=== PATIENT | female | born 1955 | race Caucasian/White ===

== ENCOUNTER → 2017-09-06 | Outpatient (CLI) | payer BC ==
--- NOTE | 2017-09-11 13:32 | MM ---
Reason for exam: screening (asymptomatic). History: Patient is postmenopausal and is nulliparous. Physical Findings: A clinical breast exam by your physician is recommended on an annual basis and results should be correlated with mammographic findings. MG Screening Mammo w CAD Bilateral CC and MLO view(s) were taken. No prior studies available for comparison. There are scattered fibroglandular densities. Finding: There are typically benign coarse heterogeneous, grouped/clustered calcifications in the upper outer quadrant, middle position of the right breast 7cm from the nipple adjacent to vascular structure likely vascular calcifications. ASSESSMENT: Incomplete: need additional imaging evaluation, BI-RAD 0 RECOMMENDATION: Special view mammogram of the right breast. [facility] will attempt to contact patient to return for supplemental views.
== END | disposition home or self-care (01) ==
LOC: RADMAMWWP 13:58
PROVIDERS: ATTEND Family Medicine
DX: Z12.31 Encounter for screening mammogram for malignant neoplasm of breast (principal)
CPT/HCPCS: 77067

== ENCOUNTER → 2017-09-20 | Outpatient (CLI) | payer BC ==
--- NOTE | 2017-09-20 11:45 | MM ---
Reason for exam: additional evaluation requested from abnormal screening. Last mammogram was performed less than 1 month ago. History: Patient is postmenopausal and is nulliparous. Physical Findings: Nurse did not find any significant physical abnormalities on exam. MG Work Up Mamm w CAD RT CC and MLO view(s) were taken of the right breast. Prior study comparison: September 06, 2017, bilateral MG screening mammo w CAD. There are scattered fibroglandular densities. Finding: There are coarse heterogeneous, grouped/clustered calcifications in the 10 o'clock middle position of the right breast 8cm from the nipple associated with soft tissue. These results were verbally communicated with the patient and result sheet given to the patient on 09/20/17. ASSESSMENT: Suspicious, BI-RAD 4 RECOMMENDATION: Surgical consultation and stereotactic core biopsy of the right breast. Called Dr. Pedroza with mammographic findings and has scheduled an appointment for the patient for 09/27/17 at 10:00 with [facility]) PRELIMINARY REPORT CALLED AND FAXED TO DR. PEDROZA ON 09/20/17.
== END | disposition home or self-care (01) ==
LOC: RADMAMWWP 08:50
PROVIDERS: ATTEND Family Medicine
DX: R92.8 Other abnormal and inconclusive findings on diagnostic imaging of breast (principal)
CPT/HCPCS: 77065

== ENCOUNTER 2017-12-06 13:16 | Inpatient (IN) | payer BC ==
[2017-12-06] MEDS ORDERED: ONDANSETRON 4 MG/2 ML VIAL IVP STA (13:29)
[2017-12-06] MEDS ORDERED: SODIUM CHLORIDE 0.9% 2,000 ML IV ONE (13:30)
--- NOTE | 2017-12-06 13:37 | ED ---
General Adult HPI - General Chief complaint: Nausea/Vomiting/Diarrhea Stated complaint: vomiting,low blood pressure Time Seen by Provider: 12/06/17 13:20 Source: patient, RN notes reviewed Mode of arrival: ambulatory Limitations: no limitations - History of Present Illness Initial comments: This is a 62-year-old female presents emergency Department complaining of nausea vomiting diarrhea over the last 3 days. Patient states she's in no pain. Patient denies any abdominal pain. Patient denies any chest pain difficulty breathing shortest breath per patient denies any recent antibiotic use. Patient states she took some Imodium yesterday her last bout of diarrhea was yesterday afternoon. Patient denies any fever chills. Patient denies any lightheadedness or dizziness patient states she is just overall extremely weak. Patient states she still nauseated this time. Patient denies any headache patient with any numbness weakness. - Related Data Home Medications Medication Instructions Recorded Confirmed Aspirin [Children's Aspirin] 81 mg PO DAILY 11/28/17 12/06/17 Gabapentin [Neurontin] 100 mg PO TID 11/28/17 12/06/17 Ibuprofen 200 mg PO TID 11/28/17 12/06/17 Loratadine 10 mg PO DAILY 11/28/17 12/06/17 Losartan [Cozaar] 50 mg PO DAILY 11/28/17 12/06/17 Multivit with Calcium,Iron,Min 1 tab PO DAILY 11/28/17 12/06/17 [Women's Multivitamin] Naproxen 500 mg PO BID 11/28/17 12/06/17 Omeprazole [PriLOSEC] 20 mg PO DAILY 11/28/17 12/06/17 metFORMIN HCL [Glucophage] 500 mg PO AC-SUPPER 11/28/17 12/06/17 Calcium Carbonate/Vitamin D3 1 tab PO DAILY 12/06/17 12/06/17 [Calcium 600-Vit D3 400 Caplet] Hydrochlorothiazide 12.5 mg PO DAILY 12/06/17 12/06/17 Allergies Allergy/AdvReac Type Severity Reaction Status Date / Time No Known Allergies Allergy Verified 12/06/17 13:56 Review of Systems ROS Statement: Those systems with pertinent positive or pertinent negative responses have been documented in the HPI. ROS Other: All systems not noted in ROS Statement are negative. Past Medical History Past Medical History: Diabetes Mellitus, GERD/Reflux, Hypertension History of Any Multi-Drug Resistant Organisms: None Reported Additional Past Surgical History / Comment(s): kidney surgery 30 yrs ago Past Anesthesia/Blood Transfusion Reactions: No Reported Reaction Past Psychological History: No Psychological Hx Reported Smoking Status: Never smoker Past Alcohol Use History: None Reported Past Drug Use History: None Reported - Past Family History Mother Family Medical History: Myocardial Infarction ([place]) Father Family Medical History: COPD General Exam - General Exam Comments Initial Comments: GENERAL: Patient is well-developed and well-nourished. Patient is nontoxic and well- hydrated and is in mild distress. ENT: Neck is soft and supple. No significant lymphadenopathy is noted. Oropharynx is clear. Moist mucous membranes. Neck has full range of motion without eliciting any pain. EYES: The sclera were anicteric and conjunctiva were pink and moist. Extraocular movements were intact and pupils were equal round and reactive to light. Eyelids were unremarkable. PULMONARY: Unlabored respirations. Good breath sounds bilaterally. No audible rales rhonchi or wheezing was noted. CARDIOVASCULAR: Patient is tachycardic at 105 bpm ABDOMEN: Soft and nontender with normal bowel sounds. No palpable organomegaly was noted. There is no palpable pulsatile mass. SKIN: Skin is clear with no lesions or rashes and otherwise unremarkable. NEUROLOGIC: Patient is alert and oriented x3. Cranial nerves II through XII are grossly intact. Motor and sensory are also intact. Normal speech, volume and content. Symmetrical smile. MUSCULOSKELETAL: Normal extremities with adequate strength and full range of motion. No lower extremity swelling or edema. No calf tenderness. LYMPHATICS: No significant lymphadenopathy is noted PSYCHIATRIC: Normal psychiatric evaluation. Limitations: no limitations Course Vital Signs 12/06/17 12/06/17 12/06/17 13:17 13:35 13:48 Temperature 97.8 F Pulse Rate 106 H 103 H 103 H Respiratory 20 22 22 Rate Blood Pressure 61/37 77/45 66/41 O2 Sat by Pulse 92 L 97 95 Oximetry 12/06/17 12/06/17 12/06/17 13:58 14:02 14:15 Temperature Pulse Rate 101 H 103 H 102 H Respiratory 20 20 20 Rate Blood Pressure 67/42 74/42 67/45 O2 Sat by Pulse 95 96 96 Oximetry 12/06/17 12/06/17 12/06/17 14:32 15:02 15:13 Temperature Pulse Rate 101 H 104 H 102 H Respiratory 22 20 Rate Blood Pressure 68/63 65/33 O2 Sat by Pulse 97 97 Oximetry 12/06/17 12/06/17 12/06/17 15:21 15:38 16:18 Temperature Pulse Rate 107 H 102 H 104 H Respiratory 20 24 Rate Blood Pressure 75/44 66/49 O2 Sat by Pulse 97 96 Oximetry 12/06/17 12/06/17 12/06/17 17:12 17:19 17:29 Temperature Pulse Rate 105 H 105 H 104 H Respiratory 24 24 23 Rate Blood Pressure 70/52 77/49 83/53 O2 Sat by Pulse 97 96 97 Oximetry 12/06/17 18:05 Temperature Pulse Rate 104 H Respiratory 22 Rate Blood Pressure 85/51 O2 Sat by Pulse 98 Oximetry Procedures - Sepsis Sepsis Focused Exam #1 Time Sepsis Criteria Met: 13:45 Sepsis Focused Exam Date: 12/06/17 Sepsis Focused Exam Time: 16:55 Sepsis Focused Exam Complete: Yes Vital Signs & RN Notes Reviewed: Yes Capillary Refill: > 2 Seconds: Fingers Peripheral Pulses: Weak: Radial (R), Radial (L) Skin Color: Normal for Patient Respiratory Exam: normal lung sounds Cardiovascular Exam: tachycardia (At 105 bpm) Medical Decision Making - Medical Decision Making EKG shows sinus tachycardia at 102 bpm OH interval 172 QRS is 86 QT interval 334 QTC is 435. Patient's EKG shows no ST segment elevation or depression. Patient's urine came back at 345 and appeared to be infected I started patient on antibiotics at this time and I diagnosed patient with sepsis at this time. I started the patient on Levophed because her pressure would not come up after I gave the patient for a half liters of fluid. I spoke with Dr. Holcomb and Dr. Subramanian before the patient was admitted I wrote admitting orders and placed the patient the patient in the ICU. - Lab Data Result diagrams: 12/08/17 04:30 12/08/17 12:32 Lab Results 12/06/17 12/06/17 12/06/17 Range/Units 13:30 13:30 13:30 WBC 20.5 H (3.8-10.6) k/uL RBC 4.24 (3.80-5.40) m/uL Hgb 11.7 (11.4-16.0) gm/dL Hct 35.8 (34.0-46.0) % MCV 84.5 (80.0-100.0) fL MCH 27.7 (25.0-35.0) pg MCHC 32.7 (31.0-37.0) g/dL RDW 13.2 (11.5-15.5) % Plt Count 69 L (150-450) k/uL Neutrophils % (Manual) 67 % Band Neutrophils % 23 % Lymphocytes % (Manual) 4 % Monocytes % (Manual) 3 % Metamyelocytes % 4 % Neutrophils # (Manual) 18.40 H (1.3-7.7) k/uL Lymphocytes # (Manual) 0.82 L (1.0-4.8) k/uL Monocytes # (Manual) 0.62 (0-1.0) k/uL Metamyelocytes # (Man) 0.82 H (0) k/uL Nucleated RBCs 0 (0-0) /100 WBC Manual Slide Review Performed Toxic Granulation Present Toxic Vacuolation Present Large Platelets Present RBC Morphology Normal Sodium 139 (137-145) mmol/L Potassium 3.7 (3.5-5.1) mmol/L Chloride 103 (98-107) mmol/L Carbon Dioxide 22 (22-30) mmol/L Anion Gap 14 mmol/L BUN 48 H (7-17) mg/dL Creatinine 4.10 H (0.52-1.04) mg/dL Est GFR (CKD-EPI)AfAm 13 (>60 ml/min/1.73 sqM) Est GFR (CKD-EPI)NonAf 11 (>60 ml/min/1.73 sqM) Glucose 127 H (74-99) mg/dL Estimated Ave Glu mg/dL Hemoglobin A1c (4.0-6.0) % Lactic Ac Sepsis Rflx Plasma Lactic Acid Joe (0.7-2.0) mmol/L Calcium 7.7 L (8.4-10.2) mg/dL Total Bilirubin 2.0 H (0.2-1.3) mg/dL AST 262 H (14-36) U/L ALT 182 H (9-52) U/L Alkaline Phosphatase 67 (38-126) U/L Troponin I 0.970 H* (0.000-0.034) ng/mL Total Protein 5.2 L (6.3-8.2) g/dL Albumin 2.8 L (3.5-5.0) g/dL Amylase 546 H* (30-110) U/L Lipase 23 (23-300) U/L Urine Color Urine Appearance (Clear) Urine pH (5.0-8.0) Ur Specific [place] (1.001-1.035) Urine Protein (Negative) Urine Glucose (UA) (Negative) Urine Ketones (Negative) Urine Blood (Negative) Urine Nitrite (Negative) Urine Bilirubin (Negative) Urine Urobilinogen (<2.0) mg/dL Ur Leukocyte Esterase (Negative) Urine RBC (0-5) /hpf Urine WBC (0-5) /hpf Urine WBC Clumps (None) /hpf Urine Bacteria (None) /hpf Urine Mucus (None) /hpf 12/06/17 12/06/17 12/06/17 Range/Units 13:30 13:30 14:14 WBC (3.8-10.6) k/uL RBC (3.80-5.40) m/uL Hgb (11.4-16.0) gm/dL Hct (34.0-46.0) % MCV (80.0-100.0) fL MCH (25.0-35.0) pg MCHC (31.0-37.0) g/dL RDW (11.5-15.5) % Plt Count (150-450) k/uL Neutrophils % (Manual) % Band Neutrophils % % Lymphocytes % (Manual) % Monocytes % (Manual) % Metamyelocytes % % Neutrophils # (Manual) (1.3-7.7) k/uL Lymphocytes # (Manual) (1.0-4.8) k/uL Monocytes # (Manual) (0-1.0) k/uL Metamyelocytes # (Man) (0) k/uL Nucleated RBCs (0-0) /100 WBC Manual Slide Review Toxic Granulation Toxic Vacuolation Large Platelets RBC Morphology Sodium (137-145) mmol/L Potassium (3.5-5.1) mmol/L Chloride (98-107) mmol/L Carbon Dioxide (22-30) mmol/L Anion Gap mmol/L BUN (7-17) mg/dL Creatinine (0.52-1.04) mg/dL Est GFR (CKD-EPI)AfAm (>60 ml/min/1.73 sqM) Est GFR (CKD-EPI)NonAf (>60 ml/min/1.73 sqM) Glucose (74-99) mg/dL Estimated Ave Glu mg/dL 151 Hemoglobin A1c 6.9 H (4.0-6.0) % Lactic Ac Sepsis Rflx Y Plasma Lactic Acid Joe 4.9 H* (0.7-2.0) mmol/L Calcium (8.4-10.2) mg/dL Total Bilirubin (0.2-1.3) mg/dL AST (14-36) U/L ALT (9-52) U/L Alkaline Phosphatase (38-126) U/L Troponin I (0.000-0.034) ng/mL Total Protein (6.3-8.2) g/dL Albumin (3.5-5.0) g/dL Amylase (30-110) U/L Lipase (23-300) U/L Urine Color Urine Appearance (Clear) Urine pH (5.0-8.0) Ur Specific [place] (1.001-1.035) Urine Protein (Negative) Urine Glucose (UA) (Negative) Urine Ketones (Negative) Urine Blood (Negative) Urine Nitrite (Negative) Urine Bilirubin (Negative) Urine Urobilinogen (<2.0) mg/dL Ur Leukocyte Esterase (Negative) Urine RBC (0-5) /hpf Urine WBC (0-5) /hpf Urine WBC Clumps (None) /hpf Urine Bacteria (None) /hpf Urine Mucus (None) /hpf 12/06/17 Range/Units 14:55 WBC (3.8-10.6) k/uL RBC (3.80-5.40) m/uL Hgb (11.4-16.0) gm/dL Hct (34.0-46.0) % MCV (80.0-100.0) fL MCH (25.0-35.0) pg MCHC (31.0-37.0) g/dL RDW (11.5-15.5) % Plt Count (150-450) k/uL Neutrophils % (Manual) % Band Neutrophils % % Lymphocytes % (Manual) % Monocytes % (Manual) % Metamyelocytes % % Neutrophils # (Manual) (1.3-7.7) k/uL Lymphocytes # (Manual) (1.0-4.8) k/uL Monocytes # (Manual) (0-1.0) k/uL Metamyelocytes # (Man) (0) k/uL Nucleated RBCs (0-0) /100 WBC Manual Slide Review Toxic Granulation Toxic Vacuolation Large Platelets RBC Morphology Sodium (137-145) mmol/L Potassium (3.5-5.1) mmol/L Chloride (98-107) mmol/L Carbon Dioxide (22-30) mmol/L Anion Gap mmol/L BUN (7-17) mg/dL Creatinine (0.52-1.04) mg/dL Est GFR (CKD-EPI)AfAm (>60 ml/min/1.73 sqM) Est GFR (CKD-EPI)NonAf (>60 ml/min/1.73 sqM) Glucose (74-99) mg/dL Estimated Ave Glu mg/dL Hemoglobin A1c (4.0-6.0) % Lactic Ac Sepsis Rflx Plasma Lactic Acid Joe (0.7-2.0) mmol/L Calcium (8.4-10.2) mg/dL Total Bilirubin (0.2-1.3) mg/dL AST (14-36) U/L ALT (9-52) U/L Alkaline Phosphatase (38-126) U/L Troponin I (0.000-0.034) ng/mL Total Protein (6.3-8.2) g/dL Albumin (3.5-5.0) g/dL Amylase (30-110) U/L Lipase (23-300) U/L Urine Color Red Urine Appearance Turbid H (Clear) Urine pH 6.5 (5.0-8.0) Ur Specific [place] 1.011 (1.001-1.035) Urine Protein 2+ H (Negative) Urine Glucose (UA) Negative (Negative) Urine Ketones Negative (Negative) Urine Blood Large H (Negative) Urine Nitrite Negative (Negative) Urine Bilirubin Negative (Negative) Urine Urobilinogen <2.0 (<2.0) mg/dL Ur Leukocyte Esterase Large H (Negative) Urine RBC >182 H (0-5) /hpf Urine WBC >182 H (0-5) /hpf Urine WBC Clumps Many H (None) /hpf Urine Bacteria Moderate H (None) /hpf Urine Mucus Many H (None) /hpf Critical Care Time Critical Care Time: Yes Total Critical Care Time: 50 Disposition Clinical Impression: Dehydration, Acute renal failure, Elevated troponin, Gastroenteritis, Sepsis, Calculus, kidney, Urinary tract infection Disposition: ADMITTED IP TO THIS HOSP Time of Disposition: 15:48
[2017-12-06 13:58] LABS: Albumin 2.8 g/dL (3.5-5.0); Calcium 7.7 mg/dL (8.4-10.2); Potassium 3.7 mmol/L (3.5-5.1); Total Protein 5.2 g/dL (6.3-8.2)
[2017-12-06] MEDS ORDERED: SODIUM CHLORIDE 0.9% 1,000 ML IV ONE ×4 (13:58→22:01)
[2017-12-06 13:59] LABS: HCT 35.8 % (34.0-46.0); HGB 11.7 gm/dL (11.4-16.0); MCH 27.7 pg (25.0-35.0); MCHC 32.7 g/dL (31.0-37.0); MCV 84.5 fL (80.0-100.0); Mean Platelet Volume 11.1; RBC 4.24 m/uL (3.80-5.40); RDW 13.2 % (11.5-15.5); WBC 20.5 k/uL (3.8-10.6)
[2017-12-06 14:19] LABS: Band Neutrophils % 23 %; Large Platelets Present; Lymphocytes # (M) 0.82 k/uL (1.0-4.8); Metamyelocytes # (M) 0.82 k/uL (0); Metamyelocytes % 4 %; Monocytes # (M) 0.62 k/uL (0-1.0); Neutrophils % (M) 67 %; Nucleated Red Blood Cells 0 /100 WBC (0-0); Total Cells Counted 200; Toxic Vacuolation Present
[2017-12-06 14:20] LABS: Platelet Count 69 k/uL (150-450); Toxic Granulation Present
[2017-12-06] MEDS ORDERED: IPRATROPIUM-ALBUTEROL 3 ML NEB INHALATION STA (15:00)
[2017-12-06] MEDS ORDERED: NOREPINEPHRINE 4 MG in SODIUM CHLORIDE 0.9% 250 ML IV ONE (15:10)
[2017-12-06 15:19] LABS: Appearance,Urine Turbid (Clear); Bacteria,Urine Moderate /hpf; Bilirubin,Urine Negative (Negative); Blood,Urine Large (Negative); Color,Urine Red; Glucose,Urine (UA) Negative (Negative); Ketones,Urine Negative (Negative); Leukocyte Esterase,Urine Large (Negative); Mucus,Urine Many /hpf; Nitrite,Urine Negative (Negative); PH, Urine 6.5 (5.0-8.0); Protein,Urine 2+ (Negative); RBC,Urine >182 /hpf (0-5); Specific Gravity,Urine 1.011 (1.001-1.035); Urobilinogen,Urine <2.0 mg/dL (<2.0); WBC,Urine >182 /hpf (0-5)
[2017-12-06] MEDS ORDERED: cefTRIAXone 2,000 MG in SODIUM CHLORIDE 0.9% 100 ML IVPB STA (15:45)
[2017-12-06] MEDS ORDERED: cefTRIAXone IN SWFI 2,000 MG/20 ML SYRINGE IVP STA (15:47)
[2017-12-06] MEDS ORDERED: NITROGLYCERIN SL TABS 0.4 MG TAB SUBLINGUAL PRN (16:07)
--- NOTE | 2017-12-06 16:22 | CT ---
EXAMINATION TYPE: CT abdomen pelvis wo con DATE OF EXAM: 12/06/2017 COMPARISON: None HISTORY: Nausea and vomiting x [address] DLP: 1172 mGycm Automated exposure control for dose reduction was used. TECHNIQUE: Helical acquisition of images from the lung bases through the pelvis. FINDINGS: Lack of contrast could compromise sensitivity. LUNG BASES: Basilar dependent atelectatic changes are present. AORTA: No significant abnormality is appreciated. LIVER/GB: The liver shows low attenuation compatible with hepatic steatosis and liver is enlarged. Th ere are gallstones present near the neck without wall thickening. PANCREAS: No significant abnormality is seen. SPLEEN: No significant abnormality is seen. ADRENALS: No significant abnormality is seen. KIDNEYS: Nonobstructive right renal calculus is present at a posterior calyx of the mid pole measurin g 19 x 8 x 21 mm. Proximal left ureteral calculus is present measuring approximately 3 to 4 mm in siz e, some periureteral inflammatory changes present, there may be some mild hydronephrosis. REPRODUCTIVE ORGANS: No significant abnormality is seen. URINARY BLADDER: No significant abnormality is seen. BOWEL: No significant abnormality is seen. FREE AIR: No Free Air is visible. ASCITES: None visible. PELVIC ADENOPATHY: None visualized. RETROPERITONEAL ADENOPATHY: No Retroperitoneal Adenopathy visible. OSSEOUS STRUCTURES: Degenerative disc changes are noted in the visualized spine. There is a spinal c urvature. IMPRESSION: PROXIMAL LEFT URETERAL CALCULUS. RIGHT-SIDED NEPHROLITHIASIS. CHOLELITHIASIS WITHOUT EVIDENT CHOLECYS TITIS. HEPATIC STEATOSIS. NONCONTRAST EXAM.
[2017-12-06] MEDS ORDERED: NALOXONE 0.4 MG/ML 1 ML VIAL IV PRN (16:48)
[2017-12-06] MEDS ORDERED: SODIUM CHLORIDE 0.9% 500 ML IV ONE (17:07)
[2017-12-06 17:09] LABS: ABG Base Excess -7.6 mmol/L; ABG HCO3 20 mmol/L (21-25); ABG Oxygen Saturation 94.2 % (94-97); ABG PCO2 47 mmHg (35-45); ABG PH 7.24 (7.35-7.45); ABG PO2 80 mmHg (83-108); ABG TCO2 21 mmol/L (19-24)
[2017-12-06] MEDS ORDERED: HYDROCORTISONE SUCCINATE 100 MG/2 ML VIAL IV STA (17:11)
--- NOTE | 2017-12-06 17:40 | P.HPIM ---
History of Present Illness H&P Date: 12/06/17 Keli Urban is a 62-year-old female who presented to [facility] emergency room with multiple complaints including nausea, vomiting, diarrhea, and bilateral flank and back pain, she was evaluated in the emergency room by Dr. Kaur and was found to have sepsis with severe hypotension and evidence of severe dehydration, patient had evidence of urinary tract infection , and evidence of left sided kidney stone with hydronephrosis, she was started on IV fluid, IV pressors, and IV antibiotics, she will be admitted to intensive care unit consultation for pulmonary critical care Dr. Subramanian was initiated in the emergency room. Also consultation for infectious disease and urology was initiated. Patient states that she had history of kidney stones she had right sided lithotripsy 35 years ago. Patient was seen and examined in emergency room on 12/06/2017 at 5:30 PM she is alert responsive and able to finish phrases due to shortness of breath she denies any chest pain, no nausea or vomiting at this time, she has pain in the bilateral flank area, otherwise she denies any complaints, she states that she started feeling sick about 3 days ago she was having vomiting and diarrhea she took pills to stop diarrhea at home, she denies knowing that she had a urinary tract infection, she denies taking any antibiotic recently. Past Medical History Past Medical History: Diabetes Mellitus, GERD/Reflux, Hypertension History of Any Multi-Drug Resistant Organisms: None Reported Additional Past Surgical History / Comment(s): kidney surgery 30 yrs ago Past Anesthesia/Blood Transfusion Reactions: No Reported Reaction Past Psychological History: No Psychological Hx Reported Smoking Status: Never smoker Past Alcohol Use History: None Reported Past Drug Use History: None Reported - Past Family History Mother Family Medical History: Myocardial Infarction ([place]) Medications and Allergies Home Medications Medication Instructions Recorded Confirmed Type Aspirin [Children's Aspirin] 81 mg PO DAILY 11/28/17 12/06/17 History Gabapentin [Neurontin] 100 mg PO TID 11/28/17 12/06/17 History Ibuprofen 200 mg PO TID 11/28/17 12/06/17 History Loratadine 10 mg PO DAILY 11/28/17 12/06/17 History Losartan [Cozaar] 50 mg PO DAILY 11/28/17 12/06/17 History Multivit with Calcium,Iron,Min 1 tab PO DAILY 11/28/17 12/06/17 History [Women's Multivitamin] Naproxen 500 mg PO BID 11/28/17 12/06/17 History Omeprazole [PriLOSEC] 20 mg PO DAILY 11/28/17 12/06/17 History metFORMIN HCL [Glucophage] 500 mg PO AC-SUPPER 11/28/17 12/06/17 History Calcium Carbonate/Vitamin D3 1 tab PO DAILY 12/06/17 12/06/17 History [Calcium 600-Vit D3 400 Caplet] Hydrochlorothiazide 12.5 mg PO DAILY 12/06/17 12/06/17 History Allergies Allergy/AdvReac Type Severity Reaction Status Date / Time No Known Allergies Allergy Verified 12/06/17 13:56 Physical Exam Vitals: Vital Signs Temp Pulse Resp BP Pulse Ox 12/06/17 17:19 105 H 24 77/49 96 12/06/17 17:12 105 H 24 70/52 97 12/06/17 16:18 104 H 24 66/49 96 12/06/17 15:38 102 H 20 75/44 97 12/06/17 15:21 107 H 12/06/17 15:13 102 H 12/06/17 15:02 104 H 20 65/33 97 12/06/17 14:32 101 H 22 68/63 97 12/06/17 14:15 102 H 20 67/45 96 12/06/17 14:02 103 H 20 74/42 96 12/06/17 13:58 101 H 20 67/42 95 12/06/17 13:48 103 H 22 66/41 95 12/06/17 13:35 103 H 22 77/45 97 12/06/17 13:17 97.8 F 106 H 20 61/37 92 L Intake and Output 12/06/17 12/06/17 12/06/17 06:59 14:59 22:59 Intake Total 49.062 Output Total 30 Balance 19.062 Intake: Intake, IV Titration 49.062 Amount Norepinephrine 4 mg In 49.062 Sodium Chloride 0.9% 250 ml @ Titrate IV .Q0M ONE Rx#:[id number] Output: Urine 30 Straight 30 Other: Weight 111.584 kg In general patient is alert responsive in mild respiratory distress HEENT head normocephalic and atraumatic Neck is supple no JVD no goiter no lymphadenopathy no carotid bruit Chest exam reveals a few scattered rhonchi bilaterally no wheezing Cardiac exam reveals regular heart sounds S1 and S2 no gallops no murmurs Abdomen is soft nontender no organomegaly with normal bowel sounds Extremity exam reveals no edema no cyanosis or clubbing Results CBC & Chem 7: 12/06/17 13:30 12/06/17 13:30 Labs: Abnormal Lab Results - Last 24 Hours (Table) 12/06/17 12/06/17 12/06/17 Range/Units 13:30 13:30 13:30 WBC 20.5 H (3.8-10.6) k/uL Plt Count 69 L (150-450) k/uL Neutrophils # (Manual) 18.40 H (1.3-7.7) k/uL Lymphocytes # (Manual) 0.82 L (1.0-4.8) k/uL Metamyelocytes # (Man) 0.82 H (0) k/uL ABG pH (7.35-7.45) ABG pCO2 (35-45) mmHg ABG pO2 (83-108) mmHg ABG HCO3 (21-25) mmol/L BUN 48 H (7-17) mg/dL Creatinine 4.10 H (0.52-1.04) mg/dL Glucose 127 H (74-99) mg/dL Plasma Lactic Acid Joe (0.7-2.0) mmol/L Calcium 7.7 L (8.4-10.2) mg/dL Total Bilirubin 2.0 H (0.2-1.3) mg/dL AST 262 H (14-36) U/L ALT 182 H (9-52) U/L Troponin I 0.970 H* (0.000-0.034) ng/mL Total Protein 5.2 L (6.3-8.2) g/dL Albumin 2.8 L (3.5-5.0) g/dL Amylase 546 H* (30-110) U/L Urine Appearance (Clear) Urine Protein (Negative) Urine Blood (Negative) Ur Leukocyte Esterase (Negative) Urine RBC (0-5) /hpf Urine WBC (0-5) /hpf Urine WBC Clumps (None) /hpf Urine Bacteria (None) /hpf Urine Mucus (None) /hpf 12/06/17 12/06/1712/06/18 Range/Units 13:30 14:55 17:05 WBC (3.8-10.6) k/uL Plt Count (150-450) k/uL Neutrophils # (Manual) (1.3-7.7) k/uL Lymphocytes # (Manual) (1.0-4.8) k/uL Metamyelocytes # (Man) (0) k/uL ABG pH 7.24 L (7.35-7.45) ABG pCO2 47 H (35-45) mmHg ABG pO2 80 L (83-108) mmHg ABG HCO3 20 L (21-25) mmol/L BUN (7-17) mg/dL Creatinine (0.52-1.04) mg/dL Glucose (74-99) mg/dL Plasma Lactic Acid Joe 4.9 H* (0.7-2.0) mmol/L Calcium (8.4-10.2) mg/dL Total Bilirubin (0.2-1.3) mg/dL AST (14-36) U/L ALT (9-52) U/L Troponin I (0.000-0.034) ng/mL Total Protein (6.3-8.2) g/dL Albumin (3.5-5.0) g/dL Amylase (30-110) U/L Urine Appearance Turbid H (Clear) Urine Protein 2+ H (Negative) Urine Blood Large H (Negative) Ur Leukocyte Esterase Large H (Negative) Urine RBC >182 H (0-5) /hpf Urine WBC >182 H (0-5) /hpf Urine WBC Clumps Many H (None) /hpf Urine Bacteria Moderate H (None) /hpf Urine Mucus Many H (None) /hpf Assessment and Plan Plan: #1 sepsis with septic shock #2 urinary tract infection #3 elevated liver enzymes likely related to shock liver due to hypotension #4 slight elevation in troponin Will consult cardiology, patient denies any chest pain #5 slight elevation in amylase, again likely due to hypotension doubt acute pancreatitis #6 left urethral calculus with left sided hydronephrosis, urology consultation requested #7 severe dehydration #8 acute renal failure, likely related to severe dehydration, possible obstructive uropathy component #9 lactic acidosis, lactic acid on presentation 4.9 At this time plan is to continue with IV fluid resuscitation continue with IV antibiotic patient was started on Rocephin IV emergency room Continue was sleeve affect for pressure support Patient will be admitted to intensive care unit Consultation for pulmonary critical care, infectious disease, cardiology, and urology were initiated CODE STATUS is full code per patient and request
[2017-12-06] MEDS ORDERED: NITROGLYCERIN OINT 1 INCH/GM PACKET TOPICAL SCH (18:00)
--- NOTE | 2017-12-06 18:07 | P.GSCN ---
History of Present Illness Consult date: 12/06/17 Reason for Consult: Left Ureteral Calculus, Sepsis Requesting physician: Juliet Holcomb History of present illness: The patient is a 62-year-old woman who underwent surgical removal of right sided kidney stones approximately 35 years ago. She now presents with a four- day history of left flank pain, associated with nausea, vomiting, and weakness. A computed tomography scan shows a 3-4 mm left proximal ureteral calculus with left perinephric stranding and possible left hydronephrosis. Review of Systems - Constitutional Reports weakness - Gastrointestinal Reports nausea, Reports vomiting - Genitourinary Genitourinary: Reports flank pain, Reports kidney stones Past Medical History Past Medical History: Diabetes Mellitus, GERD/Reflux, Hypertension History of Any Multi-Drug Resistant Organisms: None Reported Additional Past Surgical History / Comment(s): kidney surgery 30 yrs ago Past Anesthesia/Blood Transfusion Reactions: No Reported Reaction Past Psychological History: No Psychological Hx Reported Smoking Status: Never smoker Past Alcohol Use History: None Reported Past Drug Use History: None Reported - Past Family History Mother Family Medical History: Myocardial Infarction ([place]) Medications and Allergies Home Medications Medication Instructions Recorded Confirmed Type Aspirin [Children's Aspirin] 81 mg PO DAILY 11/28/17 12/06/17 History Gabapentin [Neurontin] 100 mg PO TID 11/28/17 12/06/17 History Ibuprofen 200 mg PO TID 11/28/17 12/06/17 History Loratadine 10 mg PO DAILY 11/28/17 12/06/17 History Losartan [Cozaar] 50 mg PO DAILY 11/28/17 12/06/17 History Multivit with Calcium,Iron,Min 1 tab PO DAILY 11/28/17 12/06/17 History [Women's Multivitamin] Naproxen 500 mg PO BID 11/28/17 12/06/17 History Omeprazole [PriLOSEC] 20 mg PO DAILY 11/28/17 12/06/17 History metFORMIN HCL [Glucophage] 500 mg PO AC-SUPPER 11/28/17 12/06/17 History Calcium Carbonate/Vitamin D3 1 tab PO DAILY 12/06/17 12/06/17 History [Calcium 600-Vit D3 400 Caplet] Hydrochlorothiazide 12.5 mg PO DAILY 12/06/17 12/06/17 History Allergies Allergy/AdvReac Type Severity Reaction Status Date / Time No Known Allergies Allergy Verified 12/06/17 13:56 Surgical - Exam Vital Signs Temp Pulse Resp BP Pulse Ox 97.8 F 106 H 20 61/37 92 L 12/06/17 13:17 12/06/17 13:17 12/06/17 13:17 12/06/17 13:17 12/06/17 13:17 - General well developed, well nourished, moderate distress - Neck no masses, trachea midline - Respiratory other (The patient is tachypneic.) - Abdomen Abdomen: soft, tender - Psychiatric oriented to time, oriented to person, oriented to place, speech is normal, memory intact Results - Labs 12/06/17 13:30 12/06/17 13:30 Abnormal Lab Results - Last 24 Hours (Table) 12/06/17 12/06/17 12/06/17 Range/Units 13:30 13:30 13:30 WBC 20.5 H (3.8-10.6) k/uL Plt Count 69 L (150-450) k/uL Neutrophils # (Manual) 18.40 H (1.3-7.7) k/uL Lymphocytes # (Manual) 0.82 L (1.0-4.8) k/uL Metamyelocytes # (Man) 0.82 H (0) k/uL ABG pH (7.35-7.45) ABG pCO2 (35-45) mmHg ABG pO2 (83-108) mmHg ABG HCO3 (21-25) mmol/L BUN 48 H (7-17) mg/dL Creatinine 4.10 H (0.52-1.04) mg/dL Glucose 127 H (74-99) mg/dL Plasma Lactic Acid Joe (0.7-2.0) mmol/L Calcium 7.7 L (8.4-10.2) mg/dL Total Bilirubin 2.0 H (0.2-1.3) mg/dL AST 262 H (14-36) U/L ALT 182 H (9-52) U/L Troponin I 0.970 H* (0.000-0.034) ng/mL Total Protein 5.2 L (6.3-8.2) g/dL Albumin 2.8 L (3.5-5.0) g/dL Amylase 546 H* (30-110) U/L Urine Appearance (Clear) Urine Protein (Negative) Urine Blood (Negative) Ur Leukocyte Esterase (Negative) Urine RBC (0-5) /hpf Urine WBC (0-5) /hpf Urine WBC Clumps (None) /hpf Urine Bacteria (None) /hpf Urine Mucus (None) /hpf 12/06/17 12/06/17 12/06/17 Range/Units 13:30 14:55 17:05 WBC (3.8-10.6) k/uL Plt Count (150-450) k/uL Neutrophils # (Manual) (1.3-7.7) k/uL Lymphocytes # (Manual) (1.0-4.8) k/uL Metamyelocytes # (Man) (0) k/uL ABG pH 7.24 L (7.35-7.45) ABG pCO2 47 H (35-45) mmHg ABG pO2 80 L (83-108) mmHg ABG HCO3 20 L (21-25) mmol/L BUN (7-17) mg/dL Creatinine (0.52-1.04) mg/dL Glucose (74-99) mg/dL Plasma Lactic Acid Joe 4.9 H* (0.7-2.0) mmol/L Calcium (8.4-10.2) mg/dL Total Bilirubin (0.2-1.3) mg/dL AST (14-36) U/L ALT (9-52) U/L Troponin I (0.000-0.034) ng/mL Total Protein (6.3-8.2) g/dL Albumin (3.5-5.0) g/dL Amylase (30-110) U/L Urine Appearance Turbid H (Clear) Urine Protein 2+ H (Negative) Urine Blood Large H (Negative) Ur Leukocyte Esterase Large H (Negative) Urine RBC >182 H (0-5) /hpf Urine WBC >182 H (0-5) /hpf Urine WBC Clumps Many H (None) /hpf Urine Bacteria Moderate H (None) /hpf Urine Mucus Many H (None) /hpf 12/06/17 Range/Units 17:30 WBC (3.8-10.6) k/uL Plt Count (150-450) k/uL Neutrophils # (Manual) (1.3-7.7) k/uL Lymphocytes # (Manual) (1.0-4.8) k/uL Metamyelocytes # (Man) (0) k/uL ABG pH (7.35-7.45) ABG pCO2 (35-45) mmHg ABG pO2 (83-108) mmHg ABG HCO3 (21-25) mmol/L BUN (7-17) mg/dL Creatinine (0.52-1.04) mg/dL Glucose (74-99) mg/dL Plasma Lactic Acid Joe 3.3 H* (0.7-2.0) mmol/L Calcium (8.4-10.2) mg/dL Total Bilirubin (0.2-1.3) mg/dL AST (14-36) U/L ALT (9-52) U/L Troponin I (0.000-0.034) ng/mL Total Protein (6.3-8.2) g/dL Albumin (3.5-5.0) g/dL Amylase (30-110) U/L Urine Appearance (Clear) Urine Protein (Negative) Urine Blood (Negative) Ur Leukocyte Esterase (Negative) Urine RBC (0-5) /hpf Urine WBC (0-5) /hpf Urine WBC Clumps (None) /hpf Urine Bacteria (None) /hpf Urine Mucus (None) /hpf Diabetes panel 12/06/17 Range/Units 13:30 Sodium 139 (137-145) mmol/L Potassium 3.7 (3.5-5.1) mmol/L Chloride 103 (98-107) mmol/L Carbon Dioxide 22 (22-30) mmol/L BUN 48 H (7-17) mg/dL Creatinine 4.10 H (0.52-1.04) mg/dL Glucose 127 H (74-99) mg/dL Calcium 7.7 L (8.4-10.2) mg/dL AST 262 H (14-36) U/L ALT 182 H (9-52) U/L Alkaline Phosphatase 67 (38-126) U/L Total Protein 5.2 L (6.3-8.2) g/dL Albumin 2.8 L (3.5-5.0) g/dL Calcium panel 12/06/17 Range/Units 13:30 Calcium 7.7 L (8.4-10.2) mg/dL Albumin 2.8 L (3.5-5.0) g/dL Pituitary panel 12/06/17 Range/Units 13:30 Sodium 139 (137-145) mmol/L Potassium 3.7 (3.5-5.1) mmol/L Chloride 103 (98-107) mmol/L Carbon Dioxide 22 (22-30) mmol/L BUN 48 H (7-17) mg/dL Creatinine 4.10 H (0.52-1.04) mg/dL Glucose 127 H (74-99) mg/dL Calcium 7.7 L (8.4-10.2) mg/dL Adrenal panel 12/06/17 Range/Units 13:30 Sodium 139 (137-145) mmol/L Potassium 3.7 (3.5-5.1) mmol/L Chloride 103 (98-107) mmol/L Carbon Dioxide 22 (22-30) mmol/L BUN 48 H (7-17) mg/dL Creatinine 4.10 H (0.52-1.04) mg/dL Glucose 127 H (74-99) mg/dL Calcium 7.7 L (8.4-10.2) mg/dL Total Bilirubin 2.0 H (0.2-1.3) mg/dL AST 262 H (14-36) U/L ALT 182 H (9-52) U/L Alkaline Phosphatase 67 (38-126) U/L Total Protein 5.2 L (6.3-8.2) g/dL Albumin 2.8 L (3.5-5.0) g/dL - Imaging CT scan - abdomen: report reviewed, image reviewed Assessment and Plan (1) Calculus of ureter Current Visit: Yes Status: Acute Code(s): N20.1 - CALCULUS OF URETER SNOMED Code(s): 41318710 (2) Acute pyelonephritis Current Visit: Yes Status: Acute Code(s): N10 - ACUTE PYELONEPHRITIS SNOMED Code(s): 50201926 Plan: Urinalysis is suggestive of infection, and she appears to have sepsis of urinary origin. She is oliguric, and laboratory studies show renal failure likely due to ATN. Although the computed tomography scan shows only minimal left hydronephrosis, there is evidence of perinephric stranding and I believe she would benefit from placement of a left ureteral stent. I discussed this with the patient, including the rationale and potential risks which include anesthesia and ureteral injury. This was also discussed with Dr. Subramanian. I intend to perform this procedure later this evening. Time with Patient: Greater than 30
--- NOTE | 2017-12-06 18:08 | P.CNPUL ---
History of Present Illness Consult date: 12/06/17 Chief complaint: Dehydration, nausea and vomiting and UTI and sepsis History of present illness: T2-year-[age] morbidly obese female patient presented to the emergency department because of nausea vomiting diarrhea and left flank pain. The patient was extremely dehydrated. She was hypotensive with initial systolic blood pressure in the 60s. Her blood work was completely abnormal with an acute kidney injury in the creatinine of 4.1 and the patient had a anion gap metabolic acidosis with a bicarb of 22 and anion gap of 14 and Actiq acid was at 4.9. The patient' s white cell count was at 20.5. After receiving 4 L of IV fluids the patient remained hypotensive. The patient started on pressors initially at 5 mics and currently she is up to 30 mics of norepinephrine infusion at sonic through a peripheral line. A triple lumen catheter was inserted immediately. A blood gases obtained that showed a pH of 7.24 with a pCO2 of 47 and pO2 of 80. The patient is still awake and alert. She is a bit uncomfortable. Unable to lay down flat. Chest x-ray post-line insertion shows adequate expansion of both lungs and there is no evidence of any pneumonia. The triple-lumen catheter is in good location. The patient was given a dose of Rocephin 2 g IV in the emergency department. Stewart catheter was inserted. Not a whole lot of urine output is being produced this point in time. CAT scan of the abdomen was done and the patient has a proximal left ureteral calculus. There is also a right- sided nephrolithiasis. There is cholelithiasis without evidence of cholecystitis. Patient has a 19 x 8 x 21 mm stone in the right renal pelvis which is nonobstructive. Another 3-4 mm stone in the proximal left ureter. Discussed the case with Dr. Emil Green from urology and the patient be taken to the operating room for an immediate double-J stent insertion in the left. Review of Systems Constitutional: Reports fatigue, Reports lethargy, Reports poor appetite, Reports weakness, Reports weight gain Eyes: denies blurred vision, denies bulging eye, denies decreased vision Ears: deny: decreased hearing, ear discharge, earache, tinnitus Cardiovascular: Reports decreased exercise tolerance, Reports dyspnea on exertion, Reports shortness of breath Respiratory: Reports dyspnea Gastrointestinal: Reports diarrhea, Reports loss of appetite, Reports nausea, Reports vomiting Genitourinary: Reports kidney stones Menstruation: Reports as per HPI Musculoskeletal: Reports as per HPI Musculoskeletal: absent: ankle pain, ankle stiffness, ankle swelling Integumentary: Denies pruritus, Denies rash Neurological: Reports as per HPI Psychiatric: Denies anxiety, Denies depression Endocrine: Denies fatigue, Denies weight change Hematologic/Lymphatic: Reports as per HPI Allergic/Immunologic: Reports as per HPI Past Medical History Past Medical History: Diabetes Mellitus, GERD/Reflux, Hypertension Additional Past Medical History / Comment(s): Obesity History of Any Multi-Drug Resistant Organisms: None Reported Additional Past Surgical History / Comment(s): kidney surgery 30 yrs ago Past Anesthesia/Blood Transfusion Reactions: No Reported Reaction Past Psychological History: No Psychological Hx Reported Smoking Status: Never smoker Past Alcohol Use History: None Reported Past Drug Use History: None Reported - Past Family History Mother Family Medical History: Myocardial Infarction ([place]) Medications and Allergies Home Medications Medication Instructions Recorded Confirmed Type Aspirin [Children's Aspirin] 81 mg PO DAILY 11/28/17 12/06/17 History Gabapentin [Neurontin] 100 mg PO TID 11/28/17 12/06/17 History Ibuprofen 200 mg PO TID 11/28/17 12/06/17 History Loratadine 10 mg PO DAILY 11/28/17 12/06/17 History Losartan [Cozaar] 50 mg PO DAILY 11/28/17 12/06/17 History Multivit with Calcium,Iron,Min 1 tab PO DAILY 11/28/17 12/06/17 History [Women's Multivitamin] Naproxen 500 mg PO BID 11/28/17 12/06/17 History Omeprazole [PriLOSEC] 20 mg PO DAILY 11/28/17 12/06/17 History metFORMIN HCL [Glucophage] 500 mg PO AC-SUPPER 11/28/17 12/06/17 History Calcium Carbonate/Vitamin D3 1 tab PO DAILY 12/06/17 12/06/17 History [Calcium 600-Vit D3 400 Caplet] Hydrochlorothiazide 12.5 mg PO DAILY 12/06/17 12/06/17 History Allergies Allergy/AdvReac Type Severity Reaction Status Date / Time No Known Allergies Allergy Verified 12/06/17 13:56 Physical Exam Vitals: Vital Signs Temp Pulse Resp BP Pulse Ox 12/06/17 17:29 104 H 23 83/53 97 12/06/17 17:19 105 H 24 77/49 96 12/06/17 17:12 105 H 24 70/52 97 12/06/17 16:18 104 H 24 66/49 96 12/06/17 15:38 102 H 20 75/44 97 12/06/17 15:21 107 H 12/06/17 15:13 102 H 12/06/17 15:02 104 H 20 65/33 97 12/06/17 14:32 101 H 22 68/63 97 12/06/17 14:15 102 H 20 67/45 96 12/06/17 14:02 103 H 20 74/42 96 12/06/17 13:58 101 H 20 67/42 95 12/06/17 13:48 103 H 22 66/41 95 12/06/17 13:35 103 H 22 77/45 97 12/06/17 13:17 97.8 F 106 H 20 61/37 92 L Intake and Output 12/06/17 12/06/17 12/06/17 06:59 14:59 22:59 Intake Total 49.062 Output Total 30 Balance 19.062 Intake: Intake, IV Titration 49.062 Amount Norepinephrine 4 mg In 49.062 Sodium Chloride 0.9% 250 ml @ Titrate IV .Q0M ONE Rx#:[id number] Output: Urine 30 Straight 30 Other: Weight 111.584 kg Morbidly obese, calm comfortable not in acute distress, a bit apprehensive and anxious Head exam was generally normal. There was no scleral icterus or corneal arcus. Mucous membranes were moist. Neck was supple and without jugular venous distension, thyromegaly, or carotid bruits. Carotids were easily palpable bilaterally. There was no adenopathy. The patient has a left IJ triple-lumen catheter in place. The patient has significant crowding of the posterior oropharynx with a Mallampati class IV Lungs sounds are diminished in lung bases bilaterally otherwise clear and breath sounds equal and symmetrical Cardiac exam revealed the PMI to be normally situated and sized. The rhythm was regular and no extrasystoles were noted during several minutes of auscultation. The first and second heart sounds were normal and physiologic splitting of the second heart sound was noted. There were no murmurs, rubs, clicks, or gallops. Abdominal exam revealed normal bowel sounds. The abdomen was soft, non-tender, and without masses, organomegaly, or appreciable enlargement of the abdominal aorta. The patient has some minor tenderness along the left CVA angle. Examination of the extremities revealed easily palpable radial, femoral and pedal pulses. There was no cyanosis, clubbing or edema. Examination of the skin revealed no evidence of significant rashes, suspicious appearing nevi or other concerning lesions. Neurologically the patient is awake and alert and there is no focal neurological deficit this point. Results - Laboratory Findings CBC and BMP: 12/06/17 13:30 12/06/17 13:30 ABG ABG pH 7.24 (7.35-7.45) L 12/06/17 17:05 ABG pCO2 47 mmHg (35-45) H 12/06/17 17:05 ABG pO2 80 mmHg (83-108) L 12/06/17 17:05 ABG O2 Saturation 94.2 % (94-97) 12/06/17 17:05 Abnormal lab findings: Abnormal Labs 12/06/17 12/06/17 12/06/17 13:30 13:30 13:30 WBC 20.5 H Plt Count 69 L Neutrophils # (Manual) 18.40 H Lymphocytes # (Manual) 0.82 L Metamyelocytes # (Man) 0.82 H ABG pH ABG pCO2 ABG pO2 ABG HCO3 BUN 48 H Creatinine 4.10 H Glucose 127 H Plasma Lactic Acid Joe Calcium 7.7 L Total Bilirubin 2.0 H AST 262 H ALT 182 H Troponin I 0.970 H* Total Protein 5.2 L Albumin 2.8 L Amylase 546 H* Urine Appearance Urine Protein Urine Blood Ur Leukocyte Esterase Urine RBC Urine WBC Urine WBC Clumps Urine Bacteria Urine Mucus 12/06/17 12/06/17 12/06/17 13:30 14:55 17:05 WBC Plt Count Neutrophils # (Manual) Lymphocytes # (Manual) Metamyelocytes # (Man) ABG pH 7.24 L ABG pCO2 47 H ABG pO2 80 L ABG HCO3 20 L BUN Creatinine Glucose Plasma Lactic Acid Joe 4.9 H* Calcium Total Bilirubin AST ALT Troponin I Total Protein Albumin Amylase Urine Appearance Turbid H Urine Protein 2+ H Urine Blood Large H Ur Leukocyte Esterase Large H Urine RBC >182 H Urine WBC >182 H Urine WBC Clumps Many H Urine Bacteria Moderate H Urine Mucus Many H 12/06/17 17:30 WBC Plt Count Neutrophils # (Manual) Lymphocytes # (Manual) Metamyelocytes # (Man) ABG pH ABG pCO2 ABG pO2 ABG HCO3 BUN Creatinine Glucose Plasma Lactic Acid Joe 3.3 H* Calcium Total Bilirubin AST ALT Troponin I Total Protein Albumin Amylase Urine Appearance Urine Protein Urine Blood Ur Leukocyte Esterase Urine RBC Urine WBC Urine WBC Clumps Urine Bacteria Urine Mucus - Diagnostic Findings Chest x-ray: image reviewed Assessment and Plan Plan: Assessment 1 shock predominantly of a septic in nature related to a complicated UTI with nephrolithiasis and possible left ureteral obstruction. Underlying hypovolemia is also contributing to this patient shock. This is probably a combination predominantly being septic. The patient was given 4 L of IV fluids and the patient has not responded and currently she is on high-dose pressors. 2 Acute urinary tract infection, complicated, associated with septic shock 3 nephrolithiasis with a proximal left ureteral stone causing ureteral obstruction in addition to nonobstructive calculus on the right kidney pelvis. 4 lactic acidosis 5 non-anion gap metabolic acidosis secondary to above 6 Leukocytosis secondary to above 7 acute kidney injury and the patient is completely not producing much of urine output at this point and I think she has suffered an ATN secondary to hypovolemia and sepsis. Obstruction/obstructive uropathy causing an aureus felt to be less likely knowing that the patient has a nonobstructive calculus on the right. Nephrology has been consulted 8 obesity 9 diabetes mellitus 10 history of hypertension Plan Put the patient on normal seen at the rate of 150 mL an hour. A triple lumen catheter was inserted and monitor CVP and obtain a SpO2 level. Cover this patient IV cefepime 1 g every 8 hours. Obtain urine cultures. Obtain blood cultures. Echocardiogram in a.m. Discussed the case with urology. The patient will be taken to the operating room for a double-J stent insertion on the left to relieve the obstruction caused by the ureteral stone. The patient will be moved to the intensive care unit. She will need aggressive fluid resuscitation and she will need pressors in the pressors currently running at 30 mics. We'll use vasopressin physiologic dose if needed. Check a baseline serum cortisol level. We'll monitor the acidosis and the blood electrolytes. May consider the addition of bicarbonate the patient developed severe acidosis. Consult nephrology. Consult urology. And subcu for DVT prophylaxis. IV Protonix. Put the rest of her outpatient medications to hold. We'll put the patient on insulin sliding scale coverage. Condition is critical. We'll continue to follow make further recommendations based on her progress. Time with Patient: Greater than 30
[2017-12-06] MEDS ORDERED: CEFEPIME 2 GM in SODIUM CHLORIDE 0.9% 50 ML IVPB SCH (18:15)
[2017-12-06] MEDS ORDERED: CEFEPIME 1 GM in SODIUM CHLORIDE 0.9% 50 ML IVPB SCH (18:15)
[2017-12-06] MEDS: NOREPINEPHRIN 16 MG-0.9%NS PMX 16 MG/250 ML ML IV SCH (18:34)
[2017-12-06] MEDS: PANTOPRAZOLE 40 MG/10 ML VIAL IVP SCH (18:35)
--- NOTE | 2017-12-06 18:40 | XR ---
EXAMINATION: XR chest 1V confirm line plcok DATE AND TIME: 12/06/2017 6:02 PM CLINICAL INDICATION: central line placement confirmation TECHNIQUE: AP upright portable COMPARISON: None. FINDINGS: Left IJ central line tip superimposed over the mid SVC at the level of the azygos arch. EKG leads noted. There is no pneumothorax or pleural effusion. The lungs are clear. The cardiac silhouette appears mildly enlarged. The right hilum is prominent, and this can be further characterized with follow-up radiographs. Remai nder of the mediastinal silhouette is unremarkable. The skeletal structures and soft tissues are negative for acute findings. IMPRESSION: Central line placement.
[2017-12-06] MEDS: SODIUM CHLORIDE 0.9% 1,000 ML IV SCH (18:42)
[2017-12-06] MEDS: SODIUM CHLORIDE 0.9% 99 ML with VASOPRESSIN 20 UNIT IV SCH ×2 (18:44)
[2017-12-06] MEDS ORDERED: ROCURONIUM BROMIDE 10 MG/ML 10 ML VIAL IV ONE (19:10)
[2017-12-06] MEDS ORDERED: LIDOCAINE 1% INJ 10MG/ML (20 ML MDV) ONE (19:10)
[2017-12-06] MEDS ORDERED: fentaNYL (PF) 50 MCG/ML 2 ML AMP ONE (19:10)
[2017-12-06] MEDS ORDERED: SUCCINYLCHOLINE CHLORIDE 100 MG/5 ML SYR IV ONE (19:10)
[2017-12-06] MEDS ORDERED: MIDAZOLAM 2 MG/2 ML VIAL ONE (19:10)
[2017-12-06] MEDS ORDERED: ETOMIDATE 2 MG/ML 10 ML VIAL ONE (19:10)
[2017-12-06] MEDS ORDERED: LACTATED RINGERS 1,000 ML IV ONE (19:42)
--- NOTE | 2017-12-06 19:49 | P.OP ---
Date of Procedure: 12/06/17 Preoperative Diagnosis: Left ureteral calculus, acute left pyelonephritis Postoperative Diagnosis: Same Procedure(s) Performed: Cystoscopy, left ureteral stent insertion Anesthesia: HELENAA Surgeon: Emil Green Estimated Blood Loss (ml): 0 IV fluids (ml): 1,000 Pathology: none sent Condition: stable Disposition: PACU Indications for Procedure: The patient is a 62-year-old white female admitted with sepsis, believed to be of urinary origin. The computed tomography scan shows a 3-4 mm left proximal ureteral calculus, with left perinephric stranding. She now comes for stent placement. Operative Findings: Purulent urine drained from left renal pelvis. Description of Procedure: The patient was taken to the operating room and placed in the dorsolithotomy position, with legs supported in Sharath stirrups. The external genitalia was prepped and draped sterilely. The 30 lens was used to introduce the 19-Tajik Stortz cystoscopic sheath through the urethra and into the bladder under direct vision. The bladder was examined in its entirety. Both ureteral orifices were of normal anatomic location and configuration. No tumors or foreign bodies were seen. A 0.035 inch Glidewire was passed through the cystoscope. The left ureteral orifice was cannulated, and the Glidewire was slowly advanced up to the renal pelvis. There appeared to be some resistance to the passage of the Glidewire beyond the proximal ureteral calculus. A 26 cm, 6-Tajik double-J ureteral stent was placed over the wire. Proper stent positioning was verified fluoroscopically and endoscopically. Purulent urine drained from the stent. The beak of the cystoscope was advanced immediately adjacent to the stent, and the urine drained was sent for culture and sensitivity. The cystoscope was then removed, and a Stewart catheter was placed. The patient is to be transferred to the ICU.
[2017-12-06 20:22] LABS: Glucose,Whole Blood 125 mg/dL (75-99)
[2017-12-06 20:42] LABS: ABG Base Excess -10.3 mmol/L; ABG HCO3 18 mmol/L (21-25); ABG Oxygen Saturation 99.5 % (94-97); ABG PCO2 49 mmHg (35-45); ABG PO2 209 mmHg (83-108); ABG TCO2 20 mmol/L (19-24)
[2017-12-06 20:44] LABS: ABG PH 7.17 (7.35-7.45)
[2017-12-06 20:49] LABS: HCT 37.2 % (34.0-46.0); HGB 12.3 gm/dL (11.4-16.0); MCH 28.5 pg (25.0-35.0); MCV 86.3 fL (80.0-100.0); Mean Platelet Volume 11.1; Platelet Count 70 k/uL (150-450); RDW 13.5 % (11.5-15.5)
[2017-12-06 20:52] LABS: WBC 32.1 k/uL (3.8-10.6)
[2017-12-06 21:00] LABS: INR 1.6 (<1.2); Partial Thromboplastin Time 34.1 sec (22.0-30.0); Prothrombin Time 14.5 sec (9.0-12.0)
[2017-12-06] MEDS: PROPOFOL 1,000 MG in EMPTY BAG 1 BAG IV SCH (21:00)
[2017-12-06 21:08] LABS: Albumin 2.7 g/dL (3.5-5.0); Calcium 7.1 mg/dL (8.4-10.2); Magnesium 1.2 mg/dL (1.6-2.3); Phosphorus 3.8 mg/dL (2.5-4.5); Potassium 4.1 mmol/L (3.5-5.1); Total Bilirubin 2.4 mg/dL (0.2-1.3); Total Protein 5.1 g/dL (6.3-8.2); Uric Acid 6.6 mg/dL (3.7-7.4)
--- NOTE | 2017-12-06 21:37 | XR ---
EXAMINATION: XR chest 1V portable DATE AND TIME: 12/06/2017 8:49 PM CLINICAL INDICATION: tube placement TECHNIQUE: AP portable supine COMPARISON: AP portable upright at 12/06/2017 6:00 PM FINDINGS: Since prior study the patient has been intubated, with ET tube tip superimposed over the trachea at t he level of the lower margin of the clavicular heads. Since the prior study and NG tube is in place with courses over the expected course of the thoracic e sophagus and the stomach. Left IJ catheter tip superimposed over the mid SVC, as previously seen. EKG leads. There are no abnormal gas collections demonstrated, but supine radiography cannot exclude pneumothora x. The perihilar regions are full, and suggestion of air bronchograms are seen on the left in the retroc ardiac position. The hemidiaphragms are elevated bilaterally, not allowing visualization of the lower lobes. The upper and mid lungs are clear and well expanded with exception of a band of added opacity on the right jus t above the hemidiaphragm, consistent with segmental atelectasis. Cardiac silhouette is mildly enlarged, unchanged. Bones and soft tissues unremarkable. IMPRESSION: POSTINTUBATION CHEST RADIOGRAPH.
[2017-12-06 21:49] LABS: ABG HCO3 17 mmol/L (21-25); ABG Oxygen Saturation 95.7 % (94-97); ABG PCO2 37 mmHg (35-45); ABG PH 7.27 (7.35-7.45); ABG PO2 83 mmHg (83-108); ABG TCO2 18 mmol/L (19-24)
[2017-12-06 21:51] LABS: Band Neutrophils % 22 %; Lymphocytes # (M) 0.64 k/uL (1.0-4.8); Metamyelocytes # (M) 0.32 k/uL (0); Metamyelocytes % 1 %; Monocytes # (M) 0.96 k/uL (0-1.0); Myelocytes # (M) 0.32 k/uL (0); Myelocytes % 1 %; Neutrophils % (M) 73 %; Nucleated Red Blood Cells 0 /100 WBC (0-0); Total Cells Counted 200; Toxic Granulation Present; Toxic Vacuolation Present
--- NOTE | 2017-12-06 22:49 | P.CONS ---
History of Present Illness - Reason for Consult Consult date: 12/06/17 - Chief Complaint nausea and emesis - History of Present Illness 62-year-old female who is currently postoperative, underwent cystoscopy and left ureteral catheter placement for the obstruction caused by the stone and hydronephrosis and pyelonephritis. She is now postoperative she is intubated sedated and mechanically ventilated requiring vasopressor therapy for her septic shock. She received several liters of fluid, but remains hypotensive on vasopressor therapy. It is related that before she came to Hospital she been ill for several days with nausea emesis abdominal pain and flank pain was also occurring. She become quite dehydrated and admission she had fever and hypotension. Because of her pain evaluations are performed and the obstruction was seen in the left ureter. As noted she's been evaluated by urology and is ready had surgical intervention to relieve the obstruction. Review of Systems ROS unobtainable: due to endotracheal tube Past Medical History Past Medical History: Diabetes Mellitus, GERD/Reflux, Hypertension Additional Past Medical History / Comment(s): hx of bells palsy lt side of face. seasonal allergies, past kidney stone rt side/uti History of Any Multi-Drug Resistant Organisms: None Reported Additional Past Surgical History / Comment(s): kidney surgery 30 yrs ago Past Anesthesia/Blood Transfusion Reactions: No Reported Reaction Smoking Status: Never smoker - Past Family History Mother Family Medical History: Myocardial Infarction ([place]) Additional Family Medical History / Comment(s): lupus Father Family Medical History: COPD Medications and Allergies Home Medications and Allergies Comment(s): Current Medications Chlorhexidine Gluconate (Peridex) 15 ml MUCOUS MEM BID [facility] Heparin Sodium (Porcine) (Heparin) 5,000 unit SQ Q8HR [facility] Sodium Chloride (Saline 0.9%) 1,000 mls @ 150 mls/hr IV .Q6H40M [facility] Last Admin: 12/06/17 18:42 Dose: 150 mls/hr Norepinephrine Bitartrate (Levophed-0.9% Nacl 16 Mg/250ml Pmx) 16 mg in 250 mls @ 0 mls/hr IV .Q0M [facility]; Protocol Last Admin: 12/06/17 18:34 Dose: 30 mcg/min, 28.125 mls/hr Vasopressin 20 unit/ Sodium (Chloride) 100 mls @ 9 mls/hr IV .Q11H7M [facility] Last Admin: 12/06/17 18:44 Dose: 9 mls/hr Cefepime HCl 1 gm/ Sodium (Chloride) 50 mls @ 100 mls/hr IVPB Q24HR [facility] Propofol 1,000 mg/ IV Solution 100 mls @ 0 mls/hr IV .Q0M [facility]; Protocol Sodium Chloride (Saline 0.9%) 1,000 mls @ 999 mls/hr IV .Q1H1M [facility] Stop: 12/06/17 23:01 Last Admin: 12/06/17 22:13 Dose: 999 mls/hr Fentanyl Citrate 2,500 mcg/ (Sodium Chloride) 250 mls @ 5 mls/hr IV .Q24H [facility]; Protocol Insulin Aspart (Novolog) 0 unit SQ Q4H [facility]; Protocol Naloxone HCl (Narcan) 0.2 mg IV Q2M PRN PRN Reason: Opioid Reversal Pantoprazole Sodium (Protonix) 40 mg IVP DAILY [facility] Last Admin: 12/06/17 18:35 Dose: 40 mg Home Medications Medication Instructions Recorded Confirmed Type Aspirin [Children's Aspirin] 81 mg PO DAILY 11/28/17 12/06/17 History Gabapentin [Neurontin] 100 mg PO TID 11/28/17 12/06/17 History Ibuprofen 200 mg PO TID 11/28/17 12/06/17 History Loratadine 10 mg PO DAILY 11/28/17 12/06/17 History Losartan [Cozaar] 50 mg PO DAILY 11/28/17 12/06/17 History Multivit with Calcium,Iron,Min 1 tab PO DAILY 11/28/17 12/06/17 History [Women's Multivitamin] Naproxen 500 mg PO BID 11/28/17 12/06/17 History Omeprazole [PriLOSEC] 20 mg PO DAILY 11/28/17 12/06/17 History metFORMIN HCL [Glucophage] 500 mg PO AC-SUPPER 11/28/17 12/06/17 History Calcium Carbonate/Vitamin D3 1 tab PO DAILY 12/06/17 12/06/17 History [Calcium 600-Vit D3 400 Caplet] Hydrochlorothiazide 12.5 mg PO DAILY 12/06/17 12/06/17 History Allergies Allergy/AdvReac Type Severity Reaction Status Date / Time No Known Allergies Allergy Verified 12/06/17 13:56 Physical Exam Vitals: Vital Signs Temp Pulse Resp BP Pulse Ox 08/23/18 19:19 108 H 24 88/51 97 12/06/17 18:05 104 H 22 85/51 98 12/06/17 17:29 104 H 23 83/53 97 12/06/17 17:19 105 H 24 77/49 96 12/06/17 17:12 105 H 24 70/52 97 12/06/17 16:18 104 H 24 66/49 96 12/06/17 15:38 102 H 20 75/44 97 12/06/17 15:21 107 H 12/06/17 15:13 102 H 12/06/17 15:02 104 H 20 65/33 97 12/06/17 14:32 101 H 22 68/63 97 12/06/17 14:15 102 H 20 67/45 96 12/06/17 14:02 103 H 20 74/42 96 12/06/17 13:58 101 H 20 67/42 95 12/06/17 13:48 103 H 22 66/41 95 12/06/17 13:35 103 H 22 77/45 97 12/06/17 13:17 97.8 F 106 H 20 61/37 92 L Intake and Output 12/06/17 12/06/17 12/06/17 06:59 14:59 22:59 Intake Total 249.062 Output Total 40 Balance 209.062 Intake: IV 200 Intake, IV Titration 49.062 Amount Norepinephrine 4 mg In 49.062 Sodium Chloride 0.9% 250 ml @ Titrate IV .Q0M [facility] Rx#:[id number] Output: Urine 40 Straight 30 Uretheral (Stewart) 10 Other: Weight 111.584 kg 62-year-old woman who looks older than her stated age, she does have significant obesity. She is intubated sedated and mechanically ventilated. HEENT: Anicteric conjunctiva are pink and moist nasal mucosa grossly intact without significant lesions, there is no thrushnoted around the endotracheal tube Neck: The neck is supple without significant lymphadenopathy or thyromegaly. Lungs: there is symmetrical air entry bilaterally. There are only a few scattered crackles no sandeep bronchial sounds no significant wheezing Heart: Regular rate and rhythm with an audible S1-S2, no S3 soft S4. There is no significant murmur click or rub, PMI was nondisplaced. Abdomen: obese,Positive bowel sounds soft , without palpable masses or organomegaly. the abdomen is nonrigid, seems to have some tenderness in the left lower quadrant. Extremities: The upper extremities have excellent pulses they are symmetric, no significant petechiae or telangiectasia. No splinter hemorrhages were noted. lower extremities have some trace edema but no open ulcerations are seen Neuro: she is intubated and sedated but she is arousable and follows simple commands Results CBC & Chem 7: 12/06/17 20:45 12/06/17 20:45 Labs: Abnormal Lab Results - Last 24 Hours (Table) 12/06/17 12/06/17 12/06/17 Range/Units 13:30 13:30 13:30 WBC 20.5 H (3.8-10.6) k/uL Plt Count 69 L (150-450) k/uL Neutrophils # (Manual) 18.40 H (1.3-7.7) k/uL Lymphocytes # (Manual) 0.82 L (1.0-4.8) k/uL Metamyelocytes # (Man) 0.82 H (0) k/uL Myelocytes # (Manual) (0) k/uL PT (9.0-12.0) sec INR (<1.2) APTT (22.0-30.0) sec ABG pH (7.35-7.45) ABG pCO2 (35-45) mmHg ABG pO2 (83-108) mmHg ABG HCO3 (21-25) mmol/L ABG Total CO2 (19-24) mmol/L ABG O2 Saturation (94-97) % Chloride (98-107) mmol/L Carbon Dioxide (22-30) mmol/L BUN 48 H (7-17) mg/dL Creatinine 4.10 H (0.52-1.04) mg/dL Glucose 127 H (74-99) mg/dL POC Glucose (mg/dL) (75-99) mg/dL Plasma Lactic Acid Joe (0.7-2.0) mmol/L Calcium 7.7 L (8.4-10.2) mg/dL Magnesium (1.6-2.3) mg/dL Total Bilirubin 2.0 H (0.2-1.3) mg/dL AST 262 H (14-36) U/L ALT 182 H (9-52) U/L Troponin I 0.970 H* (0.000-0.034) ng/mL Total Protein 5.2 L (6.3-8.2) g/dL Albumin 2.8 L (3.5-5.0) g/dL Amylase 546 H* (30-110) U/L Lipase (23-300) U/L Urine Appearance (Clear) Urine Protein (Negative) Urine Blood (Negative) Ur Leukocyte Esterase (Negative) Urine RBC (0-5) /hpf Urine WBC (0-5) /hpf Urine WBC Clumps (None) /hpf Urine Bacteria (None) /hpf Urine Mucus (None) /hpf 12/06/17 12/06/17 12/06/17 Range/Units 13:30 14:55 17:05 WBC (3.8-10.6) k/uL Plt Count (150-450) k/uL Neutrophils # (Manual) (1.3-7.7) k/uL Lymphocytes # (Manual) (1.0-4.8) k/uL Metamyelocytes # (Man) (0) k/uL Myelocytes # (Manual) (0) k/uL PT (9.0-12.0) sec INR (<1.2) APTT (22.0-30.0) sec ABG pH 7.24 L (7.35-7.45) ABG pCO2 47 H (35-45) mmHg ABG pO2 80 L (83-108) mmHg ABG HCO3 20 L (21-25) mmol/L ABG Total CO2 (19-24) mmol/L ABG O2 Saturation (94-97) % Chloride (98-107) mmol/L Carbon Dioxide (22-30) mmol/L BUN (7-17) mg/dL Creatinine (0.52-1.04) mg/dL Glucose (74-99) mg/dL POC Glucose (mg/dL) (75-99) mg/dL Plasma Lactic Acid Joe 4.9 H* (0.7-2.0) mmol/L Calcium (8.4-10.2) mg/dL Magnesium (1.6-2.3) mg/dL Total Bilirubin (0.2-1.3) mg/dL AST (14-36) U/L ALT (9-52) U/L Troponin I (0.000-0.034) ng/mL Total Protein (6.3-8.2) g/dL Albumin (3.5-5.0) g/dL Amylase (30-110) U/L Lipase (23-300) U/L Urine Appearance Turbid H (Clear) Urine Protein 2+ H (Negative) Urine Blood Large H (Negative) Ur Leukocyte Esterase Large H (Negative) Urine RBC >182 H (0-5) /hpf Urine WBC >182 H (0-5) /hpf Urine WBC Clumps Many H (None) /hpf Urine Bacteria Moderate H (None) /hpf Urine Mucus Many H (None) /hpf 12/06/17 12/06/17 12/06/17 Range/Units 17:30 20:20 20:39 WBC (3.8-10.6) k/uL Plt Count (150-450) k/uL Neutrophils # (Manual) (1.3-7.7) k/uL Lymphocytes # (Manual) (1.0-4.8) k/uL Metamyelocytes # (Man) (0) k/uL Myelocytes # (Manual) (0) k/uL PT (9.0-12.0) sec INR (<1.2) APTT (22.0-30.0) sec ABG pH 7.17 L* (7.35-7.45) ABG pCO2 49 H (35-45) mmHg ABG pO2 209 H (83-108) mmHg ABG HCO3 18 L (21-25) mmol/L ABG Total CO2 (19-24) mmol/L ABG O2 Saturation 99.5 H (94-97) % Chloride (98-107) mmol/L Carbon Dioxide (22-30) mmol/L BUN (7-17) mg/dL Creatinine (0.52-1.04) mg/dL Glucose (74-99) mg/dL POC Glucose (mg/dL) 125 H (75-99) mg/dL Plasma Lactic Acid Joe 3.3 H* (0.7-2.0) mmol/L Calcium (8.4-10.2) mg/dL Magnesium (1.6-2.3) mg/dL Total Bilirubin (0.2-1.3) mg/dL AST (14-36) U/L ALT (9-52) U/L Troponin I (0.000-0.034) ng/mL Total Protein (6.3-8.2) g/dL Albumin (3.5-5.0) g/dL Amylase (30-110) U/L Lipase (23-300) U/L Urine Appearance (Clear) Urine Protein (Negative) Urine Blood (Negative) Ur Leukocyte Esterase (Negative) Urine RBC (0-5) /hpf Urine WBC (0-5) /hpf Urine WBC Clumps (None) /hpf Urine Bacteria (None) /hpf Urine Mucus (None) /hpf 12/06/17 12/06/17 12/06/17 Range/Units 20:45 20:45 20:45 WBC 32.1 H* (3.8-10.6) k/uL Plt Count 70 L (150-450) k/uL Neutrophils # (Manual) 30.40 H (1.3-7.7) k/uL Lymphocytes # (Manual) 0.64 L (1.0-4.8) k/uL Metamyelocytes # (Man) 0.32 H (0) k/uL Myelocytes # (Manual) 0.32 H (0) k/uL PT 14.5 H (9.0-12.0) sec INR 1.6 H (<1.2) APTT 34.1 H (22.0-30.0) sec ABG pH (7.35-7.45) ABG pCO2 (35-45) mmHg ABG pO2 (83-108) mmHg ABG HCO3 (21-25) mmol/L ABG Total CO2 (19-24) mmol/L ABG O2 Saturation (94-97) % Chloride 109 H (98-107) mmol/L Carbon Dioxide 19 L (22-30) mmol/L BUN 44 H (7-17) mg/dL Creatinine 3.73 H (0.52-1.04) mg/dL Glucose 136 H (74-99) mg/dL POC Glucose (mg/dL) (75-99) mg/dL Plasma Lactic Acid Joe (0.7-2.0) mmol/L Calcium 7.1 L (8.4-10.2) mg/dL Magnesium 1.2 L (1.6-2.3) mg/dL Total Bilirubin 2.4 H (0.2-1.3) mg/dL AST 229 H (14-36) U/L ALT 181 H (9-52) U/L Troponin I (0.000-0.034) ng/mL Total Protein 5.1 L (6.3-8.2) g/dL Albumin 2.7 L (3.5-5.0) g/dL Amylase 380 H* (30-110) U/L Lipase 16 L (23-300) U/L Urine Appearance (Clear) Urine Protein (Negative) Urine Blood (Negative) Ur Leukocyte Esterase (Negative) Urine RBC (0-5) /hpf Urine WBC (0-5) /hpf Urine WBC Clumps (None) /hpf Urine Bacteria (None) /hpf Urine Mucus (None) /hpf 12/06/17 12/06/17 Range/Units 21:02 21:45 WBC (3.8-10.6) k/uL Plt Count (150-450) k/uL Neutrophils # (Manual) (1.3-7.7) k/uL Lymphocytes # (Manual) (1.0-4.8) k/uL Metamyelocytes # (Man) (0) k/uL Myelocytes # (Manual) (0) k/uL PT (9.0-12.0) sec INR (<1.2) APTT (22.0-30.0) sec ABG pH 7.27 L (7.35-7.45) ABG pCO2 (35-45) mmHg ABG pO2 (83-108) mmHg ABG HCO3 17 L (21-25) mmol/L ABG Total CO2 18 L (19-24) mmol/L ABG O2 Saturation (94-97) % Chloride (98-107) mmol/L Carbon Dioxide (22-30) mmol/L BUN (7-17) mg/dL Creatinine (0.52-1.04) mg/dL Glucose (74-99) mg/dL POC Glucose (mg/dL) (75-99) mg/dL Plasma Lactic Acid Joe 2.6 H* (0.7-2.0) mmol/L Calcium (8.4-10.2) mg/dL Magnesium (1.6-2.3) mg/dL Total Bilirubin (0.2-1.3) mg/dL AST (14-36) U/L ALT (9-52) U/L Troponin I (0.000-0.034) ng/mL Total Protein (6.3-8.2) g/dL Albumin (3.5-5.0) g/dL Amylase (30-110) U/L Lipase (23-300) U/L Urine Appearance (Clear) Urine Protein (Negative) Urine Blood (Negative) Ur Leukocyte Esterase (Negative) Urine RBC (0-5) /hpf Urine WBC (0-5) /hpf Urine WBC Clumps (None) /hpf Urine Bacteria (None) /hpf Urine Mucus (None) /hpf Laboratory Results WBC 32.1 k/uL (3.8-10.6) H* 12/06/17 20:45 RBC 4.30 m/uL (3.80-5.40) 12/06/17 20:45 Hgb 12.3 gm/dL (11.4-16.0) 12/06/17 20:45 Hct 37.2 % (34.0-46.0) 12/06/17 20:45 MCV 86.3 fL (80.0-100.0) 12/06/17 20:45 MCH 28.5 pg (25.0-35.0) 12/06/17 20:45 MCHC 33.0 g/dL (31.0-37.0) 12/06/17 20:45 RDW 13.5 % (11.5-15.5) 12/06/17 20:45 Plt Count 70 k/uL (150-450) L 12/06/17 20:45 Neutrophils % (Manual) 73 % 12/06/17 20:45 Band Neutrophils % 22 % 12/06/17 20:45 Lymphocytes % (Manual) 2 % 12/06/17 20:45 Monocytes % (Manual) 3 % 12/06/17 20:45 Metamyelocytes % 1 % 12/06/17 20:45 Myelocytes % 1 % 12/06/17 20:45 Neutrophils # (Manual) 30.40 k/uL (1.3-7.7) H 12/06/17 20:45 Lymphocytes # (Manual) 0.64 k/uL (1.0-4.8) L 12/06/17 20:45 Monocytes # (Manual) 0.96 k/uL (0-1.0) 12/06/17 20:45 Metamyelocytes # (Man) 0.32 k/uL (0) H 12/06/17 20:45 Myelocytes # (Manual) 0.32 k/uL (0) H 12/06/17 20:45 Nucleated RBCs 0 /100 WBC (0-0) 12/06/17 20:45 Manual Slide Review Performed 12/06/17 20:45 Toxic Granulation Present 12/06/17 20:45 Toxic Vacuolation Present 12/06/17 20:45 Large Platelets Present 12/06/17 13:30 RBC Morphology Normal 12/06/17 13:30 PT 14.5 sec (9.0-12.0) H 12/06/17 20:45 INR 1.6 (<1.2) H 12/06/17 20:45 APTT 34.1 sec (22.0-30.0) H 12/06/17 20:45 Sample Site denison 12/06/17 21:45 ABG pH 7.27 (7.35-7.45) L 12/06/17 21:45 ABG pCO2 37 mmHg (35-45) 12/06/17 21:45 ABG pO2 83 mmHg (83-108) 12/06/17 21:45 ABG HCO3 17 mmol/L (21-25) L 12/06/17 21:45 ABG Total CO2 18 mmol/L (19-24) L 12/06/17 21:45 ABG O2 Saturation 95.7 % (94-97) 12/06/17 21:45 ABG Base Excess -10.0 mmol/L 12/06/17 21:45 Sharath Test Yes 12/06/17 21:45 FiO2 60 % 12/06/17 21:45 Sodium 138 mmol/L (137-145) 12/06/17 20:45 Potassium 4.1 mmol/L (3.5-5.1) 12/06/17 20:45 Chloride 109 mmol/L (98-107) H 12/06/17 20:45 Carbon Dioxide 19 mmol/L (22-30) L 12/06/17 20:45 Anion Gap 10 mmol/L 12/06/17 20:45 BUN 44 mg/dL (7-17) H 12/06/17 20:45 Creatinine 3.73 mg/dL (0.52-1.04) H 12/06/17 20:45 Est GFR (CKD-EPI)AfAm 14 (>60 ml/min/1.73 sqM) 12/06/17 20:45 Est GFR (CKD-EPI)NonAf 12 (>60 ml/min/1.73 sqM) 12/06/17 20:45 Glucose 136 mg/dL (74-99) H 12/06/17 20:45 POC Glucose (mg/dL) 125 mg/dL (75-99) H 12/06/17 20:20 POC Glu Masticator ID Marv Calles 12/06/17 20:20 Lactic Ac Sepsis Rflx Y 12/06/17 14:14 Plasma Lactic Acid Joe 2.6 mmol/L (0.7-2.0) H* 12/06/17 21:02 Uric Acid 6.6 mg/dL (3.7-7.4) 12/06/17 20:45 Calcium 7.1 mg/dL (8.4-10.2) L 12/06/17 20:45 Phosphorus 3.8 mg/dL (2.5-4.5) 12/06/17 20:45 Magnesium 1.2 mg/dL (1.6-2.3) L 12/06/17 20:45 Total Bilirubin 2.4 mg/dL (0.2-1.3) H 12/06/17 20:45 AST 229 U/L (14-36) H 12/06/17 20:45 ALT 181 U/L (9-52) H 12/06/17 20:45 Alkaline Phosphatase 102 U/L (38-126) 12/06/17 20:45 Troponin I 0.970 ng/mL (0.000-0.034) H* 12/06/17 13:30 Total Protein 5.1 g/dL (6.3-8.2) L 12/06/17 20:45 Albumin 2.7 g/dL (3.5-5.0) L 12/06/17 20:45 Amylase 380 U/L (30-110) H* 12/06/17 20:45 Lipase 16 U/L (23-300) L 12/06/17 20:45 Urine Color Red 12/06/17 14:55 Urine Appearance Turbid (Clear) H 12/06/17 14:55 Urine pH 6.5 (5.0-8.0) 12/06/17 14:55 Ur Specific [place] 1.011 (1.001-1.035) 12/06/17 14:55 Urine Protein 2+ (Negative) H 12/06/17 14:55 Urine Glucose (UA) Negative (Negative) 12/06/17 14:55 Urine Ketones Negative (Negative) 12/06/17 14:55 Urine Blood Large (Negative) H 12/06/17 14:55 Urine Nitrite Negative (Negative) 12/06/17 14:55 Urine Bilirubin Negative (Negative) 12/06/17 14:55 Urine Urobilinogen <2.0 mg/dL (<2.0) 12/06/17 14:55 Ur Leukocyte Esterase Large (Negative) H 12/06/17 14:55 Urine RBC >182 /hpf (0-5) H 12/06/17 14:55 Urine WBC >182 /hpf (0-5) H 12/06/17 14:55 Urine WBC Clumps Many /hpf (None) H 12/06/17 14:55 Urine Bacteria Moderate /hpf (None) H 12/06/17 14:55 Urine Mucus Many /hpf (None) H 12/06/17 14:55 Assessment and Plan (1) Septic shock Narrative/Plan: female presents to Hospital feeling poorly several days this done evidence of fever and hypotension leukocytosis and lactic acidosis. She was on evidence of septic shock requiring fluid resuscitation and vasopressor therapy. She had evidence of obstruction of the left ureter has been taking the operating room for stent placement. He is now postoperative. Her leukocytosis has worsened to 32.1 and she remains hypotensive requiring further fluid resuscitation and vasopressor therapy. Urine output is adequate. The patient did have significant acidosis that certainly improving. Does still have lactic acidosis and further fluid is requested. Antimicrobial therapy has been initiated with cefepime. Since give us coverage for pseudomonas as well as most other gram-negative organisms in his abdomen for now. He review is done and she has no history of resistant pathogens .Cultures will further help direct her course of antibiotic therapy as she improves. Respiratory failure appears to be postoperative in all we will rapidly resolve as her sepsis improves. Profound leukocytosis during her related to her sepsis, as well as the thrombocytopenia likely invasive gram-negative sepsis. Cultures are pending. Current Visit: Yes Status: Acute Code(s): A41.9 - SEPSIS, UNSPECIFIED ORGANISM; R65.21 - SEVERE SEPSIS WITH SEPTIC SHOCK SNOMED Code(s): 85588143 (2) Acute pyelonephritis Current Visit: Yes Status: Acute Code(s): N10 - ACUTE PYELONEPHRITIS SNOMED Code(s): 11757977 (3) Acute renal failure Current Visit: Yes Status: Acute Code(s): N17.9 - ACUTE KIDNEY FAILURE, UNSPECIFIED SNOMED Code(s): 80463432 (4) Calculus of ureter Current Visit: Yes Status: Acute Code(s): N20.1 - CALCULUS OF URETER SNOMED Code(s): 12298146
[2017-12-06] MEDS: fentaNYL (PF) 2,500 MCG in SODIUM CHLORIDE 0.9% 200 ML IV SCH (22:54)
[2017-12-06] MEDS: INSULIN ASPART 100 UNIT/ML 1 ML 10 ML VIAL SQ SCH (23:17)
--- NOTE | 2017-12-06 23:22 | OP ---
OPERATIVE REPORT Insertion of triple-lumen catheter. PREOPERATIVE DIAGNOSIS: Septic shock. POSTOPERATIVE DIAGNOSIS: Septic shock. SITE OF INSERTION: Left IJ. No bedside complication or bleeding. Chest x-rays to follow. This is a triple-lumen catheter inserted in the left IJ. MMODL / IJN: [id number] /
[2017-12-07] MEDS: CHLORHEXIDINE GLUCONATE 15 ML CUP MUCOUS MEM SCH ×3 (00:29→21:12)
[2017-12-07] MEDS: NOREPINEPHRIN 16 MG-0.9%NS PMX 16 MG/250 ML ML IV SCH ×2 (00:35→04:51)
[2017-12-07] MEDS: HEPARIN SODIUM,PORCINE 5,000 UNIT/ML 1 ML VIAL SQ SCH ×3 (00:40→15:49)
[2017-12-07] MEDS: SODIUM CHLORIDE 0.9% 1,000 ML IV SCH ×3 (00:44→19:57)
[2017-12-07 00:45] LABS: Glucose,Whole Blood 112 mg/dL (75-99)
[2017-12-07] MEDS: INSULIN ASPART 100 UNIT/ML 1 ML 10 ML VIAL SQ SCH ×4 (00:45→17:57)
[2017-12-07] MEDS: SODIUM CHLORIDE 0.9% 99 ML with VASOPRESSIN 20 UNIT IV SCH ×6 (01:12→17:57)
[2017-12-07] MEDS ORDERED: SODIUM CHLORIDE 0.9% 1,000 ML IV ONE ×3 (02:00→04:00)
[2017-12-07 02:20] LABS: Hemoglobin A1C 6.9 % (4.0-6.0)
[2017-12-07 03:25] LABS: ABG Base Excess -12.8 mmol/L; ABG HCO3 14 mmol/L (21-25); ABG Oxygen Saturation 97.9 % (94-97); ABG PCO2 30 mmHg (35-45); ABG PH 7.28 (7.35-7.45); ABG PO2 103 mmHg (83-108); ABG TCO2 15 mmol/L (19-24)
[2017-12-07 03:34] LABS: Magnesium 1.1 mg/dL (1.6-2.3); Phosphorus 3.4 mg/dL (2.5-4.5)
[2017-12-07 03:38] LABS: Glucose,Whole Blood 100 mg/dL (75-99)
[2017-12-07 03:41] LABS: Calcium 6.5 mg/dL (8.4-10.2)
[2017-12-07] MEDS ORDERED: Magnesium Replacement Protocol 1 EACH MISC MISCELLANE PRN (03:49)
[2017-12-07] MEDS ORDERED: ALBUMIN HUMAN 5% IVPB STA (03:50)
[2017-12-07] MEDS ORDERED: ACETAMINOPHEN IV (For NPO) 1,000 MG in EMPTY BAG 1 BAG IVPB PRN (03:51)
[2017-12-07 03:59] LABS: Basophils # (A) 0.1 k/uL (0-0.2); Basophils % (A) 1 %; Eosinophils # (A) 0.1 k/uL (0-0.7); Eosinophils % (A) 0 %; HCT 37.8 % (34.0-46.0); HGB 11.8 gm/dL (11.4-16.0); Lymphocytes % (A) 4 %; MCH 27.3 pg (25.0-35.0); MCHC 31.1 g/dL (31.0-37.0); MCV 87.7 fL (80.0-100.0); Mean Platelet Volume 11.1; Monocytes # (A) 0.8 k/uL (0-1.0); Monocytes % (A) 3 %; Neutrophils # (A) 24.8 k/uL (1.3-7.7); Neutrophils % (A) 92 %; RBC 4.32 m/uL (3.80-5.40); RDW 13.7 % (11.5-15.5)
[2017-12-07] MEDS: MAGNESIUM SULFATE-D5W PMX 1 GM in DEXTROSE/WATER 1 100ML.BAG IVPB SCH ×3 (04:11→06:24)
[2017-12-07 04:17] LABS: Platelet Count 68 k/uL (150-450)
[2017-12-07] MEDS: EPINEPHrine 2 MG in DEXTROSE 5% IN WATER 250 ML IV SCH ×4 (04:31→21:15)
[2017-12-07] MEDS ORDERED: CALCIUM GLUCONATE 2,000 MG in SODIUM CHLORIDE 0.9% 100 ML IVPB ONE (04:59)
[2017-12-07] MEDS: PROPOFOL 1,000 MG in EMPTY BAG 1 BAG IV SCH (05:36)
[2017-12-07 06:25] LABS: Glucose,Whole Blood 122 mg/dL (75-99)
[2017-12-07 06:35] LABS: Albumin 2.4 g/dL (3.5-5.0); Total Bilirubin 2.2 mg/dL (0.2-1.3); Total Protein 4.7 g/dL (6.3-8.2)
--- NOTE | 2017-12-07 07:09 | P.NPCON ---
History of Present Illness - Reason for Consult Consult date: 12/07/17 acute renal failure - Chief Complaint Acute kidney injury, septic shock - History of Present Illness 62-year-old female is seen in consultation because of an elevated creatinine, acute kidney injury with possibility of chronic kidney disease. Her admission creatinine was 4.1, no previous creatinines are available. She is currently intubated, post op cystoscopy and left stent placement for left hydronephrosis from a kidney stone. She has a nonobstructing right kidney stone as well Postop she seems to have deteriorated was brought to the ICU intubated on on levo fed. She has been given about 11 L of fluid. 70% FiO2 currently. She is on multiple inotropes including levo fed epinephrine and vasopressin. She is arousable and follows commands. Her blood pressure is in the 100 with the A- line. She is warm to touch. Her urine output is 450 mL for the last 4 hours She is known with diabetes. This is a 62-year-old female presents emergency Department complaining of nausea vomiting diarrhea over the last 3 days. Patient states she's in no pain. Patient denies any abdominal pain. Patient denies any chest pain difficulty breathing shortest breath per patient denies any recent antibiotic use. Patient states she took some Imodium yesterday her last bout of diarrhea was yesterday afternoon. Patient denies any fever chills. Patient denies any lightheadedness or dizziness patient states she is just overall extremely weak. Patient states she still nauseated this time. Patient denies any headache patient with any numbness weakness. Past Medical History Past Medical History: Diabetes Mellitus, GERD/Reflux, Hypertension Additional Past Medical History / Comment(s): hx of bells palsy lt side of face. seasonal allergies, past kidney stone rt side/uti History of Any Multi-Drug Resistant Organisms: None Reported Additional Past Surgical History / Comment(s): kidney surgery 30 yrs ago Past Anesthesia/Blood Transfusion Reactions: No Reported Reaction Smoking Status: Never smoker - Past Family History Mother Family Medical History: Myocardial Infarction (NH) Additional Family Medical History / Comment(s): lupus Father Family Medical History: COPD Medications and Allergies Home Medications Medication Instructions Recorded Confirmed Type Aspirin [Children's Aspirin] 81 mg PO DAILY 11/28/17 12/06/17 History Gabapentin [Neurontin] 100 mg PO TID 11/28/17 12/06/17 History Ibuprofen 200 mg PO TID 11/28/17 12/06/17 History Loratadine 10 mg PO DAILY 11/28/17 12/06/17 History Losartan [Cozaar] 50 mg PO DAILY 11/28/17 12/06/17 History Multivit with Calcium,Iron,Min 1 tab PO DAILY 11/28/17 12/06/17 History [Women's Multivitamin] Naproxen 500 mg PO BID 11/28/17 12/06/17 History Omeprazole [PriLOSEC] 20 mg PO DAILY 11/28/17 12/06/17 History metFORMIN HCL [Glucophage] 500 mg PO AC-SUPPER 11/28/17 12/06/17 History Calcium Carbonate/Vitamin D3 1 tab PO DAILY 12/06/17 12/06/17 History [Calcium 600-Vit D3 400 Caplet] Hydrochlorothiazide 12.5 mg PO DAILY 12/06/17 12/06/17 History Allergies Allergy/AdvReac Type Severity Reaction Status Date / Time No Known Allergies Allergy Verified 12/06/17 13:56 Physical Exam Vitals: Vital Signs Temp Pulse Resp BP Pulse Ox 12/07/17 06:00 99 29 H 97 12/07/17 05:45 96 28 H 97 12/07/17 05:30 101 H 28 H 97 12/07/17 05:15 101 H 29 H 97 12/07/17 05:00 99 28 H 97 12/07/17 04:45 97 28 H 98 12/07/17 04:30 95 28 H 98 12/07/17 04:15 101 H 28 H 97 12/07/17 04:00 100 F H 105 H 28 H 98 12/07/17 03:45 106 H 28 H 92 L 12/07/17 03:30 106 H 28 H 93 L 12/07/17 03:15 106 H 28 H 93 L 12/07/17 03:00 105 H 28 H 92 L 12/07/17 02:45 105 H 28 H 91 L 12/07/17 02:30 106 H 28 H 91 L 12/07/17 02:15 107 H 28 H 91 L 12/07/17 02:00 111 H 28 H 93 L 12/07/17 01:45 108 H 28 H 92 L 12/07/17 01:30 100.9 F H 109 H 29 H 92 L 12/07/17 01:15 110 H 28 H 92 L 12/07/17 01:00 112 H 29 H 92 L 12/07/17 00:45 111 H 28 H 92 L 12/07/17 00:30 109 H 28 H 92 L 12/07/17 00:15 107 H 28 H 93 L 12/07/17 00:00 100 F H 112 H 29 H 92 L 12/06/17 23:48 110 H 28 H 91 L 12/06/17 23:45 108 H 27 H 87/58 92 L 12/06/17 23:30 108 H 28 H 87/58 89 L 12/06/17 23:15 104 H 28 H 87/58 89 L 12/06/17 23:00 113 H 28 H 90 L 12/06/17 22:45 106 H 28 H 94 L 12/06/17 22:30 115 H 30 H 96 12/06/17 22:15 106 H 31 H 96 12/06/17 22:00 110 H 34 H 94 L 12/06/17 21:45 109 H 29 H 96 12/06/17 21:30 106 H 33 H 96 12/06/17 21:15 109 H 28 H 97 12/06/17 21:00 111 H 28 H 97 12/06/17 20:45 132 H 28 H 98 12/06/17 20:30 117 H 18 95 12/06/17 20:15 127 H 23 117/71 96 12/06/17 20:11 98.5 F 121 H 18 102/58 88 L 12/06/17 19:19 108 H 24 88/51 97 12/06/17 18:05 104 H 22 85/51 98 12/06/17 17:29 104 H 23 83/53 97 12/06/17 17:19 105 H 24 77/49 96 12/06/17 17:12 105 H 24 70/52 97 12/06/17 16:18 104 H 24 66/49 96 12/06/17 15:38 102 H 20 75/44 97 12/06/17 15:21 107 H 12/06/17 15:13 102 H 12/06/17 15:02 104 H 20 65/33 97 12/06/17 14:32 101 H 22 68/63 97 12/06/17 14:15 102 H 20 67/45 96 12/06/17 14:02 103 H 20 74/42 96 12/06/17 13:58 101 H 20 67/42 95 12/06/17 13:48 103 H 22 66/41 95 12/06/17 13:35 103 H 22 77/45 97 12/06/17 13:17 97.8 F 106 H 20 61/37 92 L Intake and Output 12/06/17 12/06/17 12/07/17 14:59 22:59 06:59 Intake Total 2554.082 3255.866 Output Total 240 720 Balance 2314.082 2535.866 Intake: IV 2500 2700 ACETAMINOPHEN IV (For NPO 100 ) 1,000 mg In Empty Bag 1 bag @ 400 mls/hr IVPB Q6HR PRN Rx#:[id number] Magnesium Sulfate-D5w Pmx 400 1 gm In Dextrose/Water 1 100ml.bag @ 100 mls/hr IVPB Q1H [facility] Rx#: [id number] Sodium Chloride 0.9% 1, 300 1200 000 ml @ 150 mls/hr IV . Q6H40M [facility] Rx#:[id number] Sodium Chloride 0.9% 1, 2000 1000 000 ml @ 999 mls/hr IV . Q1H1M ONE Rx#:[id number] Intake, IV Titration 54.082 555.866 Amount Norepinephrin 16 mg-0.9% 419.219 Ns Pmx 16 mg In 250 ml @ Titrate IV .Q0M [facility] Rx#: [id number] Norepinephrine 4 mg In 49.062 Sodium Chloride 0.9% 250 ml @ Titrate IV .Q0M ONE Rx#:[id number] Propofol 1,000 mg In 5.02 94.98 Empty Bag 1 bag @ Titrate IV .Q0M [facility] Rx#: [id number] fentaNYL (PF) 2,500 mcg 41.667 In Sodium Chloride 0.9% 200 ml @ 50 MCG/HR 5 mls/ hr IV .Q24H [facility]ON Rx#: [id number] Output: Urine 240 720 Straight 30 Uretheral (Stewart) 10 Other: Voiding Method Indwelling Catheter Indwelling Catheter Weight 111.584 kg 125 kg ABP, PAP, CO, CI - Last 8 Hours Arterial Blood Pressure 105/54 Arterial Blood Pressure 100/52 Arterial Blood Pressure 102/54 Arterial Blood Pressure 103/54 Arterial Blood Pressure 106/55 Arterial Blood Pressure 121/60 Arterial Blood Pressure 110/59 Arterial Blood Pressure 102/57 Arterial Blood Pressure 95/55 Arterial Blood Pressure 82/48 Arterial Blood Pressure 88/51 Arterial Blood Pressure 90/51 Arterial Blood Pressure 93/53 Arterial Blood Pressure 96/55 Arterial Blood Pressure 98/56 Arterial Blood Pressure 94/54 Arterial Blood Pressure 93/54 Arterial Blood Pressure 91/53 Arterial Blood Pressure 93/53 Arterial Blood Pressure 91/53 Arterial Blood Pressure 93/54 Arterial Blood Pressure 94/53 Arterial Blood Pressure 92/53 Arterial Blood Pressure 86/49 Arterial Blood Pressure 88/50 Arterial Blood Pressure 90/50 Arterial Blood Pressure 89/52 Arterial Blood Pressure 98/56 Arterial Blood Pressure 76/45 Arterial Blood Pressure 94/52 On examination she is on the vent on 70% FiO2 arousable. She is on multiple drips including levo fed epinephrine and vasopressin. HEENT exam difficult but no JVD seen neck is supple no facial asymmetry pupils are equal. Lungs are clear to auscultation fair air entry bilaterally Heart sounds are unremarkable no murmur rub gallop she is in normal sinus rhythm Abdomen is somewhat protuberant but nontender no masses felt. Extremity exam was trace edema warm to touch. The left dorsalis is bounding and well felt the right one was not felt. Neurologically she is moving all her limbs she is arousable and follows commands. Results - Lab Results Most recent lab results ABG pH 7.28 (7.35-7.45) L 12/07/17 03:20 ABG pCO2 30 mmHg (35-45) L 12/07/17 03:20 ABG pO2 103 mmHg (83-108) 12/07/17 03:20 ABG HCO3 14 mmol/L (21-25) L 12/07/17 03:20 ABG O2 Saturation 97.9 % (94-97) H 12/07/17 03:20 Calcium 6.5 mg/dL (8.4-10.2) L* 12/07/17 03:10 Phosphorus 3.4 mg/dL (2.5-4.5) 12/07/17 03:10 Magnesium 1.1 mg/dL (1.6-2.3) L 12/07/17 03:10 12/07/17 03:10 12/07/17 03:10 Assessment and Plan Assessment: Impression 1. Acute kidney injury, admitting creatinine is 4.1 previous creatinines not available. Etiology is likely combination off hypotension with blood pressure 61 on admission, possible urosepsis, nonsteroidals and the left hydronephrosis from left nephrolithiasis. 2. Likely diabetic nephropathy as her urinalysis shows 2+ protein, no previous creatinines available therefore no baseline known. 3. Admitted with nausea vomiting hypotension volume depletion and possible sepsis. 4. Left hydronephrosis status post cystoscopy and double J stent placement in the left side yesterday 12/06/2017. 5. She was on metformin possibility of lactic acidosis from metformin as considered but her lactic acid level was 2.8. 6. Hypomagnesemia from GI losses. 7. Severe non-gap acidosis from diarrhea and acute kidney injury. 8. Elevated liver function tests secondary to hypotension and sepsis 9. Hypocalcemia secondary to low albumin. 10. Possible aspiration pneumonia versus congestive heart failure. Chest x- ray showing deterioration since admission. 11. Cholelithiasis Recommendation. 1. Change IV fluids to D5W with 3 A of bicarb at 75 an hour, to improve her acidosis 2. If her ventilatory status worsens use Lasix 80 mg 1 dose and see how she responds. 3. Monitor lactic acid, liver function tests. 4. Antibiotic coverage for possible urinary tract infection.
[2017-12-07] MEDS ORDERED: DEXTROSE 5% IN WATER 1,000 ML with SODIUM BICARB (1 MEQ/ML) 150 ML IV ONE (07:10)
--- NOTE | 2017-12-07 08:13 | XR ---
EXAMINATION TYPE: XR chest 1V portable DATE OF EXAM: 12/07/2017 COMPARISON: December 06, 2017 HISTORY: SOB, Follow Up FINDINGS: Indwelling tubes and catheters are unchanged. No change in bibasilar opacities. Stable appearance of the cardio-mediastinal structures at this time. IMPRESSION: 1. Stable portable chest. Clinical correlation and follow up until resolution is recommended.
--- NOTE | 2017-12-07 08:21 | FL ---
Fluoroscopy History: LEFT URETERAL STENT PLACEMENT LEFT URETERAL STENT PLACEMENT, 30 SEC FLUORO, 1 IMAGE SCANNED INTO PACS
[2017-12-07] MEDS ORDERED: CEFEPIME 2 GM in SODIUM CHLORIDE 0.9% 50 ML IVPB SCH (09:00)
[2017-12-07] MEDS ORDERED: ASPIRIN 325 MG TAB PO SCH (09:00)
[2017-12-07] MEDS: CEFEPIME 1 GM in SODIUM CHLORIDE 0.9% 50 ML IVPB SCH (09:09)
[2017-12-07] MEDS: PANTOPRAZOLE 40 MG/10 ML VIAL IVP SCH (09:09)
--- NOTE | 2017-12-07 10:52 | P.CRDCN ---
History of Present Illness Consult date: 12/07/17 Chief complaint: Nausea and vomiting History of present illness: This is a pleasant 62-year-old female patient with a past medical history significant for diabetes as well as hypertension who was admitted to the hospital with urosepsis. The patient presented to the emergency room complaining of few days of not feeling well with symptoms of nausea and vomiting as well as diarrhea. Beside that she was experiencing bilateral flank and back pain. In the emergency room the patient was found to be septic and she was hypotensive. She was also severely dehydrated. She was diagnosed with urinary tract infection. She underwent a computed tomography scan of the abdomen and pelvis and that revealed left ureteral calculus. Urology was consulted and the patient underwent yesterday stent placement of the left ureteral. Currently the patient is intubated but she is awake. She is severe lesion hypotensive and she is on multiple vasopressors. We get involved in her care because the troponin was checked when she presented and that came in to be slightly elevated but please note that the creatinine was also severe lead elevated and the patient was in acute possibly on chronic renal failure secondary to severe hypotension as well as urosepsis. Before the patient presented to the hospital she did not have any symptoms of chest pain or chest discomfort, shortness of breath, dizziness or lightheadedness or syncope. No history of coronary artery disease or congestive heart failure or cardiac arrhythmia and the patient never seen a beverage manager in the past. The EKG showed sinus rhythm with nonspecific changes only. At this point, I would recommend conservative medical approach. I will follow- up on the echocardiogram which was performed earlier today. I would hold on any aspirin at this point in view of the hematuria. Hold on metoprolol or any beta sandra in view of the hypotension requiring vasopressors. Once the patient hemodynamically stable we will start her back on metoprolol as well as aspirin. Severe underlying coronary artery disease to be ruled out probably as an outpatient. Past Medical History Past Medical History: Diabetes Mellitus, GERD/Reflux, Hypertension Additional Past Medical History / Comment(s): hx of bells palsy lt side of face. seasonal allergies, past kidney stone rt side/uti History of Any Multi-Drug Resistant Organisms: None Reported Additional Past Surgical History / Comment(s): kidney surgery 30 yrs ago Past Anesthesia/Blood Transfusion Reactions: No Reported Reaction Smoking Status: Never smoker - Past Family History Mother Family Medical History: Myocardial Infarction ([place]) Additional Family Medical History / Comment(s): lupus Father Family Medical History: COPD Medications and Allergies Home Medications Medication Instructions Recorded Confirmed Type Aspirin [Children's Aspirin] 81 mg PO DAILY 11/28/17 12/06/17 History Gabapentin [Neurontin] 100 mg PO TID 11/28/17 12/06/17 History Ibuprofen 200 mg PO TID 11/28/17 12/06/17 History Loratadine 10 mg PO DAILY 11/28/17 12/06/17 History Losartan [Cozaar] 50 mg PO DAILY 11/28/17 12/06/17 History Multivit with Calcium,Iron,Min 1 tab PO DAILY 11/28/17 12/06/17 History [Women's Multivitamin] Naproxen 500 mg PO BID 11/28/17 12/06/17 History Omeprazole [PriLOSEC] 20 mg PO DAILY 11/28/17 12/06/17 History metFORMIN HCL [Glucophage] 500 mg PO AC-SUPPER 11/28/17 12/06/17 History Calcium Carbonate/Vitamin D3 1 tab PO DAILY 12/06/17 12/06/17 History [Calcium 600-Vit D3 400 Caplet] Hydrochlorothiazide 12.5 mg PO DAILY 12/06/17 12/06/17 History Allergies Allergy/AdvReac Type Severity Reaction Status Date / Time No Known Allergies Allergy Verified 12/06/17 13:56 Physical Exam Vitals: Vital Signs Temp Pulse Resp BP Pulse Ox 12/07/17 10:00 94 27 H 96 12/07/17 09:45 89 27 H 97 12/07/17 09:30 86 28 H 97 12/07/17 09:15 86 27 H 96 12/07/17 09:00 88 27 H 97 12/07/17 08:45 85 28 H 98 12/07/17 08:30 88 28 H 98 12/07/17 08:15 85 27 H 98 12/07/17 08:00 98.1 F 86 27 H 98 12/07/17 07:45 89 27 H 96 12/07/17 07:30 93 28 H 95 12/07/17 07:15 95 27 H 95 12/07/17 07:00 95 29 H 96 12/07/17 06:45 97 28 H 97 12/07/17 06:30 94 28 H 97 08/24/18 06:15 94 28 H 97 12/07/17 06:00 99 29 H 97 12/07/17 05:45 96 28 H 97 12/07/17 05:30 101 H 28 H 97 12/07/17 05:15 101 H 29 H 97 12/07/17 05:00 99 28 H 97 12/07/17 04:45 97 28 H 98 12/07/17 04:30 95 28 H 98 12/07/17 04:15 101 H 28 H 97 12/07/17 04:00 100 F H 105 H 28 H 98 12/07/17 03:45 106 H 28 H 92 L 12/07/17 03:30 106 H 28 H 93 L 12/07/17 03:15 106 H 28 H 93 L 12/07/17 03:00 105 H 28 H 92 L 12/07/17 02:45 105 H 28 H 91 L 12/07/17 02:30 106 H 28 H 91 L 12/07/17 02:15 107 H 28 H 91 L 12/07/17 02:00 111 H 28 H 93 L 12/07/17 01:45 108 H 28 H 92 L 12/07/17 01:30 100.9 F H 109 H 29 H 92 L 12/07/17 01:15 110 H 28 H 92 L 12/07/17 01:00 112 H 29 H 92 L 12/07/17 00:45 111 H 28 H 92 L 12/07/17 00:30 109 H 28 H 92 L 12/07/17 00:15 107 H 28 H 93 L 12/07/17 00:00 100 F H 112 H 29 H 92 L 12/06/17 23:48 110 H 28 H 91 L 12/06/17 23:45 108 H 27 H 87/58 92 L 12/06/17 23:30 108 H 28 H 87/58 89 L 12/06/17 23:15 104 H 28 H 87/58 89 L 12/06/17 23:00 113 H 28 H 90 L 12/06/17 22:45 106 H 28 H 94 L 12/06/17 22:30 115 H 30 H 96 12/06/17 22:15 106 H 31 H 96 12/06/17 22:00 110 H 34 H 94 L 12/06/17 21:45 109 H 29 H 96 12/06/17 21:30 106 H 33 H 96 12/06/17 21:15 109 H 28 H 97 12/06/17 21:00 111 H 28 H 97 12/06/17 20:45 132 H 28 H 98 12/06/17 20:30 117 H 18 95 12/06/17 20:15 127 H 23 117/71 96 12/06/17 20:11 98.5 F 121 H 18 102/58 88 L 12/06/17 19:19 108 H 24 88/51 97 12/06/17 18:05 104 H 22 85/51 98 12/06/17 17:29 104 H 23 83/53 97 12/06/17 17:19 105 H 24 77/49 96 12/06/17 17:12 105 H 24 70/52 97 12/06/17 16:18 104 H 24 66/49 96 12/06/17 15:38 102 H 20 75/44 97 12/06/17 15:21 107 H 12/06/17 15:13 102 H 12/06/17 15:02 104 H 20 65/33 97 12/06/17 14:32 101 H 22 68/63 97 12/06/17 14:15 102 H 20 67/45 96 12/06/17 14:02 103 H 20 74/42 96 12/06/17 13:58 101 H 20 67/42 95 12/06/17 13:48 103 H 22 66/41 95 12/06/17 13:35 103 H 22 77/45 97 12/06/17 13:17 97.8 F 106 H 20 61/37 92 L Intake and Output 12/06/17 12/07/17 12/07/17 22:59 06:59 14:59 Intake Total 2554.082 3255.866 650 Output Total 240 720 525 Balance 2314.082 2535.866 125 Intake: IV 2500 2700 400 ACETAMINOPHEN IV (For NPO 100 ) 1,000 mg In Empty Bag 1 bag @ 400 mls/hr IVPB Q6HR PRN Rx#:[id number] Calcium Gluconate 2,000 100 mg In Sodium Chloride 0.9 % 100 ml @ 100 mls/hr IVPB ONCE ONE Rx#: [id number] Magnesium Sulfate-D5w Pmx 400 1 gm In Dextrose/Water 1 100ml.bag @ 100 mls/hr IVPB Q1H [facility]#: [id number] Sodium Chloride 0.9% 1, 300 1200 300 000 ml @ 150 mls/hr IV . Q6H40M [facility] Rx#:[id number] Sodium Chloride 0.9% 1, 2000 1000 000 ml @ 999 mls/hr IV . Q1H1M ONE Rx#:[id number] Intake, IV Titration 54.082 555.866 250 Amount Dextrose 5% in Water 1, 250 000 ml @ 100 mls/hr IV . [id number] ONE with Sodium Bicarb (1 Meq/ml) 150 ml Rx#:[id number] Norepinephrin 16 mg-0.9% 419.219 Ns Pmx 16 mg In 250 ml @ Titrate IV .Q0M [facility] Rx#: [id number] Norepinephrine 4 mg In 49.062 Sodium Chloride 0.9% 250 ml @ Titrate IV .Q0M ONE Rx#:[id number] Propofol 1,000 mg In 5.02 94.98 Empty Bag 1 bag @ Titrate IV .Q0M [facility] Rx#: [id number] fentaNYL (PF) 2,500 mcg 41.667 In Sodium Chloride 0.9% 200 ml @ 50 MCG/HR 5 mls/ hr IV .Q24H [facility] Rx#: [id number] Output: Urine 240 720 525 Straight 30 Uretheral (Stewart) 10 Other: Voiding Method Indwelling Catheter Indwelling Catheter Indwelling Catheter Weight 125 kg ABP, PAP, CO, CI - Last 8 Hours Arterial Blood Pressure 93/51 Arterial Blood Pressure 96/51 Arterial Blood Pressure 116/58 Arterial Blood Pressure 58/36 Arterial Blood Pressure 104/53 Arterial Blood Pressure 105/54 Arterial Blood Pressure 108/55 Arterial Blood Pressure 112/55 Arterial Blood Pressure 113/56 Arterial Blood Pressure 110/56 Arterial Blood Pressure 106/54 Arterial Blood Pressure 99/52 Arterial Blood Pressure 111/55 Arterial Blood Pressure 114/54 Arterial Blood Pressure 102/51 Arterial Blood Pressure 107/55 Arterial Blood Pressure 105/54 Arterial Blood Pressure 100/52 Arterial Blood Pressure 102/54 Arterial Blood Pressure 103/54 Arterial Blood Pressure 106/55 Arterial Blood Pressure 121/60 Arterial Blood Pressure 110/59 Arterial Blood Pressure 102/57 Arterial Blood Pressure 95/55 Arterial Blood Pressure 82/48 Arterial Blood Pressure 88/51 Arterial Blood Pressure 90/51 Arterial Blood Pressure 93/53 - Constitutional General appearance: no acute distress - Respiratory Respiratory: bilateral: rales - Cardiovascular Rhythm: regular Heart sounds: normal: S1, S2 Results 12/07/17 03:10 12/07/17 03:10 Cardiac Enzymes 12/06/17 12/06/17 12/06/17 Range/Units 13:30 13:30 20:45 AST 262 H 229 H (14-36) U/L Troponin I 0.970 H* (0.000-0.034) ng/mL 12/07/17 12/07/17 Range/Units 03:10 06:12 AST 184 H (14-36) U/L Troponin I 0.916 H* (0.000-0.034) ng/mL Coagulation 12/06/17 Range/Units 20:45 PT 14.5 H (9.0-12.0) sec APTT 34.1 H (22.0-30.0) sec CBC 12/06/17 12/06/17 12/07/17 Range/Units 13:30 20:45 03:10 WBC 20.5 H 32.1 H* 27.0 H* (3.8-10.6) k/uL RBC 4.24 4.30 4.32 (3.80-5.40) m/uL Hgb 11.7 12.3 11.8 (11.4-16.0) gm/dL Hct 35.8 37.2 37.8 (34.0-46.0) % Plt Count 69 L 70 L 68 L (150-450) k/uL Comprehensive Metabolic Panel 12/06/17 12/06/17 12/07/17 Range/Units 13:30 20:45 03:10 Sodium 139 138 139 (137-145) mmol/L Potassium 3.7 4.1 4.0 (3.5-5.1) mmol/L Chloride 103 109 H 113 H (98-107) mmol/L Carbon Dioxide 22 19 L 13 L (22-30) mmol/L BUN 48 H 44 H 43 H (7-17) mg/dL Creatinine 4.10 H 3.73 H 3.60 H (0.52-1.04) mg/dL Glucose 127 H 136 H 106 H (74-99) mg/dL Calcium 7.7 L 7.1 L 6.5 L* (8.4-10.2) mg/dL AST 262 H 229 H 184 H (14-36) U/L ALT 182 H 181 H 166 H (9-52) U/L Alkaline Phosphatase 67 102 119 (38-126) U/L Total Protein 5.2 L 5.1 L 4.7 L (6.3-8.2) g/dL Albumin 2.8 L 2.7 L 2.4 L (3.5-5.0) g/dL Current Medications Generic Name Dose Route Start Last Admin Trade Name Freq PRN Reason Stop Dose Admin Chlorhexidine Gluconate 15 ml 12/06/17 21:00 12/07/17 09:09 Peridex MUCOUS MEM 15 ml BID DAMON Administration Heparin Sodium (Porcine) 5,000 unit 12/07/17 00:00 12/07/17 09:09 Heparin SQ 5,000 unit Q8HR DAMON Administration Vasopressin 20 unit/ Sodium 100 mls @ 9 mls/hr 12/06/17 18:15 12/07/17 01:12 Chloride IV 9 mls/hr .Q11H7M DAMON Administration 0.03 UNITS/MIN Cefepime HCl 1 gm/ Sodium 50 mls @ 100 mls/hr 12/06/17 18:49 12/07/17 09:09 Chloride IVPB 100 mls/hr Q24HR DAMON Administration Propofol 1,000 mg/ IV Solution 100 mls @ 0 mls/hr 12/06/17 20:45 12/07/17 05: 36 IV 20 mcg/kg/min .Q0M DAMON 13.39 mls/hr Administration Protocol Titrate Fentanyl Citrate 2,500 mcg/ 250 mls @ 5 mls/hr 12/06/17 22:15 12/07/17 04:37 Sodium Chloride IV 55 mcg/hr .Q24H DAMON 5.5 mls/hr Titration Protocol 50 MCG/HR Acetaminophen 1,000 mg/ IV 100 mls @ 400 mls/hr 12/07/17 03:51 12/07/17 04:31 Solution IVPB 12/08/17 00:14 400 mls/hr Q6HR PRN Administration Fever Epinephrine HCl 2 mg/ Dextrose 252 mls @ 15.12 mls/hr 12/07/17 04:00 04:31 /Water IV 2 mcg/min .[id number] DAMON 15.12 mls/hr Administration Protocol 2 MCG/MIN Norepinephrine Bitartrate 16 250 mls @ 0 mls/hr 12/07/17 04:42 mg/ Dextrose/Water IV .Q0M [facility] Protocol Titrate Sodium Bicarbonate 150 ml/ 1,150 mls @ 100 mls/hr 12/07/17 07:10 12/07/17 09: 10 Dextrose/Water IV 12/07/17 18:39 100 mls/hr .[id number] ONE Administration Insulin Aspart 0 unit 12/07/17 00:30 12/07/17 06:26 Novolog SQ Not Given Q6H [facility] Protocol Miscellaneous Information 1 each 12/07/17 03:49 Magnesium Per Protocol MISCELLANE DAILY PRN Per Protocol Protocol Naloxone HCl 0.2 mg 12/06/17 16:48 Narcan IV Q2M PRN Opioid Reversal Pantoprazole Sodium 40 mg 12/06/17 18:15 12/07/17 09:09 Protonix IVP 40 mg DAILY [facility] Administration Intake and Output 12/06/17 12/07/17 12/07/17 22:59 06:59 14:59 Intake Total 2554.082 3255.866 650 Output Total 240 720 525 Balance 2314.082 2535.866 125 Intake: IV 2500 2700 400 ACETAMINOPHEN IV (For NPO 100 ) 1,000 mg In Empty Bag 1 bag @ 400 mls/hr IVPB Q6HR PRN Rx#:[id number] Calcium Gluconate 2,000 100 mg In Sodium Chloride 0.9 % 100 ml @ 100 mls/hr IVPB ONCE ONE Rx#: [id number] Magnesium Sulfate-D5w Pmx 400 1 gm In Dextrose/Water 1 100ml.bag @ 100 mls/hr IVPB Q1H [facility] Rx#: [id number] Sodium Chloride 0.9% 1, 300 1200 300 000 ml @ 150 mls/hr IV . Q6H40M [facility] Rx#:[id number] Sodium Chloride 0.9% 1, 2000 1000 000 ml @ 999 mls/hr IV . Q1H1M ONE Rx#:[id number] Intake, IV Titration 54.082 555.866 250 Amount Dextrose 5% in Water 1, 250 000 ml @ 100 mls/hr IV . [id number] ONE with Sodium Bicarb (1 Meq/ml) 150 ml Rx#:[id number] Norepinephrin 16 mg-0.9% 419.219 Ns Pmx 16 mg In 250 ml @ Titrate IV .Q0M [facility] Rx#: [id number] Norepinephrine 4 mg In 49.062 Sodium Chloride 0.9% 250 ml @ Titrate IV .Q0M ONE Rx#:[id number] Propofol 1,000 mg In 5.02 94.98 Empty Bag 1 bag @ Titrate IV .Q0M [facility] Rx#: [id number] fentaNYL (PF) 2,500 mcg 41.667 In Sodium Chloride 0.9% 200 ml @ 50 MCG/HR 5 mls/ hr IV .Q24H [facility] Rx#: [id number] Output: Urine 240 720 525 Straight 30 Uretheral (Stewart) 10 Other: Voiding Method Indwelling Catheter Indwelling Catheter Indwelling Catheter Weight 125 kg 12/07/17 03:10 12/07/17 03:10 Assessment and Plan Assessment: Assessment #1 urosepsis #2 hypotension secondary to sepsis #3 acute on chronic renal failure #4 mildly deviated cardiac enzymes #5 acute respiratory failure Plan #1 I would recommend conservative medical approach. #2 add aspirin and metoprolol once the hematuria resolved and once the patient' s hemodynamic is stable # follow up on the echocardiogram which was performed earlier #4 follow-up with the patient. Thank you for allowing us participate in her care
[2017-12-07 11:44] LABS: Glucose,Whole Blood 119 mg/dL (75-99)
[2017-12-07] MEDS: NOREPINEPHRINE 16 MG in DEXTROSE 5% IN WATER 250 ML IV SCH ×4 (11:49→19:42)
--- NOTE | 2017-12-07 12:12 | ECHOF ---
Referral Reason:Elevated troponin, sepsis MEASUREMENTS -------- HEIGHT: 170.2 cm WEIGHT: 124.7 kg BP: 105/54 RVIDd: 2.4 cm (< 3.3) IVSd: 1.6 cm (0.6 - 1.1) LVIDd: 3.7 cm (3.9 - 5.3) LVPWd: 1.6 cm (0.6 - 1.1) IVSs: 2.0 cm LVIDs: 3.0 cm LVPWs: 1.8 cm Ao Diam: 3.2 cm (2.0 - 3.7) AV Cusp: 1.9 cm (1.5 - 2.6) LA Diam: 3.7 cm (2.7 - 3.8) MV EXCURSION: 19.783 mm (> 18.000) MV EF SLOPE: 156 mm/s (70 - 150) EPSS: 0.3 cm MV E Narendra: 0.83 m/s MV DecT: 159 ms MV A Narendra: 0.51 m/s MV E/A Ratio: 1.64 RAP: 5.00 mmHg RVSP: 40.69 mmHg FINDINGS -------- Sinus rhythm. This was a technically difficult study with suboptimal apical views. The left ventricular size is normal. There is moderate concentric left ventricular hypertrophy. O verall left ventricular systolic function is normal with, an EF between 55 - 60 %. The right ventricle is normal in size. The left atrium is normal in size. The right atrium is normal in size. The aortic valve is trileaflet, and appears structurally normal. No aortic stenosis or regurgitation. The mitral valve leaflets are mildly thickened. Mild mitral regurgitation is present. Mild tricuspid regurgitation present. There is mild pulmonary hypertension. The right ventricular systolic pressure, as measured by Doppler, is 40.69mmHg. There is no pulmonic regurgitation present. The aortic root size is normal. The pericardium is normal. CONCLUSIONS -------- 1. Sinus rhythm. 2. This was a technically difficult study with suboptimal apical views. 3. The left ventricular size is normal. 4. There is moderate concentric left ventricular hypertrophy. 5. Overall left ventricular systolic function is normal with, an EF between 55 - 60 %. 6. The left atrium is normal in size. 7. The aortic valve is trileaflet, and appears structurally normal. No aortic stenosis or regurgitati on. 8. The mitral valve leaflets are mildly thickened. 9. Mild mitral regurgitation is present. 10. Mild tricuspid regurgitation present. 11. There is mild pulmonary hypertension. 12. There is no pulmonic regurgitation present. 13. The aortic root size is normal. 14. The pericardium is normal. WIREWORKER SUPERVISOR: Modesta Beyer RDCS
[2017-12-07 12:28] LABS: Glucose,Whole Blood 109 mg/dL (75-99)
--- NOTE | 2017-12-07 13:40 | P.PN ---
Subjective Progress Note Date: 12/07/17 62-year-old morbidly obese female patient presented to the emergency department because of nausea vomiting diarrhea and left flank pain. The patient was extremely dehydrated. She was hypotensive with initial systolic blood pressure in the 60s. Her blood work was completely abnormal with an acute kidney injury in the creatinine of 4.1 and the patient had a anion gap metabolic acidosis with a bicarb of 22 and anion gap of 14 and Actiq acid was at 4.9. The patient' s white cell count was at 20.5. After receiving 4 L of IV fluids the patient remained hypotensive. The patient started on pressors initially at 5 mics and currently she is up to 30 mics of norepinephrine infusion at sonic through a peripheral line. A triple lumen catheter was inserted immediately. A blood gases obtained that showed a pH of 7.24 with a pCO2 of 47 and pO2 of 80. The patient is still awake and alert. She is a bit uncomfortable. Unable to lay down flat. Chest x-ray post-line insertion shows adequate expansion of both lungs and there is no evidence of any pneumonia. The triple-lumen catheter is in good location. The patient was given a dose of Rocephin 2 g IV in the emergency department. Stewart catheter was inserted. Not a whole lot of urine output is being produced this point in time. CAT scan of the abdomen was done and the patient has a proximal left ureteral calculus. There is also a right- sided nephrolithiasis. There is cholelithiasis without evidence of cholecystitis. Patient has a 19 x 8 x 21 mm stone in the right renal pelvis which is nonobstructive. Another 3-4 mm stone in the proximal left ureter. Discussed the case with Dr. Emil Green from urology and the patient be taken to the operating room for an immediate double-J stent insertion in the left. On and I'm seeing this patient for a follow-up. As mentioned earlier the patient came in today burst department with severe dehydration, sepsis, complicated UTI, left-sided pyelonephritis, septic shock, metabolic acidosis, lactic acidosis and acute kidney injury. The patient was taken to the operating room yesterday and a double-J stent was inserted on the left. Postop , the patient was kept intubated on a mechanical ventilator. She became quite hypotensive and upon arrival to the ICU the patient was already hypotensive and pressor dependent. Throughout the night the patient received fluids aggressively in order of 6 L of IV fluids. She also received albumin. The patient continued to be profoundly hypotensive. I added vasopressin physiologic dose and she was brought up to a 60 g of norepinephrine infusion per minutes. Also epinephrine was started to maintain a mean arterial pressure above 60. She continued to have episodes of fever treated with IV Tylenol. Aspirin antibiotic coverage, the patient was kept on IV cefepime. The primary blood cultures showing gram-negative bacillus and final cultures of been identified yet. This morning, the patient is sedated Diprivan and she is calm and comfortable and currently she is on 35 g of Diprivan infusion with adequate sedation. She is an assist-control mode of ventilation at the rate of 28 with a tidal volume of 500 and FiO2 of 70% with a PEEP of 5. Morning blood gases showed a pH of 7.28 with a pCO2 of 30 and pO2 of 103 and this was done and FiO2 of 70% and based on that the FiO2 was dropped down to 60%. Chest x- ray showed adequate positioning of the ET tube and the patient has a left IJ triple lumen catheter in place. The chest x-ray also showed stable cardiopulmonary and mediastinal structures. Echocardiogram was done and showed a preserved LV function with an ejection fraction of 55-60% without any significant valvular abnormalities. The patient is not fluid balance is +5 L over the past 24 hours. She did start making some urine at this point in time and she is producing approximately 10-15 mL an hour. Her white cell count peaked at 32 and currently is down to 27. Her lactic acid levels are improving and is down to 2.6. The patient's creatinine is down to 3.6. Her bicarb level is down to 13 and the patient was switched a bicarb drip infusion. Is a troponin leak there is also abnormal LFTs all probably later to severe septic shock. Objective - Vital Signs Vital signs: Vital Signs Temp 98.3 F 12/07/17 12:00 Pulse 81 12/07/17 13:00 Resp 27 H 12/07/17 13:00 BP 87/58 12/06/17 23:45 Pulse Ox 96 12/07/17 13:00 Intake & Output 12/06/17 12/07/17 12/07/17 18:59 06:59 18:59 Intake Total 49.062 5760.886 1394.719 Output Total 30 930 875 Balance 19.062 4830.886 519.719 Weight 111.584 kg 125 kg Intake: IV 5200 418 ACETAMINOPHEN IV (For NPO 100 ) 1,000 mg In Empty Bag 1 bag @ 400 mls/hr IVPB Q6HR PRN Rx#:[id number] Calcium Gluconate 2,000 100 mg In Sodium Chloride 0.9 % 100 ml @ 100 mls/hr IVPB ONCE ONE Rx#: [id number] Magnesium Sulfate-D5w Pmx 400 1 gm In Dextrose/Water 1 100ml.bag @ 100 mls/hr IVPB Q1H [facility] Rx#: [id number] Pressure bag 18 Sodium Chloride 0.9% 1, 1500 300 000 ml @ 150 mls/hr IV . Q6H40M [facility] Rx#:[id number] Sodium Chloride 0.9% 1, 3000 000 ml @ 999 mls/hr IV . Q1H1M ONE Rx#:[id number] Intake, IV Titration 49.062 560.886 976.719 Amount Dextrose 5% in Water 1, 550 000 ml @ 100 mls/hr IV . [id number] ONE with Sodium Bicarb (1 Meq/ml) 150 ml Rx#:[id number] EPINEPHrine 2 mg In 62.748 Dextrose 5% in Water 250 ml @ 2 MCG/MIN 15.12 mls/ hr IV .[id number] [facility] Rx#: [id number] Norepinephrin 16 mg-0.9% 419.219 250 Ns Pmx 16 mg In 250 ml @ Titrate IV .Q0M [facility] Rx#: [id number] Norepinephrine 4 mg In 49.062 Sodium Chloride 0.9% 250 ml @ Titrate IV .Q0M ONE Rx#:[id number] Propofol 1,000 mg In 100.00 75.654 Empty Bag 1 bag @ Titrate IV .Q0M [facility] Rx#: [id number] fentaNYL (PF) 2,500 mcg 41.667 38.317 In Sodium Chloride 0.9% 200 ml @ 50 MCG/HR 5 mls/ hr IV .Q24H [facility] Rx#: [id number] Output: Urine 30 930 875 Straight 30 Uretheral (Stewart) 10 Other: Voiding Method Indwelling Catheter Indwelling Catheter ABP, PAP, CO, CI - Last Documented Arterial Blood Pressure 100/51 - Exam Gen. appearance, comfortable likely distress sedated on a mechanical ventilator. Head exam was generally normal. There was no scleral icterus or corneal arcus. Mucous membranes were moist. The patient has an orogastric and orotracheal tube are both of them are in place. Neck was supple and without jugular venous distension, thyromegaly, or carotid bruits. Carotids were easily palpable bilaterally. There was no adenopathy. The patient has a left IJ triple-lumen catheter in place. Lungs were clear to auscultation and percussion, and with normal diaphragmatic excursion. No wheezes or rales were noted. Breath sounds are diminished in lung bases bilaterally Cardiac exam revealed the PMI to be normally situated and sized. The rhythm was regular and no extrasystoles were noted during several minutes of auscultation. The first and second heart sounds were normal and physiologic splitting of the second heart sound was noted. There were no murmurs, rubs, clicks, or gallops. Abdominal exam revealed normal bowel sounds. The abdomen was soft, non-tender, and without masses, organomegaly, or appreciable enlargement of the abdominal aorta. The patient is obese and the organs cannot be accurately palpated this point in time Examination of the extremities revealed easily palpable radial, femoral and pedal pulses. There was no cyanosis, clubbing there is trace edema in the lower extremities bilaterally and the patient has diminished pulses in all 4 extremities related to her underlying septic shock Neurologically patient is sedated, comfortable she withdraws to deep painful stim ablation. Examination of the skin revealed no evidence of significant rashes, suspicious appearing nevi or other concerning lesions. - Labs CBC & Chem 7: 12/07/17 03:10 12/07/17 03:10 Labs: Abnormal Lab Results - Last 24 Hours (Table) 12/06/17 12/06/17 12/06/17 Range/Units 13:30 13:30 13:30 WBC 20.5 H (3.8-10.6) k/uL Plt Count 69 L (150-450) k/uL Neutrophils # (1.3-7.7) k/uL Neutrophils # (Manual) 18.40 H (1.3-7.7) k/uL Lymphocytes # (Manual) 0.82 L (1.0-4.8) k/uL Metamyelocytes # (Man) 0.82 H (0) k/uL Myelocytes # (Manual) (0) k/uL PT (9.0-12.0) sec INR (<1.2) APTT (22.0-30.0) sec ABG pH (7.35-7.45) ABG pCO2 (35-45) mmHg ABG pO2 (83-108) mmHg ABG HCO3 (21-25) mmol/L ABG Total CO2 (19-24) mmol/L ABG O2 Saturation (94-97) % Chloride (98-107) mmol/L Carbon Dioxide (22-30) mmol/L BUN 48 H (7-17) mg/dL Creatinine 4.10 H (0.52-1.04) mg/dL Glucose 127 H (74-99) mg/dL POC Glucose (mg/dL) (75-99) mg/dL Hemoglobin A1c (4.0-6.0) % Plasma Lactic Acid Joe (0.7-2.0) mmol/L Calcium 7.7 L (8.4-10.2) mg/dL Magnesium (1.6-2.3) mg/dL Total Bilirubin 2.0 H (0.2-1.3) mg/dL AST 262 H (14-36) U/L ALT 182 H (9-52) U/L Troponin I 0.970 H* (0.000-0.034) ng/mL Total Protein 5.2 L (6.3-8.2) g/dL Albumin 2.8 L (3.5-5.0) g/dL Amylase 546 H* (30-110) U/L Lipase (23-300) U/L Urine Appearance (Clear) Urine Protein (Negative) Urine Blood (Negative) Ur Leukocyte Esterase (Negative) Urine RBC (0-5) /hpf Urine WBC (0-5) /hpf Urine WBC Clumps (None) /hpf Urine Bacteria (None) /hpf Urine Mucus (None) /hpf 12/06/17 12/06/17 12/06/17 Range/Units 13:30 13:30 14:55 WBC (3.8-10.6) k/uL Plt Count (150-450) k/uL Neutrophils # (1.3-7.7) k/uL Neutrophils # (Manual) (1.3-7.7) k/uL Lymphocytes # (Manual) (1.0-4.8) k/uL Metamyelocytes # (Man) (0) k/uL Myelocytes # (Manual) (0) k/uL PT (9.0-12.0) sec INR (<1.2) APTT (22.0-30.0) sec ABG pH (7.35-7.45) ABG pCO2 (35-45) mmHg ABG pO2 (83-108) mmHg ABG HCO3 (21-25) mmol/L ABG Total CO2 (19-24) mmol/L ABG O2 Saturation (94-97) % Chloride (98-107) mmol/L Carbon Dioxide (22-30) mmol/L BUN (7-17) mg/dL Creatinine (0.52-1.04) mg/dL Glucose (74-99) mg/dL POC Glucose (mg/dL) (75-99) mg/dL Hemoglobin A1c 6.9 H (4.0-6.0) % Plasma Lactic Acid Joe 4.9 H* (0.7-2.0) mmol/L Calcium (8.4-10.2) mg/dL Magnesium (1.6-2.3) mg/dL Total Bilirubin (0.2-1.3) mg/dL AST (14-36) U/L ALT (9-52) U/L Troponin I (0.000-0.034) ng/mL Total Protein (6.3-8.2) g/dL Albumin (3.5-5.0) g/dL Amylase (30-110) U/L Lipase (23-300) U/L Urine Appearance Turbid H (Clear) Urine Protein 2+ H (Negative) Urine Blood Large H (Negative) Ur Leukocyte Esterase Large H (Negative) Urine RBC >182 H (0-5) /hpf Urine WBC >182 H (0-5) /hpf Urine WBC Clumps Many H (None) /hpf Urine Bacteria Moderate H (None) /hpf Urine Mucus Many H (None) /hpf 12/06/17 12/06/17 12/06/17 Range/Units 17:05 17:30 20:20 WBC (3.8-10.6) k/uL Plt Count (150-450) k/uL Neutrophils # (1.3-7.7) k/uL Neutrophils # (Manual) (1.3-7.7) k/uL Lymphocytes # (Manual) (1.0-4.8) k/uL Metamyelocytes # (Man) (0) k/uL Myelocytes # (Manual) (0) k/uL PT (9.0-12.0) sec INR (<1.2) APTT (22.0-30.0) sec ABG pH 7.24 L (7.35-7.45) ABG pCO2 47 H (35-45) mmHg ABG pO2 80 L (83-108) mmHg ABG HCO3 20 L (21-25) mmol/L ABG Total CO2 (19-24) mmol/L ABG O2 Saturation (94-97) % Chloride (98-107) mmol/L Carbon Dioxide (22-30) mmol/L BUN (7-17) mg/dL Creatinine (0.52-1.04) mg/dL Glucose (74-99) mg/dL POC Glucose (mg/dL) 125 H (75-99) mg/dL Hemoglobin A1c (4.0-6.0) % Plasma Lactic Acid Joe 3.3 H* (0.7-2.0) mmol/L Calcium (8.4-10.2) mg/dL Magnesium (1.6-2.3) mg/dL Total Bilirubin (0.2-1.3) mg/dL AST (14-36) U/L ALT (9-52) U/L Troponin I (0.000-0.034) ng/mL Total Protein (6.3-8.2) g/dL Albumin (3.5-5.0) g/dL Amylase (30-110) U/L Lipase (23-300) U/L Urine Appearance (Clear) Urine Protein (Negative) Urine Blood (Negative) Ur Leukocyte Esterase (Negative) Urine RBC (0-5) /hpf Urine WBC (0-5) /hpf Urine WBC Clumps (None) /hpf Urine Bacteria (None) /hpf Urine Mucus (None) /hpf 12/06/17 12/06/17 12/06/17 Range/Units 20:39 20:45 20:45 WBC 32.1 H* (3.8-10.6) k/uL Plt Count 70 L (150-450) k/uL Neutrophils # (1.3-7.7) k/uL Neutrophils # (Manual) 30.40 H (1.3-7.7) k/uL Lymphocytes # (Manual) 0.64 L (1.0-4.8) k/uL Metamyelocytes # (Man) 0.32 H (0) k/uL Myelocytes # (Manual) 0.32 H (0) k/uL PT (9.0-12.0) sec INR (<1.2) APTT (22.0-30.0) sec ABG pH 7.17 L* (7.35-7.45) ABG pCO2 49 H (35-45) mmHg ABG pO2 209 H (83-108) mmHg ABG HCO3 18 L (21-25) mmol/L ABG Total CO2 (19-24) mmol/L ABG O2 Saturation 99.5 H (94-97) % Chloride 109 H (98-107) mmol/L Carbon Dioxide 19 L (22-30) mmol/L BUN 44 H (7-17) mg/dL Creatinine 3.73 H (0.52-1.04) mg/dL Glucose 136 H (74-99) mg/dL POC Glucose (mg/dL) (75-99) mg/dL Hemoglobin A1c (4.0-6.0) % Plasma Lactic Acid Joe (0.7-2.0) mmol/L Calcium 7.1 L (8.4-10.2) mg/dL Magnesium 1.2 L (1.6-2.3) mg/dL Total Bilirubin 2.4 H (0.2-1.3) mg/dL AST 229 H (14-36) U/L ALT 181 H (9-52) U/L Troponin I (0.000-0.034) ng/mL Total Protein 5.1 L (6.3-8.2) g/dL Albumin 2.7 L (3.5-5.0) g/dL Amylase 380 H* (30-110) U/L Lipase 16 L (23-300) U/L Urine Appearance (Clear) Urine Protein (Negative) Urine Blood (Negative) Ur Leukocyte Esterase (Negative) Urine RBC (0-5) /hpf Urine WBC (0-5) /hpf Urine WBC Clumps (None) /hpf Urine Bacteria (None) /hpf Urine Mucus (None) /hpf 12/06/17 12/06/17 12/06/17 Range/Units 20:45 21:02 21:45 WBC (3.8-10.6) k/uL Plt Count (150-450) k/uL Neutrophils # (1.3-7.7) k/uL Neutrophils # (Manual) (1.3-7.7) k/uL Lymphocytes # (Manual) (1.0-4.8) k/uL Metamyelocytes # (Man) (0) k/uL Myelocytes # (Manual) (0) k/uL PT 14.5 H (9.0-12.0) sec INR 1.6 H (<1.2) APTT 34.1 H (22.0-30.0) sec ABG pH 7.27 L (7.35-7.45) ABG pCO2 (35-45) mmHg ABG pO2 (83-108) mmHg ABG HCO3 17 L (21-25) mmol/L ABG Total CO2 18 L (19-24) mmol/L ABG O2 Saturation (94-97) % Chloride (98-107) mmol/L Carbon Dioxide (22-30) mmol/L BUN (7-17) mg/dL Creatinine (0.52-1.04) mg/dL Glucose (74-99) mg/dL POC Glucose (mg/dL) (75-99) mg/dL Hemoglobin A1c (4.0-6.0) % Plasma Lactic Acid Joe 2.6 H* (0.7-2.0) mmol/L Calcium (8.4-10.2) mg/dL Magnesium (1.6-2.3) mg/dL Total Bilirubin (0.2-1.3) mg/dL AST (14-36) U/L ALT (9-52) U/L Troponin I (0.000-0.034) ng/mL Total Protein (6.3-8.2) g/dL Albumin (3.5-5.0) g/dL Amylase (30-110) U/L Lipase (23-300) U/L Urine Appearance (Clear) Urine Protein (Negative) Urine Blood (Negative) Ur Leukocyte Esterase (Negative) Urine RBC (0-5) /hpf Urine WBC (0-5) /hpf Urine WBC Clumps (None) /hpf Urine Bacteria (None) /hpf Urine Mucus (None) /hpf 12/07/17 12/07/17 12/07/17 Range/Units 00:43 01:03 03:10 WBC 27.0 H* (3.8-10.6) k/uL Plt Count 68 L (150-450) k/uL Neutrophils # 24.8 H (1.3-7.7) k/uL Neutrophils # (Manual) (1.3-7.7) k/uL Lymphocytes # (Manual) (1.0-4.8) k/uL Metamyelocytes # (Man) (0) k/uL Myelocytes # (Manual) (0) k/uL PT (9.0-12.0) sec INR (<1.2) APTT (22.0-30.0) sec ABG pH (7.35-7.45) ABG pCO2 (35-45) mmHg ABG pO2 (83-108) mmHg ABG HCO3 (21-25) mmol/L ABG Total CO2 (19-24) mmol/L ABG O2 Saturation (94-97) % Chloride (98-107) mmol/L Carbon Dioxide (22-30) mmol/L BUN (7-17) mg/dL Creatinine (0.52-1.04) mg/dL Glucose (74-99) mg/dL POC Glucose (mg/dL) 112 H (75-99) mg/dL Hemoglobin A1c (4.0-6.0) % Plasma Lactic Acid Joe 2.8 H* (0.7-2.0) mmol/L Calcium (8.4-10.2) mg/dL Magnesium (1.6-2.3) mg/dL Total Bilirubin (0.2-1.3) mg/dL AST (14-36) U/L ALT (9-52) U/L Troponin I (0.000-0.034) ng/mL Total Protein (6.3-8.2) g/dL Albumin (3.5-5.0) g/dL Amylase (30-110) U/L Lipase (23-300) U/L Urine Appearance (Clear) Urine Protein (Negative) Urine Blood (Negative) Ur Leukocyte Esterase (Negative) Urine RBC (0-5) /hpf Urine WBC (0-5) /hpf Urine WBC Clumps (None) /hpf Urine Bacteria (None) /hpf Urine Mucus (None) /hpf 12/07/17 12/07/17 12/07/17 Range/Units 03:10 03:20 03:36 WBC (3.8-10.6) k/uL Plt Count (150-450) k/uL Neutrophils # (1.3-7.7) k/uL Neutrophils # (Manual) (1.3-7.7) k/uL Lymphocytes # (Manual) (1.0-4.8) k/uL Metamyelocytes # (Man) (0) k/uL Myelocytes # (Manual) (0) k/uL PT (9.0-12.0) sec INR (<1.2) APTT (22.0-30.0) sec ABG pH 7.28 L (7.35-7.45) ABG pCO2 30 L (35-45) mmHg ABG pO2 (83-108) mmHg ABG HCO3 14 L (21-25) mmol/L ABG Total CO2 15 L (19-24) mmol/L ABG O2 Saturation 97.9 H (94-97) % Chloride 113 H (98-107) mmol/L Carbon Dioxide 13 L (22-30) mmol/L BUN 43 H (7-17) mg/dL Creatinine 3.60 H (0.52-1.04) mg/dL Glucose 106 H (74-99) mg/dL POC Glucose (mg/dL) 100 H (75-99) mg/dL Hemoglobin A1c (4.0-6.0) % Plasma Lactic Acid Joe (0.7-2.0) mmol/L Calcium 6.5 L* (8.4-10.2) mg/dL Magnesium 1.1 L (1.6-2.3) mg/dL Total Bilirubin 2.2 H (0.2-1.3) mg/dL AST 184 H (14-36) U/L ALT 166 H (9-52) U/L Troponin I (0.000-0.034) ng/mL Total Protein 4.7 L (6.3-8.2) g/dL Albumin 2.4 L (3.5-5.0) g/dL Amylase (30-110) U/L Lipase (23-300) U/L Urine Appearance (Clear) Urine Protein (Negative) Urine Blood (Negative) Ur Leukocyte Esterase (Negative) Urine RBC (0-5) /hpf Urine WBC (0-5) /hpf Urine WBC Clumps (None) /hpf Urine Bacteria (None) /hpf Urine Mucus (None) /hpf 12/07/17 12/07/17 12/07/17 Range/Units 06:12 06:18 06:20 WBC (3.8-10.6) k/uL Plt Count (150-450) k/uL Neutrophils # (1.3-7.7) k/uL Neutrophils # (Manual) (1.3-7.7) k/uL Lymphocytes # (Manual) (1.0-4.8) k/uL Metamyelocytes # (Man) (0) k/uL Myelocytes # (Manual) (0) k/uL PT (9.0-12.0) sec INR (<1.2) APTT (22.0-30.0) sec ABG pH (7.35-7.45) ABG pCO2 (35-45) mmHg ABG pO2 (83-108) mmHg ABG HCO3 (21-25) mmol/L ABG Total CO2 (19-24) mmol/L ABG O2 Saturation (94-97) % Chloride (98-107) mmol/L Carbon Dioxide (22-30) mmol/L BUN (7-17) mg/dL Creatinine (0.52-1.04) mg/dL Glucose (74-99) mg/dL POC Glucose (mg/dL) 122 H (75-99) mg/dL Hemoglobin A1c (4.0-6.0) % Plasma Lactic Acid Joe 2.6 H* (0.7-2.0) mmol/L Calcium (8.4-10.2) mg/dL Magnesium (1.6-2.3) mg/dL Total Bilirubin (0.2-1.3) mg/dL AST (14-36) U/L ALT (9-52) U/L Troponin I 0.916 H* (0.000-0.034) ng/mL Total Protein (6.3-8.2) g/dL Albumin (3.5-5.0) g/dL Amylase (30-110) U/L Lipase (23-300) U/L Urine Appearance (Clear) Urine Protein (Negative) Urine Blood (Negative) Ur Leukocyte Esterase (Negative) Urine RBC (0-5) /hpf Urine WBC (0-5) /hpf Urine WBC Clumps (None) /hpf Urine Bacteria (None) /hpf Urine Mucus (None) /hpf 12/07/17 12/07/17 12/07/17 Range/Units 08:00 11:40 12:11 WBC (3.8-10.6) k/uL Plt Count (150-450) k/uL Neutrophils # (1.3-7.7) k/uL Neutrophils # (Manual) (1.3-7.7) k/uL Lymphocytes # (Manual) (1.0-4.8) k/uL Metamyelocytes # (Man) (0) k/uL Myelocytes # (Manual) (0) k/uL PT (9.0-12.0) sec INR (<1.2) APTT (22.0-30.0) sec ABG pH (7.35-7.45) ABG pCO2 (35-45) mmHg ABG pO2 (83-108) mmHg ABG HCO3 (21-25) mmol/L ABG Total CO2 (19-24) mmol/L ABG O2 Saturation (94-97) % Chloride (98-107) mmol/L Carbon Dioxide (22-30) mmol/L BUN (7-17) mg/dL Creatinine (0.52-1.04) mg/dL Glucose (74-99) mg/dL POC Glucose (mg/dL) 119 H 109 H (75-99) mg/dL Hemoglobin A1c (4.0-6.0) % Plasma Lactic Acid Joe 2.6 H* (0.7-2.0) mmol/L Calcium (8.4-10.2) mg/dL Magnesium (1.6-2.3) mg/dL Total Bilirubin (0.2-1.3) mg/dL AST (14-36) U/L ALT (9-52) U/L Troponin I (0.000-0.034) ng/mL Total Protein (6.3-8.2) g/dL Albumin (3.5-5.0) g/dL Amylase (30-110) U/L Lipase (23-300) U/L Urine Appearance (Clear) Urine Protein (Negative) Urine Blood (Negative) Ur Leukocyte Esterase (Negative) Urine RBC (0-5) /hpf Urine WBC (0-5) /hpf Urine WBC Clumps (None) /hpf Urine Bacteria (None) /hpf Urine Mucus (None) /hpf Microbiology - Last 24 Hours (Table) 12/06/17 16:04 Blood Culture Gram Stain - Preliminary Blood 12/06/17 16:04 Blood Culture - Final Blood 12/07/17 00:05 Sputum Culture - Preliminary Sputum 12/06/17 19:39 Urine Culture - Preliminary Urine,Voided 12/06/17 14:55 Urine Culture - Preliminary Urine,Voided Assessment and Plan Plan: Assessment 1 acute septic shock secondary to gram negative infection. The patient has gram -negative and the blood and the urine. The source of the septic shock is a a complicated UTI, possible left-sided pyelonephritis. The patient has a 3 mm ureteral stent and she is post double-J stent insertion in the left. Currently she is aggressively resuscitated IV fluids. She is on high-dose pressors including a combination of norepinephrine and epinephrine and the patient is also on physiologic dose of vasopressin. 2 Acute urinary tract infection, complicated, associated with septic shock 3 nephrolithiasis with a proximal left ureteral stone causing ureteral obstruction in addition to nonobstructive calculus on the right kidney pelvis. 4 lactic acidosis, improving 5 non-anion gap metabolic acidosis secondary to above. The patient is currently on a bicarb drip 6 Leukocytosis secondary to above 7 acute kidney injury secondary to above, improving and the creatinine is down trending at this point in time the patient started producing some urine output 8 obesity 9 diabetes mellitus 10 history of hypertension 11 troponin leak secondary to septic shock 12 abnormal liver function tests secondary to sepsis/septic shock 13 thrombocytopenia with mild coagulopathy probably due to an early DIC in association with septic shock. Plan Agree on the bicarb infusion. Wean off epinephrine. Wean off norepinephrine. Continue with vasopressin as a physiologic dose. Continue IV cefepime. Monitor renal function. Monitor electrolytes. Continue vent support. DVT and GI prophylaxis. Echocardiogram was noted and the patient has a preserved LV function. We'll continue to follow the patient is not ready for any further weaning special with a significant septic shock and hemodynamic instability that 's been noted over the past 24 hours. She'll be kept in ICU. We'll continue to follow. The was updated on her condition. This is a critically care evaluation that was done more than 30 minutes. Time with Patient: Greater than 30
--- NOTE | 2017-12-07 16:12 | P.PN ---
Subjective Progress Note Date: 12/07/17 Keli Urban is a 62-year-old female who presented to [facility] emergency room with multiple complaints including nausea, vomiting, diarrhea, and bilateral flank and back pain, she was evaluated in the emergency room by Dr. Kaur and was found to have sepsis with severe hypotension and evidence of severe dehydration, patient had evidence of urinary tract infection , and evidence of left sided kidney stone with hydronephrosis, she was started on IV fluid, IV pressors, and IV antibiotics, she will be admitted to intensive care unit consultation for pulmonary critical care Dr. Subramanian was initiated in the emergency room. Also consultation for infectious disease and urology was initiated. Patient states that she had history of kidney stones she had right sided lithotripsy 35 years ago. Patient was seen and examined in emergency room on 12/06/2017 at 5:30 PM she is alert responsive and able to finish phrases due to shortness of breath she denies any chest pain, no nausea or vomiting at this time, she has pain in the bilateral flank area, otherwise she denies any complaints, she states that she started feeling sick about 3 days ago she was having vomiting and diarrhea she took pills to stop diarrhea at home, she denies knowing that she had a urinary tract infection, she denies taking any antibiotic recently. On 12/07/2017 patient is seen and examined in ICU she is intubated, sedated and maintained on mechanical ventilation, through the night patient had hypotension requiring high doses of IV pressors she was seen by urology and underwent double -J stent placement on the left she was intubated she is continued on IV antibiotics cefepime blood cultures are showing gram-negative bacilli lactic acid was significantly elevated but is improving at this time Objective - Vital Signs Vital signs: Vital Signs Temp 98.3 F 12/07/17 12:00 Pulse 84 12/07/17 15:00 Resp 27 H 12/07/17 15:00 BP 87/52 12/07/17 15:00 Pulse Ox 96 12/07/17 15:00 Intake & Output 12/06/17 12/07/17 12/07/17 18:59 06:59 18:59 Intake Total 49.062 5760.886 1959.361 Output Total 30 930 1020 Balance 19.062 4830.886 939.361 Weight 111.584 kg 125 kg Intake: IV 5200 605 ACETAMINOPHEN IV (For NPO 100 ) 1,000 mg In Empty Bag 1 bag @ 400 mls/hr IVPB Q6HR PRN Rx#:[id number] Calcium Gluconate 2,000 100 mg In Sodium Chloride 0.9 % 100 ml @ 100 mls/hr IVPB ONCE ONE Rx#: [id number] Magnesium Sulfate-D5w Pmx 400 1 gm In Dextrose/Water 1 100ml.bag @ 100 mls/hr IVPB Q1H [facility] Rx#: [id number] Pressure bag 30 Sodium Chloride 0.9% 1, 1500 475 000 ml @ 150 mls/hr IV . Q6H40M [facility] Rx#:[id number] Sodium Chloride 0.9% 1, 3000 000 ml @ 999 mls/hr IV . Q1H1M ONE Rx#:[id number] Intake, IV Titration 49.062 505.242 3649.361 Amount Dextrose 5% in Water 1, 750 000 ml @ 100 mls/hr IV . [id number] ONE with Sodium Bicarb (1 Meq/ml) 150 ml Rx#:[id number] EPINEPHrine 2 mg In 62.748 Dextrose 5% in Water 250 ml @ 2 MCG/MIN 15.12 mls/ hr IV .[id number] [facility] Rx#: [id number] Norepinephrin 16 mg-0.9% 419.219 250 Ns Pmx 16 mg In 250 ml @ Titrate IV .Q0M [facility] Rx#: [id number] Norepinephrine 16 mg In 177.642 Dextrose 5% in Water 250 ml @ Titrate IV .Q0M [facility] Rx#:[id number] Norepinephrine 4 mg In 49.062 Sodium Chloride 0.9% 250 ml @ Titrate IV .Q0M ONE Rx#:[id number] Propofol 1,000 mg In 100.00 75.654 Empty Bag 1 bag @ Titrate IV .Q0M [facility] Rx#: [id number] fentaNYL (PF) 2,500 mcg 41.667 38.317 In Sodium Chloride 0.9% 200 ml @ 50 MCG/HR 5 mls/ hr IV .Q24H [facility] Rx#: [id number] Output: Urine 30 930 1020 Straight 30 Uretheral (Stewart) 10 Other: Voiding Method Indwelling Catheter Indwelling Catheter ABP, PAP, CO, CI - Last Documented Arterial Blood Pressure 98/49 - Exam In general patient is intubated, sedated maintained on mechanical ventilation HEENT head normocephalic and atraumatic Neck is supple no JVD no goiter no lymphadenopathy no carotid bruit Chest exam reveals a few scattered rhonchi bilaterally no wheezing Cardiac exam reveals regular heart sounds S1 and S2 no gallops no murmurs Abdomen is soft nontender no organomegaly with normal bowel sounds Extremity exam reveals no edema no cyanosis or clubbing - Labs CBC & Chem 7: 12/07/17 03:10 12/07/17 03:10 Labs: Abnormal Lab Results - Last 24 Hours (Table) 12/06/17 12/06/17 12/06/17 Range/Units 13:30 17:05 17:30 WBC (3.8-10.6) k/uL Plt Count (150-450) k/uL Neutrophils # (1.3-7.7) k/uL Neutrophils # (Manual) (1.3-7.7) k/uL Lymphocytes # (Manual) (1.0-4.8) k/uL Metamyelocytes # (Man) (0) k/uL Myelocytes # (Manual) (0) k/uL PT (9.0-12.0) sec INR (<1.2) APTT (22.0-30.0) sec ABG pH 7.24 L (7.35-7.45) ABG pCO2 47 H (35-45) mmHg ABG pO2 80 L (83-108) mmHg ABG HCO3 20 L (21-25) mmol/L ABG Total CO2 (19-24) mmol/L ABG O2 Saturation (94-97) % Chloride (98-107) mmol/L Carbon Dioxide (22-30) mmol/L BUN (7-17) mg/dL Creatinine (0.52-1.04) mg/dL Glucose (74-99) mg/dL POC Glucose (mg/dL) (75-99) mg/dL Hemoglobin A1c 6.9 H (4.0-6.0) % Plasma Lactic Acid Joe 3.3 H* (0.7-2.0) mmol/L Calcium (8.4-10.2) mg/dL Magnesium (1.6-2.3) mg/dL Total Bilirubin (0.2-1.3) mg/dL AST (14-36) U/L ALT (9-52) U/L Troponin I (0.000-0.034) ng/mL Total Protein (6.3-8.2) g/dL Albumin (3.5-5.0) g/dL Amylase (30-110) U/L Lipase (23-300) U/L 12/06/17 12/06/17 12/06/17 Range/Units 20:20 20:39 20:45 WBC 32.1 H* (3.8-10.6) k/uL Plt Count 70 L (150-450) k/uL Neutrophils # (1.3-7.7) k/uL Neutrophils # (Manual) 30.40 H (1.3-7.7) k/uL Lymphocytes # (Manual) 0.64 L (1.0-4.8) k/uL Metamyelocytes # (Man) 0.32 H (0) k/uL Myelocytes # (Manual) 0.32 H (0) k/uL PT (9.0-12.0) sec INR (<1.2) APTT (22.0-30.0) sec ABG pH 7.17 L* (7.35-7.45) ABG pCO2 49 H (35-45) mmHg ABG pO2 209 H (83-108) mmHg ABG HCO3 18 L (21-25) mmol/L ABG Total CO2 (19-24) mmol/L ABG O2 Saturation 99.5 H (94-97) % Chloride (98-107) mmol/L Carbon Dioxide (22-30) mmol/L BUN (7-17) mg/dL Creatinine (0.52-1.04) mg/dL Glucose (74-99) mg/dL POC Glucose (mg/dL) 125 H (75-99) mg/dL Hemoglobin A1c (4.0-6.0) % Plasma Lactic Acid Joe (0.7-2.0) mmol/L Calcium (8.4-10.2) mg/dL Magnesium (1.6-2.3) mg/dL Total Bilirubin (0.2-1.3) mg/dL AST (14-36) U/L ALT (9-52) U/L Troponin I (0.000-0.034) ng/mL Total Protein (6.3-8.2) g/dL Albumin (3.5-5.0) g/dL Amylase (30-110) U/L Lipase (23-300) U/L 12/06/17 12/06/17 12/06/17 Range/Units 20:45 20:45 21:02 WBC (3.8-10.6) k/uL Plt Count (150-450) k/uL Neutrophils # (1.3-7.7) k/uL Neutrophils # (Manual) (1.3-7.7) k/uL Lymphocytes # (Manual) (1.0-4.8) k/uL Metamyelocytes # (Man) (0) k/uL Myelocytes # (Manual) (0) k/uL PT 14.5 H (9.0-12.0) sec INR 1.6 H (<1.2) APTT 34.1 H (22.0-30.0) sec ABG pH (7.35-7.45) ABG pCO2 (35-45) mmHg ABG pO2 (83-108) mmHg ABG HCO3 (21-25) mmol/L ABG Total CO2 (19-24) mmol/L ABG O2 Saturation (94-97) % Chloride 109 H (98-107) mmol/L Carbon Dioxide 19 L (22-30) mmol/L BUN 44 H (7-17) mg/dL Creatinine 3.73 H (0.52-1.04) mg/dL Glucose 136 H (74-99) mg/dL POC Glucose (mg/dL) (75-99) mg/dL Hemoglobin A1c (4.0-6.0) % Plasma Lactic Acid Joe 2.6 H* (0.7-2.0) mmol/L Calcium 7.1 L (8.4-10.2) mg/dL Magnesium 1.2 L (1.6-2.3) mg/dL Total Bilirubin 2.4 H (0.2-1.3) mg/dL AST 229 H (14-36) U/L ALT 181 H (9-52) U/L Troponin I (0.000-0.034) ng/mL Total Protein 5.1 L (6.3-8.2) g/dL Albumin 2.7 L (3.5-5.0) g/dL Amylase 380 H* (30-110) U/L Lipase 16 L (23-300) U/L 12/06/17 12/07/17 12/07/17 Range/Units 21:45 00:43 01:03 WBC (3.8-10.6) k/uL Plt Count (150-450) k/uL Neutrophils # (1.3-7.7) k/uL Neutrophils # (Manual) (1.3-7.7) k/uL Lymphocytes # (Manual) (1.0-4.8) k/uL Metamyelocytes # (Man) (0) k/uL Myelocytes # (Manual) (0) k/uL PT (9.0-12.0) sec INR (<1.2) APTT (22.0-30.0) sec ABG pH 7.27 L (7.35-7.45) ABG pCO2 (35-45) mmHg ABG pO2 (83-108) mmHg ABG HCO3 17 L (21-25) mmol/L ABG Total CO2 18 L (19-24) mmol/L ABG O2 Saturation (94-97) % Chloride (98-107) mmol/L Carbon Dioxide (22-30) mmol/L BUN (7-17) mg/dL Creatinine (0.52-1.04) mg/dL Glucose (74-99) mg/dL POC Glucose (mg/dL) 112 H (75-99) mg/dL Hemoglobin A1c (4.0-6.0) % Plasma Lactic Acid Joe 2.8 H* (0.7-2.0) mmol/L Calcium (8.4-10.2) mg/dL Magnesium (1.6-2.3) mg/dL Total Bilirubin (0.2-1.3) mg/dL AST (14-36) U/L ALT (9-52) U/L Troponin I (0.000-0.034) ng/mL Total Protein (6.3-8.2) g/dL Albumin (3.5-5.0) g/dL Amylase (30-110) U/L Lipase (23-300) U/L 12/07/17 12/07/17 12/07/17 Range/Units 03:10 03:10 03:20 WBC 27.0 H* (3.8-10.6) k/uL Plt Count 68 L (150-450) k/uL Neutrophils # 24.8 H (1.3-7.7) k/uL Neutrophils # (Manual) (1.3-7.7) k/uL Lymphocytes # (Manual) (1.0-4.8) k/uL Metamyelocytes # (Man) (0) k/uL Myelocytes # (Manual) (0) k/uL PT (9.0-12.0) sec INR (<1.2) APTT (22.0-30.0) sec ABG pH 7.28 L (7.35-7.45) ABG pCO2 30 L (35-45) mmHg ABG pO2 (83-108) mmHg ABG HCO3 14 L (21-25) mmol/L ABG Total CO2 15 L (19-24) mmol/L ABG O2 Saturation 97.9 H (94-97) % Chloride 113 H (98-107) mmol/L Carbon Dioxide 13 L (22-30) mmol/L BUN 43 H (7-17) mg/dL Creatinine 3.60 H (0.52-1.04) mg/dL Glucose 106 H (74-99) mg/dL POC Glucose (mg/dL) (75-99) mg/dL Hemoglobin A1c (4.0-6.0) % Plasma Lactic Acid Joe (0.7-2.0) mmol/L Calcium 6.5 L* (8.4-10.2) mg/dL Magnesium 1.1 L (1.6-2.3) mg/dL Total Bilirubin 2.2 H (0.2-1.3) mg/dL AST 184 H (14-36) U/L ALT 166 H (9-52) U/L Troponin I (0.000-0.034) ng/mL Total Protein 4.7 L (6.3-8.2) g/dL Albumin 2.4 L (3.5-5.0) g/dL Amylase (30-110) U/L Lipase (23-300) U/L 12/07/17 12/07/17 12/07/17 Range/Units 03:36 06:12 06:18 WBC (3.8-10.6) k/uL Plt Count (150-450) k/uL Neutrophils # (1.3-7.7) k/uL Neutrophils # (Manual) (1.3-7.7) k/uL Lymphocytes # (Manual) (1.0-4.8) k/uL Metamyelocytes # (Man) (0) k/uL Myelocytes # (Manual) (0) k/uL PT (9.0-12.0) sec INR (<1.2) APTT (22.0-30.0) sec ABG pH (7.35-7.45) ABG pCO2 (35-45) mmHg ABG pO2 (83-108) mmHg ABG HCO3 (21-25) mmol/L ABG Total CO2 (19-24) mmol/L ABG O2 Saturation (94-97) % Chloride (98-107) mmol/L Carbon Dioxide (22-30) mmol/L BUN (7-17) mg/dL Creatinine (0.52-1.04) mg/dL Glucose (74-99) mg/dL POC Glucose (mg/dL) 100 H (75-99) mg/dL Hemoglobin A1c (4.0-6.0) % Plasma Lactic Acid Joe 2.6 H* (0.7-2.0) mmol/L Calcium (8.4-10.2) mg/dL Magnesium (1.6-2.3) mg/dL Total Bilirubin (0.2-1.3) mg/dL AST (14-36) U/L ALT (9-52) U/L Troponin I 0.916 H* (0.000-0.034) ng/mL Total Protein (6.3-8.2) g/dL Albumin (3.5-5.0) g/dL Amylase (30-110) U/L Lipase (23-300) U/L 12/07/17 12/07/17 12/07/17 Range/Units 06:20 08:00 11:40 WBC (3.8-10.6) k/uL Plt Count (150-450) k/uL Neutrophils # (1.3-7.7) k/uL Neutrophils # (Manual) (1.3-7.7) k/uL Lymphocytes # (Manual) (1.0-4.8) k/uL Metamyelocytes # (Man) (0) k/uL Myelocytes # (Manual) (0) k/uL PT (9.0-12.0) sec INR (<1.2) APTT (22.0-30.0) sec ABG pH (7.35-7.45) ABG pCO2 (35-45) mmHg ABG pO2 (83-108) mmHg ABG HCO3 (21-25) mmol/L ABG Total CO2 (19-24) mmol/L ABG O2 Saturation (94-97) % Chloride (98-107) mmol/L Carbon Dioxide (22-30) mmol/L BUN (7-17) mg/dL Creatinine (0.52-1.04) mg/dL Glucose (74-99) mg/dL POC Glucose (mg/dL) 122 H 119 H (75-99) mg/dL Hemoglobin A1c (4.0-6.0) % Plasma Lactic Acid Joe 2.6 H* (0.7-2.0) mmol/L Calcium (8.4-10.2) mg/dL Magnesium (1.6-2.3) mg/dL Total Bilirubin (0.2-1.3) mg/dL AST (14-36) U/L ALT (9-52) U/L Troponin I (0.000-0.034) ng/mL Total Protein (6.3-8.2) g/dL Albumin (3.5-5.0) g/dL Amylase (30-110) U/L Lipase (23-300) U/L 12/07/17 Range/Units 12:11 WBC (3.8-10.6) k/uL Plt Count (150-450) k/uL Neutrophils # (1.3-7.7) k/uL Neutrophils # (Manual) (1.3-7.7) k/uL Lymphocytes # (Manual) (1.0-4.8) k/uL Metamyelocytes # (Man) (0) k/uL Myelocytes # (Manual) (0) k/uL PT (9.0-12.0) sec INR (<1.2) APTT (22.0-30.0) sec ABG pH (7.35-7.45) ABG pCO2 (35-45) mmHg ABG pO2 (83-108) mmHg ABG HCO3 (21-25) mmol/L ABG Total CO2 (19-24) mmol/L ABG O2 Saturation (94-97) % Chloride (98-107) mmol/L Carbon Dioxide (22-30) mmol/L BUN (7-17) mg/dL Creatinine (0.52-1.04) mg/dL Glucose (74-99) mg/dL POC Glucose (mg/dL) 109 H (75-99) mg/dL Hemoglobin A1c (4.0-6.0) % Plasma Lactic Acid Joe (0.7-2.0) mmol/L Calcium (8.4-10.2) mg/dL Magnesium (1.6-2.3) mg/dL Total Bilirubin (0.2-1.3) mg/dL AST (14-36) U/L ALT (9-52) U/L Troponin I (0.000-0.034) ng/mL Total Protein (6.3-8.2) g/dL Albumin (3.5-5.0) g/dL Amylase (30-110) U/L Lipase (23-300) U/L Microbiology - Last 24 Hours (Table) 12/06/17 16:04 Blood Culture Gram Stain - Preliminary Blood 12/06/17 16:04 Blood Culture - Final Blood 12/07/17 00:05 Sputum Culture - Preliminary Sputum 12/06/17 19:39 Urine Culture - Preliminary Urine,Voided 12/06/17 14:55 Urine Culture - Preliminary Urine,Voided Assessment and Plan Plan: #1 sepsis with septic shock, blood cultures are positive for gram-negative bacilli source of infection is most likely related to left sided pyelonephritis #2 urinary tract infection, with evidence of of left sided pyelonephritis left obstructive uropathy status post double-J stent placement #3 elevated liver enzymes likely related to shock liver due to hypotension #4 slight elevation in troponin Will consult cardiology, patient denies any chest pain #5 slight elevation in amylase, again likely due to hypotension doubt acute pancreatitis #6 left urethral calculus with left sided hydronephrosis, urology consultation requested #7 severe dehydration #8 acute renal failure, likely related to severe dehydration, possible obstructive uropathy component #9 lactic acidosis, lactic acid on presentation 4.9 At this time plan is to continue with IV fluid resuscitation continue with IV antibiotic patient was started on Rocephin IV emergency room and then switched to IV cefepime Continue pressure support Patient is admitted to intensive care unit, she is maintained on mechanical ventilation Consultation for pulmonary critical care, infectious disease, cardiology, and urology were initiated Prognosis is guarded CODE STATUS is full code per patient and request
--- NOTE | 2017-12-07 16:51 | P.PN ---
Progress Note - Text Progress Note Date: 12/07/17 Mrs. Urban remains on the ventilator, receiving vasopressors. She is awake and alert. Urine and blood cultures have shown gram-negative bacilli. She will continue to be treated with broad-spectrum antibiotics, pending the culture results. I explained to her and her that from a urologic standpoint, the infection needs to be cleared with antibiotics. She will then undergo elective ureteroscopy with removal of the proximal ureteral calculus in several weeks.
[2017-12-07 17:57] LABS: Glucose,Whole Blood 135 mg/dL (75-99)
[2017-12-07] MEDS: DEXTROSE 5% IN WATER 1,000 ML with SODIUM BICARB (1 MEQ/ML) 150 ML IV SCH (19:56)
[2017-12-07] MEDS: fentaNYL (PF) 2,500 MCG in SODIUM CHLORIDE 0.9% 200 ML IV SCH (21:13)
--- NOTE | 2017-12-07 23:27 | P.PN ---
Subjective Progress Note Date: 12/07/17 62-year-old female who is currently postoperative, underwent cystoscopy and left ureteral catheter placement for the obstruction caused by the stone and hydronephrosis and pyelonephritis. She is now postoperative she is intubated sedated and mechanically ventilated requiring vasopressor therapy for her septic shock. She received several liters of fluid, but remains hypotensive on vasopressor therapy. It is related that before she came to Hospital she been ill for several days with nausea emesis abdominal pain and flank pain was also occurring. She become quite dehydrated and admission she had fever and hypotension. Because of her pain evaluations are performed and the obstruction was seen in the left ureter. As noted she's been evaluated by urology and is ready had surgical intervention to relieve the obstruction. 12/07/2017 reveals the patient to still be intubated sedated and mechanically ventilated. She had significant hypotension overnight requiring Levophed, vasopressin as well as a short time of epinephrine. The Levophed is being weaned at this point in time and she does have significant hypotension making it difficult for her to be significantly manipulated in the bed at this time. She is receiving the middle dose of fentanyl for sedation and pain control. She is arousable and able to follow simple commands without difficulty. Urine output has improved and her remains cloudy with a bloody appearance Objective - Vital Signs Vital signs: Vital Signs Temp 98.3 F 12/07/17 20:00 Pulse 71 12/07/17 22:00 Resp 28 H 12/07/17 22:00 BP 94/58 12/07/17 22:00 Pulse Ox 98 12/07/17 22:00 Intake & Output 12/07/17 12/07/17 12/08/17 06:59 18:59 06:59 Intake Total 5760.886 2546.719 334.9 Output Total 930 1845 335 Balance 4830.886 701.719 -0.1 Weight 125 kg Intake: IV 5200 870 206 ACETAMINOPHEN IV (For NPO 100 ) 1,000 mg In Empty Bag 1 bag @ 400 mls/hr IVPB Q6HR PRN Rx#:[id number] Calcium Gluconate 2,000 100 mg In Sodium Chloride 0.9 % 100 ml @ 100 mls/hr IVPB ONCE ONE Rx#: [id number] Magnesium Sulfate-D5w Pmx 400 1 gm In Dextrose/Water 1 100ml.bag @ 100 mls/hr IVPB Q1H COUNTS INCLUDE 234 BEDS AT THE [facility] Rx#: [id number] Pressure bag 45 6 Sodium Chloride 0.9% 1, 1500 725 200 000 ml @ 150 mls/hr IV . Q6H40M COUNTS INCLUDE 234 BEDS AT THE [facility] Rx#:[id number] Sodium Chloride 0.9% 1, 3000 000 ml @ 999 mls/hr IV . Q1H1M ONE Rx#:[id number] Intake, IV Titration 291.798 8164.719 128.9 Amount Dextrose 5% in Water 1, 950 000 ml @ 100 mls/hr IV . [id number] ONE with Sodium Bicarb (1 Meq/ml) 150 ml Rx#:[id number] EPINEPHrine 2 mg In 62.748 Dextrose 5% in Water 250 ml @ 2 MCG/MIN 15.12 mls/ hr IV .[id number] COUNTS INCLUDE 234 BEDS AT THE [facility] Rx#: [id number] Norepinephrin 16 mg-0.9% 419.219 250 Ns Pmx 16 mg In 250 ml @ Titrate IV .Q0M COUNTS INCLUDE 234 BEDS AT THE [facility] Rx#: [id number] Norepinephrine 16 mg In 250.000 Dextrose 5% in Water 250 ml @ Titrate IV .Q0M COUNTS INCLUDE 234 BEDS AT THE [facility] Rx#:[id number] Propofol 1,000 mg In 100.00 75.654 Empty Bag 1 bag @ Titrate IV .Q0M COUNTS INCLUDE 234 BEDS AT THE [facility] Rx#: [id number] Sodium Chloride 0.9% 1, 50 100 000 ml @ 150 mls/hr IV . Q6H40M COUNTS INCLUDE 234 BEDS AT THE [facility] Rx#:[id number] fentaNYL (PF) 2,500 mcg 41.667 38.317 28.9 In Sodium Chloride 0.9% 200 ml @ 50 MCG/HR 5 mls/ hr IV .Q24H COUNTS INCLUDE 234 BEDS AT THE [facility] Rx#: [id number] Output: Gastric Drainage 650 50 Urine 930 1195 285 Uretheral (Stewart) 10 Other: Voiding Method Indwelling Catheter Indwelling Catheter Indwelling Catheter ABP, PAP, CO, CI - Last Documented Arterial Blood Pressure 122/59 - Exam 62-year-old woman who looks older than her stated age, she does have significant obesity. She is intubated sedated and mechanically ventilated. HEENT: Anicteric conjunctiva are pink and moist nasal mucosa grossly intact without significant lesions, there is no thrushnoted around the endotracheal tube Neck: The neck is supple without significant lymphadenopathy or thyromegaly. Lungs: there is symmetrical air entry bilaterally. There are only a few scattered crackles no sandeep bronchial sounds no significant wheezing Heart: Regular rate and rhythm with an audible S1-S2, no S3 soft S4. There is no significant murmur click or rub, PMI was nondisplaced. Abdomen: obese,Positive bowel sounds soft , without palpable masses or organomegaly. the abdomen is nonrigid, seems to have some tenderness in the left lower quadrant. Extremities: The upper extremities have excellent pulses they are symmetric, no significant petechiae or telangiectasia. No splinter hemorrhages were noted. lower extremities have some trace edema but no open ulcerations are seen Neuro: she is intubated and sedated but she is arousable and follows simple commands - Labs CBC & Chem 7: 12/07/17 03:10 12/07/17 03:10 Labs: Abnormal Lab Results - Last 24 Hours (Table) 12/06/17 12/07/17 12/07/17 Range/Units 13:30 00:43 01:03 WBC (3.8-10.6) k/uL Plt Count (150-450) k/uL Neutrophils # (1.3-7.7) k/uL ABG pH (7.35-7.45) ABG pCO2 (35-45) mmHg ABG HCO3 (21-25) mmol/L ABG Total CO2 (19-24) mmol/L ABG O2 Saturation (94-97) % Chloride (98-107) mmol/L Carbon Dioxide (22-30) mmol/L BUN (7-17) mg/dL Creatinine (0.52-1.04) mg/dL Glucose (74-99) mg/dL POC Glucose (mg/dL) 112 H (75-99) mg/dL Hemoglobin A1c 6.9 H (4.0-6.0) % Plasma Lactic Acid Joe 2.8 H* (0.7-2.0) mmol/L Calcium (8.4-10.2) mg/dL Magnesium (1.6-2.3) mg/dL Total Bilirubin (0.2-1.3) mg/dL AST (14-36) U/L ALT (9-52) U/L Troponin I (0.000-0.034) ng/mL Total Protein (6.3-8.2) g/dL Albumin (3.5-5.0) g/dL 12/07/17 12/07/17 12/07/17 Range/Units 03:10 03:10 03:20 WBC 27.0 H* (3.8-10.6) k/uL Plt Count 68 L (150-450) k/uL Neutrophils # 24.8 H (1.3-7.7) k/uL ABG pH 7.28 L (7.35-7.45) ABG pCO2 30 L (35-45) mmHg ABG HCO3 14 L (21-25) mmol/L ABG Total CO2 15 L (19-24) mmol/L ABG O2 Saturation 97.9 H (94-97) % Chloride 113 H (98-107) mmol/L Carbon Dioxide 13 L (22-30) mmol/L BUN 43 H (7-17) mg/dL Creatinine 3.60 H (0.52-1.04) mg/dL Glucose 106 H (74-99) mg/dL POC Glucose (mg/dL) (75-99) mg/dL Hemoglobin A1c (4.0-6.0) % Plasma Lactic Acid Joe (0.7-2.0) mmol/L Calcium 6.5 L* (8.4-10.2) mg/dL Magnesium 1.1 L (1.6-2.3) mg/dL Total Bilirubin 2.2 H (0.2-1.3) mg/dL AST 184 H (14-36) U/L ALT 166 H (9-52) U/L Troponin I (0.000-0.034) ng/mL Total Protein 4.7 L (6.3-8.2) g/dL Albumin 2.4 L (3.5-5.0) g/dL 12/07/17 12/07/17 12/07/17 Range/Units 03:36 06:12 06:18 WBC (3.8-10.6) k/uL Plt Count (150-450) k/uL Neutrophils # (1.3-7.7) k/uL ABG pH (7.35-7.45) ABG pCO2 (35-45) mmHg ABG HCO3 (21-25) mmol/L ABG Total CO2 (19-24) mmol/L ABG O2 Saturation (94-97) % Chloride (98-107) mmol/L Carbon Dioxide (22-30) mmol/L BUN (7-17) mg/dL Creatinine (0.52-1.04) mg/dL Glucose (74-99) mg/dL POC Glucose (mg/dL) 100 H (75-99) mg/dL Hemoglobin A1c (4.0-6.0) % Plasma Lactic Acid Joe 2.6 H* (0.7-2.0) mmol/L Calcium (8.4-10.2) mg/dL Magnesium (1.6-2.3) mg/dL Total Bilirubin (0.2-1.3) mg/dL AST (14-36) U/L ALT (9-52) U/L Troponin I 0.916 H* (0.000-0.034) ng/mL Total Protein (6.3-8.2) g/dL Albumin (3.5-5.0) g/dL 12/07/17 12/07/17 12/07/17 Range/Units 06:20 08:00 11:40 WBC (3.8-10.6) k/uL Plt Count (150-450) k/uL Neutrophils # (1.3-7.7) k/uL ABG pH (7.35-7.45) ABG pCO2 (35-45) mmHg ABG HCO3 (21-25) mmol/L ABG Total CO2 (19-24) mmol/L ABG O2 Saturation (94-97) % Chloride (98-107) mmol/L Carbon Dioxide (22-30) mmol/L BUN (7-17) mg/dL Creatinine (0.52-1.04) mg/dL Glucose (74-99) mg/dL POC Glucose (mg/dL) 122 H 119 H (75-99) mg/dL Hemoglobin A1c (4.0-6.0) % Plasma Lactic Acid Joe 2.6 H* (0.7-2.0) mmol/L Calcium (8.4-10.2) mg/dL Magnesium (1.6-2.3) mg/dL Total Bilirubin (0.2-1.3) mg/dL AST (14-36) U/L ALT (9-52) U/L Troponin I (0.000-0.034) ng/mL Total Protein (6.3-8.2) g/dL Albumin (3.5-5.0) g/dL 12/07/17 12/07/17 Range/Units 12:11 17:54 WBC (3.8-10.6) k/uL Plt Count (150-450) k/uL Neutrophils # (1.3-7.7) k/uL ABG pH (7.35-7.45) ABG pCO2 (35-45) mmHg ABG HCO3 (21-25) mmol/L ABG Total CO2 (19-24) mmol/L ABG O2 Saturation (94-97) % Chloride (98-107) mmol/L Carbon Dioxide (22-30) mmol/L BUN (7-17) mg/dL Creatinine (0.52-1.04) mg/dL Glucose (74-99) mg/dL POC Glucose (mg/dL) 109 H 135 H (75-99) mg/dL Hemoglobin A1c (4.0-6.0) % Plasma Lactic Acid Joe (0.7-2.0) mmol/L Calcium (8.4-10.2) mg/dL Magnesium (1.6-2.3) mg/dL Total Bilirubin (0.2-1.3) mg/dL AST (14-36) U/L ALT (9-52) U/L Troponin I (0.000-0.034) ng/mL Total Protein (6.3-8.2) g/dL Albumin (3.5-5.0) g/dL Microbiology - Last 24 Hours (Table) 12/07/17 00:05 Gram Stain - Preliminary Sputum Sputum Culture - Preliminary 12/06/17 16:04 Blood Culture Gram Stain - Preliminary Blood 12/06/17 16:04 Blood Culture - Final Blood 12/06/17 19:39 Urine Culture - Preliminary Urine,Voided 12/06/17 14:55 Urine Culture - Preliminary Urine,Voided Laboratory Results WBC 27.0 k/uL (3.8-10.6) H* 12/07/17 03:10 RBC 4.32 m/uL (3.80-5.40) 12/07/17 03:10 Hgb 11.8 gm/dL (11.4-16.0) 12/07/17 03:10 Hct 37.8 % (34.0-46.0) 12/07/17 03:10 MCV 87.7 fL (80.0-100.0) 12/07/17 03:10 MCH 27.3 pg (25.0-35.0) 12/07/17 03:10 MCHC 31.1 g/dL (31.0-37.0) 12/07/17 03:10 RDW 13.7 % (11.5-15.5) 12/07/17 03:10 Plt Count 68 k/uL (150-450) L 12/07/17 03:10 Neutrophils % 92 % 12/07/17 03:10 Neutrophils % (Manual) 73 % 12/06/17 20:45 Band Neutrophils % 22 % 12/06/17 20:45 Lymphocytes % 4 % 12/07/17 03:10 Lymphocytes % (Manual) 2 % 12/06/17 20:45 Monocytes % 3 % 12/07/17 03:10 Monocytes % (Manual) 3 % 12/06/17 20:45 Eosinophils % 0 % 12/07/17 03:10 Basophils % 1 % 12/07/17 03:10 Metamyelocytes % 1 % 12/06/17 20:45 Myelocytes % 1 % 12/06/17 20:45 Neutrophils # 24.8 k/uL (1.3-7.7) H 12/07/17 03:10 Neutrophils # (Manual) 30.40 k/uL (1.3-7.7) H 12/06/17 20:45 Lymphocytes # 1.0 k/uL (1.0-4.8) 12/07/17 03:10 Lymphocytes # (Manual) 0.64 k/uL (1.0-4.8) L 12/06/17 20:45 Monocytes # 0.8 k/uL (0-1.0) 12/07/17 03:10 Monocytes # (Manual) 0.96 k/uL (0-1.0) 12/06/17 20:45 Eosinophils # 0.1 k/uL (0-0.7) 12/07/17 03:10 Basophils # 0.1 k/uL (0-0.2) 12/07/17 03:10 Metamyelocytes # (Man) 0.32 k/uL (0) H 12/06/17 20:45 Myelocytes # (Manual) 0.32 k/uL (0) H 12/06/17 20:45 Nucleated RBCs 0 /100 WBC (0-0) 12/06/17 20:45 Manual Slide Review Performed 12/06/17 20:45 Toxic Granulation Present 12/06/17 20:45 Toxic Vacuolation Present 12/06/17 20:45 Large Platelets Present 12/06/17 13:30 RBC Morphology Normal 12/06/17 13:30 PT 14.5 sec (9.0-12.0) H 12/06/17 20:45 INR 1.6 (<1.2) H 12/06/17 20:45 APTT 34.1 sec (22.0-30.0) H 12/06/17 20:45 Sample Site trail 12/07/17 03:20 ABG pH 7.28 (7.35-7.45) L 12/07/17 03:20 ABG pCO2 30 mmHg (35-45) L 12/07/17 03:20 ABG pO2 103 mmHg (83-108) 12/07/17 03:20 ABG HCO3 14 mmol/L (21-25) L 12/07/17 03:20 ABG Total CO2 15 mmol/L (19-24) L 12/07/17 03:20 ABG O2 Saturation 97.9 % (94-97) H 12/07/17 03:20 ABG Base Excess -12.8 mmol/L 12/07/17 03:20 Sharath Test Yes 12/07/17 03:20 FiO2 70 % 12/07/17 03:20 Sodium 139 mmol/L (137-145) 12/07/17 03:10 Potassium 4.0 mmol/L (3.5-5.1) 12/07/17 03:10 Chloride 113 mmol/L (98-107) H 12/07/17 03:10 Carbon Dioxide 13 mmol/L (22-30) L 12/07/17 03:10 Anion Gap 13 mmol/L 12/07/17 03:10 BUN 43 mg/dL (7-17) H 12/07/17 03:10 Creatinine 3.60 mg/dL (0.52-1.04) H 12/07/17 03:10 Est GFR (CKD-EPI)AfAm 15 (>60 ml/min/1.73 sqM) 12/07/17 03:10 Est GFR (CKD-EPI)NonAf 13 (>60 ml/min/1.73 sqM) 12/07/17 03:10 Glucose 106 mg/dL (74-99) H 12/07/17 03:10 POC Glucose (mg/dL) 135 mg/dL (75-99) H 12/07/17 17:54 POC Glu Track Moving Machine Operator ID Michelle Hastings 12/07/17 17:[address] Glu mg/dL 151 12/06/17 13:30 Hemoglobin A1c 6.9 % (4.0-6.0) H 12/06/17 13:30 Lactic Ac Sepsis Rflx Y 12/07/17 09:34 Plasma Lactic Acid Joe 2.6 mmol/L (0.7-2.0) H* 12/07/17 08:00 Uric Acid 6.6 mg/dL (3.7-7.4) 12/06/17 20:45 Calcium 6.5 mg/dL (8.4-10.2) L* 12/07/17 03:10 Phosphorus 3.4 mg/dL (2.5-4.5) 12/07/17 03:10 Magnesium 1.1 mg/dL (1.6-2.3) L 12/07/17 03:10 Total Bilirubin 2.2 mg/dL (0.2-1.3) H 12/07/17 03:10 AST 184 U/L (14-36) H 12/07/17 03:10 ALT 166 U/L (9-52) H 12/07/17 03:10 Alkaline Phosphatase 119 U/L (38-126) 12/07/17 03:10 Troponin I 0.916 ng/mL (0.000-0.034) H* 12/07/17 06:12 Total Protein 4.7 g/dL (6.3-8.2) L 12/07/17 03:10 Albumin 2.4 g/dL (3.5-5.0) L 12/07/17 03:10 Amylase 380 U/L (30-110) H* 12/06/17 20:45 Lipase 16 U/L (23-300) L 12/06/17 20:45 Cortisol 20 ug/dL 12/07/17 11:40 Urine Color Red 12/06/17 14:55 Urine Appearance Turbid (Clear) H 12/06/17 14:55 Urine pH 6.5 (5.0-8.0) 12/06/17 14:55 Ur Specific [place] 1.011 (1.001-1.035) 12/06/17 14:55 Urine Protein 2+ (Negative) H 12/06/17 14:55 Urine Glucose (UA) Negative (Negative) 12/06/17 14:55 Urine Ketones Negative (Negative) 12/06/17 14:55 Urine Blood Large (Negative) H 12/06/17 14:55 Urine Nitrite Negative (Negative) 12/06/17 14:55 Urine Bilirubin Negative (Negative) 12/06/17 14:55 Urine Urobilinogen <2.0 mg/dL (<2.0) 12/06/17 14:55 Ur Leukocyte Esterase Large (Negative) H 12/06/17 14:55 Urine RBC >182 /hpf (0-5) H 12/06/17 14:55 Urine WBC >182 /hpf (0-5) H 12/06/17 14:55 Urine WBC Clumps Many /hpf (None) H 12/06/17 14:55 Urine Bacteria Moderate /hpf (None) H 12/06/17 14:55 Urine Mucus Many /hpf (None) H 12/06/17 14:55 Microbiology 12/07/17 00:05 Sputum Gram Stain - Preliminary 12/07/17 00:05 Sputum Sputum Culture - Preliminary 12/06/17 16:04 Blood Blood Culture Gram Stain - Preliminary 12/06/17 16:04 Blood Blood Culture - Final 12/06/17 19:39 Urine,Voided Urine Culture - Preliminary 12/06/17 14:55 Urine,Voided Urine Culture - Preliminary Assessment and Plan (1) Septic shock Narrative/Plan: female presents to Hospital feeling poorly several days this done evidence of fever and hypotension leukocytosis and lactic acidosis. She was on evidence of septic shock requiring fluid resuscitation and vasopressor therapy. She had evidence of obstruction of the left ureter has been taking the operating room for stent placement. He is now postoperative. Her leukocytosis has worsened to 32.1 and she remains hypotensive requiring further fluid resuscitation and vasopressor therapy. Urine output is adequate. The patient did have significant acidosis that certainly improving. Does still have lactic acidosis and further fluid is requested. Antimicrobial therapy has been initiated with cefepime. Since give us coverage for pseudomonas as well as most other gram-negative organisms in his abdomen for now. He review is done and she has no history of resistant pathogens .Cultures will further help direct her course of antibiotic therapy as she improves. Respiratory failure appears to be postoperative in all we will rapidly resolve as her sepsis improves. Profound leukocytosis during her related to her sepsis, as well as the thrombocytopenia likely invasive gram-negative sepsis. Cultures are pending. December 07 2017 the patient remains in intensive care unit with some improvement in that she has had a decrease of her vasopressor requirements. Urine output is adequate. Neurologically she is awake and interactive. Maneuvers to reduce her vasopressor requirements are continuing. No plans for weaning her extubation at this time given her significant hemodynamic challenge. Blood and urine cultures revealed gram-negative bacilli. We are awaiting the final susceptibility for final choice of antibiotic therapy. Follow blood culture is negative so far. The case is discussed with neurologist and the family members. Current Visit: Yes Status: Acute Code(s): A41.9 - SEPSIS, UNSPECIFIED ORGANISM; R65.21 - SEVERE SEPSIS WITH SEPTIC SHOCK SNOMED Code(s): 39060808 (2) Acute pyelonephritis Current Visit: Yes Status: Acute Code(s): N10 - ACUTE PYELONEPHRITIS SNOMED Code(s): 51879198 (3) Acute renal failure Current Visit: Yes Status: Acute Code(s): N17.9 - ACUTE KIDNEY FAILURE, UNSPECIFIED SNOMED Code(s): 69521517 (4) Calculus of ureter Current Visit: Yes Status: Acute Code(s): N20.1 - CALCULUS OF URETER SNOMED Code(s): 29774718
[2017-12-07 23:56] LABS: Glucose,Whole Blood 159 mg/dL (75-99)
[2017-12-08] MEDS: HEPARIN SODIUM,PORCINE 5,000 UNIT/ML 1 ML VIAL SQ SCH ×4 (00:05→23:50)
[2017-12-08] MEDS: INSULIN ASPART 100 UNIT/ML 1 ML 10 ML VIAL SQ SCH ×4 (00:11→17:26)
[2017-12-08] MEDS: SODIUM CHLORIDE 0.9% 1,000 ML IV SCH ×2 (00:31→08:29)
[2017-12-08] MEDS: SODIUM CHLORIDE 0.9% 99 ML with VASOPRESSIN 20 UNIT IV SCH ×4 (03:26→16:11)
[2017-12-08 04:58] LABS: Basophils # (A) 0.1 k/uL (0-0.2); Basophils % (A) 0 %; Eosinophils # (A) 0.1 k/uL (0-0.7); Eosinophils % (A) 0 %; HCT 31.8 % (34.0-46.0); HGB 10.4 gm/dL (11.4-16.0); Lymphocytes # (A) 0.8 k/uL (1.0-4.8); Lymphocytes % (A) 4 %; MCH 27.7 pg (25.0-35.0); MCHC 32.6 g/dL (31.0-37.0); MCV 84.7 fL (80.0-100.0); Monocytes # (A) 0.3 k/uL (0-1.0); Monocytes % (A) 2 %; Neutrophils # (A) 19.1 k/uL (1.3-7.7); Neutrophils % (A) 93 %; RBC 3.75 m/uL (3.80-5.40); RDW 14.2 % (11.5-15.5); WBC 20.6 k/uL (3.8-10.6)
[2017-12-08 05:18] LABS: INR 1.3 (<1.2); Partial Thromboplastin Time 32.6 sec (22.0-30.0); Prothrombin Time 12.4 sec (9.0-12.0)
[2017-12-08 05:20] LABS: Magnesium 1.8 mg/dL (1.6-2.3); Phosphorus 2.7 mg/dL (2.5-4.5); Potassium 3.2 mmol/L (3.5-5.1)
[2017-12-08 05:23] LABS: ABG Base Excess -6.5 mmol/L; ABG HCO3 18 mmol/L (21-25); ABG Oxygen Saturation 99.2 % (94-97); ABG PCO2 28 mmHg (35-45); ABG PH 7.42 (7.35-7.45); ABG PO2 131 mmHg (83-108); ABG TCO2 19 mmol/L (19-24)
[2017-12-08 05:28] LABS: Platelet Count 51 k/uL (150-450)
[2017-12-08] MEDS ORDERED: Potassium Replacement Protocol 1 EACH MISC MISCELLANE PRN (05:42)
[2017-12-08] MEDS ORDERED: Magnesium Replacement Protocol 1 EACH MISC MISCELLANE PRN (05:43)
[2017-12-08 06:46] LABS: Albumin 2.3 g/dL (3.5-5.0); Total Protein 4.5 g/dL (6.3-8.2)
[2017-12-08] MEDS: DEXTROSE 5% IN WATER 1,000 ML with SODIUM BICARB (1 MEQ/ML) 150 ML IV SCH ×2 (06:47→10:21)
[2017-12-08 06:48] LABS: Glucose,Whole Blood 188 mg/dL (75-99)
[2017-12-08] MEDS: MAGNESIUM SULFATE-D5W PMX 1 GM in DEXTROSE/WATER 1 100ML.BAG IVPB SCH ×2 (06:50→08:28)
--- NOTE | 2017-12-08 06:57 | XR ---
EXAMINATION TYPE: XR chest 1V portable DATE OF EXAM: 12/08/2017 HISTORY: Tube placement. REFERENCE: Previous study dated 12/07/2017. FINDINGS: The patient is ET tube and NG tube remain in place, unchanged in appearance. The left inter nal jugular catheter is in place. Its tip is in the superior vena cava. There is bibasilar airspace disease. There are small, bilateral effusions, greater on the left than t he right. There is vascular congestion without sandeep edema. IMPRESSION: NO SIGNIFICANT INTERVAL CHANGE IN APPEARANCE OF THE CHEST.
[2017-12-08] MEDS: POTASSIUM BICARBONATE/CIT AC 20 MEQ TABLET.EFF NG-TUBE SCH ×3 (07:15→08:29)
--- NOTE | 2017-12-08 07:56 | P.PN ---
Subjective Progress Note Date: 12/08/17 Principal diagnosis: This 62-year-old female is seen because of acute kidney injury from hypotension , nonsteroidals as well as sepsis. She came in with nausea vomiting diarrhea and was found to have a hydronephrosis on the left underwent cystoscopy and stent placement area. She deteriorated and went into shock. Blood cultures have grown gram-negative bacilli from both blood and urine. She is improved. She remains on levo fed and vasopressin. She is awake and alert she's afebrile. We do not have any baseline creatinine. She is diabetic. Objective - Vital Signs Vital signs: Vital Signs Temp 98.5 F 12/08/17 04:00 Pulse 85 12/08/17 06:30 Resp 28 H 12/08/17 06:30 BP 105/63 12/08/17 06:30 Pulse Ox 99 12/08/17 06:30 Intake & Output 12/07/17 12/08/17 12/08/17 18:59 06:59 18:59 Intake Total 2546.719 2050.528 Output Total 1845 935 Balance 635.999 2793.528 Weight 129.6 kg Intake: IV 870 1676 Calcium Gluconate 2,000 100 mg In Sodium Chloride 0.9 % 100 ml @ 100 mls/hr IVPB ONCE ONE Rx#: [id number] Dextrose 5% in Water 1, 1010 000 ml @ 100 mls/hr IV . [id number] [facility] with Sodium Bicarb (1 Meq/ml) 150 ml Rx#:[id number] Pressure bag 45 66 Sodium Chloride 0.9% 1, 725 600 000 ml @ 150 mls/hr IV . Q6H40M [facility] Rx#:[id number] Intake, IV Titration 1676.719 374.528 Amount Dextrose 5% in Water 1, 950 000 ml @ 100 mls/hr IV . [id number] ONE with Sodium Bicarb (1 Meq/ml) 150 ml Rx#:[id number] EPINEPHrine 2 mg In 62.748 Dextrose 5% in Water 250 ml @ 2 MCG/MIN 15.12 mls/ hr IV .[id number] [facility] Rx#: [id number] Norepinephrin 16 mg-0.9% 250 Ns Pmx 16 mg In 250 ml @ Titrate IV .Q0M [facility] Rx#: [id number] Norepinephrine 16 mg In 250.000 245.628 Dextrose 5% in Water 250 ml @ Titrate IV .Q0M [facility] Rx#:[id number] Propofol 1,000 mg In 75.654 Empty Bag 1 bag @ Titrate IV .Q0M [facility] Rx#: [id number] Sodium Chloride 0.9% 1, 50 100 000 ml @ 150 mls/hr IV . Q6H40M [facility] Rx#:[id number] fentaNYL (PF) 2,500 mcg 38.317 28.9 In Sodium Chloride 0.9% 200 ml @ 50 MCG/HR 5 mls/ hr IV .Q24H [facility] Rx#: [id number] Output: Gastric Drainage 650 50 Urine 1195 885 Other: Voiding Method Indwelling Catheter Indwelling Catheter ABP, PAP, CO, CI - Last Documented Arterial Blood Pressure 123/51 On examination she is awake alert oriented is communicating by writing. She is on 40% FiO2. She remains on levo fed and vasopressin. HEENT exam JVP is not noted no facial asymmetry neck is supple. Lungs are clear to auscultation with an occasional coarse crackle at bases. Heart sounds are unremarkable for any murmur rub gallop Abdomen is soft nontender Extremity exam was no edema Neurologically awake alert oriented on the vent - Labs CBC & Chem 7: 12/08/17 04:30 12/08/17 04:30 Labs: Abnormal Lab Results - Last 24 Hours (Table) 12/07/17 12/07/17 12/07/17 Range/Units 08:00 11:40 12:11 WBC (3.8-10.6) k/uL RBC (3.80-5.40) m/uL Hgb (11.4-16.0) gm/dL Hct (34.0-46.0) % Plt Count (150-450) k/uL Neutrophils # (1.3-7.7) k/uL Lymphocytes # (1.0-4.8) k/uL PT (9.0-12.0) sec INR (<1.2) APTT (22.0-30.0) sec ABG pCO2 (35-45) mmHg ABG pO2 (83-108) mmHg ABG HCO3 (21-25) mmol/L ABG O2 Saturation (94-97) % ABG Lactic Acid (0.5-1.6) mmol/L Sodium (137-145) mmol/L Potassium (3.5-5.1) mmol/L Chloride (98-107) mmol/L Carbon Dioxide (22-30) mmol/L BUN (7-17) mg/dL Creatinine (0.52-1.04) mg/dL Glucose (74-99) mg/dL POC Glucose (mg/dL) 119 H 109 H (75-99) mg/dL Plasma Lactic Acid Joe 2.6 H* (0.7-2.0) mmol/L Calcium (8.4-10.2) mg/dL Total Bilirubin (0.2-1.3) mg/dL AST (14-36) U/L ALT (9-52) U/L Alkaline Phosphatase (38-126) U/L Total Protein (6.3-8.2) g/dL Albumin (3.5-5.0) g/dL 12/07/17 12/07/17 12/08/17 Range/Units 17:54 23:55 04:30 WBC 20.6 H (3.8-10.6) k/uL RBC 3.75 L (3.80-5.40) m/uL Hgb 10.4 L (11.4-16.0) gm/dL Hct 31.8 L (34.0-46.0) % Plt Count 51 L (150-450) k/uL Neutrophils # 19.1 H (1.3-7.7) k/uL Lymphocytes # 0.8 L (1.0-4.8) k/uL PT (9.0-12.0) sec INR (<1.2) APTT (22.0-30.0) sec ABG pCO2 (35-45) mmHg ABG pO2 (83-108) mmHg ABG HCO3 (21-25) mmol/L ABG O2 Saturation (94-97) % ABG Lactic Acid (0.5-1.6) mmol/L Sodium (137-145) mmol/L Potassium (3.5-5.1) mmol/L Chloride (98-107) mmol/L Carbon Dioxide (22-30) mmol/L BUN (7-17) mg/dL Creatinine (0.52-1.04) mg/dL Glucose (74-99) mg/dL POC Glucose (mg/dL) 135 H 159 H (75-99) mg/dL Plasma Lactic Acid Joe (0.7-2.0) mmol/L Calcium (8.4-10.2) mg/dL Total Bilirubin (0.2-1.3) mg/dL AST (14-36) U/L ALT (9-52) U/L Alkaline Phosphatase (38-126) U/L Total Protein (6.3-8.2) g/dL Albumin (3.5-5.0) g/dL 12/08/17 12/08/17 12/08/17 Range/Units 04:30 04:30 04:30 WBC (3.8-10.6) k/uL RBC (3.80-5.40) m/uL Hgb (11.4-16.0) gm/dL Hct (34.0-46.0) % Plt Count (150-450) k/uL Neutrophils # (1.3-7.7) k/uL Lymphocytes # (1.0-4.8) k/uL PT 12.4 H (9.0-12.0) sec INR 1.3 H (<1.2) APTT 32.6 H (22.0-30.0) sec ABG pCO2 (35-45) mmHg ABG pO2 (83-108) mmHg ABG HCO3 (21-25) mmol/L ABG O2 Saturation (94-97) % ABG Lactic Acid 2.1 H (0.5-1.6) mmol/L Sodium 136 L (137-145) mmol/L Potassium 3.2 L (3.5-5.1) mmol/L Chloride 108 H (98-107) mmol/L Carbon Dioxide 17 L (22-30) mmol/L BUN 45 H (7-17) mg/dL Creatinine 3.20 H (0.52-1.04) mg/dL Glucose 180 H (74-99) mg/dL POC Glucose (mg/dL) (75-99) mg/dL Plasma Lactic Acid Joe (0.7-2.0) mmol/L Calcium 7.0 L (8.4-10.2) mg/dL Total Bilirubin 3.0 H (0.2-1.3) mg/dL AST 109 H (14-36) U/L ALT 120 H (9-52) U/L Alkaline Phosphatase 155 H (38-126) U/L Total Protein 4.5 L (6.3-8.2) g/dL Albumin 2.3 L (3.5-5.0) g/dL 12/08/17 12/08/17 Range/Units 05:16 06:46 WBC (3.8-10.6) k/uL RBC (3.80-5.40) m/uL Hgb (11.4-16.0) gm/dL Hct (34.0-46.0) % Plt Count (150-450) k/uL Neutrophils # (1.3-7.7) k/uL Lymphocytes # (1.0-4.8) k/uL PT (9.0-12.0) sec INR (<1.2) APTT (22.0-30.0) sec ABG pCO2 28 L (35-45) mmHg ABG pO2 131 H (83-108) mmHg ABG HCO3 18 L (21-25) mmol/L ABG O2 Saturation 99.2 H (94-97) % ABG Lactic Acid (0.5-1.6) mmol/L Sodium (137-145) mmol/L Potassium (3.5-5.1) mmol/L Chloride (98-107) mmol/L Carbon Dioxide (22-30) mmol/L BUN (7-17) mg/dL Creatinine (0.52-1.04) mg/dL Glucose (74-99) mg/dL POC Glucose (mg/dL) 188 H (75-99) mg/dL Plasma Lactic Acid Joe (0.7-2.0) mmol/L Calcium (8.4-10.2) mg/dL Total Bilirubin (0.2-1.3) mg/dL AST (14-36) U/L ALT (9-52) U/L Alkaline Phosphatase (38-126) U/L Total Protein (6.3-8.2) g/dL Albumin (3.5-5.0) g/dL Microbiology - Last 24 Hours (Table) 12/06/17 14:55 Urine Culture - Preliminary Urine,Voided Gram Neg Bacilli 12/06/17 19:39 Urine Culture - Preliminary Urine,Voided Gram Neg Bacilli 12/06/17 16:04 Blood Culture Gram Stain - Preliminary Blood Blood Culture - Preliminary Gram Neg Bacilli 12/07/17 00:05 Gram Stain - Preliminary Sputum Sputum Culture - Preliminary 12/06/17 16:04 Blood Culture - Final Blood Assessment and Plan Assessment: Impression 1. Acute kidney injury, admitting creatinine is 4.1 previous creatinines not available. Etiology is likely combination off hypotension with blood pressure 61 on admission, possible urosepsis, nonsteroidals and the left hydronephrosis from left nephrolithiasis. She is growing gram-negative bacilli both in the blood and urine. Creatinine improved to 3.2 from a high of 4.1. 2. Likely diabetic nephropathy as her urinalysis shows 2+ protein, no previous creatinines available therefore no baseline known. 3. Admitted with nausea vomiting hypotension volume depletion and gram- negative bacteremia and urosepsis sepsis. 4. Left hydronephrosis status post cystoscopy and double J stent placement in the left side 12/06/2017. 5. She was on metformin possibility of lactic acidosis from metformin as considered but her lactic acid level was 2.8. 6. Hypomagnesemia from GI losses. 7. Severe non-gap acidosis from diarrhea and acute kidney injury. On bicarbonate drip bicarb is improved to 17 and anion gap is 11. 8. Elevated liver function tests secondary to hypotension and sepsis, bilirubin went up to 3 from 2.2 9. Hypocalcemia secondary to low albumin. 10. Possible aspiration pneumonia versus congestive heart failure. Chest x- ray showing deterioration since admission. 11. Cholelithiasis 12. Hypokalemia secondary to D5W causing intracellular shift of potassium. Recommendation. 1. Continue IV fluids D5W with 3 A of bicarb at 100 an hour, to improve her acidosis 2. Replace potassium, she'll require 60 mEq can be given via NG tube. 3. 2 g of magnesium sulfate for it magnesium of 1.8. 4. Monitor potassium, calcium.
[2017-12-08] MEDS: NOREPINEPHRINE 16 MG in DEXTROSE 5% IN WATER 250 ML IV SCH ×2 (08:23)
[2017-12-08] MEDS: POTASSIUM CHLORIDE ER 20 MEQ TAB.ER PO SCH (08:30)
[2017-12-08] MEDS: PANTOPRAZOLE 40 MG/10 ML VIAL IVP SCH (08:30)
[2017-12-08] MEDS: CEFEPIME 1 GM in SODIUM CHLORIDE 0.9% 50 ML IVPB SCH (08:32)
[2017-12-08] MEDS: CHLORHEXIDINE GLUCONATE 15 ML CUP MUCOUS MEM SCH ×2 (08:34→20:43)
[2017-12-08] MEDS ORDERED: DEXTROSE 5% IN WATER 1,000 ML with SODIUM BICARB (1 MEQ/ML) 150 ML IV SCH (09:30)
--- NOTE | 2017-12-08 10:57 | P.PN ---
Progress Note - Text Progress Note Date: 12/08/17 TThe patient is afebrile and her hemodynamics have improved. She was extubated this morning and her main complaint is a sore throat. Her urine is clear. BUN/ creatinine is improved at 45/3.20. Urine cultures are pending. I explained to the patient and her family that she will be continued on antibiotics for several weeks prior to ureteroscopic treatment of her ureteral calculus and will be discharged with the double-J catheter in place. Hopefully the blood and urine cultures will be available within the next 24 hours.
--- NOTE | 2017-12-08 12:15 | P.PN ---
Subjective Progress Note Date: 12/08/17 this is a pleasant 62-year-old female patient with past medical history significant for diabetes and hypertension. Was admitted to the hospital with sepsis secondary to UTI. She underwent computed tomography scan of the abdomen and pelvis that revealed left ureteral calculus. Urology was consulted and patient understood and stent placement of the left ureter. She was initially intubated. Today she was extubated sitting up in bed, slightly drowsy remains hypotensive and on pressors. Until today to see the patient due to elevated troponins however patient was significantly hypotensive with acute kidney injury. echocardiogram showed normal LV systolic function with ejection fraction between 55-60% with no significant valvular abnormalities and no wall motion abnormalities. Objective - Vital Signs Vital signs: Vital Signs Temp 99 F 12/08/17 08:00 Pulse 81 12/08/17 11:00 Resp 32 H 12/08/17 11:00 BP 100/57 12/08/17 11:00 Pulse Ox 94 L 12/08/17 11:00 Intake & Output 12/07/17 12/08/17 12/08/17 18:59 06:59 18:59 Intake Total 2546.719 2054.900 504.918 Output Total 1845 935 665 Balance 301.417 1792.900 -160.082 Weight 129.6 kg Intake: IV 870 1676 380 Calcium Gluconate 2,000 100 mg In Sodium Chloride 0.9 % 100 ml @ 100 mls/hr IVPB ONCE ONE Rx#: [id number] Dextrose 5% in Water 1, 1010 300 000 ml @ 100 mls/hr IV . [id number] [facility] with Sodium Bicarb (1 Meq/ml) 150 ml Rx#:[id number] Pressure bag 45 66 30 Sodium Chloride 0.9% 1, 725 600 50 000 ml @ 150 mls/hr IV . Q6H40M [facility] Rx#:[id number] Intake, IV Titration 1676.719 378.900 64.918 Amount Dextrose 5% in Water 1, 950 000 ml @ 100 mls/hr IV . [id number] ONE with Sodium Bicarb (1 Meq/ml) 150 ml Rx#:[id number] EPINEPHrine 2 mg In 62.748 Dextrose 5% in Water 250 ml @ 2 MCG/MIN 15.12 mls/ hr IV .[id number] [facility] Rx#: [id number] Norepinephrin 16 mg-0.9% 250 Ns Pmx 16 mg In 250 ml @ Titrate IV .Q0M [facility] Rx#: [id number] Norepinephrine 16 mg In 250.000 250.000 30.068 Dextrose 5% in Water 250 ml @ Titrate IV .Q0M [facility] Rx#:[id number] Propofol 1,000 mg In 75.654 Empty Bag 1 bag @ Titrate IV .Q0M [facility] Rx#: [id number] Sodium Chloride 0.9% 1, 50 100 000 ml @ 150 mls/hr IV . Q6H40M [facility] Rx#:[id number] fentaNYL (PF) 2,500 mcg 38.317 28.9 34.85 In Sodium Chloride 0.9% 200 ml @ 50 MCG/HR 5 mls/ hr IV .Q24H [facility] Rx#: [id number] Other 60 Output: Gastric Drainage 650 50 300 Urine 1195 885 365 Other: Voiding Method Indwelling Catheter Indwelling Catheter Indwelling Catheter ABP, PAP, CO, CI - Last Documented Arterial Blood Pressure 116/58 - Exam PHYSICAL EXAMINATION: HEENT: [Head is atraumatic, normocephalic. Pupils equal, round. Neck is supple. There is no elevated jugular venous pressure.] HEART EXAMINATION: [Heart sounds regular, S1 and S2 normal. No murmur or gallop heard.] CHEST EXAMINATION:[ Lungs are clear to auscultation and precussion. No chest wall tenderness is noted on palpation or with deep breathing.] ABDOMEN: [ Soft, nontender. Bowel sounds are heard. No organomegaly noted]. EXTREMITIES:[ 2+ peripheral pulses with no evidence of peripheral edema and no calf tenderness noted]. NEUROLOGIC [patient is awake, drowsy, and oriented x3.] . - Labs CBC & Chem 7: 12/08/17 04:30 12/08/17 04:30 Labs: Abnormal Lab Results - Last 24 Hours (Table) 12/07/17 12/07/17 12/07/17 Range/Units 12:11 17:54 23:55 WBC (3.8-10.6) k/uL RBC (3.80-5.40) m/uL Hgb (11.4-16.0) gm/dL Hct (34.0-46.0) % Plt Count (150-450) k/uL Neutrophils # (1.3-7.7) k/uL Lymphocytes # (1.0-4.8) k/uL PT (9.0-12.0) sec INR (<1.2) APTT (22.0-30.0) sec ABG pCO2 (35-45) mmHg ABG pO2 (83-108) mmHg ABG HCO3 (21-25) mmol/L ABG O2 Saturation (94-97) % ABG Lactic Acid (0.5-1.6) mmol/L Sodium (137-145) mmol/L Potassium (3.5-5.1) mmol/L Chloride (98-107) mmol/L Carbon Dioxide (22-30) mmol/L BUN (7-17) mg/dL Creatinine (0.52-1.04) mg/dL Glucose (74-99) mg/dL POC Glucose (mg/dL) 109 H 135 H 159 H (75-99) mg/dL Calcium (8.4-10.2) mg/dL Total Bilirubin (0.2-1.3) mg/dL AST (14-36) U/L ALT (9-52) U/L Alkaline Phosphatase (38-126) U/L Total Protein (6.3-8.2) g/dL Albumin (3.5-5.0) g/dL 12/08/17 12/08/17 12/08/17 Range/Units 04:30 04:30 04:30 WBC 20.6 H (3.8-10.6) k/uL RBC 3.75 L (3.80-5.40) m/uL Hgb 10.4 L (11.4-16.0) gm/dL Hct 31.8 L (34.0-46.0) % Plt Count 51 L (150-450) k/uL Neutrophils # 19.1 H (1.3-7.7) k/uL Lymphocytes # 0.8 L (1.0-4.8) k/uL PT 12.4 H (9.0-12.0) sec INR 1.3 H (<1.2) APTT 32.6 H (22.0-30.0) sec ABG pCO2 (35-45) mmHg ABG pO2 (83-108) mmHg ABG HCO3 (21-25) mmol/L ABG O2 Saturation (94-97) % ABG Lactic Acid (0.5-1.6) mmol/L Sodium 136 L (137-145) mmol/L Potassium 3.2 L (3.5-5.1) mmol/L Chloride 108 H (98-107) mmol/L Carbon Dioxide 17 L (22-30) mmol/L BUN 45 H (7-17) mg/dL Creatinine 3.20 H (0.52-1.04) mg/dL Glucose 180 H (74-99) mg/dL POC Glucose (mg/dL) (75-99) mg/dL Calcium 7.0 L (8.4-10.2) mg/dL Total Bilirubin 3.0 H (0.2-1.3) mg/dL AST 109 H (14-36) U/L ALT 120 H (9-52) U/L Alkaline Phosphatase 155 H (38-126) U/L Total Protein 4.5 L (6.3-8.2) g/dL Albumin 2.3 L (3.5-5.0) g/dL 12/08/17 12/08/17 12/08/17 Range/Units 04:30 05:16 06:46 WBC (3.8-10.6) k/uL RBC (3.80-5.40) m/uL Hgb (11.4-16.0) gm/dL Hct (34.0-46.0) % Plt Count (150-450) k/uL Neutrophils # (1.3-7.7) k/uL Lymphocytes # (1.0-4.8) k/uL PT (9.0-12.0) sec INR (<1.2) APTT (22.0-30.0) sec ABG pCO2 28 L (35-45) mmHg ABG pO2 131 H (83-108) mmHg ABG HCO3 18 L (21-25) mmol/L ABG O2 Saturation 99.2 H (94-97) % ABG Lactic Acid 2.1 H (0.5-1.6) mmol/L Sodium (137-145) mmol/L Potassium (3.5-5.1) mmol/L Chloride (98-107) mmol/L Carbon Dioxide (22-30) mmol/L BUN (7-17) mg/dL Creatinine (0.52-1.04) mg/dL Glucose (74-99) mg/dL POC Glucose (mg/dL) 188 H (75-99) mg/dL Calcium (8.4-10.2) mg/dL Total Bilirubin (0.2-1.3) mg/dL AST (14-36) U/L ALT (9-52) U/L Alkaline Phosphatase (38-126) U/L Total Protein (6.3-8.2) g/dL Albumin (3.5-5.0) g/dL Microbiology - Last 24 Hours (Table) 12/06/17 14:55 Urine Culture - Preliminary Urine,Voided Gram Neg Bacilli 12/06/17 19:39 Urine Culture - Preliminary Urine,Voided Gram Neg Bacilli 12/06/17 16:04 Blood Culture Gram Stain - Preliminary Blood Blood Culture - Preliminary Gram Neg Bacilli 12/07/17 00:05 Gram Stain - Preliminary Sputum Sputum Culture - Preliminary 12/06/17 16:04 Blood Culture - Final Blood Assessment and Plan Assessment: #1 urosepsis #2 hypotension secondary to sepsis #3 acute on chronic renal failure #4 mild elevation of cardiac enzymes, likely secondary to type II event from significant hypotension, acute kidney injury and sepsis #5 acute respiratory failure Plan: from cardiology's perspective, we recommend conservative medical approach at this time. We recommend the addition of aspirin 81 mg by mouth daily as well as metoprolol titrate 25 mg by mouth twice a day once the patient is hemodynamically stable. At this time will follow the patient on an as-needed basis. We will follow up with her as an outpatient at which time we will schedule her for further cardiac workup. [employer]MENT [employer] note has been reviewed, I agree with a documented findings and plan of care. Patient was seen and examined.
--- NOTE | 2017-12-08 12:19 | P.PN ---
Subjective Progress Note Date: 12/08/17 62-year-old morbidly obese female patient presented to the emergency department because of nausea vomiting diarrhea and left flank pain. The patient was extremely dehydrated. She was hypotensive with initial systolic blood pressure in the 60s. Her blood work was completely abnormal with an acute kidney injury in the creatinine of 4.1 and the patient had a anion gap metabolic acidosis with a bicarb of 22 and anion gap of 14 and Actiq acid was at 4.9. The patient' s white cell count was at 20.5. After receiving 4 L of IV fluids the patient remained hypotensive. The patient started on pressors initially at 5 mics and currently she is up to 30 mics of norepinephrine infusion at sonic through a peripheral line. A triple lumen catheter was inserted immediately. A blood gases obtained that showed a pH of 7.24 with a pCO2 of 47 and pO2 of 80. The patient is still awake and alert. She is a bit uncomfortable. Unable to lay down flat. Chest x-ray post-line insertion shows adequate expansion of both lungs and there is no evidence of any pneumonia. The triple-lumen catheter is in good location. The patient was given a dose of Rocephin 2 g IV in the emergency department. Stewart catheter was inserted. Not a whole lot of urine output is being produced this point in time. CAT scan of the abdomen was done and the patient has a proximal left ureteral calculus. There is also a right- sided nephrolithiasis. There is cholelithiasis without evidence of cholecystitis. Patient has a 19 x 8 x 21 mm stone in the right renal pelvis which is nonobstructive. Another 3-4 mm stone in the proximal left ureter. Discussed the case with Dr. Emil Green from urology and the patient be taken to the operating room for an immediate double-J stent insertion in the left. On and I'm seeing this patient for a follow-up. As mentioned earlier the patient came in today burst department with severe dehydration, sepsis, complicated UTI, left-sided pyelonephritis, septic shock, metabolic acidosis, lactic acidosis and acute kidney injury. The patient was taken to the operating room yesterday and a double-J stent was inserted on the left. Postop , the patient was kept intubated on a mechanical ventilator. She became quite hypotensive and upon arrival to the ICU the patient was already hypotensive and pressor dependent. Throughout the night the patient received fluids aggressively in order of 6 L of IV fluids. She also received albumin. The patient continued to be profoundly hypotensive. I added vasopressin physiologic dose and she was brought up to a 60 g of norepinephrine infusion per minutes. Also epinephrine was started to maintain a mean arterial pressure above 60. She continued to have episodes of fever treated with IV Tylenol. Aspirin antibiotic coverage, the patient was kept on IV cefepime. The primary blood cultures showing gram-negative bacillus and final cultures of been identified yet. This morning, the patient is sedated Diprivan and she is calm and comfortable and currently she is on 35 g of Diprivan infusion with adequate sedation. She is an assist-control mode of ventilation at the rate of 28 with a tidal volume of 500 and FiO2 of 70% with a PEEP of 5. Morning blood gases showed a pH of 7.28 with a pCO2 of 30 and pO2 of 103 and this was done and FiO2 of 70% and based on that the FiO2 was dropped down to 60%. Chest x- ray showed adequate positioning of the ET tube and the patient has a left IJ triple lumen catheter in place. The chest x-ray also showed stable cardiopulmonary and mediastinal structures. Echocardiogram was done and showed a preserved LV function with an ejection fraction of 55-60% without any significant valvular abnormalities. The patient is not fluid balance is +5 L over the past 24 hours. She did start making some urine at this point in time and she is producing approximately 10-15 mL an hour. Her white cell count peaked at 32 and currently is down to 27. Her lactic acid levels are improving and is down to 2.6. The patient's creatinine is down to 3.6. Her bicarb level is down to 13 and the patient was switched a bicarb drip infusion. Is a troponin leak there is also abnormal LFTs all probably later to severe septic shock. On 12/08/2017, the patient is wide awake and alert. This morning she was on 20 mics of Diprivan however she was awake and communicating and answering questions and communicating with us by writing on a piece of paper. She wanted to above. She was still on 20 mics of norepinephrine infusion addition to vasopressin. Nevertheless, she is afebrile and she is producing adequate amount of urine output. No respiratory difficulties. Weaning parameters were excellent. The patient is still on broad-spectrum antibiotics. Morning blood gases showed a pH of 7.42 with a pCO2 of 28 and pO2 131. The chest x-ray showed no acute abnormalities. White cell count is at 20.6. The rest of the blood work shows improvement in renal function with a creatinine being down to 3.2. The patient is still acidotic and this is a non-anion gap metabolic acidosis and the patient is still on a bicarb drip for now. Her net fluid balance is positive for 4.8 L yesterday Objective - Vital Signs Vital signs: Vital Signs Temp 99 F 12/08/17 08:00 Pulse 81 12/08/17 11:00 Resp 32 H 12/08/17 11:00 BP 100/57 12/08/17 11:00 Pulse Ox 94 L 12/08/17 11:00 Intake & Output 12/07/17 12/08/17 12/08/17 18:59 06:59 18:59 Intake Total 2546.719 2054.900 504.918 Output Total 1845 935 665 Balance 245.513 2050.900 -160.082 Weight 129.6 kg Intake: IV 870 1676 380 Calcium Gluconate 2,000 100 mg In Sodium Chloride 0.9 % 100 ml @ 100 mls/hr IVPB ONCE ONE Rx#: [id number] Dextrose 5% in Water 1, 1010 300 000 ml @ 100 mls/hr IV . [id number] [facility] with Sodium Bicarb (1 Meq/ml) 150 ml Rx#:[id number] Pressure bag 45 66 30 Sodium Chloride 0.9% 1, 725 600 50 000 ml @ 150 mls/hr IV . Q6H40M [facility] Rx#:[id number] Intake, IV Titration 1676.719 378.900 64.918 Amount Dextrose 5% in Water 1, 950 000 ml @ 100 mls/hr IV . [id number] ONE with Sodium Bicarb (1 Meq/ml) 150 ml Rx#:[id number] EPINEPHrine 2 mg In 62.748 Dextrose 5% in Water 250 ml @ 2 MCG/MIN 15.12 mls/ hr IV .[id number] [facility] Rx#: [id number] Norepinephrin 16 mg-0.9% 250 Ns Pmx 16 mg In 250 ml @ Titrate IV .Q0M [facility] Rx#: [id number] Norepinephrine 16 mg In 250.000 250.000 30.068 Dextrose 5% in Water 250 ml @ Titrate IV .Q0M [facility] Rx#:[id number] Propofol 1,000 mg In 75.654 Empty Bag 1 bag @ Titrate IV .Q0M [facility] Rx#: [id number] Sodium Chloride 0.9% 1, 50 100 000 ml @ 150 mls/hr IV . Q6H40M [facility] Rx#:[id number] fentaNYL (PF) 2,500 mcg 38.317 28.9 34.85 In Sodium Chloride 0.9% 200 ml @ 50 MCG/HR 5 mls/ hr IV .Q24H [facility] Rx#: [id number] Other 60 Output: Gastric Drainage 650 50 300 Urine 1195 885 365 Other: Voiding Method Indwelling Catheter Indwelling Catheter Indwelling Catheter ABP, PAP, CO, CI - Last Documented Arterial Blood Pressure 116/58 - Exam Gen. appearance, comfortable awake, intubated on a mechanical ventilator and communicating and answering questions appropriately. Head exam was generally normal. There was no scleral icterus or corneal arcus. Mucous membranes were moist. The patient has an orogastric and orotracheal tube are both of them are in place. Neck was supple and without jugular venous distension, thyromegaly, or carotid bruits. Carotids were easily palpable bilaterally. There was no adenopathy. The patient has a left IJ triple-lumen catheter in place. Lungs were clear to auscultation and percussion, and with normal diaphragmatic excursion. No wheezes or rales were noted. Breath sounds are diminished in lung bases bilaterally Cardiac exam revealed the PMI to be normally situated and sized. The rhythm was regular and no extrasystoles were noted during several minutes of auscultation. The first and second heart sounds were normal and physiologic splitting of the second heart sound was noted. There were no murmurs, rubs, clicks, or gallops. Abdominal exam revealed normal bowel sounds. The abdomen was soft, non-tender, and without masses, organomegaly, or appreciable enlargement of the abdominal aorta. The patient is obese and the organs cannot be accurately palpated this point in time Examination of the extremities revealed easily palpable radial, femoral and pedal pulses. There was no cyanosis, clubbing there is trace edema in the lower extremities bilaterally and the patient has diminished pulses in all 4 extremities related to her underlying septic shock Neurologically patient is wide awake and conscious even being on a 20 mics of the prevent.. Examination of the skin revealed no evidence of significant rashes, suspicious appearing nevi or other concerning lesions. - Labs CBC & Chem 7: 12/08/17 04:30 12/08/17 04:30 Labs: Abnormal Lab Results - Last 24 Hours (Table) 12/07/17 12/07/17 12/07/17 Range/Units 12:11 17:54 23:55 WBC (3.8-10.6) k/uL RBC (3.80-5.40) m/uL Hgb (11.4-16.0) gm/dL Hct (34.0-46.0) % Plt Count (150-450) k/uL Neutrophils # (1.3-7.7) k/uL Lymphocytes # (1.0-4.8) k/uL PT (9.0-12.0) sec INR (<1.2) APTT (22.0-30.0) sec ABG pCO2 (35-45) mmHg ABG pO2 (83-108) mmHg ABG HCO3 (21-25) mmol/L ABG O2 Saturation (94-97) % ABG Lactic Acid (0.5-1.6) mmol/L Sodium (137-145) mmol/L Potassium (3.5-5.1) mmol/L Chloride (98-107) mmol/L Carbon Dioxide (22-30) mmol/L BUN (7-17) mg/dL Creatinine (0.52-1.04) mg/dL Glucose (74-99) mg/dL POC Glucose (mg/dL) 109 H 135 H 159 H (75-99) mg/dL Calcium (8.4-10.2) mg/dL Total Bilirubin (0.2-1.3) mg/dL AST (14-36) U/L ALT (9-52) U/L Alkaline Phosphatase (38-126) U/L Total Protein (6.3-8.2) g/dL Albumin (3.5-5.0) g/dL 12/08/17 12/08/17 12/08/17 Range/Units 04:30 04:30 04:30 WBC 20.6 H (3.8-10.6) k/uL RBC 3.75 L (3.80-5.40) m/uL Hgb 10.4 L (11.4-16.0) gm/dL Hct 31.8 L (34.0-46.0) % Plt Count 51 L (150-450) k/uL Neutrophils # 19.1 H (1.3-7.7) k/uL Lymphocytes # 0.8 L (1.0-4.8) k/uL PT 12.4 H (9.0-12.0) sec INR 1.3 H (<1.2) APTT 32.6 H (22.0-30.0) sec ABG pCO2 (35-45) mmHg ABG pO2 (83-108) mmHg ABG HCO3 (21-25) mmol/L ABG O2 Saturation (94-97) % ABG Lactic Acid (0.5-1.6) mmol/L Sodium 136 L (137-145) mmol/L Potassium 3.2 L (3.5-5.1) mmol/L Chloride 108 H (98-107) mmol/L Carbon Dioxide 17 L (22-30) mmol/L BUN 45 H (7-17) mg/dL Creatinine 3.20 H (0.52-1.04) mg/dL Glucose 180 H (74-99) mg/dL POC Glucose (mg/dL) (75-99) mg/dL Calcium 7.0 L (8.4-10.2) mg/dL Total Bilirubin 3.0 H (0.2-1.3) mg/dL AST 109 H (14-36) U/L ALT 120 H (9-52) U/L Alkaline Phosphatase 155 H (38-126) U/L Total Protein 4.5 L (6.3-8.2) g/dL Albumin 2.3 L (3.5-5.0) g/dL 12/08/17 12/08/17 12/08/17 Range/Units 04:30 05:16 06:46 WBC (3.8-10.6) k/uL RBC (3.80-5.40) m/uL Hgb (11.4-16.0) gm/dL Hct (34.0-46.0) % Plt Count (150-450) k/uL Neutrophils # (1.3-7.7) k/uL Lymphocytes # (1.0-4.8) k/uL PT (9.0-12.0) sec INR (<1.2) APTT (22.0-30.0) sec ABG pCO2 28 L (35-45) mmHg ABG pO2 131 H (83-108) mmHg ABG HCO3 18 L (21-25) mmol/L ABG O2 Saturation 99.2 H (94-97) % ABG Lactic Acid 2.1 H (0.5-1.6) mmol/L Sodium (137-145) mmol/L Potassium (3.5-5.1) mmol/L Chloride (98-107) mmol/L Carbon Dioxide (22-30) mmol/L BUN (7-17) mg/dL Creatinine (0.52-1.04) mg/dL Glucose (74-99) mg/dL POC Glucose (mg/dL) 188 H (75-99) mg/dL Calcium (8.4-10.2) mg/dL Total Bilirubin (0.2-1.3) mg/dL AST (14-36) U/L ALT (9-52) U/L Alkaline Phosphatase (38-126) U/L Total Protein (6.3-8.2) g/dL Albumin (3.5-5.0) g/dL Microbiology - Last 24 Hours (Table) 12/06/17 14:55 Urine Culture - Preliminary Urine,Voided Gram Neg Bacilli 12/06/17 19:39 Urine Culture - Preliminary Urine,Voided Gram Neg Bacilli 12/06/17 16:04 Blood Culture Gram Stain - Preliminary Blood Blood Culture - Preliminary Gram Neg Bacilli 12/07/17 00:05 Gram Stain - Preliminary Sputum Sputum Culture - Preliminary 12/06/17 16:04 Blood Culture - Final Blood Assessment and Plan Plan: Assessment 1 acute septic shock secondary to gram negative infection. The patient has gram -negative and the blood and the urine. The source of the septic shock is a a complicated UTI, possible left-sided pyelonephritis. The patient has a 3 mm ureteral stent and she is post double-J stent insertion in the left. Currently she is aggressively resuscitated IV fluids. She is on high-dose pressors including a combination of norepinephrine and epinephrine and the patient is also on physiologic dose of vasopressin. On 12/08/2017, the patient is was resuscitated IV fluids. The patient is still on pressors. Nevertheless she is awake and alert and I think she should be able to tolerate coming off the mechanical ventilator. Urine output is improved and the patient is producing urine despite being a significant amount of positive fluid balance. No other significant issues overnight. He remains on broad-spectrum antibiotics. Cultures still showing gram-negative bacillus and the blood in the urine. 2 Acute urinary tract infection, complicated, associated with septic shock 3 nephrolithiasis with a proximal left ureteral stone causing ureteral obstruction in addition to nonobstructive calculus on the right kidney pelvis. 4 lactic acidosis, improving 5 non-anion gap metabolic acidosis secondary to above. The patient is currently on a bicarb drip 6 Leukocytosis secondary to above 7 acute kidney injury secondary to above, improving and the creatinine is down trending at this point in time the patient started producing some urine output and the creatinine continues to improve and is down to 3.2. 8 obesity 9 diabetes mellitus 10 history of hypertension 11 troponin leak secondary to septic shock 12 abnormal liver function tests secondary to sepsis/septic shock 13 thrombocytopenia with mild coagulopathy probably due to an early DIC in association with septic shock. Plan I think the patient is potentially extubated bowel. I checked her weaning parameters. Despite her high pressor requirements, I decide to extubate the patient knowing that she was wide awake and alert and she had excellent weaning parameters. I stopped the Diprivan and following that she was extubated. She is currently on oxygen by nasal cannula. She is not having any respiratory distress. We'll continue the bicarb drip at the rate of 75 mL an hour. Wean off pressors and I'm hoping that this will be discontinued within the next 24 hours. Continue vasopressin. Continued IV antibiotics. Monitor renal function. Monitor bicarb level. Monitored the hematologic profile. She'll be kept in ICU for 24 hours. This was successful extubation. Critical care evaluation more than 30 minutes.
[2017-12-08] MEDS: EPINEPHrine 2 MG in DEXTROSE 5% IN WATER 250 ML IV SCH ×2 (12:26)
[2017-12-08 12:35] LABS: Glucose,Whole Blood 197 mg/dL (75-99)
[2017-12-08 13:10] LABS: Magnesium 2.4 mg/dL (1.6-2.3); Potassium 3.5 mmol/L (3.5-5.1)
--- NOTE | 2017-12-08 15:17 | P.PN ---
Subjective Progress Note Date: 12/08/17 Keli Urban is a 62-year-old female who presented to [facility] emergency room with multiple complaints including nausea, vomiting, diarrhea, and bilateral flank and back pain, she was evaluated in the emergency room by Dr. Kaur and was found to have sepsis with severe hypotension and evidence of severe dehydration, patient had evidence of urinary tract infection , and evidence of left sided kidney stone with hydronephrosis, she was started on IV fluid, IV pressors, and IV antibiotics, she will be admitted to intensive care unit consultation for pulmonary critical care Dr. Subramanian was initiated in the emergency room. Also consultation for infectious disease and urology was initiated. Patient states that she had history of kidney stones she had right sided lithotripsy 35 years ago. Patient was seen and examined in emergency room on 12/06/2017 at 5:30 PM she is alert responsive and able to finish phrases due to shortness of breath she denies any chest pain, no nausea or vomiting at this time, she has pain in the bilateral flank area, otherwise she denies any complaints, she states that she started feeling sick about 3 days ago she was having vomiting and diarrhea she took pills to stop diarrhea at home, she denies knowing that she had a urinary tract infection, she denies taking any antibiotic recently. On 12/07/2017 patient is seen and examined in ICU she is intubated, sedated and maintained on mechanical ventilation, through the night patient had hypotension requiring high doses of IV pressors she was seen by urology and underwent double -J stent placement on the left she was intubated she is continued on IV antibiotics cefepime blood cultures are showing gram-negative bacilli lactic acid was significantly elevated but is improving at this time. On 12/08/2017 patient is seen and examined in intensive care unit she was extubated she is maintained on oxygen via nasal cannula and is tolerating well she denies any chest pain or shortness of breath at this time she is still maintained on significant amount of IV pressors, she is maintained on IV antibiotics. Objective - Vital Signs Vital signs: Vital Signs Temp 99 F 12/08/17 08:00 Pulse 77 12/08/17 12:30 Resp 28 H 12/08/17 12:30 BP 108/62 12/08/17 12:30 Pulse Ox 93 L 08/25/18 12:30 Intake & Output 12/07/17 12/08/17 12/08/17 18:59 06:59 18:59 Intake Total 2546.719 2054.900 885.418 Output Total 1845 935 890 Balance 048.488 9706.900 -4.582 Weight 129.6 kg Intake: IV 870 1676 698 Calcium Gluconate 2,000 100 mg In Sodium Chloride 0.9 % 100 ml @ 100 mls/hr IVPB ONCE ONE Rx#: [id number] Dextrose 5% in Water 1, 1010 600 000 ml @ 100 mls/hr IV . [id number] [facility]ON with Sodium Bicarb (1 Meq/ml) 150 ml Rx#:[id number] Pressure bag 45 66 48 Sodium Chloride 0.9% 1, 725 600 50 000 ml @ 150 mls/hr IV . Q6H40M [facility] Rx#:[id number] Intake, IV Titration 1676.719 378.900 127.418 Amount Dextrose 5% in Water 1, 950 000 ml @ 100 mls/hr IV . [id number] ONE with Sodium Bicarb (1 Meq/ml) 150 ml Rx#:[id number] EPINEPHrine 2 mg In 62.748 Dextrose 5% in Water 250 ml @ 2 MCG/MIN 15.12 mls/ hr IV .[id number] [facility] Rx#: [id number] Norepinephrin 16 mg-0.9% 250 Ns Pmx 16 mg In 250 ml @ Titrate IV .Q0M [facility] Rx#: [id number] Norepinephrine 16 mg In 250.000 250.000 92.568 Dextrose 5% in Water 250 ml @ Titrate IV .Q0M [facility] Rx#:[id number] Propofol 1,000 mg In 75.654 Empty Bag 1 bag @ Titrate IV .Q0M [facility] Rx#: [id number] Sodium Chloride 0.9% 1, 50 100 000 ml @ 150 mls/hr IV . Q6H40M [facility] Rx#:[id number] fentaNYL (PF) 2,500 mcg 38.317 28.9 34.85 In Sodium Chloride 0.9% 200 ml @ 50 MCG/HR 5 mls/ hr IV .Q24H [facility] Rx#: [id number] Other 60 Output: Gastric Drainage 650 50 300 Urine 1195 885 590 Other: Voiding Method Indwelling Catheter Indwelling Catheter Indwelling Catheter ABP, PAP, CO, CI - Last Documented Arterial Blood Pressure 135/37 - Exam In general patient is intubated, sedated maintained on mechanical ventilation HEENT head normocephalic and atraumatic Neck is supple no JVD no goiter no lymphadenopathy no carotid bruit Chest exam reveals a few scattered rhonchi bilaterally no wheezing Cardiac exam reveals regular heart sounds S1 and S2 no gallops no murmurs Abdomen is soft nontender no organomegaly with normal bowel sounds Extremity exam reveals no edema no cyanosis or clubbing - Labs CBC & Chem 7: 12/08/17 04:30 12/08/17 12:32 Labs: Abnormal Lab Results - Last 24 Hours (Table) 12/07/17 12/07/17 12/08/17 Range/Units 17:54 23:55 04:30 WBC 20.6 H (3.8-10.6) k/uL RBC 3.75 L (3.80-5.40) m/uL Hgb 10.4 L (11.4-16.0) gm/dL Hct 31.8 L (34.0-46.0) % Plt Count 51 L (150-450) k/uL Neutrophils # 19.1 H (1.3-7.7) k/uL Lymphocytes # 0.8 L (1.0-4.8) k/uL PT (9.0-12.0) sec INR (<1.2) APTT (22.0-30.0) sec ABG pCO2 (35-45) mmHg ABG pO2 (83-108) mmHg ABG HCO3 (21-25) mmol/L ABG O2 Saturation (94-97) % ABG Lactic Acid (0.5-1.6) mmol/L Sodium (137-145) mmol/L Potassium (3.5-5.1) mmol/L Chloride (98-107) mmol/L Carbon Dioxide (22-30) mmol/L BUN (7-17) mg/dL Creatinine (0.52-1.04) mg/dL Glucose (74-99) mg/dL POC Glucose (mg/dL) 135 H 159 H (75-99) mg/dL Calcium (8.4-10.2) mg/dL Magnesium (1.6-2.3) mg/dL Total Bilirubin (0.2-1.3) mg/dL AST (14-36) U/L ALT (9-52) U/L Alkaline Phosphatase (38-126) U/L Total Protein (6.3-8.2) g/dL Albumin (3.5-5.0) g/dL 12/08/17 12/08/17 12/08/17 Range/Units 04:30 04:30 04:30 WBC (3.8-10.6) k/uL RBC (3.80-5.40) m/uL Hgb (11.4-16.0) gm/dL Hct (34.0-46.0) % Plt Count (150-450) k/uL Neutrophils # (1.3-7.7) k/uL Lymphocytes # (1.0-4.8) k/uL PT 12.4 H (9.0-12.0) sec INR 1.3 H (<1.2) APTT 32.6 H (22.0-30.0) sec ABG pCO2 (35-45) mmHg ABG pO2 (83-108) mmHg ABG HCO3 (21-25) mmol/L ABG O2 Saturation (94-97) % ABG Lactic Acid 2.1 H (0.5-1.6) mmol/L Sodium 136 L (137-145) mmol/L Potassium 3.2 L (3.5-5.1) mmol/L Chloride 108 H (98-107) mmol/L Carbon Dioxide 17 L (22-30) mmol/L BUN 45 H (7-17) mg/dL Creatinine 3.20 H (0.52-1.04) mg/dL Glucose 180 H (74-99) mg/dL POC Glucose (mg/dL) (75-99) mg/dL Calcium 7.0 L (8.4-10.2) mg/dL Magnesium (1.6-2.3) mg/dL Total Bilirubin 3.0 H (0.2-1.3) mg/dL AST 109 H (14-36) U/L ALT 120 H (9-52) U/L Alkaline Phosphatase 155 H (38-126) U/L Total Protein 4.5 L (6.3-8.2) g/dL Albumin 2.3 L (3.5-5.0) g/dL 12/08/17 12/08/17 12/08/17 Range/Units 05:16 06:46 12:31 WBC (3.8-10.6) k/uL RBC (3.80-5.40) m/uL Hgb (11.4-16.0) gm/dL Hct (34.0-46.0) % Plt Count (150-450) k/uL Neutrophils # (1.3-7.7) k/uL Lymphocytes # (1.0-4.8) k/uL PT (9.0-12.0) sec INR (<1.2) APTT (22.0-30.0) sec ABG pCO2 28 L (35-45) mmHg ABG pO2 131 H (83-108) mmHg ABG HCO3 18 L (21-25) mmol/L ABG O2 Saturation 99.2 H (94-97) % ABG Lactic Acid (0.5-1.6) mmol/L Sodium (137-145) mmol/L Potassium (3.5-5.1) mmol/L Chloride (98-107) mmol/L Carbon Dioxide (22-30) mmol/L BUN (7-17) mg/dL Creatinine (0.52-1.04) mg/dL Glucose (74-99) mg/dL POC Glucose (mg/dL) 188 H 197 H (75-99) mg/dL Calcium (8.4-10.2) mg/dL Magnesium (1.6-2.3) mg/dL Total Bilirubin (0.2-1.3) mg/dL AST (14-36) U/L ALT (9-52) U/L Alkaline Phosphatase (38-126) U/L Total Protein (6.3-8.2) g/dL Albumin (3.5-5.0) g/dL 12/08/17 Range/Units 12:32 WBC (3.8-10.6) k/uL RBC (3.80-5.40) m/uL Hgb (11.4-16.0) gm/dL Hct (34.0-46.0) % Plt Count (150-450) k/uL Neutrophils # (1.3-7.7) k/uL Lymphocytes # (1.0-4.8) k/uL PT (9.0-12.0) sec INR (<1.2) APTT (22.0-30.0) sec ABG pCO2 (35-45) mmHg ABG pO2 (83-108) mmHg ABG HCO3 (21-25) mmol/L ABG O2 Saturation (94-97) % ABG Lactic Acid (0.5-1.6) mmol/L Sodium (137-145) mmol/L Potassium (3.5-5.1) mmol/L Chloride (98-107) mmol/L Carbon Dioxide (22-30) mmol/L BUN (7-17) mg/dL Creatinine (0.52-1.04) mg/dL Glucose (74-99) mg/dL POC Glucose (mg/dL) (75-99) mg/dL Calcium (8.4-10.2) mg/dL Magnesium 2.4 H (1.6-2.3) mg/dL Total Bilirubin (0.2-1.3) mg/dL AST (14-36) U/L ALT (9-52) U/L Alkaline Phosphatase (38-126) U/L Total Protein (6.3-8.2) g/dL Albumin (3.5-5.0) g/dL Microbiology - Last 24 Hours (Table) 12/07/17 00:05 Gram Stain - Preliminary Sputum Sputum Culture - Preliminary 12/06/17 14:55 Urine Culture - Preliminary Urine,Voided Gram Neg Bacilli 12/06/17 19:39 Urine Culture - Preliminary Urine,Voided Gram Neg Bacilli 12/06/17 16:04 Blood Culture Gram Stain - Preliminary Blood Blood Culture - Preliminary Gram Neg Bacilli Assessment and Plan Plan: #1 sepsis with septic shock, blood cultures are positive for gram-negative bacilli source of infection is most likely related to left sided pyelonephritis #2 urinary tract infection, with evidence of of left sided pyelonephritis left obstructive uropathy status post double-J stent placement #3 elevated liver enzymes likely related to shock liver due to hypotension #4 slight elevation in troponin Will consult cardiology, patient denies any chest pain #5 slight elevation in amylase, again likely due to hypotension doubt acute pancreatitis #6 left urethral calculus with left sided hydronephrosis, urology consultation requested #7 severe dehydration #8 acute renal failure, likely related to severe dehydration, possible obstructive uropathy component #9 lactic acidosis, lactic acid on presentation 4.9 At this time plan is to continue with IV fluid resuscitation continue with IV antibiotic patient was started on Rocephin IV emergency room and then switched to IV cefepime Continue pressure support Patient is admitted to intensive care unit, she was maintained on mechanical ventilation, now she is extubated and maintained on oxygen via nasal cannula and is tolerating well Consultation for pulmonary critical care, infectious disease, cardiology, and urology were initiated Prognosis is guarded CODE STATUS is full code per patient and request
[2017-12-08] MEDS: POTASSIUM CHLORIDE 20 MEQ in WATER FOR INJECTION 1 100ML.BAG IVPB SCH ×2 (16:13→18:55)
[2017-12-08 17:25] LABS: Glucose,Whole Blood 193 mg/dL (75-99)
[2017-12-08] MEDS: fentaNYL (PF) 2,500 MCG in SODIUM CHLORIDE 0.9% 200 ML IV SCH (20:44)
--- NOTE | 2017-12-08 22:33 | P.PN ---
Subjective Progress Note Date: 12/08/17 62-year-old female who is currently postoperative, underwent cystoscopy and left ureteral catheter placement for the obstruction caused by the stone and hydronephrosis and pyelonephritis. She is now postoperative she is intubated sedated and mechanically ventilated requiring vasopressor therapy for her septic shock. She received several liters of fluid, but remains hypotensive on vasopressor therapy. It is related that before she came to Hospital she been ill for several days with nausea emesis abdominal pain and flank pain was also occurring. She become quite dehydrated and admission she had fever and hypotension. Because of her pain evaluations are performed and the obstruction was seen in the left ureter. As noted she's been evaluated by urology and is ready had surgical intervention to relieve the obstruction. 12/07/2017 reveals the patient to still be intubated sedated and mechanically ventilated. She had significant hypotension overnight requiring Levophed, vasopressin as well as a short time of epinephrine. The Levophed is being weaned at this point in time and she does have significant hypotension making it difficult for her to be significantly manipulated in the bed at this time. She is receiving the middle dose of fentanyl for sedation and pain control. She is arousable and able to follow simple commands without difficulty. Urine output has improved and her remains cloudy with a bloody appearance 12/09/2015 reveals the patient to be improved this a.m. She has been extubated and seems to be comfortable. She is still on vasopressor therapy but there has been successful reduction of the amount. She is somewhat comfortable but is very weak. Has generalized edema relates her breathing is adequate after extubation. Objective - Vital Signs Vital signs: Vital Signs Temp 98.2 F 12/08/17 20:00 Pulse 91 12/08/17 22:00 Resp 21 12/08/17 22:00 BP 115/70 12/08/17 22:00 Pulse Ox 89 L 12/08/17 22:00 Intake & Output 12/08/17 12/08/17 12/09/17 06:59 18:59 06:59 Intake Total 2054.900 1515.232 318 Output Total 935 1155 290 Balance 1119.900 360.232 28 Weight 129.6 kg Intake: IV 1676 1228 318 Dextrose 5% in Water 1, 1010 1100 300 000 ml @ 100 mls/hr IV . [id number] DAMON with Sodium Bicarb (1 Meq/ml) 150 ml Rx#:[id number] Pressure bag 66 78 18 Sodium Chloride 0.9% 1, 600 50 000 ml @ 150 mls/hr IV . Q6H40M DAMON Rx#:[id number] Intake, IV Titration 378.900 227.232 0 Amount Norepinephrine 16 mg In 250.000 192.382 Dextrose 5% in Water 250 ml @ Titrate IV .Q0M DAOMN Rx#:[id number] Sodium Chloride 0.9% 1, 100 000 ml @ 150 mls/hr IV . Q6H40M DAMON Rx#:[id number] fentaNYL (PF) 2,500 mcg 28.9 34.85 0 In Sodium Chloride 0.9% 200 ml @ 50 MCG/HR 5 mls/ hr IV .Q24H DAMON Rx#: [id number] Other 60 Output: Gastric Drainage 50 300 Urine 885 855 290 Other: Voiding Method Indwelling Catheter Indwelling Catheter Indwelling Catheter ABP, PAP, CO, CI - Last Documented Arterial Blood Pressure 102/67 - Exam 62-year-old woman who looks older than her stated age, she does have significant obesity. She is now extubated and comfortable HEENT: Anicteric conjunctiva are pink and moist nasal mucosa grossly intact without significant lesions, there is no thrushnoted around the endotracheal tube Neck: The neck is supple without significant lymphadenopathy or thyromegaly. Lungs: there is symmetrical air entry bilaterally. There are only a few scattered crackles no sandeep bronchial sounds no significant wheezing Heart: Regular rate and rhythm with an audible S1-S2, no S3 soft S4. There is no significant murmur click or rub, PMI was nondisplaced. Abdomen: obese,Positive bowel sounds soft , without palpable masses or organomegaly. the abdomen is nonrigid, seems to have some tenderness in the left lower quadrant. Extremities: The upper extremities have excellent pulses they are symmetric, no significant petechiae or telangiectasia. No splinter hemorrhages were noted. lower extremities have some trace edema but no open ulcerations are seen Neuro: Extubated awake alert oriented to person place and time no acute gross focal sensory motor deficits but has some generalized weakness - Labs CBC & Chem 7: 12/08/17 04:30 12/08/17 12:32 Labs: Abnormal Lab Results - Last 24 Hours (Table) 12/07/17 12/08/17 12/08/17 Range/Units 23:55 04:30 04:30 WBC 20.6 H (3.8-10.6) k/uL RBC 3.75 L (3.80-5.40) m/uL Hgb 10.4 L (11.4-16.0) gm/dL Hct 31.8 L (34.0-46.0) % Plt Count 51 L (150-450) k/uL Neutrophils # 19.1 H (1.3-7.7) k/uL Lymphocytes # 0.8 L (1.0-4.8) k/uL PT (9.0-12.0) sec INR (<1.2) APTT (22.0-30.0) sec ABG pCO2 (35-45) mmHg ABG pO2 (83-108) mmHg ABG HCO3 (21-25) mmol/L ABG O2 Saturation (94-97) % ABG Lactic Acid (0.5-1.6) mmol/L Sodium 136 L (137-145) mmol/L Potassium 3.2 L (3.5-5.1) mmol/L Chloride 108 H (98-107) mmol/L Carbon Dioxide 17 L (22-30) mmol/L BUN 45 H (7-17) mg/dL Creatinine 3.20 H (0.52-1.04) mg/dL Glucose 180 H (74-99) mg/dL POC Glucose (mg/dL) 159 H (75-99) mg/dL Calcium 7.0 L (8.4-10.2) mg/dL Magnesium (1.6-2.3) mg/dL Total Bilirubin 3.0 H (0.2-1.3) mg/dL AST 109 H (14-36) U/L ALT 120 H (9-52) U/L Alkaline Phosphatase 155 H (38-126) U/L Total Protein 4.5 L (6.3-8.2) g/dL Albumin 2.3 L (3.5-5.0) g/dL 12/08/17 12/08/17 12/08/17 Range/Units 04:30 04:30 05:16 WBC (3.8-10.6) k/uL RBC (3.80-5.40) m/uL Hgb (11.4-16.0) gm/dL Hct (34.0-46.0) % Plt Count (150-450) k/uL Neutrophils # (1.3-7.7) k/uL Lymphocytes # (1.0-4.8) k/uL PT 12.4 H (9.0-12.0) sec INR 1.3 H (<1.2) APTT 32.6 H (22.0-30.0) sec ABG pCO2 28 L (35-45) mmHg ABG pO2 131 H (83-108) mmHg ABG HCO3 18 L (21-25) mmol/L ABG O2 Saturation 99.2 H (94-97) % ABG Lactic Acid 2.1 H (0.5-1.6) mmol/L Sodium (137-145) mmol/L Potassium (3.5-5.1) mmol/L Chloride (98-107) mmol/L Carbon Dioxide (22-30) mmol/L BUN (7-17) mg/dL Creatinine (0.52-1.04) mg/dL Glucose (74-99) mg/dL POC Glucose (mg/dL) (75-99) mg/dL Calcium (8.4-10.2) mg/dL Magnesium (1.6-2.3) mg/dL Total Bilirubin (0.2-1.3) mg/dL AST (14-36) U/L ALT (9-52) U/L Alkaline Phosphatase (38-126) U/L Total Protein (6.3-8.2) g/dL Albumin (3.5-5.0) g/dL 12/08/17 12/08/17 12/08/17 Range/Units 06:46 12:31 12:32 WBC (3.8-10.6) k/uL RBC (3.80-5.40) m/uL Hgb (11.4-16.0) gm/dL Hct (34.0-46.0) % Plt Count (150-450) k/uL Neutrophils # (1.3-7.7) k/uL Lymphocytes # (1.0-4.8) k/uL PT (9.0-12.0) sec INR (<1.2) APTT (22.0-30.0) sec ABG pCO2 (35-45) mmHg ABG pO2 (83-108) mmHg ABG HCO3 (21-25) mmol/L ABG O2 Saturation (94-97) % ABG Lactic Acid (0.5-1.6) mmol/L Sodium (137-145) mmol/L Potassium (3.5-5.1) mmol/L Chloride (98-107) mmol/L Carbon Dioxide (22-30) mmol/L BUN (7-17) mg/dL Creatinine (0.52-1.04) mg/dL Glucose (74-99) mg/dL POC Glucose (mg/dL) 188 H 197 H (75-99) mg/dL Calcium (8.4-10.2) mg/dL Magnesium 2.4 H (1.6-2.3) mg/dL Total Bilirubin (0.2-1.3) mg/dL AST (14-36) U/L ALT (9-52) U/L Alkaline Phosphatase (38-126) U/L Total Protein (6.3-8.2) g/dL Albumin (3.5-5.0) g/dL 12/08/17 Range/Units 17:24 WBC (3.8-10.6) k/uL RBC (3.80-5.40) m/uL Hgb (11.4-16.0) gm/dL Hct (34.0-46.0) % Plt Count (150-450) k/uL Neutrophils # (1.3-7.7) k/uL Lymphocytes # (1.0-4.8) k/uL PT (9.0-12.0) sec INR (<1.2) APTT (22.0-30.0) sec ABG pCO2 (35-45) mmHg ABG pO2 (83-108) mmHg ABG HCO3 (21-25) mmol/L ABG O2 Saturation (94-97) % ABG Lactic Acid (0.5-1.6) mmol/L Sodium (137-145) mmol/L Potassium (3.5-5.1) mmol/L Chloride (98-107) mmol/L Carbon Dioxide (22-30) mmol/L BUN (7-17) mg/dL Creatinine (0.52-1.04) mg/dL Glucose (74-99) mg/dL POC Glucose (mg/dL) 193 H (75-99) mg/dL Calcium (8.4-10.2) mg/dL Magnesium (1.6-2.3) mg/dL Total Bilirubin (0.2-1.3) mg/dL AST (14-36) U/L ALT (9-52) U/L Alkaline Phosphatase (38-126) U/L Total Protein (6.3-8.2) g/dL Albumin (3.5-5.0) g/dL Microbiology - Last 24 Hours (Table) 12/06/17 16:04 Blood Culture Gram Stain - Final Blood Blood Culture - Final Klebsiella ozaenae 12/07/17 00:05 Gram Stain - Preliminary Sputum Sputum Culture - Preliminary 12/06/17 14:55 Urine Culture - Preliminary Urine,Voided Gram Neg Bacilli 12/06/17 19:39 Urine Culture - Preliminary Urine,Voided Gram Neg Bacilli Laboratory Results WBC 20.6 k/uL (3.8-10.6) H 12/08/17 04:30 RBC 3.75 m/uL (3.80-5.40) L 12/08/17 04:30 Hgb 10.4 gm/dL (11.4-16.0) L 12/08/17 04:30 Hct 31.8 % (34.0-46.0) L 12/08/17 04:30 MCV 84.7 fL (80.0-100.0) 12/08/17 04:30 MCH 27.7 pg (25.0-35.0) 12/08/17 04:30 MCHC 32.6 g/dL (31.0-37.0) 12/08/17 04:30 RDW 14.2 % (11.5-15.5) 12/08/17 04:30 Plt Count 51 k/uL (150-450) L 12/08/17 04:30 Neutrophils % 93 % 12/08/17 04:30 Neutrophils % (Manual) 73 % 12/06/17 20:45 Band Neutrophils % 22 % 12/06/17 20:45 Lymphocytes % 4 % 12/08/17 04:30 Lymphocytes % (Manual) 2 % 12/06/17 20:45 Monocytes % 2 % 12/08/17 04:30 Monocytes % (Manual) 3 % 12/06/17 20:45 Eosinophils % 0 % 12/08/17 04:30 Basophils % 0 % 12/08/17 04:30 Metamyelocytes % 1 % 12/06/17 20:45 Myelocytes % 1 % 12/06/17 20:45 Neutrophils # 19.1 k/uL (1.3-7.7) H 12/08/17 04:30 Neutrophils # (Manual) 30.40 k/uL (1.3-7.7) H 12/06/17 20:45 Lymphocytes # 0.8 k/uL (1.0-4.8) L 12/08/17 04:30 Lymphocytes # (Manual) 0.64 k/uL (1.0-4.8) L 12/06/17 20:45 Monocytes # 0.3 k/uL (0-1.0) 12/08/17 04:30 Monocytes # (Manual) 0.96 k/uL (0-1.0) 12/06/17 20:45 Eosinophils # 0.1 k/uL (0-0.7) 12/08/17 04:30 Basophils # 0.1 k/uL (0-0.2) 12/08/17 04:30 Metamyelocytes # (Man) 0.32 k/uL (0) H 12/06/17 20:45 Myelocytes # (Manual) 0.32 k/uL (0) H 12/06/17 20:45 Nucleated RBCs 0 /100 WBC (0-0) 12/06/17 20:45 Manual Slide Review Performed 12/06/17 20:45 Toxic Granulation Present 12/06/17 20:45 Toxic Vacuolation Present 12/06/17 20:45 Large Platelets Present 12/06/17 13:30 RBC Morphology Normal 12/06/17 13:30 PT 12.4 sec (9.0-12.0) H 12/08/17 04:30 INR 1.3 (<1.2) H 12/08/17 04:30 APTT 32.6 sec (22.0-30.0) H 12/08/17 04:30 Sample Site [place] 12/08/17 05:16 ABG pH 7.42 (7.35-7.45) 12/08/17 05:16 ABG pCO2 28 mmHg (35-45) L 12/08/17 05:16 ABG pO2 131 mmHg (83-108) H 12/08/17 05:16 ABG HCO3 18 mmol/L (21-25) L 12/08/17 05:16 ABG Total CO2 19 mmol/L (19-24) 12/08/17 05:16 ABG O2 Saturation 99.2 % (94-97) H 12/08/17 05:16 ABG Base Excess -6.5 mmol/L 12/08/17 05:16 Sharath Test Yes 12/08/17 05:16 ABG Lactic Acid 2.1 mmol/L (0.5-1.6) H 12/08/17 04:30 FiO2 40 % 12/08/17 05:16 Sodium 136 mmol/L (137-145) L 12/08/17 04:30 Potassium 3.5 mmol/L (3.5-5.1) 12/08/17 12:32 Chloride 108 mmol/L (98-107) H 12/08/17 04:30 Carbon Dioxide 17 mmol/L (22-30) L 12/08/17 04:30 Anion Gap 11 mmol/L 12/08/17 04:30 BUN 45 mg/dL (7-17) H 12/08/17 04:30 Creatinine 3.20 mg/dL (0.52-1.04) H 12/08/17 04:30 Est GFR (CKD-EPI)AfAm 17 (>60 ml/min/1.73 sqM) 12/08/17 04:30 Est GFR (CKD-EPI)NonAf 15 (>60 ml/min/1.73 sqM) 12/08/17 04:30 Glucose 180 mg/dL (74-99) H 12/08/17 04:30 POC Glucose (mg/dL) 193 mg/dL (75-99) H 12/08/17 17:24 POC Glu Velvet Weaver ID Josef Mike 12/08/17 17:[address] Glu mg/dL 151 12/06/17 13:30 Hemoglobin A1c 6.9 % (4.0-6.0) H 12/06/17 13:30 Lactic Ac Sepsis Rflx Y 12/07/17 09:34 Plasma Lactic Acid Joe 2.6 mmol/L (0.7-2.0) H* 12/07/17 08:00 Uric Acid 6.6 mg/dL (3.7-7.4) 12/06/17 20:45 Calcium 7.0 mg/dL (8.4-10.2) L 12/08/17 04:30 Phosphorus 2.7 mg/dL (2.5-4.5) 12/08/17 04:30 Magnesium 2.4 mg/dL (1.6-2.3) H 12/08/17 12:32 Total Bilirubin 3.0 mg/dL (0.2-1.3) H 12/08/17 04:30 AST 109 U/L (14-36) H 12/08/17 04:30 ALT 120 U/L (9-52) H 12/08/17 04:30 Alkaline Phosphatase 155 U/L (38-126) H 12/08/17 04:30 Troponin I 0.916 ng/mL (0.000-0.034) H* 12/07/17 06:12 Total Protein 4.5 g/dL (6.3-8.2) L 12/08/17 04:30 Albumin 2.3 g/dL (3.5-5.0) L 12/08/17 04:30 Amylase 380 U/L (30-110) H* 12/06/17 20:45 Lipase 16 U/L (23-300) L 12/06/17 20:45 Cortisol 20 ug/dL 12/07/17 11:40 Urine Color Red 12/06/17 14:55 Urine Appearance Turbid (Clear) H 12/06/17 14:55 Urine pH 6.5 (5.0-8.0) 12/06/17 14:55 Ur Specific [place] 1.011 (1.001-1.035) 12/06/17 14:55 Urine Protein 2+ (Negative) H 12/06/17 14:55 Urine Glucose (UA) Negative (Negative) 12/06/17 14:55 Urine Ketones Negative (Negative) 12/06/17 14:55 Urine Blood Large (Negative) H 12/06/17 14:55 Urine Nitrite Negative (Negative) 12/06/17 14:55 Urine Bilirubin Negative (Negative) 12/06/17 14:55 Urine Urobilinogen <2.0 mg/dL (<2.0) 12/06/17 14:55 Ur Leukocyte Esterase Large (Negative) H 12/06/17 14:55 Urine RBC >182 /hpf (0-5) H 12/06/17 14:55 Urine WBC >182 /hpf (0-5) H 12/06/17 14:55 Urine WBC Clumps Many /hpf (None) H 12/06/17 14:55 Urine Bacteria Moderate /hpf (None) H 12/06/17 14:55 Urine Mucus Many /hpf (None) H 12/06/17 14:55 Microbiology 12/06/17 16:04 Blood Blood Culture Gram Stain - Final 12/06/17 16:04 Blood Blood Culture - Final Klebsiella ozaenae 12/07/17 00:05 Sputum Gram Stain - Preliminary 12/07/17 00:05 Sputum Sputum Culture - Preliminary 12/06/17 14:55 Urine,Voided Urine Culture - Preliminary Gram Neg Bacilli 12/06/17 19:39 Urine,Voided Urine Culture - Preliminary Gram Neg Bacilli 12/06/17 16:04 Blood Blood Culture - Final Assessment and Plan (1) Septic shock Narrative/Plan: female presents to Hospital feeling poorly several days this done evidence of fever and hypotension leukocytosis and lactic acidosis. She was on evidence of septic shock requiring fluid resuscitation and vasopressor therapy. She had evidence of obstruction of the left ureter has been taking the operating room for stent placement. He is now postoperative. Her leukocytosis has worsened to 32.1 and she remains hypotensive requiring further fluid resuscitation and vasopressor therapy. Urine output is adequate. The patient did have significant acidosis that certainly improving. Does still have lactic acidosis and further fluid is requested. Antimicrobial therapy has been initiated with cefepime. Since give us coverage for pseudomonas as well as most other gram-negative organisms in his abdomen for now. He review is done and she has no history of resistant pathogens .Cultures will further help direct her course of antibiotic therapy as she improves. Respiratory failure appears to be postoperative in all we will rapidly resolve as her sepsis improves. Profound leukocytosis during her related to her sepsis, as well as the thrombocytopenia likely invasive gram-negative sepsis. Cultures are pending. December 07 2017 the patient remains in intensive care unit with some improvement in that she has had a decrease of her vasopressor requirements. Urine output is adequate. Neurologically she is awake and interactive. Maneuvers to reduce her vasopressor requirements are continuing. No plans for weaning her extubation at this time given her significant hemodynamic challenge. Blood and urine cultures revealed gram-negative bacilli. We are awaiting the final susceptibility for final choice of antibiotic therapy. Follow blood culture is negative so far. The case is discussed with neurologist and the family members. 12/08/2017 patient remains in intensive care unit on a reduced amount of vasopressor therapy. She is now extubated and seems to be doing well from the pulmonary standpoint. Overall she is showing improvement from her gram- negative septic shock. Final cultures are pending which will further help with direct the course of antibiotic therapy at the time of discharge. She will follow closely with urology in the outpatient setting as to the timing of the stent removal and laser lithotripsy for removal of the obstructing stone resulting in the polynephritis bacteremia and septic shock. Current Visit: Yes Status: Acute Code(s): A41.9 - SEPSIS, UNSPECIFIED ORGANISM; R65.21 - SEVERE SEPSIS WITH SEPTIC SHOCK SNOMED Code(s): 43466500 (2) Acute pyelonephritis Current Visit: Yes Status: Acute Code(s): N10 - ACUTE PYELONEPHRITIS SNOMED Code(s): 46386597 (3) Acute renal failure Current Visit: Yes Status: Acute Code(s): N17.9 - ACUTE KIDNEY FAILURE, UNSPECIFIED SNOMED Code(s): 07366222 (4) Calculus of ureter Current Visit: Yes Status: Acute Code(s): N20.1 - CALCULUS OF URETER SNOMED Code(s): 10631380
[2017-12-09 00:18] LABS: Glucose,Whole Blood 191 mg/dL (75-99)
[2017-12-09] MEDS: INSULIN ASPART 100 UNIT/ML 1 ML 10 ML VIAL SQ SCH ×5 (00:57→21:08)
[2017-12-09] MEDS: SODIUM CHLORIDE 0.9% 99 ML with VASOPRESSIN 20 UNIT IV SCH ×4 (00:58→12:00)
[2017-12-09] MEDS: DEXTROSE 5% IN WATER 1,000 ML with SODIUM BICARB (1 MEQ/ML) 150 ML IV SCH (04:17)
[2017-12-09 05:09] LABS: Basophils # (A) 0.1 k/uL (0-0.2); Basophils % (A) 0 %; Eosinophils # (A) 0.3 k/uL (0-0.7); Eosinophils % (A) 2 %; HCT 31.4 % (34.0-46.0); HGB 9.9 gm/dL (11.4-16.0); Lymphocytes # (A) 0.9 k/uL (1.0-4.8); Lymphocytes % (A) 5 %; MCH 27.4 pg (25.0-35.0); MCHC 31.6 g/dL (31.0-37.0); MCV 86.7 fL (80.0-100.0); Monocytes # (A) 0.5 k/uL (0-1.0); Monocytes % (A) 3 %; Neutrophils % (A) 88 %; RBC 3.62 m/uL (3.80-5.40); RDW 14.3 % (11.5-15.5); WBC 18.2 k/uL (3.8-10.6)
[2017-12-09] MEDS: IPRATROPIUM-ALBUTEROL 3 ML NEB INHALATION PRN ×4 (05:22→19:26)
[2017-12-09 05:38] LABS: Calcium 7.4 mg/dL (8.4-10.2); Magnesium 2.3 mg/dL (1.6-2.3); Phosphorus 2.5 mg/dL (2.5-4.5); Potassium 3.7 mmol/L (3.5-5.1)
[2017-12-09 05:52] LABS: Platelet Count 50 k/uL (150-450)
[2017-12-09] MEDS: EPINEPHrine 2 MG in DEXTROSE 5% IN WATER 250 ML IV SCH ×4 (06:20→18:39)
[2017-12-09] MEDS ORDERED: Potassium Replacement Protocol 1 EACH MISC MISCELLANE PRN (06:21)
[2017-12-09 06:30] LABS: Glucose,Whole Blood 183 mg/dL (75-99)
[2017-12-09] MEDS: NOREPINEPHRINE 16 MG in DEXTROSE 5% IN WATER 250 ML IV SCH ×2 (06:30)
--- NOTE | 2017-12-09 06:45 | XR ---
EXAMINATION TYPE: XR chest 1V DATE OF EXAM: 12/09/2017 HISTORY: Shortness of breath . REFERENCE: Previous study dated 12/08/2017. FINDINGS: The patient has been extubated. The patient is NG tube is been removed. A left internal jug ular catheter remains in place. Its tip is in the superior vena cava. The heart is mildly enlarged. There is vascular congestion and subtle interstitial change. There is d eveloping right basilar airspace disease. There are small, bilateral effusions. IMPRESSION: WORSENING CHANGES OF CONGESTIVE HEART FAILURE.
[2017-12-09] MEDS: POTASSIUM CHLORIDE ER 20 MEQ TAB.ER PO SCH ×2 (06:50→07:52)
[2017-12-09] MEDS: HEPARIN SODIUM,PORCINE 5,000 UNIT/ML 1 ML VIAL SQ SCH ×2 (07:44→15:47)
[2017-12-09] MEDS: CEFEPIME 1 GM in SODIUM CHLORIDE 0.9% 50 ML IVPB SCH (07:59)
[2017-12-09] MEDS: SODIUM CHLORIDE 0.9% 1,000 ML IV SCH (08:00)
[2017-12-09] MEDS: POTASSIUM BICARBONATE/CIT AC 20 MEQ TABLET.EFF NG-TUBE SCH (08:09)
[2017-12-09] MEDS: PANTOPRAZOLE 40 MG/10 ML VIAL IVP SCH (08:09)
[2017-12-09] MEDS: FUROSEMIDE 10 MG/ML 2 ML VIAL IV SCH (11:29)
[2017-12-09 11:35] LABS: Glucose,Whole Blood 197 mg/dL (75-99)
--- NOTE | 2017-12-09 11:36 | P.PN ---
Subjective Progress Note Date: 12/09/17 62-year-old morbidly obese female patient presented to the emergency department because of nausea vomiting diarrhea and left flank pain. The patient was extremely dehydrated. She was hypotensive with initial systolic blood pressure in the 60s. Her blood work was completely abnormal with an acute kidney injury in the creatinine of 4.1 and the patient had a anion gap metabolic acidosis with a bicarb of 22 and anion gap of 14 and Actiq acid was at 4.9. The patient' s white cell count was at 20.5. After receiving 4 L of IV fluids the patient remained hypotensive. The patient started on pressors initially at 5 mics and currently she is up to 30 mics of norepinephrine infusion at sonic through a peripheral line. A triple lumen catheter was inserted immediately. A blood gases obtained that showed a pH of 7.24 with a pCO2 of 47 and pO2 of 80. The patient is still awake and alert. She is a bit uncomfortable. Unable to lay down flat. Chest x-ray post-line insertion shows adequate expansion of both lungs and there is no evidence of any pneumonia. The triple-lumen catheter is in good location. The patient was given a dose of Rocephin 2 g IV in the emergency department. Stewart catheter was inserted. Not a whole lot of urine output is being produced this point in time. CAT scan of the abdomen was done and the patient has a proximal left ureteral calculus. There is also a right- sided nephrolithiasis. There is cholelithiasis without evidence of cholecystitis. Patient has a 19 x 8 x 21 mm stone in the right renal pelvis which is nonobstructive. Another 3-4 mm stone in the proximal left ureter. Discussed the case with Dr. Emil Green from urology and the patient be taken to the operating room for an immediate double-J stent insertion in the left. On and I'm seeing this patient for a follow-up. As mentioned earlier the patient came in today burst department with severe dehydration, sepsis, complicated UTI, left-sided pyelonephritis, septic shock, metabolic acidosis, lactic acidosis and acute kidney injury. The patient was taken to the operating room yesterday and a double-J stent was inserted on the left. Postop , the patient was kept intubated on a mechanical ventilator. She became quite hypotensive and upon arrival to the ICU the patient was already hypotensive and pressor dependent. Throughout the night the patient received fluids aggressively in order of 6 L of IV fluids. She also received albumin. The patient continued to be profoundly hypotensive. I added vasopressin physiologic dose and she was brought up to a 60 g of norepinephrine infusion per minutes. Also epinephrine was started to maintain a mean arterial pressure above 60. She continued to have episodes of fever treated with IV Tylenol. Aspirin antibiotic coverage, the patient was kept on IV cefepime. The primary blood cultures showing gram-negative bacillus and final cultures of been identified yet. This morning, the patient is sedated Diprivan and she is calm and comfortable and currently she is on 35 g of Diprivan infusion with adequate sedation. She is an assist-control mode of ventilation at the rate of 28 with a tidal volume of 500 and FiO2 of 70% with a PEEP of 5. Morning blood gases showed a pH of 7.28 with a pCO2 of 30 and pO2 of 103 and this was done and FiO2 of 70% and based on that the FiO2 was dropped down to 60%. Chest x- ray showed adequate positioning of the ET tube and the patient has a left IJ triple lumen catheter in place. The chest x-ray also showed stable cardiopulmonary and mediastinal structures. Echocardiogram was done and showed a preserved LV function with an ejection fraction of 55-60% without any significant valvular abnormalities. The patient is not fluid balance is +5 L over the past 24 hours. She did start making some urine at this point in time and she is producing approximately 10-15 mL an hour. Her white cell count peaked at 32 and currently is down to 27. Her lactic acid levels are improving and is down to 2.6. The patient's creatinine is down to 3.6. Her bicarb level is down to 13 and the patient was switched a bicarb drip infusion. Is a troponin leak there is also abnormal LFTs all probably later to severe septic shock. On 12/08/2017, the patient is wide awake and alert. This morning she was on 20 mics of Diprivan however she was awake and communicating and answering questions and communicating with us by writing on a piece of paper. She wanted to above. She was still on 20 mics of norepinephrine infusion addition to vasopressin. Nevertheless, she is afebrile and she is producing adequate amount of urine output. No respiratory difficulties. Weaning parameters were excellent. The patient is still on broad-spectrum antibiotics. Morning blood gases showed a pH of 7.42 with a pCO2 of 28 and pO2 131. The chest x-ray showed no acute abnormalities. White cell count is at 20.6. The rest of the blood work shows improvement in renal function with a creatinine being down to 3.2. The patient is still acidotic and this is a non-anion gap metabolic acidosis and the patient is still on a bicarb drip for now. Her net fluid balance is positive for 4.8 L yesterday On 12/09/2017, this patient is extubated and she is awake and alert. She is on 20 mics of norepinephrine infusion and we are in the process of weaning her down further. She is off sedation. She is producing good amount of urine output in the order of 50 mL an hour. Renal function continues to improve. The blood culture showed Klebsiella sepsis secondary to underlying urinary tract infection. No altered mentation. No nausea vomiting. No abdominal pain. She is tolerating diet. She is communicating. She was taken off the bicarb drip knowing that the non-anion gap metabolic acidosis has improved. We' ll cut down the IV fluids also down to 50 mL an hour as the patient is mobilizing her extra fluid. The chest x-ray from today shows a component of mild four-vessel congestion/edema and the patient is currently on 4 L about 2 by nasal cannula. The patient remains on IV cefepime for now. Objective - Vital Signs Vital signs: Vital Signs Temp 98.3 F 12/09/17 08:00 Pulse 75 12/09/17 11:00 Resp 15 12/09/17 11:12 BP 99/62 12/09/17 11:00 Pulse Ox 99 12/09/17 11:00 Intake & Output 12/08/17 12/09/17 12/09/17 18:59 06:59 18:59 Intake Total 4595.374 2881.618 355.242 Output Total 1155 920 395 Balance 360.232 753.618 -39.758 Weight 129.4 kg Intake: IV 1228 1616 200 0.9 350 200 Dextrose 5% in Water 1, 1100 1200 000 ml @ 100 mls/hr IV . [id number] DAMON with Sodium Bicarb (1 Meq/ml) 150 ml Rx#:[id number] Pressure bag 78 66 Sodium Chloride 0.9% 1, 50 000 ml @ 150 mls/hr IV . Q6H40M DAMON Rx#:[id number] Intake, IV Titration 227.232 57.618 35.242 Amount Norepinephrine 16 mg In 192.382 57.618 35.242 Dextrose 5% in Water 250 ml @ Titrate IV .Q0M DAMON Rx#:[id number] fentaNYL (PF) 2,500 mcg 34.85 0 In Sodium Chloride 0.9% 200 ml @ 50 MCG/HR 5 mls/ hr IV .Q24H DAMON Rx#: [id number] Oral 120 Other 60 Output: Gastric Drainage 300 Urine 855 920 395 Other: Voiding Method Indwelling Catheter Indwelling Catheter Indwelling Catheter ABP, PAP, CO, CI - Last Documented Arterial Blood Pressure 94/77 - Exam Gen. appearance, comfortable awake, on 4 L of oxygen by nasal cannula Head exam was generally normal. There was no scleral icterus or corneal arcus. Mucous membranes were moist. The patient has an orogastric and orotracheal tube are both of them are in place. Neck was supple and without jugular venous distension, thyromegaly, or carotid bruits. Carotids were easily palpable bilaterally. There was no adenopathy. The patient has a left IJ triple-lumen catheter in place. Lungs were clear to auscultation and percussion, and with normal diaphragmatic excursion. No wheezes or rales were noted. Breath sounds are diminished in lung bases bilaterally Cardiac exam revealed the PMI to be normally situated and sized. The rhythm was regular and no extrasystoles were noted during several minutes of auscultation. The first and second heart sounds were normal and physiologic splitting of the second heart sound was noted. There were no murmurs, rubs, clicks, or gallops. Abdominal exam revealed normal bowel sounds. The abdomen was soft, non-tender, and without masses, organomegaly, or appreciable enlargement of the abdominal aorta. The patient is obese and the organs cannot be accurately palpated this point in time Examination of the extremities revealed easily palpable radial, femoral and pedal pulses. There was no cyanosis, clubbing there is trace edema in the lower extremities bilaterally and the patient has diminished pulses in all 4 extremities related to her underlying septic shock Neurologically patient is alert and awake 3 and there is no focal neurological deficits Examination of the skin revealed no evidence of significant rashes, suspicious appearing nevi or other concerning lesions. - Labs CBC & Chem 7: 12/09/17 04:54 12/09/17 04:54 Labs: Abnormal Lab Results - Last 24 Hours (Table) 12/08/17 12/08/17 12/08/17 Range/Units 12:31 12:32 17:24 WBC (3.8-10.6) k/uL RBC (3.80-5.40) m/uL Hgb (11.4-16.0) gm/dL Hct (34.0-46.0) % Plt Count (150-450) k/uL Neutrophils # (1.3-7.7) k/uL Lymphocytes # (1.0-4.8) k/uL BUN (7-17) mg/dL Creatinine (0.52-1.04) mg/dL Glucose (74-99) mg/dL POC Glucose (mg/dL) 197 H 193 H (75-99) mg/dL Calcium (8.4-10.2) mg/dL Magnesium 2.4 H (1.6-2.3) mg/dL 12/09/17 12/09/17 12/09/17 Range/Units 00:16 04:54 04:54 WBC 18.2 H (3.8-10.6) k/uL RBC 3.62 L (3.80-5.40) m/uL Hgb 9.9 L (11.4-16.0) gm/dL Hct 31.4 L (34.0-46.0) % Plt Count 50 L* (150-450) k/uL Neutrophils # 16.0 H (1.3-7.7) k/uL Lymphocytes # 0.9 L (1.0-4.8) k/uL BUN 44 H (7-17) mg/dL Creatinine 2.40 H (0.52-1.04) mg/dL Glucose 180 H (74-99) mg/dL POC Glucose (mg/dL) 191 H (75-99) mg/dL Calcium 7.4 L (8.4-10.2) mg/dL Magnesium (1.6-2.3) mg/dL 12/09/17 Range/Units 06:28 WBC (3.8-10.6) k/uL RBC (3.80-5.40) m/uL Hgb (11.4-16.0) gm/dL Hct (34.0-46.0) % Plt Count (150-450) k/uL Neutrophils # (1.3-7.7) k/uL Lymphocytes # (1.0-4.8) k/uL BUN (7-17) mg/dL Creatinine (0.52-1.04) mg/dL Glucose (74-99) mg/dL POC Glucose (mg/dL) 183 H (75-99) mg/dL Calcium (8.4-10.2) mg/dL Magnesium (1.6-2.3) mg/dL Microbiology - Last 24 Hours (Table) 12/06/17 16:04 Blood Culture Gram Stain - Final Blood Blood Culture - Final Klebsiella ozaenae 12/07/17 00:05 Gram Stain - Preliminary Sputum Sputum Culture - Preliminary Assessment and Plan Plan: Assessment 1 acute septic shock secondary to gram negative infection. The patient has gram -negative and the blood and the urine. The source of the septic shock is a a complicated UTI, possible left-sided pyelonephritis. The patient has a 3 mm ureteral stent and she is post double-J stent insertion in the left. Currently she is aggressively resuscitated IV fluids. She is on high-dose pressors including a combination of norepinephrine and epinephrine and the patient is also on physiologic dose of vasopressin. On 12/08/2017, the patient is was resuscitated IV fluids. The patient is still on pressors. Nevertheless she is awake and alert and I think she should be able to tolerate coming off the mechanical ventilator. Urine output is improved and the patient is producing urine despite being a significant amount of positive fluid balance. No other significant issues overnight. He remains on broad-spectrum antibiotics. Cultures still showing gram-negative bacillus and the blood in the urine. On 12/09/2017, the patient is still requiring pressors due to vasodilatory septic shock, and the patient is being weaned off the norepinephrine infusion. Klebsiella was confirmed to be in the blood. 2 Acute urinary tract infection, complicated, associated with septic shock 3 nephrolithiasis with a proximal left ureteral stone causing ureteral obstruction in addition to nonobstructive calculus on the right kidney pelvis. 4 lactic acidosis, improving 5 non-anion gap metabolic acidosis secondary to above. The patient is currently on a bicarb drip 6 Leukocytosis secondary to above, improving and the white cell count is down to 18.2 7 acute kidney injury secondary to above, improving and the creatinine is down trending at this point in time the patient started producing some urine output and the creatinine continues to improve and is down to 2.4 8 obesity 9 diabetes mellitus 10 history of hypertension 11 troponin leak secondary to septic shock 12 abnormal liver function tests secondary to sepsis/septic shock 13 thrombocytopenia with mild coagulopathy probably due to an early DIC in association with septic shock. Plan Discontinue the bicarb drip and switch this patient to a normal saline today to 50 mL an hour. Given a dose of Lasix. This was done in coordination with nephrology consultation. Wean off pressors. Continue to follow this patient in the ICU and keep her in the ICU as long as she is still requiring pressors. Neurologically within normal limits. Pulmonary status is stable currently on 4 L about 2 by nasal cannula The patient showing a mild component of pulmonary asked her congestion. This should improve with diuresis. Flu is also restricted. Continue antibiotics with IV cefepime. The patient has Klebsiella in the urine and the blood
[2017-12-09 12:01] LABS: Glucose,Whole Blood 198 mg/dL (75-99)
--- NOTE | 2017-12-09 16:16 | P.PN ---
Subjective Progress Note Date: 12/09/17 62-year-old female who is currently postoperative, underwent cystoscopy and left ureteral catheter placement for the obstruction caused by the stone and hydronephrosis and pyelonephritis. She is now postoperative she is intubated sedated and mechanically ventilated requiring vasopressor therapy for her septic shock. She received several liters of fluid, but remains hypotensive on vasopressor therapy. It is related that before she came to Hospital she been ill for several days with nausea emesis abdominal pain and flank pain was also occurring. She become quite dehydrated and admission she had fever and hypotension. Because of her pain evaluations are performed and the obstruction was seen in the left ureter. As noted she's been evaluated by urology and is ready had surgical intervention to relieve the obstruction. 12/07/2017 reveals the patient to still be intubated sedated and mechanically ventilated. She had significant hypotension overnight requiring Levophed, vasopressin as well as a short time of epinephrine. The Levophed is being weaned at this point in time and she does have significant hypotension making it difficult for her to be significantly manipulated in the bed at this time. She is receiving the middle dose of fentanyl for sedation and pain control. She is arousable and able to follow simple commands without difficulty. Urine output has improved and her remains cloudy with a bloody appearance 12/09/2015 reveals the patient to be improved this a.m. She has been extubated and seems to be comfortable. She is still on vasopressor therapy but there has been successful reduction of the amount. She is somewhat comfortable but is very weak. Has generalized edema relates her breathing is adequate after extubation. 12/09/2017 reveals a patient to having further improvement. She is also completely weaned off of all of vasopressor therapy. She is awake and alert interactive. Appetite was poor. Urinary output is excellent and she's feeling modestly well. Objective - Vital Signs Vital signs: Vital Signs Temp 97.9 F 12/09/17 12:00 Pulse 83 12/09/17 16:03 Resp 21 12/09/17 14:00 BP 103/64 12/09/17 14:00 Pulse Ox 97 12/09/17 14:00 Intake & Output 12/08/17 12/09/17 12/09/17 18:59 06:59 18:59 Intake Total 2349.506 8185.618 583.545 Output Total 1155 920 890 Balance 360.232 753.618 -306.455 Weight 129.4 kg Intake: IV 1228 1616 409 0.9 350 400 Dextrose 5% in Water 1, 1100 1200 000 ml @ 100 mls/hr IV . [id number] DAMON with Sodium Bicarb (1 Meq/ml) 150 ml Rx#:[id number] Pressure bag 78 66 9 Sodium Chloride 0.9% 1, 50 000 ml @ 150 mls/hr IV . Q6H40M DAMON Rx#:[id number] Intake, IV Titration 227.232 57.618 54.545 Amount Norepinephrine 16 mg In 192.382 57.618 54.545 Dextrose 5% in Water 250 ml @ Titrate IV .Q0M DAMON Rx#:[id number] fentaNYL (PF) 2,500 mcg 34.85 0 In Sodium Chloride 0.9% 200 ml @ 50 MCG/HR 5 mls/ hr IV .Q24H DAMON Rx#: [id number] Oral 120 Other 60 Output: Gastric Drainage 300 Urine 855 920 890 Other: Voiding Method Indwelling Catheter Indwelling Catheter Indwelling Catheter ABP, PAP, CO, CI - Last Documented Arterial Blood Pressure 94/77 - Exam 62-year-old woman who looks older than her stated age, she does have significant obesity. She is now extubated and comfortable HEENT: Anicteric conjunctiva are pink and moist nasal mucosa grossly intact without significant lesions, there is no thrushnoted around the endotracheal tube Neck: The neck is supple without significant lymphadenopathy or thyromegaly. Lungs: there is symmetrical air entry bilaterally. There are only a few scattered crackles no sandeep bronchial sounds no significant wheezing Heart: Regular rate and rhythm with an audible S1-S2, no S3 soft S4. There is no significant murmur click or rub, PMI was nondisplaced. Abdomen: obese,Positive bowel sounds soft , without palpable masses or organomegaly. the abdomen is nonrigid, seems to have some tenderness in the left lower quadrant. Extremities: The upper extremities have excellent pulses they are symmetric, no significant petechiae or telangiectasia. No splinter hemorrhages were noted. lower extremities have some trace edema but no open ulcerations are seen Neuro: Extubated awake alert oriented to person place and time no acute gross focal sensory motor deficits but has some generalized weakness - Labs CBC & Chem 7: 12/09/17 04:54 12/09/17 04:54 Labs: Abnormal Lab Results - Last 24 Hours (Table) 12/08/17 12/09/17 12/09/17 Range/Units 17:24 00:16 04:54 WBC 18.2 H (3.8-10.6) k/uL RBC 3.62 L (3.80-5.40) m/uL Hgb 9.9 L (11.4-16.0) gm/dL Hct 31.4 L (34.0-46.0) % Plt Count 50 L* (150-450) k/uL Neutrophils # 16.0 H (1.3-7.7) k/uL Lymphocytes # 0.9 L (1.0-4.8) k/uL BUN (7-17) mg/dL Creatinine (0.52-1.04) mg/dL Glucose (74-99) mg/dL POC Glucose (mg/dL) 193 H 191 H (75-99) mg/dL Calcium (8.4-10.2) mg/dL 12/09/17 12/09/17 12/09/17 Range/Units 04:54 06:28 11:23 WBC (3.8-10.6) k/uL RBC (3.80-5.40) m/uL Hgb (11.4-16.0) gm/dL Hct (34.0-46.0) % Plt Count (150-450) k/uL Neutrophils # (1.3-7.7) k/uL Lymphocytes # (1.0-4.8) k/uL BUN 44 H (7-17) mg/dL Creatinine 2.40 H (0.52-1.04) mg/dL Glucose 180 H (74-99) mg/dL POC Glucose (mg/dL) 183 H 197 H (75-99) mg/dL Calcium 7.4 L (8.4-10.2) mg/dL 12/09/17 Range/Units 12:00 WBC (3.8-10.6) k/uL RBC (3.80-5.40) m/uL Hgb (11.4-16.0) gm/dL Hct (34.0-46.0) % Plt Count (150-450) k/uL Neutrophils # (1.3-7.7) k/uL Lymphocytes # (1.0-4.8) k/uL BUN (7-17) mg/dL Creatinine (0.52-1.04) mg/dL Glucose (74-99) mg/dL POC Glucose (mg/dL) 198 H (75-99) mg/dL Calcium (8.4-10.2) mg/dL Microbiology - Last 24 Hours (Table) 12/07/17 00:05 Gram Stain - Final Sputum Sputum Culture - Final 12/06/17 16:04 Blood Culture Gram Stain - Final Blood Blood Culture - Final Klebsiella ozaenae Laboratory Results WBC 18.2 k/uL (3.8-10.6) H 12/09/17 04:54 RBC 3.62 m/uL (3.80-5.40) L 12/09/17 04:54 Hgb 9.9 gm/dL (11.4-16.0) L 12/09/17 04:54 Hct 31.4 % (34.0-46.0) L 12/09/17 04:54 MCV 86.7 fL (80.0-100.0) 12/09/17 04:54 MCH 27.4 pg (25.0-35.0) 12/09/17 04:54 MCHC 31.6 g/dL (31.0-37.0) 12/09/17 04:54 RDW 14.3 % (11.5-15.5) 12/09/17 04:54 Plt Count 50 k/uL (150-450) L* 12/09/17 04:54 Neutrophils % 88 % 12/09/17 04:54 Neutrophils % (Manual) 73 % 12/06/17 20:45 Band Neutrophils % 22 % 12/06/17 20:45 Lymphocytes % 5 % 12/09/17 04:54 Lymphocytes % (Manual) 2 % 12/06/17 20:45 Monocytes % 3 % 12/09/17 04:54 Monocytes % (Manual) 3 % 12/06/17 20:45 Eosinophils % 2 % 12/09/17 04:54 Basophils % 0 % 12/09/17 04:54 Metamyelocytes % 1 % 12/06/17 20:45 Myelocytes % 1 % 12/06/17 20:45 Neutrophils # 16.0 k/uL (1.3-7.7) H 12/09/17 04:54 Neutrophils # (Manual) 30.40 k/uL (1.3-7.7) H 12/06/17 20:45 Lymphocytes # 0.9 k/uL (1.0-4.8) L 12/09/17 04:54 Lymphocytes # (Manual) 0.64 k/uL (1.0-4.8) L 12/06/17 20:45 Monocytes # 0.5 k/uL (0-1.0) 12/09/17 04:54 Monocytes # (Manual) 0.96 k/uL (0-1.0) 12/06/17 20:45 Eosinophils # 0.3 k/uL (0-0.7) 12/09/17 04:54 Basophils # 0.1 k/uL (0-0.2) 12/09/17 04:54 Metamyelocytes # (Man) 0.32 k/uL (0) H 12/06/17 20:45 Myelocytes # (Manual) 0.32 k/uL (0) H 12/06/17 20:45 Nucleated RBCs 0 /100 WBC (0-0) 12/06/17 20:45 Manual Slide Review Performed 12/06/17 20:45 Toxic Granulation Present 12/06/17 20:45 Toxic Vacuolation Present 12/06/17 20:45 Large Platelets Present 12/06/17 13:30 RBC Morphology Normal 12/06/17 13:30 PT 12.4 sec (9.0-12.0) H 12/08/17 04:30 INR 1.3 (<1.2) H 12/08/17 04:30 APTT 32.6 sec (22.0-30.0) H 12/08/17 04:30 Sample Site keisha 12/08/17 05:16 ABG pH 7.42 (7.35-7.45) 12/08/17 05:16 ABG pCO2 28 mmHg (35-45) L 12/08/17 05:16 ABG pO2 131 mmHg (83-108) H 12/08/17 05:16 ABG HCO3 18 mmol/L (21-25) L 12/08/17 05:16 ABG Total CO2 19 mmol/L (19-24) 12/08/17 05:16 ABG O2 Saturation 99.2 % (94-97) H 12/08/17 05:16 ABG Base Excess -6.5 mmol/L 12/08/17 05:16 Sharath Test Yes 12/08/17 05:16 ABG Lactic Acid 2.1 mmol/L (0.5-1.6) H 12/08/17 04:30 FiO2 40 % 12/08/17 05:16 Sodium 140 mmol/L (137-145) 12/09/17 04:54 Potassium 3.7 mmol/L (3.5-5.1) 12/09/17 04:54 Chloride 106 mmol/L (98-107) 12/09/17 04:54 Carbon Dioxide 24 mmol/L (22-30) 12/09/17 04:54 Anion Gap 10 mmol/L 12/09/17 04:54 BUN 44 mg/dL (7-17) H 12/09/17 04:54 Creatinine 2.40 mg/dL (0.52-1.04) H 12/09/17 04:54 Est GFR (CKD-EPI)AfAm 24 (>60 ml/min/1.73 sqM) 12/09/17 04:54 Est GFR (CKD-EPI)NonAf 21 (>60 ml/min/1.73 sqM) 12/09/17 04:54 Glucose 180 mg/dL (74-99) H 12/09/17 04:54 POC Glucose (mg/dL) 198 mg/dL (75-99) H 12/09/17 12:00 POC Glu Freight Shipping Agent ID Michelle Martinez 12/09/17 12:[address] Glu mg/dL 151 12/06/17 13:30 Hemoglobin A1c 6.9 % (4.0-6.0) H 12/06/17 13:30 Lactic Ac Sepsis Rflx Y 12/07/17 09:34 Plasma Lactic Acid Joe 2.6 mmol/L (0.7-2.0) H* 12/07/17 08:00 Uric Acid 6.6 mg/dL (3.7-7.4) 12/06/17 20:45 Calcium 7.4 mg/dL (8.4-10.2) L 12/09/17 04:54 Phosphorus 2.5 mg/dL (2.5-4.5) 12/09/17 04:54 Magnesium 2.3 mg/dL (1.6-2.3) 12/09/17 04:54 Total Bilirubin 3.0 mg/dL (0.2-1.3) H 12/08/17 04:30 AST 109 U/L (14-36) H 12/08/17 04:30 ALT 120 U/L (9-52) H 12/08/17 04:30 Alkaline Phosphatase 155 U/L (38-126) H 12/08/17 04:30 Troponin I 0.916 ng/mL (0.000-0.034) H* 12/07/17 06:12 Total Protein 4.5 g/dL (6.3-8.2) L 12/08/17 04:30 Albumin 2.3 g/dL (3.5-5.0) L 12/08/17 04:30 Amylase 380 U/L (30-110) H* 12/06/17 20:45 Lipase 16 U/L (23-300) L 12/06/17 20:45 Cortisol 20 ug/dL 12/07/17 11:40 Urine Color Red 12/06/17 14:55 Urine Appearance Turbid (Clear) H 12/06/17 14:55 Urine pH 6.5 (5.0-8.0) 12/06/17 14:55 Ur Specific [place] 1.011 (1.001-1.035) 12/06/17 14:55 Urine Protein 2+ (Negative) H 12/06/17 14:55 Urine Glucose (UA) Negative (Negative) 12/06/17 14:55 Urine Ketones Negative (Negative) 12/06/17 14:55 Urine Blood Large (Negative) H 12/06/17 14:55 Urine Nitrite Negative (Negative) 12/06/17 14:55 Urine Bilirubin Negative (Negative) 12/06/17 14:55 Urine Urobilinogen <2.0 mg/dL (<2.0) 12/06/17 14:55 Ur Leukocyte Esterase Large (Negative) H 12/06/17 14:55 Urine RBC >182 /hpf (0-5) H 12/06/17 14:55 Urine WBC >182 /hpf (0-5) H 12/06/17 14:55 Urine WBC Clumps Many /hpf (None) H 12/06/17 14:55 Urine Bacteria Moderate /hpf (None) H 12/06/17 14:55 Urine Mucus Many /hpf (None) H 12/06/17 14:55 Microbiology 12/07/17 00:05 Sputum Gram Stain - Final 12/07/17 00:05 Sputum Sputum Culture - Final 12/06/17 16:04 Blood Blood Culture Gram Stain - Final 12/06/17 16:04 Blood Blood Culture - Final Klebsiella ozaenae 12/06/17 14:55 Urine,Voided Urine Culture - Preliminary Gram Neg Bacilli 12/06/17 19:39 Urine,Voided Urine Culture - Preliminary Gram Neg Bacilli 12/06/17 16:04 Blood Blood Culture - Final Assessment and Plan (1) Septic shock Narrative/Plan: female presents to Hospital feeling poorly several days this done evidence of fever and hypotension leukocytosis and lactic acidosis. She was on evidence of septic shock requiring fluid resuscitation and vasopressor therapy. She had evidence of obstruction of the left ureter has been taking the operating room for stent placement. He is now postoperative. Her leukocytosis has worsened to 32.1 and she remains hypotensive requiring further fluid resuscitation and vasopressor therapy. Urine output is adequate. The patient did have significant acidosis that certainly improving. Does still have lactic acidosis and further fluid is requested. Antimicrobial therapy has been initiated with cefepime. Since give us coverage for pseudomonas as well as most other gram-negative organisms in his abdomen for now. He review is done and she has no history of resistant pathogens .Cultures will further help direct her course of antibiotic therapy as she improves. Respiratory failure appears to be postoperative in all we will rapidly resolve as her sepsis improves. Profound leukocytosis during her related to her sepsis, as well as the thrombocytopenia likely invasive gram-negative sepsis. Cultures are pending. December 07 2017 the patient remains in intensive care unit with some improvement in that she has had a decrease of her vasopressor requirements. Urine output is adequate. Neurologically she is awake and interactive. Maneuvers to reduce her vasopressor requirements are continuing. No plans for weaning her extubation at this time given her significant hemodynamic challenge. Blood and urine cultures revealed gram-negative bacilli. We are awaiting the final susceptibility for final choice of antibiotic therapy. Follow blood culture is negative so far. The case is discussed with neurologist and the family members. 12/08/2017 patient remains in intensive care unit on a reduced amount of vasopressor therapy. She is now extubated and seems to be doing well from the pulmonary standpoint. Overall she is showing improvement from her gram- negative septic shock. Final cultures are pending which will further help with direct the course of antibiotic therapy at the time of discharge. She will follow closely with urology in the outpatient setting as to the timing of the stent removal and laser lithotripsy for removal of the obstructing stone resulting in the polynephritis bacteremia and septic shock. 12/09/2017 pleasant 62-year-old woman presented to hospital with septic shock is now doing considerably better after her multiple interventions that included cystoscopy and placement of stent to allow drainage of the obstructed kidney. This is also allowed what appears to be resolution of her bacteremia and hypotension. She is feeling considerably better but is has a poor appetite. Cultures are now available and Klebsiella ozaenae have been isolated in both the urine or blood cultures. Surprisingly it is a highly susceptible organism. Will de-escalate antibiotic therapy at this time to ceftriaxone. When she is ready for discharge to home likely will be on oral quinolone therapy that will be continued up to the point in time of her repeat cystoscopy and stone removal by lithotripsy. Current Visit: Yes Status: Acute Code(s): A41.9 - SEPSIS, UNSPECIFIED ORGANISM; R65.21 - SEVERE SEPSIS WITH SEPTIC SHOCK SNOMED Code(s): 44880144 (2) Acute pyelonephritis Current Visit: Yes Status: Acute Code(s): N10 - ACUTE PYELONEPHRITIS SNOMED Code(s): 20079683 (3) Acute renal failure Current Visit: Yes Status: Acute Code(s): N17.9 - ACUTE KIDNEY FAILURE, UNSPECIFIED SNOMED Code(s): 70625652 (4) Calculus of ureter Current Visit: Yes Status: Acute Code(s): N20.1 - CALCULUS OF URETER SNOMED Code(s): 35195921
--- NOTE | 2017-12-09 16:30 | P.PN ---
Subjective Progress Note Date: 12/09/17 Keli Urban is a 62-year-old female who presented to [facility] emergency room with multiple complaints including nausea, vomiting, diarrhea, and bilateral flank and back pain, she was evaluated in the emergency room by Dr. Kaur and was found to have sepsis with severe hypotension and evidence of severe dehydration, patient had evidence of urinary tract infection , and evidence of left sided kidney stone with hydronephrosis, she was started on IV fluid, IV pressors, and IV antibiotics, she will be admitted to intensive care unit consultation for pulmonary critical care Dr. Subramanian was initiated in the emergency room. Also consultation for infectious disease and urology was initiated. Patient states that she had history of kidney stones she had right sided lithotripsy 35 years ago. Patient was seen and examined in emergency room on 12/06/2017 at 5:30 PM she is alert responsive and able to finish phrases due to shortness of breath she denies any chest pain, no nausea or vomiting at this time, she has pain in the bilateral flank area, otherwise she denies any complaints, she states that she started feeling sick about 3 days ago she was having vomiting and diarrhea she took pills to stop diarrhea at home, she denies knowing that she had a urinary tract infection, she denies taking any antibiotic recently. On 12/07/2017 patient is seen and examined in ICU she is intubated, sedated and maintained on mechanical ventilation, through the night patient had hypotension requiring high doses of IV pressors she was seen by urology and underwent double -J stent placement on the left she was intubated she is continued on IV antibiotics cefepime blood cultures are showing gram-negative bacilli lactic acid was significantly elevated but is improving at this time. On 12/08/2017 patient is seen and examined in intensive care unit she was extubated she is maintained on oxygen via nasal cannula and is tolerating well she denies any chest pain or shortness of breath at this time she is still maintained on significant amount of IV pressors, she is maintained on IV antibiotics. On 12/09/2017 patient is seen and examined in ICU she remains on oxygen via nasal cannula and is tolerating well she is still maintained on Levothroid for pressure support she is maintained on IV fluids and IV antibiotics she is still complaining of pain in the lower abdominal area bilaterally otherwise she denies any complaints Objective - Vital Signs Vital signs: Vital Signs Temp 98.3 F 12/09/17 16:00 Pulse 83 12/09/17 16:03 Resp 33 H 12/09/17 16:00 BP 105/65 12/09/17 16:00 Pulse Ox 95 12/09/17 16:00 Intake & Output 12/08/17 12/09/17 12/09/17 18:59 06:59 18:59 Intake Total 3518.252 1322.618 639.070 Output Total 8987 624 4105 Balance 360.232 753.618 -370.930 Weight 129.4 kg Intake: IV 1228 1616 462 0.9 350 450 Dextrose 5% in Water 1, 1100 1200 000 ml @ 100 mls/hr IV . [id number] DAMON with Sodium Bicarb (1 Meq/ml) 150 ml Rx#:[id number] Pressure bag 78 66 12 Sodium Chloride 0.9% 1, 50 000 ml @ 150 mls/hr IV . Q6H40M [facility] Rx#:[id number] Intake, IV Titration 227.232 57.618 57.070 Amount Norepinephrine 16 mg In 192.382 57.618 57.070 Dextrose 5% in Water 250 ml @ Titrate IV .Q0M [facility] Rx#:[id number] fentaNYL (PF) 2,500 mcg 34.85 0 In Sodium Chloride 0.9% 200 ml @ 50 MCG/HR 5 mls/ hr IV .Q24H DAMON Rx#: [id number] Oral 120 Other 60 Output: Gastric Drainage 300 Urine 332 084 3836 Other: Voiding Method Indwelling Catheter Indwelling Catheter Indwelling Catheter ABP, PAP, CO, CI - Last Documented Arterial Blood Pressure 94/77 - Exam In general patient is intubated, sedated maintained on mechanical ventilation HEENT head normocephalic and atraumatic Neck is supple no JVD no goiter no lymphadenopathy no carotid bruit Chest exam reveals a few scattered rhonchi bilaterally no wheezing Cardiac exam reveals regular heart sounds S1 and S2 no gallops no murmurs Abdomen is soft nontender no organomegaly with normal bowel sounds Extremity exam reveals no edema no cyanosis or clubbing - Labs CBC & Chem 7: 12/09/17 04:54 12/09/17 04:54 Labs: Abnormal Lab Results - Last 24 Hours (Table) 12/08/17 12/09/17 12/09/17 Range/Units 17:24 00:16 04:54 WBC 18.2 H (3.8-10.6) k/uL RBC 3.62 L (3.80-5.40) m/uL Hgb 9.9 L (11.4-16.0) gm/dL Hct 31.4 L (34.0-46.0) % Plt Count 50 L* (150-450) k/uL Neutrophils # 16.0 H (1.3-7.7) k/uL Lymphocytes # 0.9 L (1.0-4.8) k/uL BUN (7-17) mg/dL Creatinine (0.52-1.04) mg/dL Glucose (74-99) mg/dL POC Glucose (mg/dL) 193 H 191 H (75-99) mg/dL Calcium (8.4-10.2) mg/dL 12/09/17 12/09/17 12/09/17 Range/Units 04:54 06:28 11:23 WBC (3.8-10.6) k/uL RBC (3.80-5.40) m/uL Hgb (11.4-16.0) gm/dL Hct (34.0-46.0) % Plt Count (150-450) k/uL Neutrophils # (1.3-7.7) k/uL Lymphocytes # (1.0-4.8) k/uL BUN 44 H (7-17) mg/dL Creatinine 2.40 H (0.52-1.04) mg/dL Glucose 180 H (74-99) mg/dL POC Glucose (mg/dL) 183 H 197 H (75-99) mg/dL Calcium 7.4 L (8.4-10.2) mg/dL 12/09/17 Range/Units 12:00 WBC (3.8-10.6) k/uL RBC (3.80-5.40) m/uL Hgb (11.4-16.0) gm/dL Hct (34.0-46.0) % Plt Count (150-450) k/uL Neutrophils # (1.3-7.7) k/uL Lymphocytes # (1.0-4.8) k/uL BUN (7-17) mg/dL Creatinine (0.52-1.04) mg/dL Glucose (74-99) mg/dL POC Glucose (mg/dL) 198 H (75-99) mg/dL Calcium (8.4-10.2) mg/dL Microbiology - Last 24 Hours (Table) 12/07/17 00:05 Gram Stain - Final Sputum Sputum Culture - Final 12/06/17 16:04 Blood Culture Gram Stain - Final Blood Blood Culture - Final Klebsiella ozaenae Assessment and Plan Plan: #1 sepsis with septic shock, blood cultures are positive for gram-negative bacilli source of infection is most likely related to left sided pyelonephritis #2 urinary tract infection, with evidence of of left sided pyelonephritis left obstructive uropathy status post double-J stent placement #3 elevated liver enzymes likely related to shock liver due to hypotension #4 slight elevation in troponin Will consult cardiology, patient denies any chest pain #5 slight elevation in amylase, again likely due to hypotension doubt acute pancreatitis #6 left urethral calculus with left sided hydronephrosis, urology consultation requested #7 severe dehydration #8 acute renal failure, likely related to severe dehydration, possible obstructive uropathy component #9 lactic acidosis, lactic acid on presentation 4.9 At this time plan is to continue with IV fluid resuscitation continue with IV antibiotic patient was started on Rocephin IV emergency room and then switched to IV cefepime Continue pressure support Patient is admitted to intensive care unit, she was maintained on mechanical ventilation, now she is extubated and maintained on oxygen via nasal cannula and is tolerating well Consultation for pulmonary critical care, infectious disease, cardiology, and urology were initiated Prognosis is guarded CODE STATUS is full code per patient and request
[2017-12-09 17:43] LABS: Glucose,Whole Blood 186 mg/dL (75-99)
[2017-12-09] MEDS: cefTRIAXone IN SWFI 2,000 MG/20 ML SYRINGE IVP SCH (17:43)
[2017-12-09 21:07] LABS: Glucose,Whole Blood 160 mg/dL (75-99)
[2017-12-10] MEDS: HEPARIN SODIUM,PORCINE 5,000 UNIT/ML 1 ML VIAL SQ SCH ×2 (00:58→08:17)
[2017-12-10] MEDS: SODIUM CHLORIDE 0.9% 99 ML with VASOPRESSIN 20 UNIT IV SCH ×4 (00:58→12:33)
[2017-12-10] MEDS: SODIUM CHLORIDE 0.9% 1,000 ML IV SCH (05:47)
[2017-12-10] MEDS: IPRATROPIUM-ALBUTEROL 3 ML NEB INHALATION PRN ×4 (06:57→20:48)
[2017-12-10 07:25] LABS: Glucose,Whole Blood 144 mg/dL (75-99)
--- NOTE | 2017-12-10 07:54 | XR ---
EXAMINATION TYPE: XR chest 1V DATE OF EXAM: 12/10/2017 HISTORY: Shortness of breath. COMPARISON: None. TECHNIQUE: Single view of the chest is submitted. FINDINGS: Demonstrated are scattered senescent parenchymal change. Central venous line is unchanged in positio n. There is no evidence for focal infiltrate. The heart is stable. Pulmonary venous congestion persists with small persistent pleural effusions. Improved aeration at the lung bases. Hilar and mediastinal structures are within normal limits. Degenerative changes are seen of the dorsal spine. IMPRESSION: 1. Pulmonary venous congestion persists with small persistent pleural effusions.Improved aeration at the lung bases.
[2017-12-10] MEDS: INSULIN ASPART 100 UNIT/ML 1 ML 10 ML VIAL SQ SCH ×4 (08:17→21:29)
[2017-12-10] MEDS: PANTOPRAZOLE 40 MG/10 ML VIAL IVP SCH (08:17)
[2017-12-10] MEDS: cefTRIAXone IN SWFI 2,000 MG/20 ML SYRINGE IVP SCH (08:17)
[2017-12-10] MEDS: FUROSEMIDE 10 MG/ML 2 ML VIAL IV SCH (08:18)
[2017-12-10] MEDS: POTASSIUM BICARBONATE/CIT AC 20 MEQ TABLET.EFF NG-TUBE SCH (08:18)
[2017-12-10 08:29] LABS: HCT 28.6 % (34.0-46.0); HGB 9.4 gm/dL (11.4-16.0); MCH 28.2 pg (25.0-35.0); MCHC 32.9 g/dL (31.0-37.0); MCV 85.8 fL (80.0-100.0); Mean Platelet Volume 11.9; RBC 3.34 m/uL (3.80-5.40); RDW 14.5 % (11.5-15.5); WBC 11.9 k/uL (3.8-10.6)
[2017-12-10 08:30] LABS: Platelet Count 50 k/uL (150-450)
[2017-12-10 08:49] LABS: Albumin 2.5 g/dL (3.5-5.0); Calcium 7.9 mg/dL (8.4-10.2); Phosphorus 2.5 mg/dL (2.5-4.5); Total Bilirubin 3.5 mg/dL (0.2-1.3); Total Protein 4.9 g/dL (6.3-8.2)
[2017-12-10] MEDS: NYSTATIN 100,000 UNIT/ML SUSP 500,000 UNIT/5 ML CUP PO SCH ×4 (10:18→21:29)
--- NOTE | 2017-12-10 10:33 | P.PN ---
Subjective Progress Note Date: 12/10/17 Principal diagnosis: Acute septic shock secondary to gram-negative urinary tract infection and acute left-sided pyelonephritis 62-year-old morbidly obese female patient presented to the emergency department because of nausea vomiting diarrhea and left flank pain. The patient was extremely dehydrated. She was hypotensive with initial systolic blood pressure in the 60s. Her blood work was completely abnormal with an acute kidney injury in the creatinine of 4.1 and the patient had a anion gap metabolic acidosis with a bicarb of 22 and anion gap of 14 and Actiq acid was at 4.9. The patient' s white cell count was at 20.5. After receiving 4 L of IV fluids the patient remained hypotensive. The patient started on pressors initially at 5 mics and currently she is up to 30 mics of norepinephrine infusion at sonic through a peripheral line. A triple lumen catheter was inserted immediately. A blood gases obtained that showed a pH of 7.24 with a pCO2 of 47 and pO2 of 80. The patient is still awake and alert. She is a bit uncomfortable. Unable to lay down flat. Chest x-ray post-line insertion shows adequate expansion of both lungs and there is no evidence of any pneumonia. The triple-lumen catheter is in good location. The patient was given a dose of Rocephin 2 g IV in the emergency department. Stewart catheter was inserted. Not a whole lot of urine output is being produced this point in time. CAT scan of the abdomen was done and the patient has a proximal left ureteral calculus. There is also a right- sided nephrolithiasis. There is cholelithiasis without evidence of cholecystitis. Patient has a 19 x 8 x 21 mm stone in the right renal pelvis which is nonobstructive. Another 3-4 mm stone in the proximal left ureter. Discussed the case with Dr. Emil Green from urology and the patient be taken to the operating room for an immediate double-J stent insertion in the left. On and I'm seeing this patient for a follow-up. As mentioned earlier the patient came in today burst department with severe dehydration, sepsis, complicated UTI, left-sided pyelonephritis, septic shock, metabolic acidosis, lactic acidosis and acute kidney injury. The patient was taken to the operating room yesterday and a double-J stent was inserted on the left. Postop , the patient was kept intubated on a mechanical ventilator. She became quite hypotensive and upon arrival to the ICU the patient was already hypotensive and pressor dependent. Throughout the night the patient received fluids aggressively in order of 6 L of IV fluids. She also received albumin. The patient continued to be profoundly hypotensive. I added vasopressin physiologic dose and she was brought up to a 60 g of norepinephrine infusion per minutes. Also epinephrine was started to maintain a mean arterial pressure above 60. She continued to have episodes of fever treated with IV Tylenol. Aspirin antibiotic coverage, the patient was kept on IV cefepime. The primary blood cultures showing gram-negative bacillus and final cultures of been identified yet. This morning, the patient is sedated Diprivan and she is calm and comfortable and currently she is on 35 g of Diprivan infusion with adequate sedation. She is an assist-control mode of ventilation at the rate of 28 with a tidal volume of 500 and FiO2 of 70% with a PEEP of 5. Morning blood gases showed a pH of 7.28 with a pCO2 of 30 and pO2 of 103 and this was done and FiO2 of 70% and based on that the FiO2 was dropped down to 60%. Chest x- ray showed adequate positioning of the ET tube and the patient has a left IJ triple lumen catheter in place. The chest x-ray also showed stable cardiopulmonary and mediastinal structures. Echocardiogram was done and showed a preserved LV function with an ejection fraction of 55-60% without any significant valvular abnormalities. The patient is not fluid balance is +5 L over the past 24 hours. She did start making some urine at this point in time and she is producing approximately 10-15 mL an hour. Her white cell count peaked at 32 and currently is down to 27. Her lactic acid levels are improving and is down to 2.6. The patient's creatinine is down to 3.6. Her bicarb level is down to 13 and the patient was switched a bicarb drip infusion. Is a troponin leak there is also abnormal LFTs all probably later to severe septic shock. On 12/08/2017, the patient is wide awake and alert. This morning she was on 20 mics of Diprivan however she was awake and communicating and answering questions and communicating with us by writing on a piece of paper. She wanted to above. She was still on 20 mics of norepinephrine infusion addition to vasopressin. Nevertheless, she is afebrile and she is producing adequate amount of urine output. No respiratory difficulties. Weaning parameters were excellent. The patient is still on broad-spectrum antibiotics. Morning blood gases showed a pH of 7.42 with a pCO2 of 28 and pO2 131. The chest x-ray showed no acute abnormalities. White cell count is at 20.6. The rest of the blood work shows improvement in renal function with a creatinine being down to 3.2. The patient is still acidotic and this is a non-anion gap metabolic acidosis and the patient is still on a bicarb drip for now. Her net fluid balance is positive for 4.8 L yesterday On 12/09/2017, this patient is extubated and she is awake and alert. She is on 20 mics of norepinephrine infusion and we are in the process of weaning her down further. She is off sedation. She is producing good amount of urine output in the order of 50 mL an hour. Renal function continues to improve. The blood culture showed Klebsiella sepsis secondary to underlying urinary tract infection. No altered mentation. No nausea vomiting. No abdominal pain. She is tolerating diet. She is communicating. She was taken off the bicarb drip knowing that the non-anion gap metabolic acidosis has improved. We' ll cut down the IV fluids also down to 50 mL an hour as the patient is mobilizing her extra fluid. The chest x-ray from today shows a component of mild four-vessel congestion/edema and the patient is currently on 4 L about 2 by nasal cannula. The patient remains on IV cefepime for now. Patient was reevaluated today on 12/10/2017, presently on nasal cannula, in no distress. She is off norepinephrine, and she is off vasopressin. She was taken off vasopressin only about an hour ago. And her blood pressure seems to be holding although it is marginal. But she does have a good urine output. Renal functioning continues to improve, her BUN today is 50 creatinine is 1.90. Platelets remain low at 50,000, hence I recommended that we hold heparin subcu , and continue Venodyne boots and compression stockings for deep vein thrombosis prophylaxis. Her WBC count is 11.9 hemoglobin is 9.4. Clinically the patient is doing well, she is relatively asymptomatic. Her blood cultures came back positive for Klebsiella ozaenae, and her urine cultures are also positive for the same organism. Urine cultures also positive for pantoea agglomerans. This is sensitive to all antibiotics tested. Patient is presently on Rocephin as per infectious disease on the case. Clinically the patient has been responding well to treatment, however she received a total of 12 L of fluid since admission, and we are planning to gently diurese the patient. Chest x-ray continues to show some evidence of pulmonary venous congestion with small persistent pleural effusions bilaterally. Objective - Vital Signs Vital signs: Vital Signs Temp 98.0 F 12/10/17 08:00 Pulse 91 12/10/17 10:00 Resp 23 12/10/17 10:00 BP 104/52 12/10/17 10:00 Pulse Ox 97 12/10/17 10:00 Intake & Output 12/09/17 12/10/17 12/10/17 18:59 06:59 18:59 Intake Total 745.070 636 212 Output Total 1335 995 670 Balance -589.930 -359 -458 Weight 129.4 kg Intake: IV 568 636 212 0.9 550 50 Pressure bag 18 36 12 Sodium Chloride 0.9% 1, 550 200 000 ml @ 50 mls/hr IV . Q20H DAMON Rx#:[id number] Intake, IV Titration 57.070 Amount Norepinephrine 16 mg In 57.070 Dextrose 5% in Water 250 ml @ Titrate IV .Q0M DAMON Rx#:[id number] Oral 120 Output: Urine 1335 995 670 Other: Voiding Method Indwelling Catheter Indwelling Catheter ABP, PAP, CO, CI - Last Documented Arterial Blood Pressure 94/77 - Exam Gen. appearance, physical exam revealed a 62-year-old female in no distress, on 4 L nasal cannula. Head exam was generally normal. There was no scleral icterus or corneal arcus. Mucous membranes were moist. Evidence of oropharyngeal thrush noted.. Neck was supple and without jugular venous distension, thyromegaly, or carotid bruits. Carotids were easily palpable bilaterally. There was no adenopathy. The patient has a left IJ triple-lumen catheter in place. Lungs were clear to auscultation and percussion, and with normal diaphragmatic excursion. No crackles or rhonchi or wheezes. Cardiac exam revealed the PMI to be normally situated and sized. Normal S1 and S2, no S3 gallop. No murmur. Abdominal exam slightly obese, soft, nontender, no megaly, no rebound, positive bowel sounds. Examination of the extremities revealed no clubbing, no edema, no cyanosis. Neurologically patient is alert and awake 3, no gross focal neurologic deficit Examination of the skin revealed no evidence of erythema, or rashes. - Labs CBC & Chem 7: 12/10/17 07:58 12/10/17 07:58 Labs: Abnormal Lab Results - Last 24 Hours (Table) 12/09/17 12/09/17 12/09/17 Range/Units 11:23 12:00 17:41 WBC (3.8-10.6) k/uL RBC (3.80-5.40) m/uL Hgb (11.4-16.0) gm/dL Hct (34.0-46.0) % Plt Count (150-450) k/uL BUN (7-17) mg/dL Creatinine (0.52-1.04) mg/dL Glucose (74-99) mg/dL POC Glucose (mg/dL) 197 H 198 H 186 H (75-99) mg/dL Calcium (8.4-10.2) mg/dL Total Bilirubin (0.2-1.3) mg/dL AST (14-36) U/L ALT (9-52) U/L Alkaline Phosphatase (38-126) U/L Total Protein (6.3-8.2) g/dL Albumin (3.5-5.0) g/dL 12/09/17 12/10/17 12/10/17 Range/Units 21:05 07:13 07:58 WBC 11.9 H (3.8-10.6) k/uL RBC 3.34 L (3.80-5.40) m/uL Hgb 9.4 L (11.4-16.0) gm/dL Hct 28.6 L (34.0-46.0) % Plt Count 50 L* (150-450) k/uL BUN (7-17) mg/dL Creatinine (0.52-1.04) mg/dL Glucose (74-99) mg/dL POC Glucose (mg/dL) 160 H 144 H (75-99) mg/dL Calcium (8.4-10.2) mg/dL Total Bilirubin (0.2-1.3) mg/dL AST (14-36) U/L ALT (9-52) U/L Alkaline Phosphatase (38-126) U/L Total Protein (6.3-8.2) g/dL Albumin (3.5-5.0) g/dL 12/10/17 Range/Units 07:58 WBC (3.8-10.6) k/uL RBC (3.80-5.40) m/uL Hgb (11.4-16.0) gm/dL Hct (34.0-46.0) % Plt Count (150-450) k/uL BUN 50 H (7-17) mg/dL Creatinine 1.90 H (0.52-1.04) mg/dL Glucose 162 H (74-99) mg/dL POC Glucose (mg/dL) (75-99) mg/dL Calcium 7.9 L (8.4-10.2) mg/dL Total Bilirubin 3.5 H (0.2-1.3) mg/dL AST 129 H (14-36) U/L ALT 129 H (9-52) U/L Alkaline Phosphatase 254 H (38-126) U/L Total Protein 4.9 L (6.3-8.2) g/dL Albumin 2.5 L (3.5-5.0) g/dL Microbiology - Last 24 Hours (Table) 12/06/17 19:39 Urine Culture - Final Urine,Voided Pantoea agglomerans 12/07/17 00:05 Gram Stain - Final Sputum Sputum Culture - Final Assessment and Plan Assessment: 1 acute septic shock secondary to gram negative infection. The patient has gram -negative and the blood and the urine. The source of the septic shock is a a complicated UTI, possible left-sided pyelonephritis. The patient has a 3 mm ureteral stent and she is post double-J stent insertion in the left. Patient has made a significant improvement clinically over the last couple of days. She is now off pressors, and we are diuresing her gently. We just discontinued vasopressin today. On 12/10/2017 On 12/08/2017, the patient is was resuscitated IV fluids. The patient is still on pressors. Nevertheless she is awake and alert and I think she should be able to tolerate coming off the mechanical ventilator. Urine output is improved and the patient is producing urine despite being a significant amount of positive fluid balance. No other significant issues overnight. He remains on broad-spectrum antibiotics. Cultures still showing gram-negative bacillus and the blood in the urine. On 12/09/2017, the patient is still requiring pressors due to vasodilatory septic shock, and the patient is being weaned off the norepinephrine infusion. Klebsiella was confirmed to be in the blood. On 12/10/2017, all pressors have been discontinued, we are gently diuresing the patient, we have the final report on the cultures from the urine and the blood, and the patient remains on Rocephin. 2 Acute urinary tract infection, complicated, associated with acute gram- negative septic shock 3 nephrolithiasis with a proximal left ureteral stone causing ureteral obstruction in addition to nonobstructive calculus on the right kidney pelvis. 4 lactic acidosis, resolved 5 non-anion gap metabolic acidosis secondary to above. Resolved 6 Leukocytosis secondary to above, significantly improved 7 acute kidney injury secondary to above, improving. 8 obesity 9 diabetes mellitus 10 history of hypertension 11 troponin leak secondary to septic shock 12 abnormal liver function tests secondary to sepsis/septic shock 13 thrombocytopenia secondary to sepsis and septic shock. We'll hold heparin subcu and use Venodyne boots for DVT prophylaxis. 14 oropharyngeal thrush, added nystatin. Recommendation: Continue gentle diuresis, added nystatin for oral thrush. Continue present antibiotics, continue to monitor in the ICU for the next 24 hours, if remains hemodynamically stable, could possibly transferred to a regular medical floor in the next 24 hours. Continue Rocephin as per infectious disease recommendation. Time with Patient: Less than 30
--- NOTE | 2017-12-10 10:43 | P.PN ---
Subjective Progress Note Date: 12/10/17 Keli Urban is a 62-year-old female who presented to [facility] emergency room with multiple complaints including nausea, vomiting, diarrhea, and bilateral flank and back pain, she was evaluated in the emergency room by Dr. Kaur and was found to have sepsis with severe hypotension and evidence of severe dehydration, patient had evidence of urinary tract infection , and evidence of left sided kidney stone with hydronephrosis, she was started on IV fluid, IV pressors, and IV antibiotics, she will be admitted to intensive care unit consultation for pulmonary critical care Dr. Subramanian was initiated in the emergency room. Also consultation for infectious disease and urology was initiated. Patient states that she had history of kidney stones she had right sided lithotripsy 35 years ago. Patient was seen and examined in emergency room on 12/06/2017 at 5:30 PM she is alert responsive and able to finish phrases due to shortness of breath she denies any chest pain, no nausea or vomiting at this time, she has pain in the bilateral flank area, otherwise she denies any complaints, she states that she started feeling sick about 3 days ago she was having vomiting and diarrhea she took pills to stop diarrhea at home, she denies knowing that she had a urinary tract infection, she denies taking any antibiotic recently. On 12/07/2017 patient is seen and examined in ICU she is intubated, sedated and maintained on mechanical ventilation, through the night patient had hypotension requiring high doses of IV pressors she was seen by urology and underwent double -J stent placement on the left she was intubated she is continued on IV antibiotics cefepime blood cultures are showing gram-negative bacilli lactic acid was significantly elevated but is improving at this time. On 12/08/2017 patient is seen and examined in intensive care unit she was extubated she is maintained on oxygen via nasal cannula and is tolerating well she denies any chest pain or shortness of breath at this time she is still maintained on significant amount of IV pressors, she is maintained on IV antibiotics. On 12/09/2017 patient is seen and examined in ICU she remains on oxygen via nasal cannula and is tolerating well she is still maintained on Levothroid for pressure support she is maintained on IV fluids and IV antibiotics she is still complaining of pain in the lower abdominal area bilaterally otherwise she denies any complaints On 12/10/2017 patient is currently is A & O x3 and remains in the intensive care unit. Patient has been weaned off levophed and vasopressin for pressure support. Patient currently on nasal cannula 2 L. white blood cell improving to 11.9. Patient currently on Rocephin. Dr. Nance currently following for infectious disease. Dr. Correa per critical care currently following closely. Patient denies chest pain or shortness breath. Denies nausea vomiting or diarrhea. Objective - Vital Signs Vital signs: Vital Signs Temp 98.0 F 12/10/17 08:00 Pulse 91 12/10/17 10:00 Resp 23 12/10/17 10:00 BP 104/52 12/10/17 10:00 Pulse Ox 97 12/10/17 10:00 Intake & Output 12/09/17 12/10/17 12/10/17 18:59 06:59 18:59 Intake Total 745.070 636 212 Output Total 1335 995 670 Balance -589.930 -359 -458 Weight 129.4 kg Intake: IV 568 636 212 0.9 550 50 Pressure bag 18 36 12 Sodium Chloride 0.9% 1, 550 200 000 ml @ 50 mls/hr IV . Q20H DAMON Rx#:[id number] Intake, IV Titration 57.070 Amount Norepinephrine 16 mg In 57.070 Dextrose 5% in Water 250 ml @ Titrate IV .Q0M DAMON Rx#:[id number] Oral 120 Output: Urine 1335 995 670 Other: Voiding Method Indwelling Catheter Indwelling Catheter Indwelling Catheter ABP, PAP, CO, CI - Last Documented Arterial Blood Pressure 94/77 - Exam Head normocephalic Neck supple Lungs clear to auscultation bilaterally no wheezing or crackles Heart regular rate and rhythm S1-S2, no rub or gallop Abdomen is soft nontender nondistended positive bowel sounds no hepatosplenomegaly Extremities no edema Neuro alert and orientated to 3 - Labs CBC & Chem 7: 12/10/17 07:58 12/10/17 07:58 Labs: Abnormal Lab Results - Last 24 Hours (Table) 12/09/17 12/09/17 12/09/17 Range/Units 11:23 12:00 17:41 WBC (3.8-10.6) k/uL RBC (3.80-5.40) m/uL Hgb (11.4-16.0) gm/dL Hct (34.0-46.0) % Plt Count (150-450) k/uL BUN (7-17) mg/dL Creatinine (0.52-1.04) mg/dL Glucose (74-99) mg/dL POC Glucose (mg/dL) 197 H 198 H 186 H (75-99) mg/dL Calcium (8.4-10.2) mg/dL Total Bilirubin (0.2-1.3) mg/dL AST (14-36) U/L ALT (9-52) U/L Alkaline Phosphatase (38-126) U/L Total Protein (6.3-8.2) g/dL Albumin (3.5-5.0) g/dL 12/09/17 12/10/17 12/10/17 Range/Units 21:05 07:13 07:58 WBC 11.9 H (3.8-10.6) k/uL RBC 3.34 L (3.80-5.40) m/uL Hgb 9.4 L (11.4-16.0) gm/dL Hct 28.6 L (34.0-46.0) % Plt Count 50 L* (150-450) k/uL BUN (7-17) mg/dL Creatinine (0.52-1.04) mg/dL Glucose (74-99) mg/dL POC Glucose (mg/dL) 160 H 144 H (75-99) mg/dL Calcium (8.4-10.2) mg/dL Total Bilirubin (0.2-1.3) mg/dL AST (14-36) U/L ALT (9-52) U/L Alkaline Phosphatase (38-126) U/L Total Protein (6.3-8.2) g/dL Albumin (3.5-5.0) g/dL 12/10/17 Range/Units 07:58 WBC (3.8-10.6) k/uL RBC (3.80-5.40) m/uL Hgb (11.4-16.0) gm/dL Hct (34.0-46.0) % Plt Count (150-450) k/uL BUN 50 H (7-17) mg/dL Creatinine 1.90 H (0.52-1.04) mg/dL Glucose 162 H (74-99) mg/dL POC Glucose (mg/dL) (75-99) mg/dL Calcium 7.9 L (8.4-10.2) mg/dL Total Bilirubin 3.5 H (0.2-1.3) mg/dL AST 129 H (14-36) U/L ALT 129 H (9-52) U/L Alkaline Phosphatase 254 H (38-126) U/L Total Protein 4.9 L (6.3-8.2) g/dL Albumin 2.5 L (3.5-5.0) g/dL Microbiology - Last 24 Hours (Table) 12/06/17 19:39 Urine Culture - Final Urine,Voided Pantoea agglomerans 12/07/17 00:05 Gram Stain - Final Sputum Sputum Culture - Final Assessment and Plan Assessment: #1 sepsis with septic shock, blood cultures are positive for gram-negative bacilli source of infection is most likely related to left sided pyelonephritis. Patient has been extubated to 2 L nasal cannula. Patient has been weaned off pressure support medication. Urine culture positive for Pantoe agglomerans and blood culture positive for Klebsiella ozaenae. Patient currently on antibiotic Rocephin. Dr. Nance for infectious disease is following. White blood cell improving to 11.9. Per Infectious disease when patient is ready for discharge home she will be likely discharged home on oral quinolone therapy that will be continued to the point in time for repeat cystoscopy and stone removal by lithotripsy. Chest x-ray completed showing pulmonary venous congestion persists with small persistent pleural effusion. Improved aeration at the lung bases. Dr. correa following per critical care. Patient currently on 20 mg IV Lasix daily #2 urinary tract infection, with evidence of of left sided pyelonephritis left obstructive uropathy status post double-J stent placement. Urine culture positive for Pantoe agglomerans. Patient remains on Rocephin #3 elevated liver enzymes likely related to shock liver due to hypotension. AST 129, AST 129 #4 slight elevation in troponin Will consult cardiology, patient denies any chest pain. Per cardiology mild elevation of cardiac enzymes likely secondary to type II event from significant hypotension and acute kidney injury and sepsis. #5 slight elevation in amylase, again likely due to hypotension doubt acute pancreatitis. repeat amylase and lipase levels ordered for tomorrow a.m. #6 left urethral calculus with left sided hydronephrosis, urology consultation requested. Per urology patient will be continued on antibiotics for several weeks prior to ureteroscopic treatment of her ureteral calculus will be discharged with a double-J catheter in place. #7 severe dehydration #8 acute renal failure, likely related to severe dehydration, possible obstructive uropathy component. Improving to 1.90 and bun 50 #9 lactic acidosis, lactic acid on presentation 4.9. 8/24 lactic acidosis 2.6 #10 thrombocytopenia platelets 50. We'll continue to monitor closely Patient remains in the intensive care unit. Patient has been weaned off pressure support medication. Patient is currently on 2 L nasal cannula. Continue to monitor patient closely I performed an examination of the patient and discussed their management with the Nurse Practitioner. I have reviewed the Nurse Practitioner's notes and agree with the documented findings and plan of care
[2017-12-10 12:08] LABS: Glucose,Whole Blood 158 mg/dL (75-99)
[2017-12-10] MEDS: EPINEPHrine 2 MG in DEXTROSE 5% IN WATER 250 ML IV SCH ×2 (15:25)
[2017-12-10 16:59] LABS: Glucose,Whole Blood 148 mg/dL (75-99)
--- NOTE | 2017-12-10 18:23 | P.PN ---
Subjective Progress Note Date: 12/10/17 Principal diagnosis: This 62-year-old female is seen because of acute kidney injury from hypotension , nonsteroidals as well as urosepsis with Gr neg bacteremia. She came in with nausea vomiting diarrhea and was found to have a hydronephrosis on the left underwent cystoscopy and stent placement area. Post op She deteriorated and went into shock. She was intubated and started on multiple pressors. Blood cultures have grown gram-negative bacilli from both blood and urine. She was extubated yesterday but was on levo fed and vasopressin but this morning that has come off. A block is still remains low in the 80s she is on small dose of Lasix 20 mg a day IV and she has a negative balance. Her 24-hour intake was 1381 and output was 2330. She remains edema that is and has poor appetite. She is diabetic. Objective - Vital Signs Vital signs: Vital Signs Temp 98.1 F 12/10/17 16:00 Pulse 100 12/10/17 17:00 Resp 22 12/10/17 17:00 BP 93/50 12/10/17 17:00 Pulse Ox 96 12/10/17 17:00 Intake & Output 12/09/17 12/10/17 12/10/17 18:59 06:59 18:59 Intake Total 745.070 636 583 Output Total 4643 270 4581 Balance -589.930 -359 -1986 Weight 129.4 kg Intake: IV 568 636 583 0.9 550 50 Pressure bag 18 36 33 Sodium Chloride 0.9% 1, 550 550 000 ml @ 50 mls/hr IV . Q20H [facility] Rx#:[id number] Intake, IV Titration 57.070 Amount Norepinephrine 16 mg In 57.070 Dextrose 5% in Water 250 ml @ Titrate IV .Q0M [facility] Rx#:[id number] Oral 120 Output: Urine 3715 534 8115 Other: Voiding Method Indwelling Catheter Indwelling Catheter Indwelling Catheter ABP, PAP, CO, CI - Last Documented Arterial Blood Pressure 94/77 On examination awake alert oriented comfortable She is on nasal cannula. HEENT exam no JVP neck supple no facial asymmetry Lungs are significant for an occasional fine crackle at bases. Good air entry bilaterally. Chest x-ray shows congestive heart Abdomen is soft nontender Heart sounds are unremarkable for any murmur rub gallop Normal sinus rhythm on the monitor Extremity examination reveals 2+ edema warm to touch. Neurologically awake alert oriented comfortable - Labs CBC & Chem 7: 12/10/17 07:58 12/10/17 07:58 Labs: Abnormal Lab Results - Last 24 Hours (Table) 12/09/17 12/10/17 12/10/17 Range/Units 21:05 07:13 07:58 WBC 11.9 H (3.8-10.6) k/uL RBC 3.34 L (3.80-5.40) m/uL Hgb 9.4 L (11.4-16.0) gm/dL Hct 28.6 L (34.0-46.0) % Plt Count 50 L* (150-450) k/uL BUN (7-17) mg/dL Creatinine (0.52-1.04) mg/dL Glucose (74-99) mg/dL POC Glucose (mg/dL) 160 H 144 H (75-99) mg/dL Calcium (8.4-10.2) mg/dL Total Bilirubin (0.2-1.3) mg/dL AST (14-36) U/L ALT (9-52) U/L Alkaline Phosphatase (38-126) U/L Total Protein (6.3-8.2) g/dL Albumin (3.5-5.0) g/dL 12/10/17 12/10/17 12/10/17 Range/Units 07:58 11:58 16:53 WBC (3.8-10.6) k/uL RBC (3.80-5.40) m/uL Hgb (11.4-16.0) gm/dL Hct (34.0-46.0) % Plt Count (150-450) k/uL BUN 50 H (7-17) mg/dL Creatinine 1.90 H (0.52-1.04) mg/dL Glucose 162 H (74-99) mg/dL POC Glucose (mg/dL) 158 H 148 H (75-99) mg/dL Calcium 7.9 L (8.4-10.2) mg/dL Total Bilirubin 3.5 H (0.2-1.3) mg/dL AST 129 H (14-36) U/L ALT 129 H (9-52) U/L Alkaline Phosphatase 254 H (38-126) U/L Total Protein 4.9 L (6.3-8.2) g/dL Albumin 2.5 L (3.5-5.0) g/dL Microbiology - Last 24 Hours (Table) 12/06/17 19:39 Urine Culture - Final Urine,Voided Latasha judd Assessment and Plan Assessment: Impression 1. Acute kidney injury, admitting creatinine is 4.1 previous creatinines not available. Etiology is combination off hypotension with blood pressure 62 on admission, urosepsis, nonsteroidals and the left hydronephrosis from left nephrolithiasis. She is growing gram-negative bacilli both in the blood and urine. Creatinine improved 4.1 > 2.4. 2. Likely diabetic nephropathy as her urinalysis shows 2+ protein, no previous creatinines available therefore no baseline known. 3. Admitted with nausea vomiting hypotension volume depletion and gram- negative bacteremia and urosepsis sepsis. 4. Left hydronephrosis status post cystoscopy and double J stent placement in the left side 12/06/2017. 7. Severe non-gap acidosis from diarrhea and acute kidney injury. On bicarbonate drip bicarb is improved to 28. Off off bicarbonate drip 8. Elevated liver function tests secondary to hypotension and sepsis, bilirubin went up to 3 from 2.2 9. Hypocalcemia secondary to low albumin. 10. Possible aspiration pneumonia versus congestive heart failure. Chest x- ray showing deterioration since admission. 11. Cholelithiasis, elevated liver function tests bilirubin going up 12. Hypokalemia secondary to D5W causing intracellular shift of potassium.resoled 12. Anasarca sec to hydration for sepsis and low albuminb Recommendation. 1. Will give extra dose of Lasix 20 mg now and reassess at that we can increase it tomorrow based on blood pressure, and creatinine. 2. Continue antibiotics. 3. Watch LFTs
--- NOTE | 2017-12-10 20:10 | P.PN ---
Subjective Progress Note Date: 12/10/17 62-year-old female who is currently postoperative, underwent cystoscopy and left ureteral catheter placement for the obstruction caused by the stone and hydronephrosis and pyelonephritis. She is now postoperative she is intubated sedated and mechanically ventilated requiring vasopressor therapy for her septic shock. She received several liters of fluid, but remains hypotensive on vasopressor therapy. It is related that before she came to Hospital she been ill for several days with nausea emesis abdominal pain and flank pain was also occurring. She become quite dehydrated and admission she had fever and hypotension. Because of her pain evaluations are performed and the obstruction was seen in the left ureter. As noted she's been evaluated by urology and is ready had surgical intervention to relieve the obstruction. 12/07/2017 reveals the patient to still be intubated sedated and mechanically ventilated. She had significant hypotension overnight requiring Levophed, vasopressin as well as a short time of epinephrine. The Levophed is being weaned at this point in time and she does have significant hypotension making it difficult for her to be significantly manipulated in the bed at this time. She is receiving the middle dose of fentanyl for sedation and pain control. She is arousable and able to follow simple commands without difficulty. Urine output has improved and her remains cloudy with a bloody appearance 12/09/2015 reveals the patient to be improved this a.m. She has been extubated and seems to be comfortable. She is still on vasopressor therapy but there has been successful reduction of the amount. She is somewhat comfortable but is very weak. Has generalized edema relates her breathing is adequate after extubation. 12/09/2017 reveals a patient to having further improvement. She is also completely weaned off of all of vasopressor therapy. She is awake and alert interactive. Appetite was poor. Urinary output is excellent and she's feeling modestly well. 12/10/2017. Her vasopressor therapies have all been discontinued and she is maintaining excellent blood pressure and oxygenation. Pain control is improved. She is now able to tolerate some diuresis to help with his significant edema that she has developed from her extensive fluid resuscitation for gram-negative septic shock. She this time is making well and is quite comfortable and is still quite weak. Objective - Vital Signs Vital signs: Vital Signs Temp 98.5 F 12/10/17 19:00 Pulse 92 12/10/17 19:30 Resp 19 12/10/17 19:30 BP 103/52 12/10/17 19:30 Pulse Ox 97 12/10/17 19:30 Intake & Output 12/10/17 12/10/17 12/11/17 06:59 18:59 06:59 Intake Total 636 636 46 Output Total 995 2870 350 Balance -359 -2234 -304 Weight 129.4 kg Intake: IV 636 636 46 0.9 50 Pressure bag 36 36 6 Sodium Chloride 0.9% 1, 550 600 40 000 ml @ 50 mls/hr IV . Q20H [facility] Rx#:[id number] Output: Urine 995 2870 350 Other: Voiding Method Indwelling Catheter Indwelling Catheter ABP, PAP, CO, CI - Last Documented Arterial Blood Pressure 94/77 - Exam 62-year-old woman who looks older than her stated age, she does have significant obesity. She remains extubated and is very comfortable. Respiratory status is stable. She denies fevers or chills or other new acute symptoms HEENT: Anicteric conjunctiva are pink and moist nasal mucosa grossly intact without significant lesions, there is no thrushnoted around the endotracheal tube Neck: The neck is supple without significant lymphadenopathy or thyromegaly. Lungs: there is symmetrical air entry bilaterally. There are only a few scattered crackles no sandeep bronchial sounds no significant wheezing Heart: Regular rate and rhythm with an audible S1-S2, no S3 soft S4. There is no significant murmur click or rub, PMI was nondisplaced. Abdomen: obese,Positive bowel sounds soft , without palpable masses or organomegaly. the abdomen is nonrigid, seems to have some tenderness in the left lower quadrant. Extremities: The upper extremities have excellent pulses they are symmetric, no significant petechiae or telangiectasia. No splinter hemorrhages were noted. The upper and lower extremities do exhibit some ongoing edema for which she is receiving diuretic therapy with a good response. Neuro: Extubated awake alert oriented to person place and time no acute gross focal sensory motor deficits but has some generalized weakness - Labs CBC & Chem 7: 12/10/17 07:58 12/10/17 07:58 Labs: Abnormal Lab Results - Last 24 Hours (Table) 12/09/17 12/10/17 12/10/17 Range/Units 21:05 07:13 07:58 WBC 11.9 H (3.8-10.6) k/uL RBC 3.34 L (3.80-5.40) m/uL Hgb 9.4 L (11.4-16.0) gm/dL Hct 28.6 L (34.0-46.0) % Plt Count 50 L* (150-450) k/uL BUN (7-17) mg/dL Creatinine (0.52-1.04) mg/dL Glucose (74-99) mg/dL POC Glucose (mg/dL) 160 H 144 H (75-99) mg/dL Calcium (8.4-10.2) mg/dL Total Bilirubin (0.2-1.3) mg/dL AST (14-36) U/L ALT (9-52) U/L Alkaline Phosphatase (38-126) U/L Total Protein (6.3-8.2) g/dL Albumin (3.5-5.0) g/dL 12/10/17 12/10/17 12/10/17 Range/Units 07:58 11:58 16:53 WBC (3.8-10.6) k/uL RBC (3.80-5.40) m/uL Hgb (11.4-16.0) gm/dL Hct (34.0-46.0) % Plt Count (150-450) k/uL BUN 50 H (7-17) mg/dL Creatinine 1.90 H (0.52-1.04) mg/dL Glucose 162 H (74-99) mg/dL POC Glucose (mg/dL) 158 H 148 H (75-99) mg/dL Calcium 7.9 L (8.4-10.2) mg/dL Total Bilirubin 3.5 H (0.2-1.3) mg/dL AST 129 H (14-36) U/L ALT 129 H (9-52) U/L Alkaline Phosphatase 254 H (38-126) U/L Total Protein 4.9 L (6.3-8.2) g/dL Albumin 2.5 L (3.5-5.0) g/dL Microbiology - Last 24 Hours (Table) 12/06/17 19:39 Urine Culture - Final Urine,Voided [employer] Laboratory Results WBC 11.9 k/uL (3.8-10.6) H 12/10/17 07:58 RBC 3.34 m/uL (3.80-5.40) L 12/10/17 07:58 Hgb 9.4 gm/dL (11.4-16.0) L 12/10/17 07:58 Hct 28.6 % (34.0-46.0) L 12/10/17 07:58 MCV 85.8 fL (80.0-100.0) 12/10/17 07:58 MCH 28.2 pg (25.0-35.0) 12/10/17 07:58 MCHC 32.9 g/dL (31.0-37.0) 12/10/17 07:58 RDW 14.5 % (11.5-15.5) 12/10/17 07:58 Plt Count 50 k/uL (150-450) L* 12/10/17 07:58 Neutrophils % 88 % 12/09/17 04:54 Neutrophils % (Manual) 73 % 12/06/17 20:45 Band Neutrophils % 22 % 12/06/17 20:45 Lymphocytes % 5 % 12/09/17 04:54 Lymphocytes % (Manual) 2 % 12/06/17 20:45 Monocytes % 3 % 12/09/17 04:54 Monocytes % (Manual) 3 % 12/06/17 20:45 Eosinophils % 2 % 12/09/17 04:54 Basophils % 0 % 12/09/17 04:54 Metamyelocytes % 1 % 12/06/17 20:45 Myelocytes % 1 % 12/06/17 20:45 Neutrophils # 16.0 k/uL (1.3-7.7) H 12/09/17 04:54 Neutrophils # (Manual) 30.40 k/uL (1.3-7.7) H 12/06/17 20:45 Lymphocytes # 0.9 k/uL (1.0-4.8) L 12/09/17 04:54 Lymphocytes # (Manual) 0.64 k/uL (1.0-4.8) L 12/06/17 20:45 Monocytes # 0.5 k/uL (0-1.0) 12/09/17 04:54 Monocytes # (Manual) 0.96 k/uL (0-1.0) 12/06/17 20:45 Eosinophils # 0.3 k/uL (0-0.7) 12/09/17 04:54 Basophils # 0.1 k/uL (0-0.2) 12/09/17 04:54 Metamyelocytes # (Man) 0.32 k/uL (0) H 12/06/17 20:45 Myelocytes # (Manual) 0.32 k/uL (0) H 12/06/17 20:45 Nucleated RBCs 0 /100 WBC (0-0) 12/06/17 20:45 Manual Slide Review Performed 12/06/17 20:45 Toxic Granulation Present 12/06/17 20:45 Toxic Vacuolation Present 12/06/17 20:45 Large Platelets Present 12/06/17 13:30 RBC Morphology Normal 12/06/17 13:30 PT 12.4 sec (9.0-12.0) H 12/08/17 04:30 INR 1.3 (<1.2) H 12/08/17 04:30 APTT 32.6 sec (22.0-30.0) H 12/08/17 04:30 Sample Site [place] 12/08/17 05:16 ABG pH 7.42 (7.35-7.45) 12/08/17 05:16 ABG pCO2 28 mmHg (35-45) L 12/08/17 05:16 ABG pO2 131 mmHg (83-108) H 12/08/17 05:16 ABG HCO3 18 mmol/L (21-25) L 12/08/17 05:16 ABG Total CO2 19 mmol/L (19-24) 12/08/17 05:16 ABG O2 Saturation 99.2 % (94-97) H 12/08/17 05:16 ABG Base Excess -6.5 mmol/L 12/08/17 05:16 Sharath Test Yes 12/08/17 05:16 ABG Lactic Acid 2.1 mmol/L (0.5-1.6) H 12/08/17 04:30 FiO2 40 % 12/08/17 05:16 Sodium 140 mmol/L (137-145) 12/10/17 07:58 Potassium 4.0 mmol/L (3.5-5.1) 12/10/17 07:58 Chloride 105 mmol/L (98-107) 12/10/17 07:58 Carbon Dioxide 28 mmol/L (22-30) 12/10/17 07:58 Anion Gap 7 mmol/L 12/10/17 07:58 BUN 50 mg/dL (7-17) H 12/10/17 07:58 Creatinine 1.90 mg/dL (0.52-1.04) H 12/10/17 07:58 Est GFR (CKD-EPI)AfAm 32 (>60 ml/min/1.73 sqM) 12/10/17 07:58 Est GFR (CKD-EPI)NonAf 28 (>60 ml/min/1.73 sqM) 12/10/17 07:58 Glucose 162 mg/dL (74-99) H 12/10/17 07:58 POC Glucose (mg/dL) 148 mg/dL (75-99) H 12/10/17 16:53 POC Glu [employer] ID 12/10/17 16:[address] Glu mg/dL 151 12/06/17 13:30 Hemoglobin A1c 6.9 % (4.0-6.0) H 12/06/17 13:30 Lactic Ac Sepsis Rflx Y 12/07/17 09:34 Plasma Lactic Acid Joe 2.6 mmol/L (0.7-2.0) H* 12/07/17 08:00 Uric Acid 6.6 mg/dL (3.7-7.4) 12/06/17 20:45 Calcium 7.9 mg/dL (8.4-10.2) L 12/10/17 07:58 Phosphorus 2.5 mg/dL (2.5-4.5) 12/10/17 07:58 Magnesium 2.0 mg/dL (1.6-2.3) 12/10/17 07:58 Total Bilirubin 3.5 mg/dL (0.2-1.3) H 12/10/17 07:58 AST 129 U/L (14-36) H 12/10/17 07:58 ALT 129 U/L (9-52) H 12/10/17 07:58 Alkaline Phosphatase 254 U/L (38-126) H 12/10/17 07:58 Troponin I 0.916 ng/mL (0.000-0.034) H* 12/07/17 06:12 Total Protein 4.9 g/dL (6.3-8.2) L 12/10/17 07:58 Albumin 2.5 g/dL (3.5-5.0) L 12/10/17 07:58 Amylase 380 U/L (30-110) H* 12/06/17 20:45 Lipase 16 U/L (23-300) L 12/06/17 20:45 Cortisol 20 ug/dL 12/07/17 11:40 Urine Color Red 12/06/17 14:55 Urine Appearance Turbid (Clear) H 12/06/17 14:55 Urine pH 6.5 (5.0-8.0) 12/06/17 14:55 Ur Specific [place] 1.011 (1.001-1.035) 12/06/17 14:55 Urine Protein 2+ (Negative) H 12/06/17 14:55 Urine Glucose (UA) Negative (Negative) 12/06/17 14:55 Urine Ketones Negative (Negative) 12/06/17 14:55 Urine Blood Large (Negative) H 12/06/17 14:55 Urine Nitrite Negative (Negative) 12/06/17 14:55 Urine Bilirubin Negative (Negative) 12/06/17 14:55 Urine Urobilinogen <2.0 mg/dL (<2.0) 12/06/17 14:55 Ur Leukocyte Esterase Large (Negative) H 12/06/17 14:55 Urine RBC >182 /hpf (0-5) H 12/06/17 14:55 Urine WBC >182 /hpf (0-5) H 12/06/17 14:55 Urine WBC Clumps Many /hpf (None) H 12/06/17 14:55 Urine Bacteria Moderate /hpf (None) H 12/06/17 14:55 Urine Mucus Many /hpf (None) H 12/06/17 14:55 Microbiology 12/06/17 19:39 Urine,Voided Urine Culture - Final Pantoea [employer] 12/07/17 00:05 Sputum Gram Stain - Final 12/07/17 00:05 Sputum Sputum Culture - Final 12/06/17 16:04 Blood Blood Culture Gram Stain - Final 12/06/17 16:04 Blood Blood Culture - Final Klebsiella ozaenae 12/06/17 14:55 Urine,Voided Urine Culture - Preliminary Gram Neg Bacilli 12/06/17 16:04 Blood Blood Culture - Final Assessment and Plan (1) Septic shock Narrative/Plan: female presents to Hospital feeling poorly several days this done evidence of fever and hypotension leukocytosis and lactic acidosis. She was on evidence of septic shock requiring fluid resuscitation and vasopressor therapy. She had evidence of obstruction of the left ureter has been taking the operating room for stent placement. He is now postoperative. Her leukocytosis has worsened to 32.1 and she remains hypotensive requiring further fluid resuscitation and vasopressor therapy. Urine output is adequate. The patient did have significant acidosis that certainly improving. Does still have lactic acidosis and further fluid is requested. Antimicrobial therapy has been initiated with cefepime. Since give us coverage for pseudomonas as well as most other gram-negative organisms in his abdomen for now. He review is done and she has no history of resistant pathogens .Cultures will further help direct her course of antibiotic therapy as she improves. Respiratory failure appears to be postoperative in all we will rapidly resolve as her sepsis improves. Profound leukocytosis during her related to her sepsis, as well as the thrombocytopenia likely invasive gram-negative sepsis. Cultures are pending. December 07 2017 the patient remains in intensive care unit with some improvement in that she has had a decrease of her vasopressor requirements. Urine output is adequate. Neurologically she is awake and interactive. Maneuvers to reduce her vasopressor requirements are continuing. No plans for weaning her extubation at this time given her significant hemodynamic challenge. Blood and urine cultures revealed gram-negative bacilli. We are awaiting the final susceptibility for final choice of antibiotic therapy. Follow blood culture is negative so far. The case is discussed with neurologist and the family members. 12/08/2017 patient remains in intensive care unit on a reduced amount of vasopressor therapy. She is now extubated and seems to be doing well from the pulmonary standpoint. Overall she is showing improvement from her gram- negative septic shock. Final cultures are pending which will further help with direct the course of antibiotic therapy at the time of discharge. She will follow closely with urology in the outpatient setting as to the timing of the stent removal and laser lithotripsy for removal of the obstructing stone resulting in the polynephritis bacteremia and septic shock. 12/09/2017 pleasant 62-year-old woman presented to hospital with septic shock is now doing considerably better after her multiple interventions that included cystoscopy and placement of stent to allow drainage of the obstructed kidney. This is also allowed what appears to be resolution of her bacteremia and hypotension. She is feeling considerably better but is has a poor appetite. Cultures are now available and Klebsiella ozaenae have been isolated in both the urine or blood cultures. Surprisingly it is a highly susceptible organism. Will de-escalate antibiotic therapy at this time to ceftriaxone. When she is ready for discharge to home likely will be on oral quinolone therapy that will be continued up to the point in time of her repeat cystoscopy and stone removal by lithotripsy. 12/10/2017 patient continues to improve from her gram-negative septic shock. She's no longer in a vasopressor therapy. She tolerated extubation well and is having tolerance of diuretic therapy allowing some diuresis of her extensive edematous status. As noted the gram-negative of Klebsiella as well as Pantoea both fentanyl and eschar the time of her discharge she will be transitioned to oral ciprofloxacin therapy complete 21 days of therapy Current Visit: Yes Status: Acute Code(s): A41.9 - SEPSIS, UNSPECIFIED ORGANISM; R65.21 - SEVERE SEPSIS WITH SEPTIC SHOCK SNOMED Code(s): 14707987 (2) Acute pyelonephritis Current Visit: Yes Status: Acute Code(s): N10 - ACUTE PYELONEPHRITIS SNOMED Code(s): 41981194 (3) Acute renal failure Current Visit: Yes Status: Acute Code(s): N17.9 - ACUTE KIDNEY FAILURE, UNSPECIFIED SNOMED Code(s): 13091198 (4) Calculus of ureter Current Visit: Yes Status: Acute Code(s): N20.1 - CALCULUS OF URETER SNOMED Code(s): 21798003
[2017-12-10 21:26] LABS: Glucose,Whole Blood 151 mg/dL (75-99)
[2017-12-11 04:23] LABS: Basophils % (A) 0 %; Eosinophils # (A) 0.3 k/uL (0-0.7); Eosinophils % (A) 2 %; HCT 28.5 % (34.0-46.0); HGB 9.3 gm/dL (11.4-16.0); Lymphocytes # (A) 0.8 k/uL (1.0-4.8); Lymphocytes % (A) 6 %; MCH 28.3 pg (25.0-35.0); MCHC 32.6 g/dL (31.0-37.0); Mean Platelet Volume 12.1; Monocytes # (A) 0.8 k/uL (0-1.0); Monocytes % (A) 5 %; Neutrophils # (A) 11.6 k/uL (1.3-7.7); Neutrophils % (A) 83 %; RBC 3.28 m/uL (3.80-5.40); RDW 14.7 % (11.5-15.5)
[2017-12-11 04:29] LABS: Platelet Count 69 k/uL (150-450)
[2017-12-11 04:39] LABS: Albumin 2.6 g/dL (3.5-5.0); Calcium 8.3 mg/dL (8.4-10.2); Magnesium 1.9 mg/dL (1.6-2.3); Phosphorus 2.9 mg/dL (2.5-4.5); Potassium 3.8 mmol/L (3.5-5.1); Total Bilirubin 2.2 mg/dL (0.2-1.3); Total Protein 5.1 g/dL (6.3-8.2)
[2017-12-11] MEDS: MAGNESIUM SULFATE-D5W PMX 1 GM in DEXTROSE/WATER 1 100ML.BAG IVPB SCH ×2 (05:08→06:29)
[2017-12-11] MEDS: SODIUM CHLORIDE 0.9% 1,000 ML IV SCH (06:30)
[2017-12-11 06:32] LABS: Anisocytosis (M) Present; Large Platelets Present; Polychromasia Present
[2017-12-11] MEDS: IPRATROPIUM-ALBUTEROL 3 ML NEB INHALATION PRN ×3 (06:53→19:26)
[2017-12-11 07:08] LABS: Glucose,Whole Blood 131 mg/dL (75-99)
[2017-12-11] MEDS: INSULIN ASPART 100 UNIT/ML 1 ML 10 ML VIAL SQ SCH ×5 (07:54→21:20)
[2017-12-11] MEDS: SODIUM CHLORIDE 0.9% 99 ML with VASOPRESSIN 20 UNIT IV SCH ×4 (08:21→10:15)
[2017-12-11] MEDS: EPINEPHrine 2 MG in DEXTROSE 5% IN WATER 250 ML IV SCH ×2 (08:22)
[2017-12-11] MEDS: cefTRIAXone IN SWFI 2,000 MG/20 ML SYRINGE IVP SCH (08:26)
[2017-12-11] MEDS: FUROSEMIDE 10 MG/ML 2 ML VIAL IV SCH (08:26)
[2017-12-11] MEDS: PANTOPRAZOLE 40 MG/10 ML VIAL IVP SCH (08:26)
[2017-12-11] MEDS: NYSTATIN 100,000 UNIT/ML SUSP 500,000 UNIT/5 ML CUP PO SCH ×4 (08:26→21:20)
--- NOTE | 2017-12-11 08:39 | XR ---
EXAMINATION TYPE: XR chest 1V DATE OF EXAM: 12/11/2017 COMPARISON: 12/10/2017 HISTORY: 62 year-old female shortness of breath TECHNIQUE: Single frontal view of the chest is obtained. FINDINGS: Left IJ CVC tip at the mid SVC. Heart remains mildly enlarged. Diffuse interstitial prominence persis ts. Trace effusions remain with improvement in the interval. Mild patchy bibasilar densities. IMPRESSION: Persistent mild pulmonary vascular congestion. Trace effusions remain with improvement from prior. So me mild patchy bibasilar atelectasis and/or consolidation remains.
[2017-12-11] MEDS: POTASSIUM BICARBONATE/CIT AC 20 MEQ TABLET.EFF NG-TUBE SCH (10:15)
[2017-12-11] MEDS: HEPARIN SODIUM,PORCINE 5,000 UNIT/ML 1 ML VIAL SQ SCH (10:15)
--- NOTE | 2017-12-11 10:22 | P.PN ---
Subjective Progress Note Date: 12/11/17 Principal diagnosis: Acute septic shock secondary to gram-negative urinary tract infection and acute left-sided pyelonephritis 62-year-old morbidly obese female patient presented to the emergency department because of nausea vomiting diarrhea and left flank pain. The patient was extremely dehydrated. She was hypotensive with initial systolic blood pressure in the 60s. Her blood work was completely abnormal with an acute kidney injury in the creatinine of 4.1 and the patient had a anion gap metabolic acidosis with a bicarb of 22 and anion gap of 14 and Actiq acid was at 4.9. The patient' s white cell count was at 20.5. After receiving 4 L of IV fluids the patient remained hypotensive. The patient started on pressors initially at 5 mics and currently she is up to 30 mics of norepinephrine infusion at sonic through a peripheral line. A triple lumen catheter was inserted immediately. A blood gases obtained that showed a pH of 7.24 with a pCO2 of 47 and pO2 of 80. The patient is still awake and alert. She is a bit uncomfortable. Unable to lay down flat. Chest x-ray post-line insertion shows adequate expansion of both lungs and there is no evidence of any pneumonia. The triple-lumen catheter is in good location. The patient was given a dose of Rocephin 2 g IV in the emergency department. Stewart catheter was inserted. Not a whole lot of urine output is being produced this point in time. CAT scan of the abdomen was done and the patient has a proximal left ureteral calculus. There is also a right- sided nephrolithiasis. There is cholelithiasis without evidence of cholecystitis. Patient has a 19 x 8 x 21 mm stone in the right renal pelvis which is nonobstructive. Another 3-4 mm stone in the proximal left ureter. Discussed the case with Dr. Emil Green from urology and the patient be taken to the operating room for an immediate double-J stent insertion in the left. On and I'm seeing this patient for a follow-up. As mentioned earlier the patient came in today burst department with severe dehydration, sepsis, complicated UTI, left-sided pyelonephritis, septic shock, metabolic acidosis, lactic acidosis and acute kidney injury. The patient was taken to the operating room yesterday and a double-J stent was inserted on the left. Postop , the patient was kept intubated on a mechanical ventilator. She became quite hypotensive and upon arrival to the ICU the patient was already hypotensive and pressor dependent. Throughout the night the patient received fluids aggressively in order of 6 L of IV fluids. She also received albumin. The patient continued to be profoundly hypotensive. I added vasopressin physiologic dose and she was brought up to a 60 g of norepinephrine infusion per minutes. Also epinephrine was started to maintain a mean arterial pressure above 60. She continued to have episodes of fever treated with IV Tylenol. Aspirin antibiotic coverage, the patient was kept on IV cefepime. The primary blood cultures showing gram-negative bacillus and final cultures of been identified yet. This morning, the patient is sedated Diprivan and she is calm and comfortable and currently she is on 35 g of Diprivan infusion with adequate sedation. She is an assist-control mode of ventilation at the rate of 28 with a tidal volume of 500 and FiO2 of 70% with a PEEP of 5. Morning blood gases showed a pH of 7.28 with a pCO2 of 30 and pO2 of 103 and this was done and FiO2 of 70% and based on that the FiO2 was dropped down to 60%. Chest x- ray showed adequate positioning of the ET tube and the patient has a left IJ triple lumen catheter in place. The chest x-ray also showed stable cardiopulmonary and mediastinal structures. Echocardiogram was done and showed a preserved LV function with an ejection fraction of 55-60% without any significant valvular abnormalities. The patient is not fluid balance is +5 L over the past 24 hours. She did start making some urine at this point in time and she is producing approximately 10-15 mL an hour. Her white cell count peaked at 32 and currently is down to 27. Her lactic acid levels are improving and is down to 2.6. The patient's creatinine is down to 3.6. Her bicarb level is down to 13 and the patient was switched a bicarb drip infusion. Is a troponin leak there is also abnormal LFTs all probably later to severe septic shock. On 12/08/2017, the patient is wide awake and alert. This morning she was on 20 mics of Diprivan however she was awake and communicating and answering questions and communicating with us by writing on a piece of paper. She wanted to above. She was still on 20 mics of norepinephrine infusion addition to vasopressin. Nevertheless, she is afebrile and she is producing adequate amount of urine output. No respiratory difficulties. Weaning parameters were excellent. The patient is still on broad-spectrum antibiotics. Morning blood gases showed a pH of 7.42 with a pCO2 of 28 and pO2 131. The chest x-ray showed no acute abnormalities. White cell count is at 20.6. The rest of the blood work shows improvement in renal function with a creatinine being down to 3.2. The patient is still acidotic and this is a non-anion gap metabolic acidosis and the patient is still on a bicarb drip for now. Her net fluid balance is positive for 4.8 L yesterday On 12/09/2017, this patient is extubated and she is awake and alert. She is on 20 mics of norepinephrine infusion and we are in the process of weaning her down further. She is off sedation. She is producing good amount of urine output in the order of 50 mL an hour. Renal function continues to improve. The blood culture showed Klebsiella sepsis secondary to underlying urinary tract infection. No altered mentation. No nausea vomiting. No abdominal pain. She is tolerating diet. She is communicating. She was taken off the bicarb drip knowing that the non-anion gap metabolic acidosis has improved. We' ll cut down the IV fluids also down to 50 mL an hour as the patient is mobilizing her extra fluid. The chest x-ray from today shows a component of mild four-vessel congestion/edema and the patient is currently on 4 L about 2 by nasal cannula. The patient remains on IV cefepime for now. Patient was reevaluated today on 12/10/2017, presently on nasal cannula, in no distress. She is off norepinephrine, and she is off vasopressin. She was taken off vasopressin only about an hour ago. And her blood pressure seems to be holding although it is marginal. But she does have a good urine output. Renal functioning continues to improve, her BUN today is 50 creatinine is 1.90. Platelets remain low at 50,000, hence I recommended that we hold heparin subcu , and continue Venodyne boots and compression stockings for deep vein thrombosis prophylaxis. Her WBC count is 11.9 hemoglobin is 9.4. Clinically the patient is doing well, she is relatively asymptomatic. Her blood cultures came back positive for Klebsiella ozaenae, and her urine cultures are also positive for the same organism. Urine cultures also positive for pantoea agglomerans. This is sensitive to all antibiotics tested. Patient is presently on Rocephin as per infectious disease on the case. Clinically the patient has been responding well to treatment, however she received a total of 12 L of fluid since admission, and we are planning to gently diurese the patient. Chest x-ray continues to show some evidence of pulmonary venous congestion with small persistent pleural effusions bilaterally. Reevaluated today on 12/11/2017, patient is in no form of distress, relatively asymptomatic, remains off pressors, hemodynamically stable, urine output is excellent renal functioning is improving. WBC count is down to 14 hemoglobin is 9.3 BUN is 43 creatinine is 1.7, liver profile remains a bit elevated but improving. Lipase is 1544. However the patient has no symptoms of abdominal pain or any symptoms to suggest pancreatitis. Chest x-ray showed mild pulmonary vascular congestion. Blood cultures were noted as to urine cultures were also noted to be positive, and the patient remains on antibiotics as per infectious disease recommendation. Objective - Vital Signs Vital signs: Vital Signs Temp 98 F 12/11/17 08:00 Pulse 89 12/11/17 08:00 Resp 17 12/11/17 08:00 BP 127/62 12/11/17 08:00 Pulse Ox 96 12/11/17 08:00 Intake & Output 12/10/17 12/11/17 12/11/17 18:59 06:59 18:59 Intake Total 636 1676 226 Output Total 2870 2280 295 Balance -2234 -604 -69 Weight 127.2 kg Intake: IV 636 276 226 Magnesium Sulfate-D5w Pmx 200 1 gm In Dextrose/Water 1 100ml.bag @ 100 mls/hr IVPB Q1H DAMON Rx#: [id number] Pressure bag 36 36 6 Sodium Chloride 0.9% 1, 600 240 20 000 ml @ 20 mls/hr IV . Q24H DAMON Rx#:[id number] Oral 1400 Output: Urine 2870 2280 295 Other: Voiding Method Indwelling Catheter Indwelling Catheter Indwelling Catheter ABP, PAP, CO, CI - Last Documented Arterial Blood Pressure 94/77 - Exam Gen. appearance, physical exam revealed a 62-year-old female in no distress, on 4 L nasal cannula. Head exam was generally normal. There was no scleral icterus or corneal arcus. Mucous membranes were moist. Evidence of oropharyngeal thrush noted.. Neck was supple and without jugular venous distension, thyromegaly, or carotid bruits. Carotids were easily palpable bilaterally. There was no adenopathy. The patient has a left IJ triple-lumen catheter in place. Lungs were clear to auscultation and percussion, and with normal diaphragmatic excursion. No crackles or rhonchi or wheezes. Cardiac exam revealed the PMI to be normally situated and sized. Normal S1 and S2, no S3 gallop. No murmur. Abdominal exam slightly obese, soft, nontender, no megaly, no rebound, positive bowel sounds. Examination of the extremities revealed no clubbing, no edema, no cyanosis. Neurologically patient is alert and awake 3, no gross focal neurologic deficit Examination of the skin revealed no evidence of erythema, or rashes. - Labs CBC & Chem 7: 12/11/17 04:07 12/11/17 04:07 Labs: Abnormal Lab Results - Last 24 Hours (Table) 12/10/17 12/10/17 12/10/17 Range/Units 11:58 16:53 21:24 WBC (3.8-10.6) k/uL RBC (3.80-5.40) m/uL Hgb (11.4-16.0) gm/dL Hct (34.0-46.0) % Plt Count (150-450) k/uL Neutrophils # (1.3-7.7) k/uL Lymphocytes # (1.0-4.8) k/uL Carbon Dioxide (22-30) mmol/L BUN (7-17) mg/dL Creatinine (0.52-1.04) mg/dL Glucose (74-99) mg/dL POC Glucose (mg/dL) 158 H 148 H 151 H (75-99) mg/dL Calcium (8.4-10.2) mg/dL Total Bilirubin (0.2-1.3) mg/dL AST (14-36) U/L ALT (9-52) U/L Alkaline Phosphatase (38-126) U/L Total Protein (6.3-8.2) g/dL Albumin (3.5-5.0) g/dL Lipase (23-300) U/L 12/11/17 12/11/17 12/11/17 Range/Units 04:07 04:07 07:06 WBC 14.0 H (3.8-10.6) k/uL RBC 3.28 L (3.80-5.40) m/uL Hgb 9.3 L (11.4-16.0) gm/dL Hct 28.5 L (34.0-46.0) % Plt Count 69 L (150-450) k/uL Neutrophils # 11.6 H (1.3-7.7) k/uL Lymphocytes # 0.8 L (1.0-4.8) k/uL Carbon Dioxide 31 H (22-30) mmol/L BUN 43 H (7-17) mg/dL Creatinine 1.70 H (0.52-1.04) mg/dL Glucose 122 H (74-99) mg/dL POC Glucose (mg/dL) 131 H (75-99) mg/dL Calcium 8.3 L (8.4-10.2) mg/dL Total Bilirubin 2.2 H (0.2-1.3) mg/dL AST 102 H (14-36) U/L ALT 130 H (9-52) U/L Alkaline Phosphatase 297 H (38-126) U/L Total Protein 5.1 L (6.3-8.2) g/dL Albumin 2.6 L (3.5-5.0) g/dL Lipase 1544 H (23-300) U/L Microbiology - Last 24 Hours (Table) 12/06/17 14:55 Urine Culture - Final Urine,Voided Escherichia coli Assessment and Plan Assessment: 1 acute septic shock secondary to gram negative infection. The patient has gram -negative and the blood and the urine. The source of the septic shock is a a complicated UTI, possible left-sided pyelonephritis. The patient has a 3 mm ureteral stent and she is post double-J stent insertion in the left. Patient has made a significant improvement clinically over the last couple of days. She is now off pressors, and we are diuresing her gently. We discontinued vasopressin On 12/10/2017 On 12/08/2017, the patient is was resuscitated IV fluids. The patient is still on pressors. Nevertheless she is awake and alert and I think she should be able to tolerate coming off the mechanical ventilator. Urine output is improved and the patient is producing urine despite being a significant amount of positive fluid balance. No other significant issues overnight. He remains on broad-spectrum antibiotics. Cultures still showing gram-negative bacillus and the blood in the urine. On 12/09/2017, the patient is still requiring pressors due to vasodilatory septic shock, and the patient is being weaned off the norepinephrine infusion. Klebsiella was confirmed to be in the blood. On 12/10/2017, all pressors have been discontinued, we are gently diuresing the patient, we have the final report on the cultures from the urine and the blood, and the patient remains on Rocephin. On 12/03/2017, patient continues to do well, relatively asymptomatic, labs are showing significant improvement, cultures were reviewed from the blood and from the urine, plan to transfer the patient to a regular medical floor today. 2 Acute urinary tract infection, complicated, associated with acute gram- negative septic shock 3 nephrolithiasis with a proximal left ureteral stone causing ureteral obstruction in addition to nonobstructive calculus on the right kidney pelvis. 4 lactic acidosis, resolved 5 non-anion gap metabolic acidosis secondary to above. Resolved 6 Leukocytosis secondary to above, significantly improved 7 acute kidney injury secondary to above, improving. 8 obesity 9 diabetes mellitus 10 history of hypertension 11 troponin leak secondary to septic shock 12 abnormal liver function tests secondary to sepsis/septic shock 13 thrombocytopenia secondary to sepsis and septic shock. Improving, platelets on 12/11 are 69,000 compared to 50,000 on 12/10. 14 oropharyngeal thrush, added nystatin. Recommendation: Continue gentle diuresis, added nystatin for oral thrush. Continue present antibiotics, we will arrange for the patient will be transferred out of the ICU to a regular medical floor, and we'll continue to follow. Time with Patient: Less than 30
--- NOTE | 2017-12-11 10:55 | P.PN ---
Subjective Progress Note Date: 12/11/17 Keli Urban is a 62-year-old female who presented to [facility] emergency room with multiple complaints including nausea, vomiting, diarrhea, and bilateral flank and back pain, she was evaluated in the emergency room by Dr. Kaur and was found to have sepsis with severe hypotension and evidence of severe dehydration, patient had evidence of urinary tract infection , and evidence of left sided kidney stone with hydronephrosis, she was started on IV fluid, IV pressors, and IV antibiotics, she will be admitted to intensive care unit consultation for pulmonary critical care Dr. Subramanian was initiated in the emergency room. Also consultation for infectious disease and urology was initiated. Patient states that she had history of kidney stones she had right sided lithotripsy 35 years ago. Patient was seen and examined in emergency room on 12/06/2017 at 5:30 PM she is alert responsive and able to finish phrases due to shortness of breath she denies any chest pain, no nausea or vomiting at this time, she has pain in the bilateral flank area, otherwise she denies any complaints, she states that she started feeling sick about 3 days ago she was having vomiting and diarrhea she took pills to stop diarrhea at home, she denies knowing that she had a urinary tract infection, she denies taking any antibiotic recently. On 12/07/2017 patient is seen and examined in ICU she is intubated, sedated and maintained on mechanical ventilation, through the night patient had hypotension requiring high doses of IV pressors she was seen by urology and underwent double -J stent placement on the left she was intubated she is continued on IV antibiotics cefepime blood cultures are showing gram-negative bacilli lactic acid was significantly elevated but is improving at this time. On 12/08/2017 patient is seen and examined in intensive care unit she was extubated she is maintained on oxygen via nasal cannula and is tolerating well she denies any chest pain or shortness of breath at this time she is still maintained on significant amount of IV pressors, she is maintained on IV antibiotics. On 12/09/2017 patient is seen and examined in ICU she remains on oxygen via nasal cannula and is tolerating well she is still maintained on Levothroid for pressure support she is maintained on IV fluids and IV antibiotics she is still complaining of pain in the lower abdominal area bilaterally otherwise she denies any complaints On 12/10/2017 patient is currently is A & O x3 and remains in the intensive care unit. Patient has been weaned off levophed and vasopressin for pressure support. Patient currently on nasal cannula 2 L. white blood cell improving to 11.9. Patient currently on Rocephin. Dr. Nance currently following for infectious disease. Dr. Correa per critical care currently following closely. Patient denies chest pain or shortness breath. Denies nausea vomiting or diarrhea. On 12/11/2017 patient is currently anal 3 sitting up on the side of bed in the intensive care unit. Patient remains off all pressure support medication. Patient currently on room air. Patient denies chest pain or shortness breath. Patient denies any urinary burning or frequency. Denies any nausea vomiting or diarrhea Objective - Vital Signs Vital signs: Vital Signs Temp 98 F 12/11/17 08:00 Pulse 94 12/11/17 10:00 Resp 15 12/11/17 10:00 BP 120/59 12/11/17 10:00 Pulse Ox 93 L 12/11/17 10:00 Intake & Output 12/10/17 12/11/17 12/11/17 18:59 06:59 18:59 Intake Total 636 1676 1465 Output Total 2870 2280 995 Balance -2234 -604 470 Weight 127.2 kg Intake: IV 636 276 272 Magnesium Sulfate-D5w Pmx 200 1 gm In Dextrose/Water 1 100ml.bag @ 100 mls/hr IVPB Q1H [facility]ON Rx#: [id number] Pressure bag 36 36 12 Sodium Chloride 0.9% 1, 600 240 60 000 ml @ 20 mls/hr IV . Q24H DAMON Rx#:[id number] Oral 1400 1193 Output: Urine 2870 2280 995 Other: Voiding Method Indwelling Catheter Indwelling Catheter Indwelling Catheter ABP, PAP, CO, CI - Last Documented Arterial Blood Pressure 94/77 - Exam Head normocephalic Neck supple Lungs clear to auscultation bilaterally no wheezing or crackles Heart regular rate and rhythm S1-S2, no rub or gallop Abdomen is soft nontender nondistended positive bowel sounds no hepatosplenomegaly Extremities no edema Neuro alert and orientated to 3 - Labs CBC & Chem 7: 12/11/17 04:07 12/11/17 04:07 Labs: Abnormal Lab Results - Last 24 Hours (Table) 12/10/17 12/10/17 12/10/17 Range/Units 11:58 16:53 21:24 WBC (3.8-10.6) k/uL RBC (3.80-5.40) m/uL Hgb (11.4-16.0) gm/dL Hct (34.0-46.0) % Plt Count (150-450) k/uL Neutrophils # (1.3-7.7) k/uL Lymphocytes # (1.0-4.8) k/uL Carbon Dioxide (22-30) mmol/L BUN (7-17) mg/dL Creatinine (0.52-1.04) mg/dL Glucose (74-99) mg/dL POC Glucose (mg/dL) 158 H 148 H 151 H (75-99) mg/dL Calcium (8.4-10.2) mg/dL Total Bilirubin (0.2-1.3) mg/dL AST (14-36) U/L ALT (9-52) U/L Alkaline Phosphatase (38-126) U/L Total Protein (6.3-8.2) g/dL Albumin (3.5-5.0) g/dL Lipase (23-300) U/L 12/11/17 12/11/17 12/11/17 Range/Units 04:07 04:07 07:06 WBC 14.0 H (3.8-10.6) k/uL RBC 3.28 L (3.80-5.40) m/uL Hgb 9.3 L (11.4-16.0) gm/dL Hct 28.5 L (34.0-46.0) % Plt Count 69 L (150-450) k/uL Neutrophils # 11.6 H (1.3-7.7) k/uL Lymphocytes # 0.8 L (1.0-4.8) k/uL Carbon Dioxide 31 H (22-30) mmol/L BUN 43 H (7-17) mg/dL Creatinine 1.70 H (0.52-1.04) mg/dL Glucose 122 H (74-99) mg/dL POC Glucose (mg/dL) 131 H (75-99) mg/dL Calcium 8.3 L (8.4-10.2) mg/dL Total Bilirubin 2.2 H (0.2-1.3) mg/dL AST 102 H (14-36) U/L ALT 130 H (9-52) U/L Alkaline Phosphatase 297 H (38-126) U/L Total Protein 5.1 L (6.3-8.2) g/dL Albumin 2.6 L (3.5-5.0) g/dL Lipase 1544 H (23-300) U/L Microbiology - Last 24 Hours (Table) 12/06/17 14:55 Urine Culture - Final Urine,Voided Escherichia coli Assessment and Plan Assessment: #1 sepsis with septic shock, blood cultures are positive for gram-negative bacilli source of infection is most likely related to left sided pyelonephritis. Patient has been extubated to 2 L nasal cannula. Patient has been weaned off pressure support medication. Urine culture positive for Pantoe agglomerans and blood culture positive for Klebsiella ozaenae. Patient currently on antibiotic Rocephin. Dr. Nance for infectious disease is following. White blood cell improving to 11.9. Per Infectious disease when patient is ready for discharge home she will be likely discharged home on oral quinolone therapy that will be continued to the point in time for repeat cystoscopy and stone removal by lithotripsy. Chest x-ray completed showing pulmonary venous congestion persists with small persistent pleural effusion. Improved aeration at the lung bases. Dr. correa following per critical care. Patient currently on 20 mg IV Lasix daily #2 urinary tract infection, with evidence of of left sided pyelonephritis left obstructive uropathy status post double-J stent placement. Urine culture positive for Pantoe agglomerans. Patient remains on Rocephin #3 elevated liver enzymes likely related to shock liver due to hypotension. AST 102 and ALT 130 #4 slight elevation in troponin Will consult cardiology, patient denies any chest pain. Per cardiology mild elevation of cardiac enzymes likely secondary to type II event from significant hypotension and acute kidney injury and sepsis. #5 slight elevation in amylase, again likely due to hypotension doubt acute pancreatitis. repeat amylase and lipase levels ordered for tomorrow a.m. #6 left urethral calculus with left sided hydronephrosis, urology consultation requested. Per urology patient will be continued on antibiotics for several weeks prior to ureteroscopic treatment of her ureteral calculus will be discharged with a double-J catheter in place. #7 severe dehydration #8 acute renal failure, likely related to severe dehydration, possible obstructive uropathy component. Improving to 1.70 and bun 43 #9 lactic acidosis, lactic acid on presentation 4.9. 12/07 lactic acidosis 2.6 #10 thrombocytopenia platelets 50. We'll continue to monitor closely. Platelets 69 Patient remains in the intensive care unit. Patient has been weaned off pressure support medication. Patient is currently on 2 L nasal cannula. Continue to monitor patient closely. Patient currently on room air I performed an examination of the patient and discussed their management with the Nurse Practitioner. I have reviewed the Nurse Practitioner's notes and agree with the documented findings and plan of care
[2017-12-11 12:13] LABS: Glucose,Whole Blood 202 mg/dL (75-99)
--- NOTE | 2017-12-11 12:19 | P.CONS ---
History of Present Illness - Chief Complaint Medical debility - History of Present Illness I had the opportunity to see patient for inpatient rehab consultation with regard to medical debility. She is admitted to [facility] December 06 with nausea and emesis and bilateral flank pain. Seen by Dr. Goldstein for known renal calculi, diagnosed renal calculi and pyelonephritis at this time and did place left ureteral stent. Seen by Dr. Subramanian for ICU care. Seen by Dr. Nance for septic shock. Seen by Dr. Mcmullen for acute kidney injury. Seen by cardiology for hypotension. Chest x-rays followed for congestion and atelectasis. PT and OT prescribed. PT was finishing up evaluation prior to my consult. Previous functional history as elicited patient corroborative by : 62- year-old right-handed white female who is lives in a first-floor apartment with . Both retired. does the cooking. They share laundry, driving. Patient independent with standing shower and gait without device. Doesn't smoke or drink. Dr. reji montaño regular doctor. Family history of mother with NV and father with COPD. Review of Systems Review of systems: ENT: Denies sneezes or discharge. Eyes: Denies discharge or photophobia. Cardiac: Denies chest pain or palpitation. Pulmonary: Denies cough or shortness of breath. Breast: Denies discharge or lumps. Gastrointestinal: Denies nausea, emesis, constipation, diarrhea. Genitourinary: Denies discharge or frequency. Musculoskeletal: Denies muscle or bone aches. Neurologic: Generalized weakness. Endocrine: Denies shakes or sweats. Oncology: Denies cancers. Dermatologic: Denies rash, itching, pruritus. ALLERGY/immunology: Denies sneezes, rashes. Past Medical History Past Medical History: Diabetes Mellitus, GERD/Reflux, Hypertension Additional Past Medical History / Comment(s): hx of bells palsy lt side of face. seasonal allergies, past kidney stone rt side/uti History of Any Multi-Drug Resistant Organisms: None Reported Additional Past Surgical History / Comment(s): kidney surgery 30 yrs ago Past Anesthesia/Blood Transfusion Reactions: No Reported Reaction Past Psychological History: No Psychological Hx Reported Smoking Status: Never smoker Past Alcohol Use History: None Reported Past Drug Use History: None Reported - Past Family History Mother Family Medical History: Myocardial Infarction (NV) Additional Family Medical History / Comment(s): lupus Father Family Medical History: COPD Medications and Allergies Home Medications Medication Instructions Recorded Confirmed Type Aspirin [Children's Aspirin] 81 mg PO DAILY 11/28/17 12/06/17 History Gabapentin [Neurontin] 100 mg PO TID 11/28/17 12/06/17 History Ibuprofen 200 mg PO TID 11/28/17 12/06/17 History Loratadine 10 mg PO DAILY 11/28/17 12/06/17 History Losartan [Cozaar] 50 mg PO DAILY 11/28/17 12/06/17 History Multivit with Calcium,Iron,Min 1 tab PO DAILY 11/28/17 12/06/17 History [Women's Multivitamin] Naproxen 500 mg PO BID 11/28/17 12/06/17 History Omeprazole [PriLOSEC] 20 mg PO DAILY 11/28/17 12/06/17 History metFORMIN HCL [Glucophage] 500 mg PO AC-SUPPER 11/28/17 12/06/17 History Calcium Carbonate/Vitamin D3 1 tab PO DAILY 12/06/17 12/06/17 History [Calcium 600-Vit D3 400 Caplet] Hydrochlorothiazide 12.5 mg PO DAILY 12/06/17 12/06/17 History Allergies Allergy/AdvReac Type Severity Reaction Status Date / Time No Known Allergies Allergy Verified 12/06/17 13:56 Physical Exam Vitals: Vital Signs Temp Pulse Pulse Resp BP BP Pulse Ox 12/11/17 11:24 92 12/11/17 11:08 86 12/11/17 10:00 94 15 120/59 93 L 12/11/17 09:30 97 23 128/64 92 L 12/11/17 09:00 93 28 H 131/64 95 12/11/17 08:30 92 45 H 129/62 96 12/11/17 08:00 98 F 89 17 127/62 96 12/11/17 07:30 84 15 105/45 98 12/11/17 07:06 88 12/11/17 07:00 82 14 119/62 100 12/11/17 06:54 82 12/11/17 06:30 87 15 109/54 98 12/11/17 06:00 87 20 105/52 96 12/11/17 05:30 86 20 114/54 96 12/11/17 05:00 85 18 111/59 97 12/11/17 04:30 85 18 121/58 98 12/11/17 04:00 98.2 F 87 17 103/61 98 12/11/17 03:30 92 20 103/53 97 12/11/17 03:00 97 18 111/59 97 12/11/17 02:30 88 14 106/50 100 12/11/17 02:00 87 15 95/53 98 12/11/17 01:30 92 16 116/59 97 12/11/17 01:00 86 12 107/54 98 12/11/17 00:30 89 14 111/54 98 12/11/17 00:00 87 17 106/51 97 12/10/17 23:30 98.2 F 86 16 112/57 97 12/10/17 23:00 89 15 97/58 97 12/10/17 22:00 92 21 111/66 97 12/10/17 21:01 92 12/10/17 21:00 89 22 104/55 100 12/10/17 20:48 90 12/10/17 20:30 89 19 96 12/10/17 20:00 91 20 113/53 97 12/10/17 19:30 92 19 103/52 97 12/10/17 19:00 98.5 F 94 21 103/52 94 L 12/10/17 18:30 93 17 88/55 97 12/10/17 18:00 96 76 H 88/55 95 12/10/17 17:30 92 15 93/50 97 12/10/17 17:00 100 22 93/50 96 12/10/17 16:30 93 31 H 98/53 98 12/10/17 16:16 88 12/10/17 16:04 86 98 12/10/17 16:00 98.1 F 87 28 H 98/53 100 12/10/17 15:30 94 15 101/51 97 12/10/17 15:00 98.0 F 94 50 H 101/51 96 12/10/17 14:30 88 25 H 103/53 98 12/10/17 14:00 96 19 95/46 97 12/10/17 13:30 94 17 99/49 97 12/10/17 13:00 94 50 H 97/50 97 12/10/17 12:30 96 24 95/56 98 Intake and Output 08/27/18 08/28/18 08/28/18 22:59 06:59 14:59 Intake Total 304 1584 1465 Output Total 1580 1550 995 Balance -1276 34 470 Intake: IV 304 184 272 Magnesium Sulfate-D5w Pmx 200 1 gm In Dextrose/Water 1 100ml.bag @ 100 mls/hr IVPB Q1H DAMON Rx#: [id number] Pressure bag 24 24 12 Sodium Chloride 0.9% 1, 280 160 60 000 ml @ 20 mls/hr IV . Q24H DAMON Rx#:[id number] Oral 1400 1193 Output: Urine 1580 1550 995 Other: Voiding Method Indwelling Catheter Indwelling Catheter Indwelling Catheter Weight 127.2 kg Skin: Good color, texture, turgor. General: Obese build and comfortable appearance. Head: Normocephalic, atraumatic. Eyes: Symmetric. Pupils equal round. Ears: Symmetric. Hearing within normal limits. Mouth: Clear. Neck: Supple. Carotid without bruit. Cardiac: Regular rate and rhythm. Lungs: Clear anteriorly and posteriorly. Abdomen: Soft active nontender, obese. Extremities: Normal tone. Neurological: Mental status: Alert, cooperative, pleasant. Cranial nerves: Symmetric facial tone and trapezius. Motor: Actively but poor movement all limbs, especially legs. Sensation: Intact throughout. DTRs: Symmetric and equal throughout. Mobility: Sits and stands with 2 person assistance. Results CBC & Chem 7: 12/11/17 04:07 12/11/17 04:07 Labs: Abnormal Lab Results - Last 24 Hours (Table) 12/10/17 12/10/17 12/11/17 Range/Units 16:53 21:24 04:07 WBC 14.0 H (3.8-10.6) k/uL RBC 3.28 L (3.80-5.40) m/uL Hgb 9.3 L (11.4-16.0) gm/dL Hct 28.5 L (34.0-46.0) % Plt Count 69 L (150-450) k/uL Neutrophils # 11.6 H (1.3-7.7) k/uL Lymphocytes # 0.8 L (1.0-4.8) k/uL Carbon Dioxide (22-30) mmol/L BUN (7-17) mg/dL Creatinine (0.52-1.04) mg/dL Glucose (74-99) mg/dL POC Glucose (mg/dL) 148 H 151 H (75-99) mg/dL Calcium (8.4-10.2) mg/dL Total Bilirubin (0.2-1.3) mg/dL AST (14-36) U/L ALT (9-52) U/L Alkaline Phosphatase (38-126) U/L Total Protein (6.3-8.2) g/dL Albumin (3.5-5.0) g/dL Lipase (23-300) U/L 12/11/17 12/11/17 12/11/17 Range/Units 04:07 07:06 12:11 WBC (3.8-10.6) k/uL RBC (3.80-5.40) m/uL Hgb (11.4-16.0) gm/dL Hct (34.0-46.0) % Plt Count (150-450) k/uL Neutrophils # (1.3-7.7) k/uL Lymphocytes # (1.0-4.8) k/uL Carbon Dioxide 31 H (22-30) mmol/L BUN 43 H (7-17) mg/dL Creatinine 1.70 H (0.52-1.04) mg/dL Glucose 122 H (74-99) mg/dL POC Glucose (mg/dL) 131 H 202 H (75-99) mg/dL Calcium 8.3 L (8.4-10.2) mg/dL Total Bilirubin 2.2 H (0.2-1.3) mg/dL AST 102 H (14-36) U/L ALT 130 H (9-52) U/L Alkaline Phosphatase 297 H (38-126) U/L Total Protein 5.1 L (6.3-8.2) g/dL Albumin 2.6 L (3.5-5.0) g/dL Lipase 1544 H (23-300) U/L Microbiology - Last 24 Hours (Table) 12/06/17 14:55 Urine Culture - Final Urine,Voided Escherichia coli Assessment and Plan (1) Acute pyelonephritis Current Visit: Yes Status: Acute Code(s): N10 - ACUTE PYELONEPHRITIS SNOMED Code(s): 08990126 Plan: Impression: 1. Medical debility. 2. Ureteral calculus resultant pyelonephritis and septic shock. 3. Hypertension. 4. Diabetes. 5. Reflux. Comments and plan: At this time PT and OT are prescribed. Follow therapies with yourself. At this time, patient reports poor perceived endurance, perhaps 2 or 3 minutes at a time. She is hopeful for return to home with care of and support services. Have discussed with her at this time she will be two-person assist at least for her care.
[2017-12-11 13:40] VITALS: BMI 43.9
--- NOTE | 2017-12-11 14:47 | PN ---
PROGRESS NOTE Patient is seen for followup for acute kidney injury. Renal function has been progressively improving with creatinine down to 1.7 from 4.1 mg/dL on initial admission. Currently patient is not on any IV fluids. She is not on any pressor agents. She is actually transferred out of the ICU and waiting for a regular bed. PHYSICAL EXAMINATION: Blood pressure is 120/59, heart rate 94 per minute. She is afebrile. Examination of the heart: S1, S2. Examination of the lungs: Bilateral breath sounds are heard. Abdomen is soft, nontender. Examination lower extremities shows edema trace to 1+ bilaterally. LABS: Show sodium 142, potassium 3.8, BUN 43, serum creatinine 1.7, hemoglobin 9.3 g/dL. Lipase was 1544. ASSESSMENT: 1. Acute kidney injury secondary to hypotension hypoperfusion currently nonoliguric with significant improvement in renal function. The patient also had left hydronephrosis and left nephrolithiasis. She was septic with gram-negative bacteremia. 2. Chronic kidney disease secondary to diabetic nephropathy. 3. Left hydronephrosis status post cystoscopy and double-J stent placement on 12/06/2017. 4. Acute pancreatitis. Lipase level is significantly increased. 5. A severe non gap metabolic acidosis from renal failure and from diarrhea, currently improved. CO2 is up to 31. PLAN: No changes from Nephrology standpoint. Repeat labs in a.m. MMODL / IJN: [id number] /
[2017-12-11 16:55] LABS: Glucose,Whole Blood 216 mg/dL (75-99)
[2017-12-11 21:17] LABS: Glucose,Whole Blood 151 mg/dL (75-99)
--- NOTE | 2017-12-11 22:20 | P.PN ---
Subjective Progress Note Date: 12/11/17 62-year-old female who is currently postoperative, underwent cystoscopy and left ureteral catheter placement for the obstruction caused by the stone and hydronephrosis and pyelonephritis. She is now postoperative she is intubated sedated and mechanically ventilated requiring vasopressor therapy for her septic shock. She received several liters of fluid, but remains hypotensive on vasopressor therapy. It is related that before she came to Hospital she been ill for several days with nausea emesis abdominal pain and flank pain was also occurring. She become quite dehydrated and admission she had fever and hypotension. Because of her pain evaluations are performed and the obstruction was seen in the left ureter. As noted she's been evaluated by urology and is ready had surgical intervention to relieve the obstruction. 12/07/2017 reveals the patient to still be intubated sedated and mechanically ventilated. She had significant hypotension overnight requiring Levophed, vasopressin as well as a short time of epinephrine. The Levophed is being weaned at this point in time and she does have significant hypotension making it difficult for her to be significantly manipulated in the bed at this time. She is receiving the middle dose of fentanyl for sedation and pain control. She is arousable and able to follow simple commands without difficulty. Urine output has improved and her remains cloudy with a bloody appearance 12/09/2015 reveals the patient to be improved this a.m. She has been extubated and seems to be comfortable. She is still on vasopressor therapy but there has been successful reduction of the amount. She is somewhat comfortable but is very weak. Has generalized edema relates her breathing is adequate after extubation. 12/09/2017 reveals a patient to having further improvement. She is also completely weaned off of all of vasopressor therapy. She is awake and alert interactive. Appetite was poor. Urinary output is excellent and she's feeling modestly well. 12/10/2017. Her vasopressor therapies have all been discontinued and she is maintaining excellent blood pressure and oxygenation. Pain control is improved. She is now able to tolerate some diuresis to help with his significant edema that she has developed from her extensive fluid resuscitation for gram-negative septic shock. She this time is making well and is quite comfortable and is still quite weak. 12/11/2017 patient continues to have further She has been off of vasopressor and has had no worsening. She'll be transferred out of the icu today. She has very weak overall. Objective - Vital Signs Vital signs: Vital Signs Temp 98.1 F 12/11/17 22:14 Pulse 102 H 12/11/17 22:14 Resp 18 12/11/17 22:14 BP 131/68 12/11/17 22:14 Pulse Ox 90 L 12/11/17 22:14 Intake & Output 12/11/17 12/11/17 12/12/17 06:59 18:59 06:59 Intake Total 1676 1857 761 Output Total 2280 2120 1100 Balance -604 -263 -339 Weight 127.2 kg 127.2 kg Intake: IV 276 364 161 Magnesium Sulfate-D5w Pmx 200 1 gm In Dextrose/Water 1 100ml.bag @ 100 mls/hr IVPB Q1H DAMON Rx#: [id number] Pressure bag 36 24 21 Sodium Chloride 0.9% 1, 240 140 140 000 ml @ 20 mls/hr IV . Q24H DAMON Rx#:[id number] Oral 1400 1493 600 Output: Urine 2280 2120 1100 Other: Voiding Method Indwelling Catheter Indwelling Catheter ABP, PAP, CO, CI - Last Documented Arterial Blood Pressure 94/77 - Exam 62-year-old woman who looks older than her stated age, she does have significant obesity. She remains extubated and is very comfortable. Respiratory status is stable. She denies fevers or chills or other new acute symptoms HEENT: Anicteric conjunctiva are pink and moist nasal mucosa grossly intact without significant lesions, there is no thrushnoted around the endotracheal tube Neck: The neck is supple without significant lymphadenopathy or thyromegaly. Lungs: there is symmetrical air entry bilaterally. There are only a few scattered crackles no sandeep bronchial sounds no significant wheezing Heart: Regular rate and rhythm with an audible S1-S2, no S3 soft S4. There is no significant murmur click or rub, PMI was nondisplaced. Abdomen: obese,Positive bowel sounds soft , without palpable masses or organomegaly. the abdomen is nonrigid, seems to have some tenderness in the left lower quadrant. Extremities: The upper extremities have excellent pulses they are symmetric, no significant petechiae or telangiectasia. No splinter hemorrhages were noted. The upper and lower extremities do exhibit some ongoing edema for which she is receiving diuretic therapy with a good response. Neuro: Extubated awake alert oriented to person place and time no acute gross focal sensory motor deficits but has some generalized weakness - Labs CBC & Chem 7: 12/11/17 04:07 12/11/17 04:07 Labs: Abnormal Lab Results - Last 24 Hours (Table) 12/11/17 12/11/17 12/11/17 Range/Units 04:07 04:07 07:06 WBC 14.0 H (3.8-10.6) k/uL RBC 3.28 L (3.80-5.40) m/uL Hgb 9.3 L (11.4-16.0) gm/dL Hct 28.5 L (34.0-46.0) % Plt Count 69 L (150-450) k/uL Neutrophils # 11.6 H (1.3-7.7) k/uL Lymphocytes # 0.8 L (1.0-4.8) k/uL Carbon Dioxide 31 H (22-30) mmol/L BUN 43 H (7-17) mg/dL Creatinine 1.70 H (0.52-1.04) mg/dL Glucose 122 H (74-99) mg/dL POC Glucose (mg/dL) 131 H (75-99) mg/dL Calcium 8.3 L (8.4-10.2) mg/dL Total Bilirubin 2.2 H (0.2-1.3) mg/dL AST 102 H (14-36) U/L ALT 130 H (9-52) U/L Alkaline Phosphatase 297 H (38-126) U/L Total Protein 5.1 L (6.3-8.2) g/dL Albumin 2.6 L (3.5-5.0) g/dL Lipase 1544 H (23-300) U/L 12/11/17 12/11/17 12/11/17 Range/Units 12:11 16:53 21:16 WBC (3.8-10.6) k/uL RBC (3.80-5.40) m/uL Hgb (11.4-16.0) gm/dL Hct (34.0-46.0) % Plt Count (150-450) k/uL Neutrophils # (1.3-7.7) k/uL Lymphocytes # (1.0-4.8) k/uL Carbon Dioxide (22-30) mmol/L BUN (7-17) mg/dL Creatinine (0.52-1.04) mg/dL Glucose (74-99) mg/dL POC Glucose (mg/dL) 202 H 216 H 151 H (75-99) mg/dL Calcium (8.4-10.2) mg/dL Total Bilirubin (0.2-1.3) mg/dL AST (14-36) U/L ALT (9-52) U/L Alkaline Phosphatase (38-126) U/L Total Protein (6.3-8.2) g/dL Albumin (3.5-5.0) g/dL Lipase (23-300) U/L Microbiology - Last 24 Hours (Table) 12/06/17 14:55 Urine Culture - Final Urine,Voided Escherichia coli Laboratory Results WBC 14.0 k/uL (3.8-10.6) H 12/11/17 04:07 RBC 3.28 m/uL (3.80-5.40) L 12/11/17 04:07 Hgb 9.3 gm/dL (11.4-16.0) L 12/11/17 04:07 Hct 28.5 % (34.0-46.0) L 12/11/17 04:07 MCV 87.0 fL (80.0-100.0) 12/11/17 04:07 MCH 28.3 pg (25.0-35.0) 12/11/17 04:07 MCHC 32.6 g/dL (31.0-37.0) 12/11/17 04:07 RDW 14.7 % (11.5-15.5) 12/11/17 04:07 Plt Count 69 k/uL (150-450) L 12/11/17 04:07 Neutrophils % 83 % 12/11/17 04:07 Neutrophils % (Manual) 73 % 12/06/17 20:45 Band Neutrophils % 22 % 12/06/17 20:45 Lymphocytes % 6 % 12/11/17 04:07 Lymphocytes % (Manual) 2 % 12/06/17 20:45 Monocytes % 5 % 12/11/17 04:07 Monocytes % (Manual) 3 % 12/06/17 20:45 Eosinophils % 2 % 12/11/17 04:07 Basophils % 0 % 12/11/17 04:07 Metamyelocytes % 1 % 12/06/17 20:45 Myelocytes % 1 % 12/06/17 20:45 Neutrophils # 11.6 k/uL (1.3-7.7) H 12/11/17 04:07 Neutrophils # (Manual) 30.40 k/uL (1.3-7.7) H 12/06/17 20:45 Lymphocytes # 0.8 k/uL (1.0-4.8) L 12/11/17 04:07 Lymphocytes # (Manual) 0.64 k/uL (1.0-4.8) L 12/06/17 20:45 Monocytes # 0.8 k/uL (0-1.0) 12/11/17 04:07 Monocytes # (Manual) 0.96 k/uL (0-1.0) 12/06/17 20:45 Eosinophils # 0.3 k/uL (0-0.7) 12/11/17 04:07 Basophils # 0.0 k/uL (0-0.2) 12/11/17 04:07 Metamyelocytes # (Man) 0.32 k/uL (0) H 12/06/17 20:45 Myelocytes # (Manual) 0.32 k/uL (0) H 12/06/17 20:45 Nucleated RBCs 0 /100 WBC (0-0) 12/06/17 20:45 Manual Slide Review Performed 12/11/17 04:07 Toxic Granulation Present 12/06/17 20:45 Toxic Vacuolation Present 12/06/17 20:45 Large Platelets Present 12/11/17 04:07 RBC Morphology Normal 12/06/17 13:30 Polychromasia Present 12/11/17 04:07 Anisocytosis (manual) Present 12/11/17 04:07 PT 12.4 sec (9.0-12.0) H 12/08/17 04:30 INR 1.3 (<1.2) H 12/08/17 04:30 APTT 32.6 sec (22.0-30.0) H 12/08/17 04:30 Sample Site [place] 12/08/17 05:16 ABG pH 7.42 (7.35-7.45) 12/08/17 05:16 ABG pCO2 28 mmHg (35-45) L 12/08/17 05:16 ABG pO2 131 mmHg (83-108) H 12/08/17 05:16 ABG HCO3 18 mmol/L (21-25) L 12/08/17 05:16 ABG Total CO2 19 mmol/L (19-24) 12/08/17 05:16 ABG O2 Saturation 99.2 % (94-97) H 12/08/17 05:16 ABG Base Excess -6.5 mmol/L 12/08/17 05:16 Sharath Test Yes 12/08/17 05:16 ABG Lactic Acid 2.1 mmol/L (0.5-1.6) H 12/08/17 04:30 FiO2 40 % 12/08/17 05:16 Sodium 142 mmol/L (137-145) 12/11/17 04:07 Potassium 3.8 mmol/L (3.5-5.1) 12/11/17 04:07 Chloride 104 mmol/L (98-107) 12/11/17 04:07 Carbon Dioxide 31 mmol/L (22-30) H 12/11/17 04:07 Anion Gap 7 mmol/L 12/11/17 04:07 BUN 43 mg/dL (7-17) H 12/11/17 04:07 Creatinine 1.70 mg/dL (0.52-1.04) H 12/11/17 04:07 Est GFR (CKD-EPI)AfAm 37 (>60 ml/min/1.73 sqM) 12/11/17 04:07 Est GFR (CKD-EPI)NonAf 32 (>60 ml/min/1.73 sqM) 12/11/17 04:07 Glucose 122 mg/dL (74-99) H 12/11/17 04:07 POC Glucose (mg/dL) 151 mg/dL (75-99) H 12/11/17 21:16 POC Glu Financial [employer]st Intern ID Irineo Means 12/11/17 21:[address] Glu mg/dL 151 12/06/17 13:30 Hemoglobin A1c 6.9 % (4.0-6.0) H 12/06/17 13:30 Lactic Ac Sepsis Rflx Y 12/07/17 09:34 Plasma Lactic Acid Joe 2.6 mmol/L (0.7-2.0) H* 12/07/17 08:00 Uric Acid 6.6 mg/dL (3.7-7.4) 12/06/17 20:45 Calcium 8.3 mg/dL (8.4-10.2) L 12/11/17 04:07 Phosphorus 2.9 mg/dL (2.5-4.5) 12/11/17 04:07 Magnesium 1.9 mg/dL (1.6-2.3) 12/11/17 04:07 Total Bilirubin 2.2 mg/dL (0.2-1.3) H 12/11/17 04:07 AST 102 U/L (14-36) H 12/11/17 04:07 ALT 130 U/L (9-52) H 12/11/17 04:07 Alkaline Phosphatase 297 U/L (38-126) H 12/11/17 04:07 Troponin I 0.916 ng/mL (0.000-0.034) H* 12/07/17 06:12 Total Protein 5.1 g/dL (6.3-8.2) L 12/11/17 04:07 Albumin 2.6 g/dL (3.5-5.0) L 12/11/17 04:07 Amylase 76 U/L (30-110) 12/11/17 04:07 Lipase 1544 U/L (23-300) H 12/11/17 04:07 Cortisol 20 ug/dL 12/07/17 11:40 Urine Color Red 12/06/17 14:55 Urine Appearance Turbid (Clear) H 12/06/17 14:55 Urine pH 6.5 (5.0-8.0) 12/06/17 14:55 Ur Specific [place] 1.011 (1.001-1.035) 12/06/17 14:55 Urine Protein 2+ (Negative) H 12/06/17 14:55 Urine Glucose (UA) Negative (Negative) 12/06/17 14:55 Urine Ketones Negative (Negative) 12/06/17 14:55 Urine Blood Large (Negative) H 12/06/17 14:55 Urine Nitrite Negative (Negative) 12/06/17 14:55 Urine Bilirubin Negative (Negative) 12/06/17 14:55 Urine Urobilinogen <2.0 mg/dL (<2.0) 12/06/17 14:55 Ur Leukocyte Esterase Large (Negative) H 12/06/17 14:55 Urine RBC >182 /hpf (0-5) H 12/06/17 14:55 Urine WBC >182 /hpf (0-5) H 12/06/17 14:55 Urine WBC Clumps Many /hpf (None) H 12/06/17 14:55 Urine Bacteria Moderate /hpf (None) H 12/06/17 14:55 Urine Mucus Many /hpf (None) H 12/06/17 14:55 Microbiology 12/06/17 14:55 Urine,Voided Urine Culture - Final Escherichia coli 12/06/17 19:39 Urine,Voided Urine Culture - Final Pantoea agglomerans 12/07/17 00:05 Sputum Gram Stain - Final 12/07/17 00:05 Sputum Sputum Culture - Final 12/06/17 16:04 Blood Blood Culture Gram Stain - Final 12/06/17 16:04 Blood Blood Culture - Final Klebsiella ozaenae 12/06/17 16:04 Blood Blood Culture - Final Assessment and Plan (1) Septic shock Narrative/Plan: female presents to Hospital feeling poorly several days this done evidence of fever and hypotension leukocytosis and lactic acidosis. She was on evidence of septic shock requiring fluid resuscitation and vasopressor therapy. She had evidence of obstruction of the left ureter has been taking the operating room for stent placement. He is now postoperative. Her leukocytosis has worsened to 32.1 and she remains hypotensive requiring further fluid resuscitation and vasopressor therapy. Urine output is adequate. The patient did have significant acidosis that certainly improving. Does still have lactic acidosis and further fluid is requested. Antimicrobial therapy has been initiated with cefepime. Since give us coverage for pseudomonas as well as most other gram-negative organisms in his abdomen for now. He review is done and she has no history of resistant pathogens .Cultures will further help direct her course of antibiotic therapy as she improves. Respiratory failure appears to be postoperative in all we will rapidly resolve as her sepsis improves. Profound leukocytosis during her related to her sepsis, as well as the thrombocytopenia likely invasive gram-negative sepsis. Cultures are pending. December 07 2017 the patient remains in intensive care unit with some improvement in that she has had a decrease of her vasopressor requirements. Urine output is adequate. Neurologically she is awake and interactive. Maneuvers to reduce her vasopressor requirements are continuing. No plans for weaning her extubation at this time given her significant hemodynamic challenge. Blood and urine cultures revealed gram-negative bacilli. We are awaiting the final susceptibility for final choice of antibiotic therapy. Follow blood culture is negative so far. The case is discussed with neurologist and the family members. 12/08/2017 patient remains in intensive care unit on a reduced amount of vasopressor therapy. She is now extubated and seems to be doing well from the pulmonary standpoint. Overall she is showing improvement from her gram- negative septic shock. Final cultures are pending which will further help with direct the course of antibiotic therapy at the time of discharge. She will follow closely with urology in the outpatient setting as to the timing of the stent removal and laser lithotripsy for removal of the obstructing stone resulting in the polynephritis bacteremia and septic shock. 12/09/2017 pleasant 62-year-old woman presented to hospital with septic shock is now doing considerably better after her multiple interventions that included cystoscopy and placement of stent to allow drainage of the obstructed kidney. This is also allowed what appears to be resolution of her bacteremia and hypotension. She is feeling considerably better but is has a poor appetite. Cultures are now available and Klebsiella ozaenae have been isolated in both the urine or blood cultures. Surprisingly it is a highly susceptible organism. Will de-escalate antibiotic therapy at this time to ceftriaxone. When she is ready for discharge to home likely will be on oral quinolone therapy that will be continued up to the point in time of her repeat cystoscopy and stone removal by lithotripsy. 12/10/2017 patient continues to improve from her gram-negative septic shock. She's no longer in a vasopressor therapy. She tolerated extubation well and is having tolerance of diuretic therapy allowing some diuresis of her extensive edematous status. As noted the gram-negative of Klebsiella as well as Pantoea both fentanyl and eschar the time of her discharge she will be transitioned to oral ciprofloxacin therapy complete 21 days of therapy. 12/11/2017 patient shows further improvement. No acute worsening but is with generalized weakness, Physical medicine consult to occur. patient will be treated with 21 days for her gram-negative sepsis from obstructive of the left ureter and will require follow-upwith urology after discharge. Current Visit: Yes Status: Acute Code(s): A41.9 - SEPSIS, UNSPECIFIED ORGANISM; R65.21 - SEVERE SEPSIS WITH SEPTIC SHOCK SNOMED Code(s): 15090323 (2) Acute pyelonephritis Current Visit: Yes Status: Acute Code(s): N10 - ACUTE PYELONEPHRITIS SNOMED Code(s): 49818629 (3) Acute renal failure Current Visit: Yes Status: Acute Code(s): N17.9 - ACUTE KIDNEY FAILURE, UNSPECIFIED SNOMED Code(s): 43338366 (4) Calculus of ureter Current Visit: Yes Status: Acute Code(s): N20.1 - CALCULUS OF URETER SNOMED Code(s): 85003561
[2017-12-12] MEDS: SODIUM CHLORIDE 0.9% 1,000 ML IV SCH (00:31)
[2017-12-12 07:12] LABS: Glucose,Whole Blood 121 mg/dL (75-99)
[2017-12-12] MEDS: INSULIN ASPART 100 UNIT/ML 1 ML 10 ML VIAL SQ SCH ×4 (07:33→20:22)
[2017-12-12 08:01] LABS: Basophils # (A) 0.1 k/uL (0-0.2); Basophils % (A) 0 %; Eosinophils # (A) 0.4 k/uL (0-0.7); Eosinophils % (A) 2 %; HCT 30.6 % (34.0-46.0); HGB 9.6 gm/dL (11.4-16.0); Hypochromasia Slight; Lymphocytes # (A) 1.1 k/uL (1.0-4.8); Lymphocytes % (A) 7 %; MCH 27.8 pg (25.0-35.0); MCHC 31.3 g/dL (31.0-37.0); Mean Platelet Volume 10.9; Monocytes # (A) 0.8 k/uL (0-1.0); Monocytes % (A) 5 %; Neutrophils % (A) 83 %; RBC 3.44 m/uL (3.80-5.40); RDW 14.6 % (11.5-15.5); WBC 15.7 k/uL (3.8-10.6)
[2017-12-12 08:16] LABS: Platelet Count 113 k/uL (150-450)
[2017-12-12 08:23] LABS: Albumin 2.7 g/dL (3.5-5.0); Calcium 8.5 mg/dL (8.4-10.2); Magnesium 1.9 mg/dL (1.6-2.3); Phosphorus 2.7 mg/dL (2.5-4.5); Potassium 3.9 mmol/L (3.5-5.1); Total Bilirubin 1.6 mg/dL (0.2-1.3); Total Protein 5.4 g/dL (6.3-8.2)
[2017-12-12 09:10] LABS: Large Platelets Present; Polychromasia Present
[2017-12-12 09:11] LABS: Poikilocytosis (M) Present
[2017-12-12] MEDS: FUROSEMIDE 10 MG/ML 2 ML VIAL IV SCH (09:28)
[2017-12-12] MEDS: PANTOPRAZOLE 40 MG/10 ML VIAL IVP SCH (09:28)
[2017-12-12] MEDS: cefTRIAXone IN SWFI 2,000 MG/20 ML SYRINGE IVP SCH (09:28)
[2017-12-12] MEDS: POTASSIUM BICARBONATE/CIT AC 20 MEQ TABLET.EFF NG-TUBE SCH (09:29)
--- NOTE | 2017-12-12 09:33 | XR ---
EXAMINATION TYPE: XR chest 1V DATE OF EXAM: 12/12/2017 COMPARISON: 12/11/2017 INDICATION: Shortness of breath TECHNIQUE: Single frontal view of the chest is obtained. FINDINGS: The heart size is mildly prominent. The pulmonary vasculature is prominent. Mild diffuse increased lung markings are present. Left central venous catheter is present with the tip in the superior vena cava region IMPRESSION: 1. Clinical correlation recommended for mild worsening congestive heart failure.
--- NOTE | 2017-12-12 11:01 | P.PN ---
Progress Note - Text Progress Note Date: 12/12/17 Mrs. Urban's condition is much improved. She continues to receive IV antibiotics. She denies pain, but does report fatigue. She is currently afebrile. I would suggest that the Stewart catheter be removed when no longer medically needed. I discussed with her that the urologic plan is for her to follow up with me 1 week after discharge to confirm the absence of infection. At that time, she will be scheduled to undergo cystoscopy, left ureteral stent removal, and ureteroscopic removal of her left ureteral calculus.
[2017-12-12] MEDS: NYSTATIN 100,000 UNIT/ML SUSP 500,000 UNIT/5 ML CUP PO SCH ×4 (11:14→20:22)
[2017-12-12 12:02] LABS: Glucose,Whole Blood 184 mg/dL (75-99)
--- NOTE | 2017-12-12 12:06 | P.PN ---
Subjective Progress Note Date: 12/12/17 Keli Urban is a 62-year-old female who presented to [facility] emergency room with multiple complaints including nausea, vomiting, diarrhea, and bilateral flank and back pain, she was evaluated in the emergency room by Dr. Kaur and was found to have sepsis with severe hypotension and evidence of severe dehydration, patient had evidence of urinary tract infection , and evidence of left sided kidney stone with hydronephrosis, she was started on IV fluid, IV pressors, and IV antibiotics, she will be admitted to intensive care unit consultation for pulmonary critical care Dr. Subramanian was initiated in the emergency room. Also consultation for infectious disease and urology was initiated. Patient states that she had history of kidney stones she had right sided lithotripsy 35 years ago. Patient was seen and examined in emergency room on 12/06/2017 at 5:30 PM she is alert responsive and able to finish phrases due to shortness of breath she denies any chest pain, no nausea or vomiting at this time, she has pain in the bilateral flank area, otherwise she denies any complaints, she states that she started feeling sick about 3 days ago she was having vomiting and diarrhea she took pills to stop diarrhea at home, she denies knowing that she had a urinary tract infection, she denies taking any antibiotic recently. On 12/07/2017 patient is seen and examined in ICU she is intubated, sedated and maintained on mechanical ventilation, through the night patient had hypotension requiring high doses of IV pressors she was seen by urology and underwent double -J stent placement on the left she was intubated she is continued on IV antibiotics cefepime blood cultures are showing gram-negative bacilli lactic acid was significantly elevated but is improving at this time. On 12/08/2017 patient is seen and examined in intensive care unit she was extubated she is maintained on oxygen via nasal cannula and is tolerating well she denies any chest pain or shortness of breath at this time she is still maintained on significant amount of IV pressors, she is maintained on IV antibiotics. On 12/09/2017 patient is seen and examined in ICU she remains on oxygen via nasal cannula and is tolerating well she is still maintained on Levothroid for pressure support she is maintained on IV fluids and IV antibiotics she is still complaining of pain in the lower abdominal area bilaterally otherwise she denies any complaints On 12/10/2017 patient is currently is A & O x3 and remains in the intensive care unit. Patient has been weaned off levophed and vasopressin for pressure support. Patient currently on nasal cannula 2 L. white blood cell improving to 11.9. Patient currently on Rocephin. Dr. Nance currently following for infectious disease. Dr. Correa per critical care currently following closely. Patient denies chest pain or shortness breath. Denies nausea vomiting or diarrhea. On 12/11/2017 patient is currently a & O 3 sitting up on the side of bed in the intensive care unit. Patient remains off all pressure support medication. Patient currently on room air. Patient denies chest pain or shortness breath. Patient denies any urinary burning or frequency. Denies any nausea vomiting or diarrhea On 12/12/2017 patient is currently resting comfortably in bed. Patient has been moved to a medical surgical floor. She denies chest pain or shortness of breath patient denies any urinary burning or frequency. Denies any nausea vomiting or diarrhea. Objective - Vital Signs Vital signs: Vital Signs Temp 98.3 F 12/12/17 05:45 Pulse 92 12/12/17 05:45 Resp 16 12/12/17 05:45 BP 149/70 12/12/17 05:45 Pulse Ox 91 L 12/12/17 05:45 Intake & Output 12/11/17 12/12/17 12/12/17 18:59 06:59 18:59 Intake Total 1857 1561 Output Total 2120 1100 1000 Balance -263 461 -1000 Weight 127.2 kg 127.2 kg Intake: IV 364 161 Magnesium Sulfate-D5w Pmx 200 1 gm In Dextrose/Water 1 100ml.bag @ 100 mls/hr IVPB Q1H [facility] Rx#: [id number] Pressure bag 24 21 Sodium Chloride 0.9% 1, 140 140 000 ml @ 20 mls/hr IV . Q24H [facility] Rx#:[id number] Oral 1493 1400 Output: Urine 2120 1100 1000 Other: Voiding Method Indwelling Catheter Indwelling Catheter Indwelling Catheter ABP, PAP, CO, CI - Last Documented Arterial Blood Pressure 94/77 - Exam Head normocephalic Neck supple Lungs clear to auscultation bilaterally no wheezing or crackles Heart regular rate and rhythm S1-S2, no rub or gallop Abdomen is soft nontender nondistended positive bowel sounds no hepatosplenomegaly Extremities no edema Neuro alert and orientated to 3 - Labs CBC & Chem 7: 12/12/17 07:45 12/12/17 07:45 Labs: Abnormal Lab Results - Last 24 Hours (Table) 12/11/17 12/11/17 12/11/17 Range/Units 12:11 16:53 21:16 WBC (3.8-10.6) k/uL RBC (3.80-5.40) m/uL Hgb (11.4-16.0) gm/dL Hct (34.0-46.0) % Plt Count (150-450) k/uL Neutrophils # (1.3-7.7) k/uL Carbon Dioxide (22-30) mmol/L BUN (7-17) mg/dL Creatinine (0.52-1.04) mg/dL Glucose (74-99) mg/dL POC Glucose (mg/dL) 202 H 216 H 151 H (75-99) mg/dL Total Bilirubin (0.2-1.3) mg/dL AST (14-36) U/L ALT (9-52) U/L Alkaline Phosphatase (38-126) U/L Total Protein (6.3-8.2) g/dL Albumin (3.5-5.0) g/dL 12/12/17 12/12/17 12/12/17 Range/Units 07:11 07:45 07:45 WBC 15.7 H (3.8-10.6) k/uL RBC 3.44 L (3.80-5.40) m/uL Hgb 9.6 L (11.4-16.0) gm/dL Hct 30.6 L (34.0-46.0) % Plt Count 113 L D (150-450) k/uL Neutrophils # 13.0 H (1.3-7.7) k/uL Carbon Dioxide 32 H (22-30) mmol/L BUN 36 H (7-17) mg/dL Creatinine 1.30 H (0.52-1.04) mg/dL Glucose 119 H (74-99) mg/dL POC Glucose (mg/dL) 121 H (75-99) mg/dL Total Bilirubin 1.6 H (0.2-1.3) mg/dL AST 67 H (14-36) U/L ALT 108 H (9-52) U/L Alkaline Phosphatase 323 H (38-126) U/L Total Protein 5.4 L (6.3-8.2) g/dL Albumin 2.7 L (3.5-5.0) g/dL Microbiology - Last 24 Hours (Table) 12/06/17 16:04 Blood Culture Gram Stain - Final Blood Blood Culture - Final Klebsiella ozaenae Assessment and Plan Assessment: #1 sepsis with septic shock, blood cultures are positive for gram-negative bacilli source of infection is most likely related to left sided pyelonephritis. Patient has been extubated to 2 L nasal cannula. Patient has been weaned off pressure support medication. Urine culture positive for Pantoe agglomerans and blood culture positive for Klebsiella ozaenae. Patient currently on antibiotic Rocephin. Dr. Nance for infectious disease is following. White blood cell improving to 11.9. Per Infectious disease when patient is ready for discharge home she will be likely discharged home on oral quinolone therapy that will be continued to the point in time for repeat cystoscopy and stone removal by lithotripsy. Chest x-ray completed showing pulmonary venous congestion persists with small persistent pleural effusion. Improved aeration at the lung bases. Dr. correa following per critical care. Patient currently on 20 mg IV Lasix daily #2 urinary tract infection, with evidence of of left sided pyelonephritis left obstructive uropathy status post double-J stent placement. Urine culture positive for Pantoe agglomerans. Patient remains on Rocephin #3 elevated liver enzymes likely related to shock liver due to hypotension. AST 102 and ALT 130 #4 slight elevation in troponin Will consult cardiology, patient denies any chest pain. Per cardiology mild elevation of cardiac enzymes likely secondary to type II event from significant hypotension and acute kidney injury and sepsis. #5 slight elevation in amylase, again likely due to hypotension doubt acute pancreatitis. repeat amylase and lipase levels ordered for tomorrow a.m. #6 left urethral calculus with left sided hydronephrosis, urology consultation requested. Per urology patient will be continued on antibiotics for several weeks prior to ureteroscopic treatment of her ureteral calculus will be discharged with a double-J catheter in place. #7 severe dehydration #8 acute renal failure, likely related to severe dehydration, possible obstructive uropathy component. Improving to 1.30 and bun 36 #9 lactic acidosis, lactic acid on presentation 4.9. 8/24 lactic acidosis 2.6 #10 thrombocytopenia platelets 50. We'll continue to monitor closely. Platelets Trending up to 113 Patient [facility]. Patient is continuing to show significant improvement DVT prophylaxis Lovenox and GI prophylaxis Protonix I performed an examination of the patient and discussed their management with the Nurse Practitioner. I have reviewed the Nurse Practitioner's notes and agree with the documented findings and plan of care
--- NOTE | 2017-12-12 13:40 | P.PN ---
Subjective Progress Note Date: 12/12/17 Principal diagnosis: Pyelonephritis with acute sepsis 62-year-old morbidly obese female patient presented to the emergency department because of nausea vomiting diarrhea and left flank pain. The patient was extremely dehydrated. She was hypotensive with initial systolic blood pressure in the 60s. Her blood work was completely abnormal with an acute kidney injury in the creatinine of 4.1 and the patient had a anion gap metabolic acidosis with a bicarb of 22 and anion gap of 14 and Actiq acid was at 4.9. The patient' s white cell count was at 20.5. After receiving 4 L of IV fluids the patient remained hypotensive. The patient started on pressors initially at 5 mics and currently she is up to 30 mics of norepinephrine infusion at sonic through a peripheral line. A triple lumen catheter was inserted immediately. A blood gases obtained that showed a pH of 7.24 with a pCO2 of 47 and pO2 of 80. The patient is still awake and alert. She is a bit uncomfortable. Unable to lay down flat. Chest x-ray post-line insertion shows adequate expansion of both lungs and there is no evidence of any pneumonia. The triple-lumen catheter is in good location. The patient was given a dose of Rocephin 2 g IV in the emergency department. Stewart catheter was inserted. Not a whole lot of urine output is being produced this point in time. CAT scan of the abdomen was done and the patient has a proximal left ureteral calculus. There is also a right- sided nephrolithiasis. There is cholelithiasis without evidence of cholecystitis. Patient has a 19 x 8 x 21 mm stone in the right renal pelvis which is nonobstructive. Another 3-4 mm stone in the proximal left ureter. Discussed the case with Dr. Emil Green from urology and the patient be taken to the operating room for an immediate double-J stent insertion in the left. On and I'm seeing this patient for a follow-up. As mentioned earlier the patient came in today burst department with severe dehydration, sepsis, complicated UTI, left-sided pyelonephritis, septic shock, metabolic acidosis, lactic acidosis and acute kidney injury. The patient was taken to the operating room yesterday and a double-J stent was inserted on the left. Postop , the patient was kept intubated on a mechanical ventilator. She became quite hypotensive and upon arrival to the ICU the patient was already hypotensive and pressor dependent. Throughout the night the patient received fluids aggressively in order of 6 L of IV fluids. She also received albumin. The patient continued to be profoundly hypotensive. I added vasopressin physiologic dose and she was brought up to a 60 g of norepinephrine infusion per minutes. Also epinephrine was started to maintain a mean arterial pressure above 60. She continued to have episodes of fever treated with IV Tylenol. Aspirin antibiotic coverage, the patient was kept on IV cefepime. The primary blood cultures showing gram-negative bacillus and final cultures of been identified yet. This morning, the patient is sedated Diprivan and she is calm and comfortable and currently she is on 35 g of Diprivan infusion with adequate sedation. She is an assist-control mode of ventilation at the rate of 28 with a tidal volume of 500 and FiO2 of 70% with a PEEP of 5. Morning blood gases showed a pH of 7.28 with a pCO2 of 30 and pO2 of 103 and this was done and FiO2 of 70% and based on that the FiO2 was dropped down to 60%. Chest x- ray showed adequate positioning of the ET tube and the patient has a left IJ triple lumen catheter in place. The chest x-ray also showed stable cardiopulmonary and mediastinal structures. Echocardiogram was done and showed a preserved LV function with an ejection fraction of 55-60% without any significant valvular abnormalities. The patient is not fluid balance is +5 L over the past 24 hours. She did start making some urine at this point in time and she is producing approximately 10-15 mL an hour. Her white cell count peaked at 32 and currently is down to 27. Her lactic acid levels are improving and is down to 2.6. The patient's creatinine is down to 3.6. Her bicarb level is down to 13 and the patient was switched a bicarb drip infusion. Is a troponin leak there is also abnormal LFTs all probably later to severe septic shock. On 12/08/2017, the patient is wide awake and alert. This morning she was on 20 mics of Diprivan however she was awake and communicating and answering questions and communicating with us by writing on a piece of paper. She wanted to above. She was still on 20 mics of norepinephrine infusion addition to vasopressin. Nevertheless, she is afebrile and she is producing adequate amount of urine output. No respiratory difficulties. Weaning parameters were excellent. The patient is still on broad-spectrum antibiotics. Morning blood gases showed a pH of 7.42 with a pCO2 of 28 and pO2 131. The chest x-ray showed no acute abnormalities. White cell count is at 20.6. The rest of the blood work shows improvement in renal function with a creatinine being down to 3.2. The patient is still acidotic and this is a non-anion gap metabolic acidosis and the patient is still on a bicarb drip for now. Her net fluid balance is positive for 4.8 L yesterday On 12/09/2017, this patient is extubated and she is awake and alert. She is on 20 mics of norepinephrine infusion and we are in the process of weaning her down further. She is off sedation. She is producing good amount of urine output in the order of 50 mL an hour. Renal function continues to improve. The blood culture showed Klebsiella sepsis secondary to underlying urinary tract infection. No altered mentation. No nausea vomiting. No abdominal pain. She is tolerating diet. She is communicating. She was taken off the bicarb drip knowing that the non-anion gap metabolic acidosis has improved. We' ll cut down the IV fluids also down to 50 mL an hour as the patient is mobilizing her extra fluid. The chest x-ray from today shows a component of mild four-vessel congestion/edema and the patient is currently on 4 L about 2 by nasal cannula. The patient remains on IV cefepime for now. Patient was reevaluated today on 12/10/2017, presently on nasal cannula, in no distress. She is off norepinephrine, and she is off vasopressin. She was taken off vasopressin only about an hour ago. And her blood pressure seems to be holding although it is marginal. But she does have a good urine output. Renal functioning continues to improve, her BUN today is 50 creatinine is 1.90. Platelets remain low at 50,000, hence I recommended that we hold heparin subcu , and continue Venodyne boots and compression stockings for deep vein thrombosis prophylaxis. Her WBC count is 11.9 hemoglobin is 9.4. Clinically the patient is doing well, she is relatively asymptomatic. Her blood cultures came back positive for Klebsiella ozaenae, and her urine cultures are also positive for the same organism. Urine cultures also positive for pantoea agglomerans. This is sensitive to all antibiotics tested. Patient is presently on Rocephin as per infectious disease on the case. Clinically the patient has been responding well to treatment, however she received a total of 12 L of fluid since admission, and we are planning to gently diurese the patient. Chest x-ray continues to show some evidence of pulmonary venous congestion with small persistent pleural effusions bilaterally. Reevaluated today on 12/11/2017, patient is in no form of distress, relatively asymptomatic, remains off pressors, hemodynamically stable, urine output is excellent renal functioning is improving. WBC count is down to 14 hemoglobin is 9.3 BUN is 43 creatinine is 1.7, liver profile remains a bit elevated but improving. Lipase is 1544. However the patient has no symptoms of abdominal pain or any symptoms to suggest pancreatitis. Chest x-ray showed mild pulmonary vascular congestion. Blood cultures were noted as to urine cultures were also noted to be positive, and the patient remains on antibiotics as per infectious disease recommendation. The patient is seen again today 12/12/2017 in follow-up on the regular medical floor. She is awake and alert in no acute distress. Currently sitting up at the bedside. She denies any worsening shortness of breath, cough or congestion. No significant pain or discomfort. She remains quite weak. She is maintaining O2 saturations in the low 90s on 2 L/m per nasal cannula. She's been afebrile. Hemodynamically stable. White count 15.7. Hemoglobin 9.6. Creatinine 1.30. Urine culture is positive for E. coli and Pantoea agglomerans. Blood culture positive for Klebsiella ozaenae. AST 108, ALT 323. Objective - Vital Signs Vital signs: Vital Signs Temp 98.3 F 12/12/17 05:45 Pulse 92 12/12/17 05:45 Resp 16 12/12/17 05:45 BP 149/70 12/12/17 05:45 Pulse Ox 91 L 12/12/17 05:45 Intake & Output 12/11/17 12/12/17 12/12/17 18:59 06:59 18:59 Intake Total 1857 1561 Output Total 2120 1100 1000 Balance -263 461 -1000 Weight 127.2 kg 127.2 kg Intake: IV 364 161 Magnesium Sulfate-D5w Pmx 200 1 gm In Dextrose/Water 1 100ml.bag @ 100 mls/hr IVPB Q1H [facility] Rx#: [id number] Pressure bag 24 21 Sodium Chloride 0.9% 1, 140 140 000 ml @ 20 mls/hr IV . Q24H [facility] Rx#:[id number] Oral 1493 1400 Output: Urine 2120 1100 1000 Other: Voiding Method Indwelling Catheter Indwelling Catheter Indwelling Catheter ABP, PAP, CO, CI - Last Documented Arterial Blood Pressure 94/77 - Exam Gen. appearance, physical exam revealed a 62-year-old female in no distress, on 4 L nasal cannula. Head exam was generally normal. There was no scleral icterus or corneal arcus. Mucous membranes were moist. Evidence of oropharyngeal thrush noted.. Neck was supple and without jugular venous distension, thyromegaly, or carotid bruits. Carotids were easily palpable bilaterally. There was no adenopathy. The patient has a left IJ triple-lumen catheter in place. Lungs were clear to auscultation and percussion, and with normal diaphragmatic excursion. No crackles or rhonchi or wheezes. Cardiac exam revealed the PMI to be normally situated and sized. Normal S1 and S2, no S3 gallop. No murmur. Abdominal exam slightly obese, soft, nontender, no megaly, no rebound, positive bowel sounds. Examination of the extremities revealed no clubbing, no edema, no cyanosis. Neurologically patient is alert and awake 3, no gross focal neurologic deficit Examination of the skin revealed no evidence of erythema, or rashes. - Labs CBC & Chem 7: 12/12/17 07:45 12/12/17 07:45 Labs: Abnormal Lab Results - Last 24 Hours (Table) 12/11/17 12/11/17 12/11/17 Range/Units 12:11 16:53 21:16 WBC (3.8-10.6) k/uL RBC (3.80-5.40) m/uL Hgb (11.4-16.0) gm/dL Hct (34.0-46.0) % Plt Count (150-450) k/uL Neutrophils # (1.3-7.7) k/uL Carbon Dioxide (22-30) mmol/L BUN (7-17) mg/dL Creatinine (0.52-1.04) mg/dL Glucose (74-99) mg/dL POC Glucose (mg/dL) 202 H 216 H 151 H (75-99) mg/dL Total Bilirubin (0.2-1.3) mg/dL AST (14-36) U/L ALT (9-52) U/L Alkaline Phosphatase (38-126) U/L Total Protein (6.3-8.2) g/dL Albumin (3.5-5.0) g/dL 12/12/17 12/12/17 12/12/17 Range/Units 07:11 07:45 07:45 WBC 15.7 H (3.8-10.6) k/uL RBC 3.44 L (3.80-5.40) m/uL Hgb 9.6 L (11.4-16.0) gm/dL Hct 30.6 L (34.0-46.0) % Plt Count 113 L D (150-450) k/uL Neutrophils # 13.0 H (1.3-7.7) k/uL Carbon Dioxide 32 H (22-30) mmol/L BUN 36 H (7-17) mg/dL Creatinine 1.30 H (0.52-1.04) mg/dL Glucose 119 H (74-99) mg/dL POC Glucose (mg/dL) 121 H (75-99) mg/dL Total Bilirubin 1.6 H (0.2-1.3) mg/dL AST 67 H (14-36) U/L ALT 108 H (9-52) U/L Alkaline Phosphatase 323 H (38-126) U/L Total Protein 5.4 L (6.3-8.2) g/dL Albumin 2.7 L (3.5-5.0) g/dL Microbiology - Last 24 Hours (Table) 12/06/17 16:04 Blood Culture Gram Stain - Final Blood Blood Culture - Final Klebsiella ozaenae Assessment and Plan Assessment: 1 acute septic shock secondary to gram negative infection. The patient has gram -negative and the blood and the urine. The source of the septic shock is a a complicated UTI, possible left-sided pyelonephritis. The patient has a 3 mm ureteral stent and she is post double-J stent insertion in the left. Patient has made a significant improvement clinically over the last couple of days. She is now off pressors, and we are diuresing her gently. We discontinued vasopressin On 12/10/2017 2 Acute urinary tract infection, complicated, associated with acute gram- negative septic shock 3 nephrolithiasis with a proximal left ureteral stone causing ureteral obstruction in addition to nonobstructive calculus on the right kidney pelvis. 4 lactic acidosis, resolved 5 non-anion gap metabolic acidosis secondary to above. Resolved 6 Leukocytosis secondary to above, significantly improved 7 acute kidney injury secondary to above, improving. 8 obesity 9 diabetes mellitus 10 history of hypertension 11 troponin leak secondary to septic shock 12 abnormal liver function tests secondary to sepsis/septic shock 13 thrombocytopenia secondary to sepsis and septic shock. Improving, platelets on 12/11 are 69,000 compared to 50,000 on 12/10. 14 oropharyngeal thrush, added nystatin. Recommendation: The patient was seen and evaluated by Dr. Correa. She is currently stable from the pulmonary and critical care standpoint. We'll continue with her current medications. We will increase her activity as tolerated. We'll continue to follow. I, the cosigning physician, performed a history & physical examination of the patient. Lungs sounds with crackles in the posterior bases. Maintaining good O2 saturations in the 90s on 2 L/m per nasal cannula. I discussed the assessment and plan of care with my nurse practitioner, Callie Reaves. I attest to the above note as dictated by her.
[2017-12-12 16:59] LABS: Glucose,Whole Blood 169 mg/dL (75-99)
[2017-12-12 20:09] LABS: Glucose,Whole Blood 190 mg/dL (75-99)
--- NOTE | 2017-12-12 21:03 | PN ---
PROGRESS NOTE The patient is seen for followup for acute kidney injury. She has been transferred out of the ICU. Patient has good urine output. The renal function continues to improve with creatinine down to 1.3 today. The patient is not on any fluids. EXAMINATION: Blood pressure was 142/76, heart rate 93 per minute. She is afebrile. HEART: S1, S2. LUNGS: Bilateral breath sounds are heard. Abdomen is soft, nontender. Lower extremities show edema 1+ bilaterally. LABS SHOW: Sodium 141, potassium 3.9, BUN 36, creatinine 1.3. Albumin 2.7. Hemoglobin 9.6 g/dL. ASSESSMENT: 1. Acute kidney injury, currently improving, nonoliguric etiology with hypotension, hypoperfusion along with left hydronephrosis and left nephrolithiasis and gram- negative bacteremia. 2. Chronic kidney disease secondary to diabetic nephropathy. 3. Left hydronephrosis, status post cystoscopy and double-J stent placement on 12/06. PLAN: Continue to increase oral intake. Avoid nephrotoxic medications. Continue with Lasix for now. MMODL / IJN: [id number] /
--- NOTE | 2017-12-12 23:24 | P.PN ---
Subjective Progress Note Date: 12/12/17 62-year-old female who is currently postoperative, underwent cystoscopy and left ureteral catheter placement for the obstruction caused by the stone and hydronephrosis and pyelonephritis. She is now postoperative she is intubated sedated and mechanically ventilated requiring vasopressor therapy for her septic shock. She received several liters of fluid, but remains hypotensive on vasopressor therapy. It is related that before she came to Hospital she been ill for several days with nausea emesis abdominal pain and flank pain was also occurring. She become quite dehydrated and admission she had fever and hypotension. Because of her pain evaluations are performed and the obstruction was seen in the left ureter. As noted she's been evaluated by urology and is ready had surgical intervention to relieve the obstruction. 12/07/2017 reveals the patient to still be intubated sedated and mechanically ventilated. She had significant hypotension overnight requiring Levophed, vasopressin as well as a short time of epinephrine. The Levophed is being weaned at this point in time and she does have significant hypotension making it difficult for her to be significantly manipulated in the bed at this time. She is receiving the middle dose of fentanyl for sedation and pain control. She is arousable and able to follow simple commands without difficulty. Urine output has improved and her remains cloudy with a bloody appearance 12/09/2015 reveals the patient to be improved this a.m. She has been extubated and seems to be comfortable. She is still on vasopressor therapy but there has been successful reduction of the amount. She is somewhat comfortable but is very weak. Has generalized edema relates her breathing is adequate after extubation. 12/09/2017 reveals a patient to having further improvement. She is also completely weaned off of all of vasopressor therapy. She is awake and alert interactive. Appetite was poor. Urinary output is excellent and she's feeling modestly well. 12/10/2017. Her vasopressor therapies have all been discontinued and she is maintaining excellent blood pressure and oxygenation. Pain control is improved. She is now able to tolerate some diuresis to help with his significant edema that she has developed from her extensive fluid resuscitation for gram-negative septic shock. She this time is making well and is quite comfortable and is still quite weak. 12/11/2017 patient continues to have further She has been off of vasopressor and has had no worsening. She'll be transferred out of the icu today. She has been very weak overall. 12/12/2017 patient remains improved, comfortable increasing strength. No new symptoms today, sitting up and eating. Little pain and attempts to improve strength . The extensive edema continues to improve with her diuretic therapy. She is doing well on intensive care unit no longer requiring vasopressor therapy. Plans will be for oral outpatient antibiotic therapy with ciprofloxacin at the time of her discharge for at least 3 weeks until she has further urological evaluation. Objective - Vital Signs Vital signs: Vital Signs Temp 97.7 F 12/12/17 21:00 Pulse 95 12/12/17 21:00 Resp 17 12/12/17 21:00 BP 140/61 12/12/17 21:00 Pulse Ox 94 L 12/12/17 21:00 Intake & Output 12/12/17 12/12/17 12/13/17 06:59 18:59 06:59 Intake Total 1561 Output Total 1100 3700 Balance 461 -3700 Weight 127.2 kg Intake: IV 161 Pressure bag 21 Sodium Chloride 0.9% 1, 140 000 ml @ 20 mls/hr IV . Q24H [facility] Rx#:[id number] Oral 1400 Output: Urine 1100 3700 Other: Voiding Method Indwelling Catheter Indwelling Catheter Indwelling Catheter ABP, PAP, CO, CI - Last Documented Arterial Blood Pressure 94/77 - Labs CBC & Chem 7: 12/12/17 07:45 12/12/17 07:45 Labs: Abnormal Lab Results - Last 24 Hours (Table) 12/12/17 12/12/17 12/12/17 Range/Units 07:11 07:45 07:45 WBC 15.7 H (3.8-10.6) k/uL RBC 3.44 L (3.80-5.40) m/uL Hgb 9.6 L (11.4-16.0) gm/dL Hct 30.6 L (34.0-46.0) % Plt Count 113 L D (150-450) k/uL Neutrophils # 13.0 H (1.3-7.7) k/uL Carbon Dioxide 32 H (22-30) mmol/L BUN 36 H (7-17) mg/dL Creatinine 1.30 H (0.52-1.04) mg/dL Glucose 119 H (74-99) mg/dL POC Glucose (mg/dL) 121 H (75-99) mg/dL Total Bilirubin 1.6 H (0.2-1.3) mg/dL AST 67 H (14-36) U/L ALT 108 H (9-52) U/L Alkaline Phosphatase 323 H (38-126) U/L Total Protein 5.4 L (6.3-8.2) g/dL Albumin 2.7 L (3.5-5.0) g/dL 12/12/17 12/12/17 12/12/17 Range/Units 12:00 16:53 20:07 WBC (3.8-10.6) k/uL RBC (3.80-5.40) m/uL Hgb (11.4-16.0) gm/dL Hct (34.0-46.0) % Plt Count (150-450) k/uL Neutrophils # (1.3-7.7) k/uL Carbon Dioxide (22-30) mmol/L BUN (7-17) mg/dL Creatinine (0.52-1.04) mg/dL Glucose (74-99) mg/dL POC Glucose (mg/dL) 184 H 169 H 190 H (75-99) mg/dL Total Bilirubin (0.2-1.3) mg/dL AST (14-36) U/L ALT (9-52) U/L Alkaline Phosphatase (38-126) U/L Total Protein (6.3-8.2) g/dL Albumin (3.5-5.0) g/dL Microbiology - Last 24 Hours (Table) 12/06/17 16:04 Blood Culture Gram Stain - Final Blood Blood Culture - Final Klebsiella ozaenae Assessment and Plan (1) Septic shock Current Visit: Yes Status: Acute Code(s): A41.9 - SEPSIS, UNSPECIFIED ORGANISM; R65.21 - SEVERE SEPSIS WITH SEPTIC SHOCK SNOMED Code(s): 35615362 (2) Acute pyelonephritis Current Visit: Yes Status: Acute Code(s): N10 - ACUTE PYELONEPHRITIS SNOMED Code(s): 29604541 (3) Acute renal failure Current Visit: Yes Status: Acute Code(s): N17.9 - ACUTE KIDNEY FAILURE, UNSPECIFIED SNOMED Code(s): 25309129 (4) Calculus of ureter Current Visit: Yes Status: Acute Code(s): N20.1 - CALCULUS OF URETER SNOMED Code(s): 21081308
--- NOTE | 2017-12-12 23:48 | P.CONS ---
History of Present Illness - Reason for Consult Consult date: 12/12/17 Increased amylase Requesting physician: Juliet Holcomb - Chief Complaint Nausea vomiting and flank pain - History of Present Illness The patient is a pleasant 62-year-old female with a known medical history of hypertension and diabetes mellitus who presented to the hospital with complaints of nausea vomiting and flank pain. Patient was found to have renal calculi on presentation and has been treated for pyelonephritis and septic shock. The patient denies any history of prior pancreatitis, is having no abdominal pain currently. She also denies any alcohol or tobacco abuse. The patient reports multiple episodes of nausea and vomiting prior to presentation which have since resolved. The patient reports that she thought her flank pain had been due to sciatica and was using ibuprofen regularly. She reports taking 6-8 200 mg tablets of ibuprofen daily for approximately one year. She has no history of peptic ulcer disease or dysphagia. On presentation the patient was initially found to have elevated amylase of 546 with a normal lipase. Her amylase has subsequently trended down to 76 and her lipase which was 23 on presentation has increased to 1544. She denies any hematochezia, melena, change in bowel habits at this time. She reports that she is previously been screened for colon cancer with colon guard this year which was negative. No prior history of EGD. Patient's initially had a hemoglobin of 11.8 on presentation which subsequently trended down to 9.9 and has been stable at 9.6 today with a normal MCV of 89. Past endoscopic history: Denies any prior EGD or colonoscopy. Reports a normal cologaurd this year. Review of Systems REVIEW OF SYSTEMS: CARDIOPULMONARY: Denies chest pain or shortness of breath. GENITOURINARY: No dysuria or hematuria. MUSCULOSKELETAL: No weakness reported. SKIN: Denies any new rashes or lesions, jaundice or pallor. PSYCHIATRIC: Denies any depression or anxiety. NEUROLOGY: Denies headache, denies any new focal deficits. EARS: No tinnitus, discharge or new hearing loss. NOSE: No discharge or congestion. EYES: No pain in eyes or change in vision. CONSTITUTIONAL: No recent weight loss. No fever, chills, night sweats. Past Medical History Past Medical History: Diabetes Mellitus, GERD/Reflux, Hypertension Additional Past Medical History / Comment(s): hx of bells palsy lt side of face. seasonal allergies, past kidney stone rt side/uti History of Any Multi-Drug Resistant Organisms: None Reported Additional Past Surgical History / Comment(s): kidney surgery 30 yrs ago Past Anesthesia/Blood Transfusion Reactions: No Reported Reaction Past Psychological History: No Psychological Hx Reported Smoking Status: Never smoker Past Alcohol Use History: None Reported Past Drug Use History: None Reported - Past Family History Mother Family Medical History: Myocardial Infarction ([place]) Additional Family Medical History / Comment(s): lupus Father Family Medical History: COPD Medications and Allergies Home Medications Medication Instructions Recorded Confirmed Type Aspirin [Children's Aspirin] 81 mg PO DAILY 11/28/17 12/06/17 History Gabapentin [Neurontin] 100 mg PO TID 11/28/17 12/06/17 History Ibuprofen 200 mg PO TID 11/28/17 12/06/17 History Loratadine 10 mg PO DAILY 11/28/17 12/06/17 History Losartan [Cozaar] 50 mg PO DAILY 11/28/17 12/06/17 History Multivit with Calcium,Iron,Min 1 tab PO DAILY 11/28/17 12/06/17 History [Women's Multivitamin] Naproxen 500 mg PO BID 11/28/17 12/06/17 History Omeprazole [PriLOSEC] 20 mg PO DAILY 11/28/17 12/06/17 History metFORMIN HCL [Glucophage] 500 mg PO AC-SUPPER 11/28/17 12/06/17 History Calcium Carbonate/Vitamin D3 1 tab PO DAILY 12/06/17 12/06/17 History [Calcium 600-Vit D3 400 Caplet] Hydrochlorothiazide 12.5 mg PO DAILY 12/06/17 12/06/17 History Allergies Allergy/AdvReac Type Severity Reaction Status Date / Time No Known Allergies Allergy Verified 12/06/17 13:56 Physical Exam Vitals: Vital Signs Temp Pulse Pulse Resp BP BP Pulse Ox 12/12/17 21:00 97.7 F 95 17 140/61 94 L 12/12/17 17:00 97.7 F 93 18 142/76 98 12/12/17 05:45 98.3 F 92 16 149/70 91 L 12/12/17 00:00 18 Intake and Output 12/12/17 12/12/17 12/13/17 14:59 22:59 06:59 Output Total 2800 900 Balance -2800 -900 Output: Urine 2800 900 Other: Voiding Method Indwelling Catheter Indwelling Catheter On physical examination, patient appears comfortable in no apparent distress. HEAD: Normocephalic, atraumatic. EYES: No scleral icterus. No conjunctival injection. MOUTH: No lesions, tongue midline. NECK: Trachea midline, no gross abnormalities. CHEST: Clear to auscultation with no wheezing or rhonchi appreciated. HEART: Regular rate and rhythm. ABDOMEN: Soft, obese. Bowel sounds are positive. No organomegaly. No guarding or rigidity. EXTREMITIES: No pedal edema. SKIN: No rashes, no jaundice. NEUROLOGIC: Alert and oriented x3. No focal deficits. Results CBC & Chem 7: 12/12/17 07:45 12/12/17 07:45 Labs: Abnormal Lab Results - Last 24 Hours (Table) 12/12/17 12/12/17 12/12/17 Range/Units 07:11 07:45 07:45 WBC 15.7 H (3.8-10.6) k/uL RBC 3.44 L (3.80-5.40) m/uL Hgb 9.6 L (11.4-16.0) gm/dL Hct 30.6 L (34.0-46.0) % Plt Count 113 L D (150-450) k/uL Neutrophils # 13.0 H (1.3-7.7) k/uL Carbon Dioxide 32 H (22-30) mmol/L BUN 36 H (7-17) mg/dL Creatinine 1.30 H (0.52-1.04) mg/dL Glucose 119 H (74-99) mg/dL POC Glucose (mg/dL) 121 H (75-99) mg/dL Total Bilirubin 1.6 H (0.2-1.3) mg/dL AST 67 H (14-36) U/L ALT 108 H (9-52) U/L Alkaline Phosphatase 323 H (38-126) U/L Total Protein 5.4 L (6.3-8.2) g/dL Albumin 2.7 L (3.5-5.0) g/dL 12/12/17 12/12/17 12/12/17 Range/Units 12:00 16:53 20:07 WBC (3.8-10.6) k/uL RBC (3.80-5.40) m/uL Hgb (11.4-16.0) gm/dL Hct (34.0-46.0) % Plt Count (150-450) k/uL Neutrophils # (1.3-7.7) k/uL Carbon Dioxide (22-30) mmol/L BUN (7-17) mg/dL Creatinine (0.52-1.04) mg/dL Glucose (74-99) mg/dL POC Glucose (mg/dL) 184 H 169 H 190 H (75-99) mg/dL Total Bilirubin (0.2-1.3) mg/dL AST (14-36) U/L ALT (9-52) U/L Alkaline Phosphatase (38-126) U/L Total Protein (6.3-8.2) g/dL Albumin (3.5-5.0) g/dL Microbiology - Last 24 Hours (Table) 12/06/17 16:04 Blood Culture Gram Stain - Final Blood Blood Culture - Final Klebsiella ozaenae Assessment and Plan (1) Elevated amylase and lipase Narrative/Plan: Elevated amylase of 546 on presentation has trended down to 76 with normal lipase on presentation of 23 which is trended up to 1544. These findings are nonspecific and likely secondary to the patient's acute medical problems with amylase currently normal. Elevation in lipase is likely secondary to acute kidney injury related to renal calculi and pyelonephritis. Patient's excessive use of NSAID medications are also a risk factor for elevation in lipase. Current Visit: Yes Status: Acute Code(s): R74.8 - ABNORMAL LEVELS OF OTHER SERUM ENZYMES SNOMED Code(s): 001416796 (2) Acute pyelonephritis Narrative/Plan: Per primary team Current Visit: Yes Status: Acute Code(s): N10 - ACUTE PYELONEPHRITIS SNOMED Code(s): 71158985 (3) Septic shock Narrative/Plan: Per primary team Current Visit: Yes Status: Acute Code(s): A41.9 - SEPSIS, UNSPECIFIED ORGANISM; R65.21 - SEVERE SEPSIS WITH SEPTIC SHOCK SNOMED Code(s): 58232659 Plan: Supportive care Continue current medical management Elevation in amylase and lipase are likely secondary to patient's acute medical problems, such as PHIL. No evidence of acute pancreatitis or history to suggest pancreatic disease. No further workup needed at this time. Patient was informed of the risks of NSAID use, which is the development of peptic ulcers. Would suggest repeat lipase in the outpatient setting to ensure return to normal levels. Avoid NSAID use Patient was offered EGD in the setting of significant ibuprofen and Aleve use. At this time the patient is not interested in endoscopic evaluation. Thank you for allowing us to participate in the care of this patient. We will continue to follow.
[2017-12-13] MEDS: SODIUM CHLORIDE 0.9% 1,000 ML IV SCH (04:54)
[2017-12-13 07:02] LABS: Glucose,Whole Blood 123 mg/dL (75-99)
[2017-12-13] MEDS: INSULIN ASPART 100 UNIT/ML 1 ML 10 ML VIAL SQ SCH ×4 (07:15→22:20)
[2017-12-13] MEDS: IPRATROPIUM-ALBUTEROL 3 ML NEB INHALATION PRN ×2 (07:24→20:06)
[2017-12-13 07:55] LABS: Albumin 2.7 g/dL (3.5-5.0); Calcium 8.5 mg/dL (8.4-10.2); Magnesium 1.7 mg/dL (1.6-2.3); Phosphorus 3.1 mg/dL (2.5-4.5); Potassium 4.1 mmol/L (3.5-5.1); Total Bilirubin 1.2 mg/dL (0.2-1.3); Total Protein 5.5 g/dL (6.3-8.2)
[2017-12-13 08:36] LABS: Basophils # (A) 0.1 k/uL (0-0.2); Basophils % (A) 1 %; Eosinophils # (A) 0.3 k/uL (0-0.7); Eosinophils % (A) 2 %; HCT 30.1 % (34.0-46.0); HGB 9.1 gm/dL (11.4-16.0); Hypochromasia Slight; Lymphocytes % (A) 8 %; MCH 27.3 pg (25.0-35.0); MCHC 30.2 g/dL (31.0-37.0); MCV 90.2 fL (80.0-100.0); Mean Platelet Volume 10.2; Monocytes # (A) 0.5 k/uL (0-1.0); Monocytes % (A) 4 %; Neutrophils # (A) 11.1 k/uL (1.3-7.7); Neutrophils % (A) 83 %; Platelet Count 139 k/uL (150-450); RBC 3.34 m/uL (3.80-5.40); RDW 14.6 % (11.5-15.5); WBC 13.4 k/uL (3.8-10.6)
[2017-12-13] MEDS: cefTRIAXone IN SWFI 2,000 MG/20 ML SYRINGE IVP SCH (08:47)
[2017-12-13] MEDS: NYSTATIN 100,000 UNIT/ML SUSP 500,000 UNIT/5 ML CUP PO SCH ×4 (08:50→22:20)
[2017-12-13] MEDS: ENOXAPARIN 40 MG/0.4 ML SYRINGE SQ SCH (08:50)
[2017-12-13] MEDS: POTASSIUM BICARBONATE/CIT AC 20 MEQ TABLET.EFF NG-TUBE SCH (08:54)
[2017-12-13] MEDS: FUROSEMIDE 10 MG/ML 2 ML VIAL IV SCH (09:04)
--- NOTE | 2017-12-13 09:18 | XR ---
EXAMINATION TYPE: XR chest 1V DATE OF EXAM: 12/13/2017 HISTORY: Shortness of breath. COMPARISON: December 12, 2017 TECHNIQUE: Single view of the chest is submitted. FINDINGS: Demonstrated are scattered senescent parenchymal change. Central venous line unchanged in position. There is no evidence for focal infiltrate. The heart is stable. Pulmonary venous congestion has improved in the interval. Hilar and mediastinal structures are within normal limits. Degenerative changes are seen of the dorsal spine. IMPRESSION: 1. Improved pulmonary venous congestion. No evidence for overt failure.
[2017-12-13] MEDS: PANTOPRAZOLE 40 MG/10 ML VIAL IVP SCH (09:50)
--- NOTE | 2017-12-13 09:55 | P.PN ---
Subjective Patient is seen in follow-up for acute kidney injury. Renal function is improving with creatinine around 1.17 today. Patient was noted to have left- sided hydronephrosis and underwent a double J stent placement on December 06. She has a Stewart catheter in place. She is nonoliguric. No vomiting or diarrhea. Oral intake is good. Still has lower extremity edema and is currently maintained on IV Lasix. Vital signs are stable. General: The patient appeared well nourished and normally developed. HEENT: Head exam is unremarkable. Neck is without jugular venous distension. LUNGS: Lungs are clear to auscultation and percussion. Breath sounds decreased. HEART: Rate and Rhythm are regular. First and second heart sounds normal. No murmurs, rubs or gallops. ABDOMEN: Abdominal exam reveals normal bowel sounds. Non-tender and non- distended. No evidence of peritonitis. EXTREMITITES: 1+ edema. Objective - Vital Signs Vital signs: Vital Signs Temp 98 F 12/13/17 05:00 Pulse 92 12/13/17 07:40 Resp 17 12/13/17 05:00 BP 148/69 12/13/17 05:00 Pulse Ox 94 L 12/13/17 07:26 Intake & Output 12/12/17 12/13/17 12/13/17 18:59 06:59 18:59 Intake Total 220 Output Total 3700 300 1400 Balance -3700 -80 -1400 Weight 127.2 kg Intake: IV 220 Sodium Chloride 0.9% 1, 220 000 ml @ 20 mls/hr IV . Q24H [facility] Rx#:[id number] Output: Urine 3700 300 1400 Other: Voiding Method Indwelling Catheter Indwelling Catheter Indwelling Catheter ABP, PAP, CO, CI - Last Documented Arterial Blood Pressure 94/77 - Labs CBC & Chem 7: 12/13/17 07:28 12/13/17 07:28 Labs: Abnormal Lab Results - Last 24 Hours (Table) 12/12/17 12/12/17 12/12/17 Range/Units 12:00 16:53 20:07 WBC (3.8-10.6) k/uL RBC (3.80-5.40) m/uL Hgb (11.4-16.0) gm/dL Hct (34.0-46.0) % MCHC (31.0-37.0) g/dL Plt Count (150-450) k/uL Neutrophils # (1.3-7.7) k/uL Carbon Dioxide (22-30) mmol/L BUN (7-17) mg/dL Creatinine (0.52-1.04) mg/dL Glucose (74-99) mg/dL POC Glucose (mg/dL) 184 H 169 H 190 H (75-99) mg/dL AST (14-36) U/L ALT (9-52) U/L Alkaline Phosphatase (38-126) U/L Total Protein (6.3-8.2) g/dL Albumin (3.5-5.0) g/dL 12/13/17 12/13/17 12/13/17 Range/Units 07:00 07:28 07:28 WBC 13.4 H (3.8-10.6) k/uL RBC 3.34 L (3.80-5.40) m/uL Hgb 9.1 L (11.4-16.0) gm/dL Hct 30.1 L (34.0-46.0) % MCHC 30.2 L (31.0-37.0) g/dL Plt Count 139 L (150-450) k/uL Neutrophils # 11.1 H (1.3-7.7) k/uL Carbon Dioxide 37 H (22-30) mmol/L BUN 32 H (7-17) mg/dL Creatinine 1.17 H (0.52-1.04) mg/dL Glucose 131 H (74-99) mg/dL POC Glucose (mg/dL) 123 H (75-99) mg/dL AST 42 H (14-36) U/L ALT 86 H (9-52) U/L Alkaline Phosphatase 273 H (38-126) U/L Total Protein 5.5 L (6.3-8.2) g/dL Albumin 2.7 L (3.5-5.0) g/dL Microbiology - Last 24 Hours (Table) 12/06/17 16:04 Blood Culture Gram Stain - Final Blood Blood Culture - Final Klebsiella ozaenae Assessment and Plan Plan: Assessment: 1. Nonoliguric acute kidney injury mostly prerenal secondary to hypotension as well as component of obstructive uropathy with left-sided hydronephrosis. Renal function improving with creatinine down to 1.17 today. 2. Klebsiella bacteremia. 3. UTI feeds urine culture positive for E. coli and Pantonea. 4. Left-sided hydronephrosis status post double-J stent placement on December 06. 5. Anemia. Rule out iron deficiency. 6. Chronic kidney disease. Unknown baseline creatinine. Etiology is diabetic kidney disease. 7. Lower extremity edema maintained on IV Lasix. Plan: Continue Lasix 20 mg IV once daily. Avoid nephrotoxic agents and hypotensive episodes. Check iron studies. Continue with antibiotics. Repeat electrolytes in the morning.
--- NOTE | 2017-12-13 10:01 | P.PN ---
Subjective Progress Note Date: 12/13/17 Keli Urban is a 62-year-old female who presented to [facility] emergency room with multiple complaints including nausea, vomiting, diarrhea, and bilateral flank and back pain, she was evaluated in the emergency room by Dr. Kaur and was found to have sepsis with severe hypotension and evidence of severe dehydration, patient had evidence of urinary tract infection , and evidence of left sided kidney stone with hydronephrosis, she was started on IV fluid, IV pressors, and IV antibiotics, she will be admitted to intensive care unit consultation for pulmonary critical care Dr. Subramanian was initiated in the emergency room. Also consultation for infectious disease and urology was initiated. Patient states that she had history of kidney stones she had right sided lithotripsy 35 years ago. Patient was seen and examined in emergency room on 12/06/2017 at 5:30 PM she is alert responsive and able to finish phrases due to shortness of breath she denies any chest pain, no nausea or vomiting at this time, she has pain in the bilateral flank area, otherwise she denies any complaints, she states that she started feeling sick about 3 days ago she was having vomiting and diarrhea she took pills to stop diarrhea at home, she denies knowing that she had a urinary tract infection, she denies taking any antibiotic recently. On 12/07/2017 patient is seen and examined in ICU she is intubated, sedated and maintained on mechanical ventilation, through the night patient had hypotension requiring high doses of IV pressors she was seen by urology and underwent double -J stent placement on the left she was intubated she is continued on IV antibiotics cefepime blood cultures are showing gram-negative bacilli lactic acid was significantly elevated but is improving at this time. On 12/08/2017 patient is seen and examined in intensive care unit she was extubated she is maintained on oxygen via nasal cannula and is tolerating well she denies any chest pain or shortness of breath at this time she is still maintained on significant amount of IV pressors, she is maintained on IV antibiotics. On 12/09/2017 patient is seen and examined in ICU she remains on oxygen via nasal cannula and is tolerating well she is still maintained on Levothroid for pressure support she is maintained on IV fluids and IV antibiotics she is still complaining of pain in the lower abdominal area bilaterally otherwise she denies any complaints On 12/10/2017 patient is currently is A & O x3 and remains in the intensive care unit. Patient has been weaned off levophed and vasopressin for pressure support. Patient currently on nasal cannula 2 L. white blood cell improving to 11.9. Patient currently on Rocephin. Dr. Nance currently following for infectious disease. Dr. Correa per critical care currently following closely. Patient denies chest pain or shortness breath. Denies nausea vomiting or diarrhea. On 12/11/2017 patient is currently a & O 3 sitting up on the side of bed in the intensive care unit. Patient remains off all pressure support medication. Patient currently on room air. Patient denies chest pain or shortness breath. Patient denies any urinary burning or frequency. Denies any nausea vomiting or diarrhea On 12/12/2017 patient is currently resting comfortably in bed. Patient has been moved to a medical surgical floor. She denies chest pain or shortness of breath patient denies any urinary burning or frequency. Denies any nausea vomiting or diarrhea. On 12/13/2017 patient is alert and oriented 3 currently sitting in chair. Patient states she is feeling improved. Patient denies chest pain or shortness of breath. Denies nausea vomiting or diarrhea. Denies any urinary burning or frequency. Blood cell trending down 13.4. Patient remains on IV Lasix per nephrology. Creatinine and bun continuing to improve Objective - Vital Signs Vital signs: Vital Signs Temp 98 F 12/13/17 05:00 Pulse 92 12/13/17 07:40 Resp 17 12/13/17 05:00 BP 148/69 12/13/17 05:00 Pulse Ox 94 L 12/13/17 07:26 Intake & Output 12/12/17 12/13/17 12/13/17 18:59 06:59 18:59 Intake Total 220 Output Total 3700 300 1400 Balance -3700 -80 -1400 Weight 127.2 kg Intake: IV 220 Sodium Chloride 0.9% 1, 220 000 ml @ 20 mls/hr IV . Q24H [facility] Rx#:[id number] Output: Urine 3700 300 1400 Other: Voiding Method Indwelling Catheter Indwelling Catheter Indwelling Catheter ABP, PAP, CO, CI - Last Documented Arterial Blood Pressure 94/77 - Exam Head normocephalic Neck supple Lungs clear to auscultation bilaterally no wheezing or crackles Heart regular rate and rhythm S1-S2, no rub or gallop Abdomen is soft nontender nondistended positive bowel sounds no hepatosplenomegaly Extremities no edema Neuro alert and orientated to 3 - Labs CBC & Chem 7: 12/13/17 07:28 18 07:28 Labs: Abnormal Lab Results - Last 24 Hours (Table) 12/12/17 12/12/17 12/12/17 Range/Units 12:00 16:53 20:07 WBC (3.8-10.6) k/uL RBC (3.80-5.40) m/uL Hgb (11.4-16.0) gm/dL Hct (34.0-46.0) % MCHC (31.0-37.0) g/dL Plt Count (150-450) k/uL Neutrophils # (1.3-7.7) k/uL Carbon Dioxide (22-30) mmol/L BUN (7-17) mg/dL Creatinine (0.52-1.04) mg/dL Glucose (74-99) mg/dL POC Glucose (mg/dL) 184 H 169 H 190 H (75-99) mg/dL AST (14-36) U/L ALT (9-52) U/L Alkaline Phosphatase (38-126) U/L Total Protein (6.3-8.2) g/dL Albumin (3.5-5.0) g/dL 12/13/17 12/13/17 12/13/17 Range/Units 07:00 07:28 07:28 WBC 13.4 H (3.8-10.6) k/uL RBC 3.34 L (3.80-5.40) m/uL Hgb 9.1 L (11.4-16.0) gm/dL Hct 30.1 L (34.0-46.0) % MCHC 30.2 L (31.0-37.0) g/dL Plt Count 139 L (150-450) k/uL Neutrophils # 11.1 H (1.3-7.7) k/uL Carbon Dioxide 37 H (22-30) mmol/L BUN 32 H (7-17) mg/dL Creatinine 1.17 H (0.52-1.04) mg/dL Glucose 131 H (74-99) mg/dL POC Glucose (mg/dL) 123 H (75-99) mg/dL AST 42 H (14-36) U/L ALT 86 H (9-52) U/L Alkaline Phosphatase 273 H (38-126) U/L Total Protein 5.5 L (6.3-8.2) g/dL Albumin 2.7 L (3.5-5.0) g/dL Microbiology - Last 24 Hours (Table) 12/06/17 16:04 Blood Culture Gram Stain - Final Blood Blood Culture - Final Klebsiella ozaenae Assessment and Plan Assessment: #1 sepsis with septic shock, blood cultures are positive for gram-negative bacilli source of infection is most likely related to left sided pyelonephritis. Patient has been extubated to 2 L nasal cannula. Patient has been weaned off pressure support medication. Urine culture positive for Pantoe agglomerans and blood culture positive for Klebsiella ozaenae. Patient currently on antibiotic Rocephin. Dr. Nance for infectious disease is following. White blood cell improving to 11.9. Per Infectious disease when patient is ready for discharge home she will be likely discharged home on oral quinolone therapy that will be continued to the point in time for repeat cystoscopy and stone removal by lithotripsy. Chest x-ray completed showing pulmonary venous congestion persists with small persistent pleural effusion. Improved aeration at the lung bases. Dr. correa following per critical care. Patient currently on 20 mg IV Lasix daily #2 urinary tract infection, with evidence of of left sided pyelonephritis left obstructive uropathy status post double-J stent placement. Urine culture positive for Pantoe agglomerans. Patient remains on Rocephin #3 elevated liver enzymes likely related to shock liver due to hypotension. AST 42 and ALT 86 #4 slight elevation in troponin Will consult cardiology, patient denies any chest pain. Per cardiology mild elevation of cardiac enzymes likely secondary to type II event from significant hypotension and acute kidney injury and sepsis. #5 slight elevation in amylase, again likely due to hypotension doubt acute pancreatitis. Lipase elevated 1544. GI services consulted. Per GI Elevation in amylase and lipase are likely secondary to patient's acute medical problems, such as PHIL. No evidence of acute pancreatitis. Per GI no further workup needed at this time and repeat lipase in an outpatient setting along with avoiding NSAID use. GI also offered EGD due to significant ibuprofen and Aleve use but at this time patient is not interested in EGD. #6 left urethral calculus with left sided hydronephrosis, urology consultation requested. Per urology patient will be continued on antibiotics for several weeks prior to ureteroscopic treatment of her ureteral calculus will be discharged with a double-J catheter in place. #7 severe dehydration #8 acute renal failure, likely related to severe dehydration, possible obstructive uropathy component. Improving to 1.17 and bun 32 #9 lactic acidosis, lactic acid on presentation 4.9. 8/24 lactic acidosis 2.6 #10 thrombocytopenia platelets 50. We'll continue to monitor closely. Platelets Trending up to 139 #11 anemia. Hemoglobin 9.1. Iron studies have been ordered per nephrology. [facility] Patient is continuing to show significant improvement DVT prophylaxis Lovenox and GI prophylaxis Protonix I performed an examination of the patient and discussed their management with the Nurse Practitioner. I have reviewed the Nurse Practitioner's notes and agree with the documented findings and plan of care
[2017-12-13 11:13] LABS: Glucose,Whole Blood 241 mg/dL (75-99)
[2017-12-13] MEDS ORDERED: MELATONIN 1 MG TAB PO PRN (12:52)
--- NOTE | 2017-12-13 14:49 | P.PN ---
Subjective Progress Note Date: 12/13/17 Principal diagnosis: Pyelonephritis with acute sepsis 62-year-old morbidly obese female patient presented to the emergency department because of nausea vomiting diarrhea and left flank pain. The patient was extremely dehydrated. She was hypotensive with initial systolic blood pressure in the 60s. Her blood work was completely abnormal with an acute kidney injury in the creatinine of 4.1 and the patient had a anion gap metabolic acidosis with a bicarb of 22 and anion gap of 14 and Actiq acid was at 4.9. The patient' s white cell count was at 20.5. After receiving 4 L of IV fluids the patient remained hypotensive. The patient started on pressors initially at 5 mics and currently she is up to 30 mics of norepinephrine infusion at sonic through a peripheral line. A triple lumen catheter was inserted immediately. A blood gases obtained that showed a pH of 7.24 with a pCO2 of 47 and pO2 of 80. The patient is still awake and alert. She is a bit uncomfortable. Unable to lay down flat. Chest x-ray post-line insertion shows adequate expansion of both lungs and there is no evidence of any pneumonia. The triple-lumen catheter is in good location. The patient was given a dose of Rocephin 2 g IV in the emergency department. Stewart catheter was inserted. Not a whole lot of urine output is being produced this point in time. CAT scan of the abdomen was done and the patient has a proximal left ureteral calculus. There is also a right- sided nephrolithiasis. There is cholelithiasis without evidence of cholecystitis. Patient has a 19 x 8 x 21 mm stone in the right renal pelvis which is nonobstructive. Another 3-4 mm stone in the proximal left ureter. Discussed the case with Dr. Emil Green from urology and the patient be taken to the operating room for an immediate double-J stent insertion in the left. On and I'm seeing this patient for a follow-up. As mentioned earlier the patient came in today burst department with severe dehydration, sepsis, complicated UTI, left-sided pyelonephritis, septic shock, metabolic acidosis, lactic acidosis and acute kidney injury. The patient was taken to the operating room yesterday and a double-J stent was inserted on the left. Postop , the patient was kept intubated on a mechanical ventilator. She became quite hypotensive and upon arrival to the ICU the patient was already hypotensive and pressor dependent. Throughout the night the patient received fluids aggressively in order of 6 L of IV fluids. She also received albumin. The patient continued to be profoundly hypotensive. I added vasopressin physiologic dose and she was brought up to a 60 g of norepinephrine infusion per minutes. Also epinephrine was started to maintain a mean arterial pressure above 60. She continued to have episodes of fever treated with IV Tylenol. Aspirin antibiotic coverage, the patient was kept on IV cefepime. The primary blood cultures showing gram-negative bacillus and final cultures of been identified yet. This morning, the patient is sedated Diprivan and she is calm and comfortable and currently she is on 35 g of Diprivan infusion with adequate sedation. She is an assist-control mode of ventilation at the rate of 28 with a tidal volume of 500 and FiO2 of 70% with a PEEP of 5. Morning blood gases showed a pH of 7.28 with a pCO2 of 30 and pO2 of 103 and this was done and FiO2 of 70% and based on that the FiO2 was dropped down to 60%. Chest x- ray showed adequate positioning of the ET tube and the patient has a left IJ triple lumen catheter in place. The chest x-ray also showed stable cardiopulmonary and mediastinal structures. Echocardiogram was done and showed a preserved LV function with an ejection fraction of 55-60% without any significant valvular abnormalities. The patient is not fluid balance is +5 L over the past 24 hours. She did start making some urine at this point in time and she is producing approximately 10-15 mL an hour. Her white cell count peaked at 32 and currently is down to 27. Her lactic acid levels are improving and is down to 2.6. The patient's creatinine is down to 3.6. Her bicarb level is down to 13 and the patient was switched a bicarb drip infusion. Is a troponin leak there is also abnormal LFTs all probably later to severe septic shock. On 12/08/2017, the patient is wide awake and alert. This morning she was on 20 mics of Diprivan however she was awake and communicating and answering questions and communicating with us by writing on a piece of paper. She wanted to above. She was still on 20 mics of norepinephrine infusion addition to vasopressin. Nevertheless, she is afebrile and she is producing adequate amount of urine output. No respiratory difficulties. Weaning parameters were excellent. The patient is still on broad-spectrum antibiotics. Morning blood gases showed a pH of 7.42 with a pCO2 of 28 and pO2 131. The chest x-ray showed no acute abnormalities. White cell count is at 20.6. The rest of the blood work shows improvement in renal function with a creatinine being down to 3.2. The patient is still acidotic and this is a non-anion gap metabolic acidosis and the patient is still on a bicarb drip for now. Her net fluid balance is positive for 4.8 L yesterday On 12/09/2017, this patient is extubated and she is awake and alert. She is on 20 mics of norepinephrine infusion and we are in the process of weaning her down further. She is off sedation. She is producing good amount of urine output in the order of 50 mL an hour. Renal function continues to improve. The blood culture showed Klebsiella sepsis secondary to underlying urinary tract infection. No altered mentation. No nausea vomiting. No abdominal pain. She is tolerating diet. She is communicating. She was taken off the bicarb drip knowing that the non-anion gap metabolic acidosis has improved. We' ll cut down the IV fluids also down to 50 mL an hour as the patient is mobilizing her extra fluid. The chest x-ray from today shows a component of mild four-vessel congestion/edema and the patient is currently on 4 L about 2 by nasal cannula. The patient remains on IV cefepime for now. Patient was reevaluated today on 12/10/2017, presently on nasal cannula, in no distress. She is off norepinephrine, and she is off vasopressin. She was taken off vasopressin only about an hour ago. And her blood pressure seems to be holding although it is marginal. But she does have a good urine output. Renal functioning continues to improve, her BUN today is 50 creatinine is 1.90. Platelets remain low at 50,000, hence I recommended that we hold heparin subcu , and continue Venodyne boots and compression stockings for deep vein thrombosis prophylaxis. Her WBC count is 11.9 hemoglobin is 9.4. Clinically the patient is doing well, she is relatively asymptomatic. Her blood cultures came back positive for Klebsiella ozaenae, and her urine cultures are also positive for the same organism. Urine cultures also positive for pantoea agglomerans. This is sensitive to all antibiotics tested. Patient is presently on Rocephin as per infectious disease on the case. Clinically the patient has been responding well to treatment, however she received a total of 12 L of fluid since admission, and we are planning to gently diurese the patient. Chest x-ray continues to show some evidence of pulmonary venous congestion with small persistent pleural effusions bilaterally. Reevaluated today on 12/11/2017, patient is in no form of distress, relatively asymptomatic, remains off pressors, hemodynamically stable, urine output is excellent renal functioning is improving. WBC count is down to 14 hemoglobin is 9.3 BUN is 43 creatinine is 1.7, liver profile remains a bit elevated but improving. Lipase is 1544. However the patient has no symptoms of abdominal pain or any symptoms to suggest pancreatitis. Chest x-ray showed mild pulmonary vascular congestion. Blood cultures were noted as to urine cultures were also noted to be positive, and the patient remains on antibiotics as per infectious disease recommendation. The patient is seen again today 12/12/2017 in follow-up on the regular medical floor. She is awake and alert in no acute distress. Currently sitting up at the bedside. She denies any worsening shortness of breath, cough or congestion. No significant pain or discomfort. She remains quite weak. She is maintaining O2 saturations in the low 90s on 2 L/m per nasal cannula. She's been afebrile. Hemodynamically stable. White count 15.7. Hemoglobin 9.6. Creatinine 1.30. Urine culture is positive for E. coli and Pantoea agglomerans. Blood culture positive for Klebsiella ozaenae. AST 108, ALT 323. The patient is seen again today 12/13/2017 in follow-up on the regular medical floor. She is currently sitting up in a chair at the bedside. She is awake and alert in no acute distress. She denies any worsening shortness of breath, cough or congestion. No chills or night sweats. Sputum culture reveals no growth. She is maintaining O2 saturations in the mid 90s on 2 L/m per nasal cannula. Chest x-ray reveals improved pulmonary venous congestion. No evidence of overt failure. She's been afebrile. Hemodynamically stable. White count 13.4. Hemoglobin 9.1. Creatinine 1.17. AST 42, ALT 86. Objective - Vital Signs Vital signs: Vital Signs Temp 98.2 F 12/13/17 13:30 Pulse 92 12/13/17 13:30 Resp 16 12/13/17 13:30 BP 160/73 12/13/17 13:30 Pulse Ox 95 12/13/17 13:30 Intake & Output 12/12/17 12/13/17 12/13/17 18:59 06:59 18:59 Intake Total 220 Output Total 3700 300 2650 Balance -3700 -80 -2650 Weight 127.2 kg Intake: IV 220 Sodium Chloride 0.9% 1, 220 000 ml @ 20 mls/hr IV . Q24H [facility] Rx#:[id number] Output: Urine 3700 300 2650 Other: Voiding Method Indwelling Catheter Indwelling Catheter Indwelling Catheter ABP, PAP, CO, CI - Last Documented Arterial Blood Pressure 94/77 - Exam Gen. appearance, physical exam revealed a 62-year-old female in no distress, on 2 L nasal cannula. Head exam was generally normal. There was no scleral icterus or corneal arcus. Mucous membranes were moist. Evidence of oropharyngeal thrush noted.. Neck was supple and without jugular venous distension, thyromegaly, or carotid bruits. Carotids were easily palpable bilaterally. There was no adenopathy. The patient has a left IJ triple-lumen catheter in place. Lungs were clear to auscultation and percussion, and with normal diaphragmatic excursion. No crackles or rhonchi or wheezes. Cardiac exam revealed the PMI to be normally situated and sized. Normal S1 and S2, no S3 gallop. No murmur. Abdominal exam slightly obese, soft, nontender, no megaly, no rebound, positive bowel sounds. Examination of the extremities revealed no clubbing, no edema, no cyanosis. Neurologically patient is alert and awake 3, no gross focal neurologic deficit Examination of the skin revealed no evidence of erythema, or rashes. - Labs CBC & Chem 7: 12/13/17 07:28 12/13/17 07:28 Labs: Abnormal Lab Results - Last 24 Hours (Table) 12/12/17 12/12/17 12/13/17 Range/Units 16:53 20:07 07:00 WBC (3.8-10.6) k/uL RBC (3.80-5.40) m/uL Hgb (11.4-16.0) gm/dL Hct (34.0-46.0) % MCHC (31.0-37.0) g/dL Plt Count (150-450) k/uL Neutrophils # (1.3-7.7) k/uL Carbon Dioxide (22-30) mmol/L BUN (7-17) mg/dL Creatinine (0.52-1.04) mg/dL Glucose (74-99) mg/dL POC Glucose (mg/dL) 169 H 190 H 123 H (75-99) mg/dL AST (14-36) U/L ALT (9-52) U/L Alkaline Phosphatase (38-126) U/L Total Protein (6.3-8.2) g/dL Albumin (3.5-5.0) g/dL 12/13/17 12/13/17 12/13/17 Range/Units 07:28 07:28 11:11 WBC 13.4 H (3.8-10.6) k/uL RBC 3.34 L (3.80-5.40) m/uL Hgb 9.1 L (11.4-16.0) gm/dL Hct 30.1 L (34.0-46.0) % MCHC 30.2 L (31.0-37.0) g/dL Plt Count 139 L (150-450) k/uL Neutrophils # 11.1 H (1.3-7.7) k/uL Carbon Dioxide 37 H (22-30) mmol/L BUN 32 H (7-17) mg/dL Creatinine 1.17 H (0.52-1.04) mg/dL Glucose 131 H (74-99) mg/dL POC Glucose (mg/dL) 241 H (75-99) mg/dL AST 42 H (14-36) U/L ALT 86 H (9-52) U/L Alkaline Phosphatase 273 H (38-126) U/L Total Protein 5.5 L (6.3-8.2) g/dL Albumin 2.7 L (3.5-5.0) g/dL Assessment and Plan Assessment: Impression: 1 acute septic shock secondary to gram negative infection. The patient has gram -negative and the blood and the urine. The source of the septic shock is a a complicated UTI, possible left-sided pyelonephritis. The patient has a 3 mm ureteral stent and she is post double-J stent insertion in the left. Patient has made a significant improvement clinically over the last couple of days. She is now off pressors, and we are diuresing her gently. We discontinued vasopressin On 12/10/2017. Recovered. 2 Acute urinary tract infection, complicated, associated with acute gram- negative septic shock 3 nephrolithiasis with a proximal left ureteral stone causing ureteral obstruction in addition to nonobstructive calculus on the right kidney pelvis. 4 lactic acidosis, resolved 5 non-anion gap metabolic acidosis secondary to above. Resolved 6 Leukocytosis secondary to above, significantly improved 7 acute kidney injury secondary to above, improving. 8 obesity 9 diabetes mellitus 10 history of hypertension 11 troponin leak secondary to septic shock 12 abnormal liver function tests secondary to sepsis/septic shock 13 thrombocytopenia secondary to sepsis and septic shock. Improving, platelets on 12/13 are 139,000 compared to 50,000 on 12/10. 14 oropharyngeal thrush, added nystatin. Recommendation: The patient was seen and evaluated by Dr. Correa. Chest x-ray and labs reviewed. She is currently stable from the pulmonary and critical care standpoint. We'll continue with her current medications. We will increase her activity as tolerated. We'll continue to follow. I, the cosigning physician, performed a history & physical examination of the patient. Lungs sounds with crackles in the posterior bases. Maintaining good O2 saturations in the 90s on 2 L/m per nasal cannula. I discussed the assessment and plan of care with my nurse practitioner, Callie Reaves. I attest to the above note as dictated by her.
[2017-12-13 17:14] LABS: Glucose,Whole Blood 181 mg/dL (75-99)
--- NOTE | 2017-12-13 19:19 | P.PN ---
Subjective Progress Note Date: 12/13/17 Principal diagnosis: Flank pain, nausea, vomiting, sepsis, UTI Patient feeling well today, tolerating diet. No nausea or vomiting. Did have trouble sleeping yesterday without ibuprofen. Objective - Vital Signs Vital signs: Vital Signs Temp 98.6 F 12/13/17 15:35 Pulse 90 12/13/17 15:35 Resp 14 12/13/17 15:35 BP 128/61 12/13/17 15:35 Pulse Ox 96 12/13/17 15:35 Intake & Output 12/13/17 12/13/17 12/14/17 06:59 18:59 06:59 Intake Total 220 160 Output Total 300 3850 Balance -80 -3690 Weight 127.2 kg Intake: IV 220 160 Sodium Chloride 0.9% 1, 220 160 000 ml @ 20 mls/hr IV . Q24H [facility] Rx#:[id number] Output: Urine 300 3850 Uretheral (Stewart) 600 Other: Voiding Method Indwelling Catheter Indwelling Catheter # Voids 1 ABP, PAP, CO, CI - Last Documented Arterial Blood Pressure 94/77 - Exam Constitutional: Lying in bed, no apparent distress Eyes: No scleral icterus, conjunctival injection Ears: Symmetric, no discharge Nose: No discharge noted Mouth: Moist mucous membranes, no oral lesions appreciated Lungs: Clear, no wheezing appreciated, no respiratory distress Gastrointestinal: Abdomen soft, nondistended, with no guarding or rigidity Cardiac: Regular rate and rhythm Extremities: No lower extremity edema or rashes noted Skin: No new rashes or lesions Neuro: Awake alert and oriented 3 with no focal deficits - Labs CBC & Chem 7: 12/13/17 07:28 12/13/17 07:28 Labs: Abnormal Lab Results - Last 24 Hours (Table) 12/12/17 12/13/17 12/13/17 Range/Units 20:07 07:00 07:28 WBC 13.4 H (3.8-10.6) k/uL RBC 3.34 L (3.80-5.40) m/uL Hgb 9.1 L (11.4-16.0) gm/dL Hct 30.1 L (34.0-46.0) % MCHC 30.2 L (31.0-37.0) g/dL Plt Count 139 L (150-450) k/uL Neutrophils # 11.1 H (1.3-7.7) k/uL Carbon Dioxide (22-30) mmol/L BUN (7-17) mg/dL Creatinine (0.52-1.04) mg/dL Glucose (74-99) mg/dL POC Glucose (mg/dL) 190 H 123 H (75-99) mg/dL AST (14-36) U/L ALT (9-52) U/L Alkaline Phosphatase (38-126) U/L Total Protein (6.3-8.2) g/dL Albumin (3.5-5.0) g/dL 12/13/17 12/13/17 12/13/17 Range/Units 07:28 11:11 17:09 WBC (3.8-10.6) k/uL RBC (3.80-5.40) m/uL Hgb (11.4-16.0) gm/dL Hct (34.0-46.0) % MCHC (31.0-37.0) g/dL Plt Count (150-450) k/uL Neutrophils # (1.3-7.7) k/uL Carbon Dioxide 37 H (22-30) mmol/L BUN 32 H (7-17) mg/dL Creatinine 1.17 H (0.52-1.04) mg/dL Glucose 131 H (74-99) mg/dL POC Glucose (mg/dL) 241 H 181 H (75-99) mg/dL AST 42 H (14-36) U/L ALT 86 H (9-52) U/L Alkaline Phosphatase 273 H (38-126) U/L Total Protein 5.5 L (6.3-8.2) g/dL Albumin 2.7 L (3.5-5.0) g/dL Assessment and Plan (1) Elevated amylase and lipase Narrative/Plan: Elevated amylase of 546 on presentation has trended down to 76 with normal lipase on presentation of 23 which is trended up to 1544. These findings are nonspecific and likely secondary to the patient's acute medical problems with amylase currently normal. Elevation in lipase is likely secondary to acute kidney injury related to renal calculi and pyelonephritis. Patient's excessive use of NSAID medications are also a risk factor for elevation in lipase. Current Visit: Yes Status: Acute Code(s): R74.8 - ABNORMAL LEVELS OF OTHER SERUM ENZYMES SNOMED Code(s): 452770033 (2) Acute pyelonephritis Narrative/Plan: Per primary team Current Visit: Yes Status: Acute Code(s): N10 - ACUTE PYELONEPHRITIS SNOMED Code(s): 54100001 (3) Septic shock Narrative/Plan: Per primary team Current Visit: Yes Status: Acute Code(s): A41.9 - SEPSIS, UNSPECIFIED ORGANISM; R65.21 - SEVERE SEPSIS WITH SEPTIC SHOCK SNOMED Code(s): 35177762 Plan: Supportive care Continue current medical management Elevation in amylase and lipase are likely secondary to patient's acute medical problems, such as PHIL. No evidence of acute pancreatitis or history to suggest pancreatic disease. No further workup needed at this time. Patient was informed of the risks of NSAID use, which is the development of peptic ulcers. Would suggest repeat lipase in the outpatient setting to ensure return to normal levels. Avoid NSAID use Patient was offered EGD in the setting of significant ibuprofen and Aleve use. At this time the patient is not interested in endoscopic evaluation. We will standby, thank you for allowing us to participate in the care of this patient.
[2017-12-13 20:55] LABS: Iron Saturation 8.52 (12.00-45.00)
[2017-12-13 21:12] LABS: Glucose,Whole Blood 212 mg/dL (75-99)
[2017-12-14] MEDS: SODIUM CHLORIDE 0.9% 1,000 ML IV SCH (02:56)
[2017-12-14 07:12] LABS: Glucose,Whole Blood 135 mg/dL (75-99)
[2017-12-14 07:14] LABS: Basophils % (A) 0 %; Eosinophils # (A) 0.2 k/uL (0-0.7); Eosinophils % (A) 2 %; HCT 28.3 % (34.0-46.0); HGB 8.8 gm/dL (11.4-16.0); Hypochromasia Slight; Lymphocytes # (A) 1.2 k/uL (1.0-4.8); Lymphocytes % (A) 12 %; MCH 27.3 pg (25.0-35.0); MCV 87.9 fL (80.0-100.0); Mean Platelet Volume 10.5; Monocytes # (A) 0.5 k/uL (0-1.0); Monocytes % (A) 5 %; Neutrophils # (A) 7.6 k/uL (1.3-7.7); Neutrophils % (A) 78 %; Platelet Count 164 k/uL (150-450); RBC 3.22 m/uL (3.80-5.40); RDW 14.5 % (11.5-15.5); WBC 9.8 k/uL (3.8-10.6)
[2017-12-14 07:34] LABS: Albumin 2.7 g/dL (3.5-5.0); Calcium 8.6 mg/dL (8.4-10.2); Potassium 4.1 mmol/L (3.5-5.1); Total Protein 5.4 g/dL (6.3-8.2)
[2017-12-14] MEDS: INSULIN ASPART 100 UNIT/ML 1 ML 10 ML VIAL SQ SCH ×4 (08:01→21:19)
[2017-12-14] MEDS: cefTRIAXone IN SWFI 2,000 MG/20 ML SYRINGE IVP SCH (08:02)
[2017-12-14] MEDS: POTASSIUM BICARBONATE/CIT AC 20 MEQ TABLET.EFF NG-TUBE SCH (08:06)
[2017-12-14] MEDS: ENOXAPARIN 40 MG/0.4 ML SYRINGE SQ SCH (08:06)
[2017-12-14] MEDS: NYSTATIN 100,000 UNIT/ML SUSP 500,000 UNIT/5 ML CUP PO SCH ×4 (08:06→21:19)
[2017-12-14] MEDS: PANTOPRAZOLE 40 MG/10 ML VIAL IVP SCH (08:07)
[2017-12-14] MEDS: FUROSEMIDE 10 MG/ML 2 ML VIAL IV SCH (08:14)
--- NOTE | 2017-12-14 09:12 | P.PN ---
Subjective Patient is seen in follow-up for acute kidney injury. Renal function is improving with creatinine around 1.07 today. Patient was noted to have left- sided hydronephrosis and underwent a double J stent placement on December 06. She has a Stewart catheter in place. She is nonoliguric. No vomiting or diarrhea. Oral intake is good. Still has lower extremity edema which is improving and is currently maintained on IV Lasix. Vital signs are stable. General: The patient appeared well nourished and normally developed. HEENT: Head exam is unremarkable. Neck is without jugular venous distension. LUNGS: Lungs are clear to auscultation and percussion. Breath sounds decreased. HEART: Rate and Rhythm are regular. First and second heart sounds normal. No murmurs, rubs or gallops. ABDOMEN: Abdominal exam reveals normal bowel sounds. Non-tender and non- distended. No evidence of peritonitis. EXTREMITITES: 1+ edema. Objective - Vital Signs Vital signs: Vital Signs Temp 98.1 F 12/14/17 05:00 Pulse 85 12/14/17 05:00 Resp 17 12/14/17 05:00 BP 164/71 12/14/17 05:00 Pulse Ox 98 12/14/17 05:00 Intake & Output 12/13/17 12/14/17 12/14/17 18:59 06:59 18:59 Intake Total 160 240 Output Total 3850 Balance -3690 240 Intake: IV 160 240 Sodium Chloride 0.9% 1, 160 240 000 ml @ 20 mls/hr IV . Q24H [facility] Rx#:[id number] Output: Urine 3850 Uretheral (Stewart) 600 Other: Voiding Method Indwelling Catheter Toilet Toilet # Voids 1 2 ABP, PAP, CO, CI - Last Documented Arterial Blood Pressure 94/77 - Labs CBC & Chem 7: 12/14/17 06:55 12/14/17 06:55 Labs: Abnormal Lab Results - Last 24 Hours (Table) 12/13/17 12/13/17 12/13/17 Range/Units 07:28 11:11 17:09 RBC (3.80-5.40) m/uL Hgb (11.4-16.0) gm/dL Hct (34.0-46.0) % Carbon Dioxide (22-30) mmol/L BUN (7-17) mg/dL Creatinine (0.52-1.04) mg/dL Glucose (74-99) mg/dL POC Glucose (mg/dL) 241 H 181 H (75-99) mg/dL Iron 23 L (50-170) ug/dL Iron Saturation 8.52 L (12.00-45.00) Ferritin 356.5 H (10.0-291.0) ng/mL ALT (9-52) U/L Alkaline Phosphatase (38-126) U/L Total Protein (6.3-8.2) g/dL Albumin (3.5-5.0) g/dL 12/13/17 12/14/17 12/14/17 Range/Units 21:10 06:55 06:55 RBC 3.22 L (3.80-5.40) m/uL Hgb 8.8 L (11.4-16.0) gm/dL Hct 28.3 L (34.0-46.0) % Carbon Dioxide 33 H (22-30) mmol/L BUN 26 H (7-17) mg/dL Creatinine 1.07 H (0.52-1.04) mg/dL Glucose 137 H (74-99) mg/dL POC Glucose (mg/dL) 212 H (75-99) mg/dL Iron (50-170) ug/dL Iron Saturation (12.00-45.00) Ferritin (10.0-291.0) ng/mL ALT 67 H (9-52) U/L Alkaline Phosphatase 223 H (38-126) U/L Total Protein 5.4 L (6.3-8.2) g/dL Albumin 2.7 L (3.5-5.0) g/dL 12/14/17 Range/Units 07:10 RBC (3.80-5.40) m/uL Hgb (11.4-16.0) gm/dL Hct (34.0-46.0) % Carbon Dioxide (22-30) mmol/L BUN (7-17) mg/dL Creatinine (0.52-1.04) mg/dL Glucose (74-99) mg/dL POC Glucose (mg/dL) 135 H (75-99) mg/dL Iron (50-170) ug/dL Iron Saturation (12.00-45.00) Ferritin (10.0-291.0) ng/mL ALT (9-52) U/L Alkaline Phosphatase (38-126) U/L Total Protein (6.3-8.2) g/dL Albumin (3.5-5.0) g/dL Assessment and Plan Plan: Assessment: 1. Nonoliguric acute kidney injury mostly prerenal secondary to hypotension as well as component of obstructive uropathy with left-sided hydronephrosis. Renal function improving with creatinine down to 1.07 today. 2. Klebsiella bacteremia. 3. UTI feeds urine culture positive for E. coli and Pantonea. 4. Left-sided hydronephrosis status post double-J stent placement on December 06. 5. Anemia. Iron deficiency noted. 6. Chronic kidney disease. Unknown baseline creatinine. Etiology is diabetic kidney disease. 7. Lower extremity edema maintained on IV Lasix. Improving. Plan: Continue Lasix 20 mg IV once daily. Avoid nephrotoxic agents and hypotensive episodes. Hold off on IV iron due to bacteremia. Add oral iron supplementation. Continue with antibiotics. Repeat electrolytes in the morning.
--- NOTE | 2017-12-14 11:06 | P.PN ---
Subjective Progress Note Date: 12/14/17 Keli Urban is a 62-year-old female who presented to [facility] emergency room with multiple complaints including nausea, vomiting, diarrhea, and bilateral flank and back pain, she was evaluated in the emergency room by Dr. Kaur and was found to have sepsis with severe hypotension and evidence of severe dehydration, patient had evidence of urinary tract infection , and evidence of left sided kidney stone with hydronephrosis, she was started on IV fluid, IV pressors, and IV antibiotics, she will be admitted to intensive care unit consultation for pulmonary critical care Dr. Subramanian was initiated in the emergency room. Also consultation for infectious disease and urology was initiated. Patient states that she had history of kidney stones she had right sided lithotripsy 35 years ago. Patient was seen and examined in emergency room on 12/06/2017 at 5:30 PM she is alert responsive and able to finish phrases due to shortness of breath she denies any chest pain, no nausea or vomiting at this time, she has pain in the bilateral flank area, otherwise she denies any complaints, she states that she started feeling sick about 3 days ago she was having vomiting and diarrhea she took pills to stop diarrhea at home, she denies knowing that she had a urinary tract infection, she denies taking any antibiotic recently. On 12/07/2017 patient is seen and examined in ICU she is intubated, sedated and maintained on mechanical ventilation, through the night patient had hypotension requiring high doses of IV pressors she was seen by urology and underwent double -J stent placement on the left she was intubated she is continued on IV antibiotics cefepime blood cultures are showing gram-negative bacilli lactic acid was significantly elevated but is improving at this time. On 12/08/2017 patient is seen and examined in intensive care unit she was extubated she is maintained on oxygen via nasal cannula and is tolerating well she denies any chest pain or shortness of breath at this time she is still maintained on significant amount of IV pressors, she is maintained on IV antibiotics. On 12/09/2017 patient is seen and examined in ICU she remains on oxygen via nasal cannula and is tolerating well she is still maintained on Levothroid for pressure support she is maintained on IV fluids and IV antibiotics she is still complaining of pain in the lower abdominal area bilaterally otherwise she denies any complaints On 12/10/2017 patient is currently is A & O x3 and remains in the intensive care unit. Patient has been weaned off levophed and vasopressin for pressure support. Patient currently on nasal cannula 2 L. white blood cell improving to 11.9. Patient currently on Rocephin. Dr. Nance currently following for infectious disease. Dr. Correa per critical care currently following closely. Patient denies chest pain or shortness breath. Denies nausea vomiting or diarrhea. On 12/11/2017 patient is currently a & O 3 sitting up on the side of bed in the intensive care unit. Patient remains off all pressure support medication. Patient currently on room air. Patient denies chest pain or shortness breath. Patient denies any urinary burning or frequency. Denies any nausea vomiting or diarrhea On 12/12/2017 patient is currently resting comfortably in bed. Patient has been moved to a medical surgical floor. She denies chest pain or shortness of breath patient denies any urinary burning or frequency. Denies any nausea vomiting or diarrhea. On 12/13/2017 patient is alert and oriented 3 currently sitting in chair. Patient states she is feeling improved. Patient denies chest pain or shortness of breath. Denies nausea vomiting or diarrhea. Denies any urinary burning or frequency. White Blood cell trending down 13.4. Patient remains on IV Lasix per nephrology. Creatinine and bun continuing to improve On 12/14/2017 patient is alert and oriented 3 currently sitting in chair. Stewart catheter has been removed and patient voiding on her own. She remains on 2 L nasal cannula. She denies chest pain or shortness of breath. Denies nausea vomiting or diarrhea. Hemoglobin dropping to 8.8. Nephrology has added ferrous sulfate twice a day patient denies any blood in urine or stool. Stool for occult blood will be ordered. Objective - Vital Signs Vital signs: Vital Signs Temp 98.1 F 12/14/17 05:00 Pulse 85 12/14/17 05:00 Resp 17 12/14/17 05:00 BP 164/71 12/14/17 05:00 Pulse Ox 98 12/14/17 05:00 Intake & Output 12/13/17 12/14/17 12/14/17 18:59 06:59 18:59 Intake Total 160 240 Output Total 3850 Balance -3690 240 Intake: IV 160 240 Sodium Chloride 0.9% 1, 160 240 000 ml @ 20 mls/hr IV . Q24H [facility] Rx#:[id number] Output: Urine 3850 Uretheral (Stewart) 600 Other: Voiding Method Indwelling Catheter Toilet Toilet # Voids 1 2 ABP, PAP, CO, CI - Last Documented Arterial Blood Pressure 94/77 - Exam Head normocephalic Neck supple Lungs clear to auscultation bilaterally no wheezing or crackles Heart regular rate and rhythm S1-S2, no rub or gallop Abdomen is soft nontender nondistended positive bowel sounds no hepatosplenomegaly Extremities no edema Neuro alert and orientated to 3 - Labs CBC & Chem 7: 12/14/17 06:55 12/14/17 06:55 Labs: Abnormal Lab Results - Last 24 Hours (Table) 12/13/17 12/13/17 12/13/17 Range/Units 07:28 11:11 17:09 RBC (3.80-5.40) m/uL Hgb (11.4-16.0) gm/dL Hct (34.0-46.0) % Carbon Dioxide (22-30) mmol/L BUN (7-17) mg/dL Creatinine (0.52-1.04) mg/dL Glucose (74-99) mg/dL POC Glucose (mg/dL) 241 H 181 H (75-99) mg/dL Iron 23 L (50-170) ug/dL Iron Saturation 8.52 L (12.00-45.00) Ferritin 356.5 H (10.0-291.0) ng/mL ALT (9-52) U/L Alkaline Phosphatase (38-126) U/L Total Protein (6.3-8.2) g/dL Albumin (3.5-5.0) g/dL 12/13/17 12/14/17 12/14/17 Range/Units 21:10 06:55 06:55 RBC 3.22 L (3.80-5.40) m/uL Hgb 8.8 L (11.4-16.0) gm/dL Hct 28.3 L (34.0-46.0) % Carbon Dioxide 33 H (22-30) mmol/L BUN 26 H (7-17) mg/dL Creatinine 1.07 H (0.52-1.04) mg/dL Glucose 137 H (74-99) mg/dL POC Glucose (mg/dL) 212 H (75-99) mg/dL Iron (50-170) ug/dL Iron Saturation (12.00-45.00) Ferritin (10.0-291.0) ng/mL ALT 67 H (9-52) U/L Alkaline Phosphatase 223 H (38-126) U/L Total Protein 5.4 L (6.3-8.2) g/dL Albumin 2.7 L (3.5-5.0) g/dL 12/14/17 Range/Units 07:10 RBC (3.80-5.40) m/uL Hgb (11.4-16.0) gm/dL Hct (34.0-46.0) % Carbon Dioxide (22-30) mmol/L BUN (7-17) mg/dL Creatinine (0.52-1.04) mg/dL Glucose (74-99) mg/dL POC Glucose (mg/dL) 135 H (75-99) mg/dL Iron (50-170) ug/dL Iron Saturation (12.00-45.00) Ferritin (10.0-291.0) ng/mL ALT (9-52) U/L Alkaline Phosphatase (38-126) U/L Total Protein (6.3-8.2) g/dL Albumin (3.5-5.0) g/dL Assessment and Plan Assessment: #1 sepsis with septic shock, blood cultures are positive for gram-negative bacilli source of infection is most likely related to left sided pyelonephritis. Patient has been extubated to 2 L nasal cannula. Patient has been weaned off pressure support medication. Urine culture positive for Pantoe agglomerans and blood culture positive for Klebsiella ozaenae. Patient currently on antibiotic Rocephin. Dr. Nance for infectious disease is following. White blood cell improving to 11.9. Per Infectious disease when patient is ready for discharge home she will be likely discharged home on oral quinolone therapy that will be continued to the point in time for repeat cystoscopy and stone removal by lithotripsy. Chest x-ray completed showing pulmonary venous congestion persists with small persistent pleural effusion. Improved aeration at the lung bases. Dr. correa following per critical care. Patient currently on 20 mg IV Lasix daily #2 urinary tract infection, with evidence of of left sided pyelonephritis left obstructive uropathy status post double-J stent placement. Urine culture positive for Pantoe agglomerans. Patient remains on Rocephin #3 elevated liver enzymes likely related to shock liver due to hypotension. AST 33 and ALT 67 #4 slight elevation in troponin Will consult cardiology, patient denies any chest pain. Per cardiology mild elevation of cardiac enzymes likely secondary to type II event from significant hypotension and acute kidney injury and sepsis. #5 slight elevation in amylase, again likely due to hypotension doubt acute pancreatitis. Lipase elevated 1544. GI services consulted. Per GI Elevation in amylase and lipase are likely secondary to patient's acute medical problems, such as PHIL. No evidence of acute pancreatitis. Per GI no further workup needed at this time and repeat lipase in an outpatient setting along with avoiding NSAID use. GI also offered EGD due to significant ibuprofen and Aleve use but at this time patient is not interested in EGD. #6 left urethral calculus with left sided hydronephrosis, urology consultation requested. Per urology patient will be continued on antibiotics for several weeks prior to ureteroscopic treatment of her ureteral calculus will be discharged with a double-J catheter in place. #7 severe dehydration #8 acute renal failure, likely related to severe dehydration, possible obstructive uropathy component. Improving to 1.07 and bun 26 #9 lactic acidosis, lactic acid on presentation 4.9. 8/24 lactic acidosis 2.6 #10 thrombocytopenia platelets 50. We'll continue to monitor closely. Platelets Trending up to 165. Resolved #11 iron deficiency anemia. Hemoglobin 9.1. Iron studies have been ordered per nephrology. Hemoglobin 8.8. Patient started on ferrous sulfate per nephrology. Stool for occult blood Patient has been approved for placement at [facility] rehab with Dr. Caro. Patient agrees for placement upon discharge DVT prophylaxis Lovenox and GI prophylaxis Protonix I performed an examination of the patient and discussed their management with the Nurse Practitioner. I have reviewed the Nurse Practitioner's notes and agree with the documented findings and plan of care
[2017-12-14 11:22] LABS: Glucose,Whole Blood 210 mg/dL (75-99)
[2017-12-14 17:02] LABS: Glucose,Whole Blood 166 mg/dL (75-99)
[2017-12-14] MEDS: FERROUS SULFATE 325 MG TAB PO SCH (17:57)
[2017-12-14] MEDS: IPRATROPIUM-ALBUTEROL 3 ML NEB INHALATION PRN (20:45)
[2017-12-14 21:33] LABS: Glucose,Whole Blood 213 mg/dL (75-99)
[2017-12-15] MEDS: SODIUM CHLORIDE 0.9% 1,000 ML IV SCH (04:23)
[2017-12-15 06:26] VITALS: BP 127/61; TEMP 98.3
[2017-12-15 06:58] LABS: Glucose,Whole Blood 145 mg/dL (75-99)
[2017-12-15 07:17] LABS: Basophils # (A) 0.1 k/uL (0-0.2); Basophils % (A) 1 %; Eosinophils # (A) 0.2 k/uL (0-0.7); Eosinophils % (A) 2 %; HCT 27.3 % (34.0-46.0); HGB 8.6 gm/dL (11.4-16.0); Hypochromasia Slight; Lymphocytes # (A) 1.2 k/uL (1.0-4.8); Lymphocytes % (A) 14 %; MCH 27.9 pg (25.0-35.0); MCHC 31.4 g/dL (31.0-37.0); MCV 88.7 fL (80.0-100.0); Monocytes # (A) 0.5 k/uL (0-1.0); Monocytes % (A) 5 %; Neutrophils # (A) 6.7 k/uL (1.3-7.7); Neutrophils % (A) 76 %; Platelet Count 202 k/uL (150-450); RBC 3.08 m/uL (3.80-5.40); RDW 14.4 % (11.5-15.5); WBC 8.8 k/uL (3.8-10.6)
[2017-12-15] MEDS: PANTOPRAZOLE 40 MG/10 ML VIAL IVP SCH (07:22)
[2017-12-15] MEDS: ENOXAPARIN 40 MG/0.4 ML SYRINGE SQ SCH (07:23)
[2017-12-15] MEDS: FERROUS SULFATE 325 MG TAB PO SCH (07:23)
[2017-12-15] MEDS: NYSTATIN 100,000 UNIT/ML SUSP 500,000 UNIT/5 ML CUP PO SCH ×2 (07:23→12:44)
[2017-12-15] MEDS: POTASSIUM BICARBONATE/CIT AC 20 MEQ TABLET.EFF NG-TUBE SCH (07:23)
[2017-12-15] MEDS: FUROSEMIDE 10 MG/ML 2 ML VIAL IV SCH (07:23)
[2017-12-15] MEDS: INSULIN ASPART 100 UNIT/ML 1 ML 10 ML VIAL SQ SCH ×2 (07:30→12:49)
[2017-12-15 08:12] LABS: Albumin 2.7 g/dL (3.5-5.0); Calcium 8.4 mg/dL (8.4-10.2); Magnesium 1.6 mg/dL (1.6-2.3); Potassium 4.1 mmol/L (3.5-5.1); Total Bilirubin 0.9 mg/dL (0.2-1.3); Total Protein 5.5 g/dL (6.3-8.2)
[2017-12-15 08:32] VITALS: PULSE 92
--- NOTE | 2017-12-15 09:04 | P.PN ---
Subjective Patient is seen in follow-up for acute kidney injury. Renal function is improving with creatinine down to 0.97 today. Patient was noted to have left- sided hydronephrosis and underwent a double J stent placement on December 06. She is nonoliguric. No vomiting or diarrhea. Oral intake is good. Still has lower extremity edema which is improving and is currently maintained on IV Lasix. No active complaints at this time. She is eager to go home. Vital signs are stable. General: The patient appeared well nourished and normally developed. HEENT: Head exam is unremarkable. Neck is without jugular venous distension. LUNGS: Lungs are clear to auscultation and percussion. Breath sounds decreased. HEART: Rate and Rhythm are regular. First and second heart sounds normal. No murmurs, rubs or gallops. ABDOMEN: Abdominal exam reveals normal bowel sounds. Non-tender and non- distended. No evidence of peritonitis. EXTREMITITES: 1+ edema. Objective - Vital Signs Vital signs: Vital Signs Temp 98.3 F 12/15/17 05:00 Pulse 92 12/15/17 08:00 Resp 18 12/15/17 08:00 BP 127/61 12/15/17 05:00 Pulse Ox 91 L 12/15/17 05:00 Intake & Output 12/14/17 12/15/17 12/15/17 18:59 06:59 18:59 Other: Voiding Method Toilet Toilet Toilet # Voids 2 1 ABP, PAP, CO, CI - Last Documented Arterial Blood Pressure 94/77 - Labs CBC & Chem 7: 12/15/17 06:38 12/15/17 06:38 Labs: Abnormal Lab Results - Last 24 Hours (Table) 12/14/17 12/14/17 12/14/17 Range/Units 11:21 16:57 21:12 RBC (3.80-5.40) m/uL Hgb (11.4-16.0) gm/dL Hct (34.0-46.0) % BUN (7-17) mg/dL Glucose (74-99) mg/dL POC Glucose (mg/dL) 210 H 166 H 213 H (75-99) mg/dL ALT (9-52) U/L Alkaline Phosphatase (38-126) U/L Total Protein (6.3-8.2) g/dL Albumin (3.5-5.0) g/dL 12/15/17 12/15/17 12/15/17 Range/Units 06:38 06:38 06:50 RBC 3.08 L (3.80-5.40) m/uL Hgb 8.6 L (11.4-16.0) gm/dL Hct 27.3 L (34.0-46.0) % BUN 22 H (7-17) mg/dL Glucose 133 H (74-99) mg/dL POC Glucose (mg/dL) 145 H (75-99) mg/dL ALT 59 H (9-52) U/L Alkaline Phosphatase 196 H (38-126) U/L Total Protein 5.5 L (6.3-8.2) g/dL Albumin 2.7 L (3.5-5.0) g/dL Assessment and Plan Plan: Assessment: 1. Nonoliguric acute kidney injury mostly prerenal secondary to hypotension as well as component of obstructive uropathy with left-sided hydronephrosis. Renal function improving with creatinine down to 0.97 today. 2. Klebsiella bacteremia. 3. UTI feeds urine culture positive for E. coli and Pantonea. 4. Left-sided hydronephrosis status post double-J stent placement on December 06. 5. Anemia. Iron deficiency noted. 6. Chronic kidney disease. Unknown baseline creatinine. Etiology is diabetic kidney disease. 7. Lower extremity edema maintained on IV Lasix. Improving. Plan: Continue Lasix 20 mg IV once daily - can transition to oral 20 mg daily upon discharge. Avoid nephrotoxic agents and hypotensive episodes. Hold off on IV iron due to bacteremia. Continue oral iron supplementation. Continue with antibiotics. Repeat electrolytes in the morning. Stable to be discharged home from nephrology standpoint. She will need to follow-up as an outpatient in the next 2 weeks.
[2017-12-15] MEDS ORDERED: Magnesium Replacement Protocol 1 EACH MISC MISCELLANE PRN (09:26)
[2017-12-15] MEDS: cefTRIAXone IN SWFI 2,000 MG/20 ML SYRINGE IVP SCH (10:45)
[2017-12-15] MEDS: MAGNESIUM SULFATE-D5W PMX 1 GM in DEXTROSE/WATER 1 100ML.BAG IVPB SCH ×2 (10:47→12:39)
[2017-12-15 11:42] LABS: Glucose,Whole Blood 244 mg/dL (75-99)
--- NOTE | 2017-12-15 11:59 | P.DS ---
Providers Date of admission: 12/06/17 16:48 Expected date of discharge: 12/15/17 Attending physician: Juliet Holcomb Consults: 12/06/17 16:36 Consult Physician Stat Consulting Provider: Emil Green Consult Reason/Comments: infected kidney stone Do you want consulting provider notified?: Yes 12/06/17 17:00 Consult Physician Stat Consulting Provider: Anabelle Subramanian Consult Reason/Comments: ICU Management Do you want consulting provider notified?: Already Contacted 12/06/17 17:41 Consult Physician Routine Consulting Provider: Roberto Michaels Consult Reason/Comments: elevated troponin Do you want consulting provider notified?: Yes 12/06/17 18:01 Consult Physician Urgent Consulting Provider: Rosa Elena Mcmullen Consult Reason/Comments: Acute renal failure Do you want consulting provider notified?: Yes 12/06/17 18:02 Consult Physician Urgent Consulting Provider: Praful Nance Consult Reason/Comments: spetic shock Do you want consulting provider notified?: Yes 12/11/17 09:39 Consult Physician Routine Consulting Provider: Raoul Caro Consult Reason/Comments: possible inpatient rehab Do you want consulting provider notified?: Yes Primary care physician: Jagruti Dumont Hospital Course: Discharge diagnosis #1 sepsis with septic shock, blood cultures are positive for gram-negative bacilli source of infection is most likely related to left sided pyelonephritis. Patient has been extubated to 2 L nasal cannula. Patient has been weaned off pressure support medication. Urine culture positive for Pantoe agglomerans and blood culture positive for Klebsiella ozaenae. Patient currently on antibiotic Rocephin. Dr. Nance for infectious disease is following. White blood cell improving to 11.9. Per Infectious disease when patient is ready for discharge home she will be likely discharged home on oral quinolone therapy that will be continued to the point in time for repeat cystoscopy and stone removal by lithotripsy. Chest x-ray completed showing pulmonary venous congestion persists with small persistent pleural effusion. Improved aeration at the lung bases. Dr. carey following per critical care. Patient currently on 20 mg IV Lasix daily. #2 urinary tract infection, with evidence of of left sided pyelonephritis left obstructive uropathy status post double-J stent placement. Urine culture positive for Pantoe agglomerans. Patient remains on Rocephin. Discussed case with Dr. Aleksey covering for infectious disease. Patient to be discharged home on ciprofloxacin for 3 weeks 500 mg twice a day until urology follow-up appointment. Patient to follow-up with urology 1 week after discharge to confirm the absence of infection. At that time she will be scheduled to undergo cystoscopy, left ureteral stent removal are and endoscopic removal of her left ureteral calculus per Urology #3 elevated liver enzymes likely related to shock liver due to hypotension. AST 29 and ALT 59 #4 slight elevation in troponin Will consult cardiology, patient denies any chest pain. Per cardiology mild elevation of cardiac enzymes likely secondary to type II event from significant hypotension and acute kidney injury and sepsis. #5 slight elevation in amylase, again likely due to hypotension doubt acute pancreatitis. Lipase elevated 1544. GI services consulted. Per GI Elevation in amylase and lipase are likely secondary to patient's acute medical problems, such as PHIL. No evidence of acute pancreatitis. Per GI no further workup needed at this time and repeat lipase in an outpatient setting along with avoiding NSAID use. GI also offered EGD due to significant ibuprofen and Aleve use but at this time patient is not interested in EGD. Patient to follow-up closely outpatient with primary care provider. #6 left urethral calculus with left sided hydronephrosis, urology consultation requested. Per urology patient will be continued on antibiotics for several weeks prior to ureteroscopic treatment of her ureteral calculus will be discharged with a double-J catheter in place. #7 severe dehydration #8 acute renal failure, likely related to severe dehydration, possible obstructive uropathy component. Improving to 0.97 and bun 22. Per nephrology patient has been cleared for discharge. Patient to be discharged home on 20 mg Lasix by mouth daily. Patient to follow-up with nephrology in 2 weeks outpatient #9 lactic acidosis, lactic acid on presentation 4.9. 8/24 lactic acidosis 2.6 #10 thrombocytopenia platelets 50. We'll continue to monitor closely. Platelets Trending up to 165. Resolved #11 iron deficiency anemia. Hemoglobin 9.1. Iron studies have been ordered per nephrology. Hemoglobin 8.8. Patient started on ferrous sulfate per nephrology. Stool for occult blood. Patient denies any signs of active bleeding. Patient will be DC'd home on ferrous sulfate. Patient to follow-up with primary care provider. CBC and comp ordered outpatient for 1 week Hospital course Keli Langolf is a 62-year-old female who presented to [facility] emergency room with multiple complaints including nausea, vomiting, diarrhea, and bilateral flank and back pain, she was evaluated in the emergency room by Dr. Kaur and was found to have sepsis with severe hypotension and evidence of severe dehydration, patient had evidence of urinary tract infection , and evidence of left sided kidney stone with hydronephrosis, she was started on IV fluid, IV pressors, and IV antibiotics, she will be admitted to intensive care unit consultation for pulmonary critical care Dr. Subramanian was initiated in the emergency room. Also consultation for infectious disease and urology was initiated. Patient states that she had history of kidney stones she had right sided lithotripsy 35 years ago. Patient was seen and examined in emergency room on 12/06/2017 at 5:30 PM she is alert responsive and able to finish phrases due to shortness of breath she denies any chest pain, no nausea or vomiting at this time, she has pain in the bilateral flank area, otherwise she denies any complaints, she states that she started feeling sick about 3 days ago she was having vomiting and diarrhea she took pills to stop diarrhea at home, she denies knowing that she had a urinary tract infection, she denies taking any antibiotic recently. On 12/07/2017 patient is seen and examined in ICU she is intubated, sedated and maintained on mechanical ventilation, through the night patient had hypotension requiring high doses of IV pressors she was seen by urology and underwent double -J stent placement on the left she was intubated she is continued on IV antibiotics cefepime blood cultures are showing gram-negative bacilli lactic acid was significantly elevated but is improving at this time. On 12/08/2017 patient is seen and examined in intensive care unit she was extubated she is maintained on oxygen via nasal cannula and is tolerating well she denies any chest pain or shortness of breath at this time she is still maintained on significant amount of IV pressors, she is maintained on IV antibiotics. On 12/09/2017 patient is seen and examined in ICU she remains on oxygen via nasal cannula and is tolerating well she is still maintained on Levothroid for pressure support she is maintained on IV fluids and IV antibiotics she is still complaining of pain in the lower abdominal area bilaterally otherwise she denies any complaints On 12/10/2017 patient is currently is A & O x3 and remains in the intensive care unit. Patient has been weaned off levophed and vasopressin for pressure support. Patient currently on nasal cannula 2 L. white blood cell improving to 11.9. Patient currently on Rocephin. Dr. Nance currently following for infectious disease. Dr. Carey per critical care currently following closely. Patient denies chest pain or shortness breath. Denies nausea vomiting or diarrhea. On 12/11/2017 patient is currently a & O 3 sitting up on the side of bed in the intensive care unit. Patient remains off all pressure support medication. Patient currently on room air. Patient denies chest pain or shortness breath. Patient denies any urinary burning or frequency. Denies any nausea vomiting or diarrhea On 12/12/2017 patient is currently resting comfortably in bed. Patient has been moved to a medical surgical floor. She denies chest pain or shortness of breath patient denies any urinary burning or frequency. Denies any nausea vomiting or diarrhea. On 12/13/2017 patient is alert and oriented 3 currently sitting in chair. Patient states she is feeling improved. Patient denies chest pain or shortness of breath. Denies nausea vomiting or diarrhea. Denies any urinary burning or frequency. White Blood cell trending down 13.4. Patient remains on IV Lasix per nephrology. Creatinine and bun continuing to improve On 12/14/2017 patient is alert and oriented 3 currently sitting in chair. Stewart catheter has been removed and patient voiding on her own. She remains on 2 L nasal cannula. She denies chest pain or shortness of breath. Denies nausea vomiting or diarrhea. Hemoglobin dropping to 8.8. Nephrology has added ferrous sulfate twice a day patient denies any blood in urine or stool. Stool for occult blood will be ordered. On 12/15/2017 patient is alert and oriented 3 patient is very eager to go home. Patient requesting she be discharged home and started to return medical rehab center with Dr. Caro. Patient is able to ambulate with walker. Patient states and other family members will be home to assist. Discussed case with infectious disease DrFide Ryder covering for Dr. Nance patient will be discharged home on ciprofloxacin 500 mg twice a day for 3 weeks and to follow- up urology appointment. CBC and comp ordered for 1 week and patient to follow- up closely with primary care provider. Patient denies chest pain or shortness of breath. Denies nausea vomiting or diarrhea. Denies any urinary burning or frequency. I performed an examination of the patient and discussed their management with the Nurse Practitioner. I have reviewed the Nurse Practitioner's notes and agree with the documented findings and plan of care Patient Condition at Discharge: Stable Plan - Discharge Summary Discharge Rx Participant: Yes New Discharge Prescriptions: New Bacitracin Oint 1 applic TOPICAL BID PRN #1 tube PRN Reason: Wound Healing Ferrous Sulfate [Iron (65 MG Elemental)] 325 mg PO BID-W/MEALS tab Ipratropium-Albuterol Nebulize [Duoneb 0.5 mg-3 mg/3 ml Soln] 3 ml INHALATION RT-Q4H PRN ampul.neb PRN Reason: Wheezing Melatonin 2 mg PO HS PRN tab PRN Reason: Insomnia Nystatin 100,000 Unit/ml Susp [Mycostatin Oral Susp] 500,000 unit PO QID cup Furosemide [Lasix] 20 mg PO DAILY #30 tab Continue metFORMIN HCL [Glucophage] 500 mg PO AC-SUPPER Loratadine 10 mg PO DAILY Gabapentin [Neurontin] 100 mg PO TID Losartan [Cozaar] 50 mg PO DAILY Multivit with Calcium,Iron,Min [Women's Multivitamin] 1 tab PO DAILY Aspirin [Children's Aspirin] 81 mg PO DAILY Omeprazole [PriLOSEC] 20 mg PO DAILY Calcium Carbonate/Vitamin D3 [Calcium 600-Vit D3 400 Caplet] 1 tab PO DAILY Discontinued Ibuprofen 200 mg PO TID Naproxen 500 mg PO BID Hydrochlorothiazide 12.5 mg PO DAILY Discharge Medication List Aspirin [Children's Aspirin] 81 mg PO DAILY 11/28/17 [History] Gabapentin [Neurontin] 100 mg PO TID 11/28/17 [History] Loratadine 10 mg PO DAILY 11/28/17 [History] Losartan [Cozaar] 50 mg PO DAILY 11/28/17 [History] Multivit with Calcium,Iron,Min [Women's Multivitamin] 1 tab PO DAILY 11/28/17 [ History] Omeprazole [PriLOSEC] 20 mg PO DAILY 11/28/17 [History] metFORMIN HCL [Glucophage] 500 mg PO AC-SUPPER 11/28/17 [History] Calcium Carbonate/Vitamin D3 [Calcium 600-Vit D3 400 Caplet] 1 tab PO DAILY [History] Bacitracin Oint 1 applic TOPICAL BID PRN #1 tube 12/15/17 [Rx] Ciprofloxacin HCl [Cipro] 500 mg PO Q12HR 21 Days #42 tablet 12/15/17 [Rx] Ferrous Sulfate [Iron (65 MG Elemental)] 325 mg PO BID-W/MEALS tab 12/15/17 [Rx ] Furosemide [Lasix] 20 mg PO DAILY #30 tab 12/15/17 [Rx] Ipratropium-Albuterol Nebulize [Duoneb 0.5 mg-3 mg/3 ml Soln] 3 ml INHALATION RT -Q4H PRN ampul.neb 12/15/17 [Rx] Melatonin 2 mg PO HS PRN tab 12/15/17 [Rx] Nystatin 100,000 Unit/ml Susp [Mycostatin Oral Susp] 500,000 unit PO QID cup [Rx] Follow up Appointment(s)/Referral(s): Emil Green MD [STAFF PHYSICIAN] - 1 Week Eriberto Manning DO [STAFF PHYSICIAN] - 1 Week Jagruti Dumont DO [Primary Care Provider] - 1-2 days Ambulatory/Diagnostic Orders: Complete Blood Count w/diff [LAB.AMB] Time Frame: 1 Week, Location: None Selected Comprehensive Metabolic Panel [LAB.AMB] Time Frame: 1 Week, Location: None Selected
[2017-12-15 16:23] VITALS: RESP 16
[2017-12-15] MEDS ORDERED: BACITRACIN 500 UNIT/GM OINT 28.4 GM TUBE TOPICAL SCH (21:00)
[2017-12-16] MEDS ORDERED: PANTOPRAZOLE 40 MG TABLET PO SCH (07:30)
== END 2017-12-15 16:45 | disposition home health service (06) | DRG 871 ==
LOC: EC 13:16 → 6ICU 16:48 → 5MS5E 12-11 22:10
PROVIDERS: ADMIT Internal Medicine; ATTEND Internal Medicine
PROC: 0T778DZ Dilation of Left Ureter with Intraluminal Device, Via Natural or Artificial Opening Endoscopic (ICD-10-PCS; 2017-12-06)
PROC: 02HV33Z Insertion of Infusion Device into Superior Vena Cava, Percutaneous Approach (ICD-10-PCS; principal; 2017-12-06 18:50)
DX: A41.59 Other Gram-negative sepsis (principal); D65 Disseminated intravascular coagulation [defibrination syndrome]; J96.00 Acute respiratory failure, unspecified whether with hypoxia or hypercapnia; K72.00 Acute and subacute hepatic failure without coma; R65.21 Severe sepsis with septic shock; B37.0 Candidal stomatitis; E87.2 Acidosis; J90 Pleural effusion, not elsewhere classified; J98.11 Atelectasis; N13.6 Pyonephrosis; N17.9 Acute kidney failure, unspecified; Z68.41 Body mass index [BMI] 40.0-44.9, adult; B96.1 Klebsiella pneumoniae [K. pneumoniae] as the cause of diseases classified elsewhere; B96.20 Unspecified Escherichia coli [E. coli] as the cause of diseases classified elsewhere; D50.9 Iron deficiency anemia, unspecified; E11.21 Type 2 diabetes mellitus with diabetic nephropathy; E11.22 Type 2 diabetes mellitus with diabetic chronic kidney disease; E66.01 Morbid (severe) obesity due to excess calories; E83.42 Hypomagnesemia; E83.51 Hypocalcemia; E86.0 Dehydration; E86.1 Hypovolemia; E87.6 Hypokalemia; I12.9 Hypertensive chronic kidney disease with stage 1 through stage 4 chronic kidney disease, or unspecified chronic kidney disease; K21.9 Gastro-esophageal reflux disease without esophagitis; K80.20 Calculus of gallbladder without cholecystitis without obstruction; N18.9 Chronic kidney disease, unspecified; N21.1 Calculus in urethra; Z79.82 Long term (current) use of aspirin; Z82.49 Family history of ischemic heart disease and other diseases of the circulatory system; Z82.5 Family history of asthma and other chronic lower respiratory diseases; Z87.442 Personal history of urinary calculi; Z79.84 Long term (current) use of oral hypoglycemic drugs
CPT/HCPCS: 36415; 36556; 36600; 71045; 74176; 80048; 80053; 81001; 82150; 82533; 82728; 82805; 83036; 83540; 83550; 83605; 83690; 83735; 84100; 84132; 84484; 84550; 85025; 85027; 85610; 85730; 87040; 87070; 87077; 87086; 87186; 87205; 93005; 93306; 94002; 94003; 94640; 94760; 96361; 96365; 96366; 96367; 96375; 99291

== ENCOUNTER → 2018-01-09 | Outpatient (CLI) | payer BC ==
--- NOTE | 2018-01-09 09:12 | XR ---
EXAMINATION TYPE: XR KUB DATE OF EXAM: 01/09/2018 HISTORY: Pain Comparison: None.Single KUB is submitted for interpretation. Findings: Right renal calculi: 2 cm calculus mid pole right kidney. Right ureteral calculi: None Visualized. Left renal calculi: None Visualized. Left ureteral calculi: Left ureteral double pigtail stent is in place. Pelvic calcifications: Right hemipelvic calcification may reflect phlebolith. Bowel gas pattern is unremarkable. No free air. No mass effects. IMPRESSION: 1. Large right renal calculus.
== END | disposition home or self-care (01) ==
LOC: RADXRMAIN 08:46
PROVIDERS: ATTEND Urology
DX: Z01.812 Encounter for preprocedural laboratory examination (principal); N20.2 Calculus of kidney with calculus of ureter; R35.0 Frequency of micturition
CPT/HCPCS: 74018

== ENCOUNTER → 2018-01-16 | Outpatient (CLI) | payer BC ==
[2018-01-16 13:37] LABS: HCT 38.4 % (34.0-46.0); HGB 12.5 gm/dL (11.4-16.0); MCH 27.5 pg (25.0-35.0); MCHC 32.5 g/dL (31.0-37.0); MCV 84.7 fL (80.0-100.0); Mean Platelet Volume 8.3; Platelet Count 209 k/uL (150-450); RBC 4.53 m/uL (3.80-5.40); RDW 13.2 % (11.5-15.5); WBC 5.9 k/uL (3.8-10.6)
== END | disposition home or self-care (01) ==
LOC: LABWHC1 12:14
PROVIDERS: ATTEND Urology
DX: N20.1 Calculus of ureter (principal)
CPT/HCPCS: 36415; 85027

== ENCOUNTER 2018-01-17 06:01 | Day surgery (SDC) | payer BC ==
[2018-01-11 09:06] VITALS: BMI 35.5
--- NOTE | 2018-01-14 06:21 | P.GSHP ---
History of Present Illness H&P Date: 01/05/18 Chief Complaint: Ureteral calculus The patient is a 62-year-old white female admitted 12/06/2017 with UTI with sepsis. This was complicated by a 4 mm left proximal ureteral calculus, for which she underwent left ureteral stent placement.uurine culture showed E. coli , but blood cultures show Klebsiella. Both are sensitive to ciprofloxacin, which she will continue to take until 01/08/2018. She underwent right ESWL in the , followed by an open nephrolithotomy. - Constitutional Constitutional: Denies chills, Denies fever - Gastrointestinal Gastrointestinal: Denies nausea, Denies vomiting Past Medical History Past Medical History: Diabetes Mellitus, GERD/Reflux, Hypertension Additional Past Medical History / Comment(s): hx of bells palsy lt side of face. seasonal allergies, past kidney stone rt side/uti History of Any Multi-Drug Resistant Organisms: None Reported Additional Past Surgical History / Comment(s): kidney surgery 30 yrs ago Past Anesthesia/Blood Transfusion Reactions: No Reported Reaction Past Psychological History: No Psychological Hx Reported Smoking Status: Never smoker Past Alcohol Use History: None Reported Past Drug Use History: None Reported - Past Family History Mother Family Medical History: Myocardial Infarction ([place]) Additional Family Medical History / Comment(s): lupus Father Family Medical History: COPD Medications and Allergies Home Medications Medication Instructions Recorded Confirmed Type Aspirin [Children's Aspirin] 81 mg PO DAILY 11/28/17 01/11/18 History Gabapentin [Neurontin] 100 mg PO BID 11/28/17 01/11/18 History Loratadine 10 mg PO DAILY 11/28/17 01/11/18 History Losartan [Cozaar] 50 mg PO DAILY 11/28/17 01/11/18 History Multivit with Calcium,Iron,Min 1 tab PO DAILY 11/28/17 01/11/18 History [Women's Multivitamin] Omeprazole [PriLOSEC] 20 mg PO DAILY 11/28/17 01/11/18 History metFORMIN HCL [Glucophage] 500 mg PO AC-SUPPER 11/28/17 01/11/18 History Calcium Carbonate/Vitamin D3 1 tab PO DAILY 12/06/17 01/11/18 History [Calcium 600-Vit D3 400 Caplet] Bacitracin Oint 1 applic TOPICAL BID PRN #1 tube 12/15/17 01/11/18 Rx Furosemide [Lasix] 20 mg PO DAILY #30 tab 12/15/17 01/11/18 Rx Acetaminophen Tab [Tylenol Tab] 1,000 mg PO Q6HR PRN 01/11/18 01/11/18 History Ferrous Sulfate [Iron (65 MG 325 mg PO DAILY 01/11/18 01/11/18 History Elemental)] Allergies Allergy/AdvReac Type Severity Reaction Status Date / Time No Known Allergies Allergy Verified 01/11/18 08:31 Surgical - Exam - General well developed, well nourished, no distress - Respiratory normal respiratory effort, clear to auscultation - Cardiovascular Rhythm: regular Abnormal Heart Sounds: no systolic murmur, no diastolic murmur, no rub, no S3 Gallop, no S4 Gallop, no click, no other - Abdomen Abdomen: soft, non tender, no guarding, no rigid, no rebound Assessment and Plan (1) Calculus of ureter Status: Acute Code(s): N20.1 - CALCULUS OF URETER SNOMED Code(s): 86972851 Plan: Cystoscopy, left ureteral stent removal, left ureteroscopy with Holmium laser lithotripsy. The procedure was reviewed in detail with the patient and her . We discussed the rationale for the procedure, as well as the anticipated perioperative course. Potential risks were also reviewed, including anesthesia, bleeding, infection, inability to remove the calculus, and ureteral injury.
[~2018-01-17 06:01] MED LIST: DEXAMETHASONE SOD PHOSPHATE 10 MG/ML 1 ML VIAL IV ONE; HYDROmorphone 0.5 MG/0.5 ML SYRINGE IVP PRN; LACTATED RINGERS 1,000 ML IV SCH; MIDAZOLAM 2 MG/2 ML VIAL IV PRN; ONDANSETRON 4 MG/2 ML VIAL IVP ONE; SCOPOLAMINE 1.5MG/72HR PATCH TRANSDERM ONE; ceFAZolin IN SWFI 2 GM/20 ML SYRINGE IVP ONE
[2018-01-17] MEDS ORDERED: LIDOCAINE 1% 20 ML VIAL (10MG/ML) FOR IV START INTRADERMA ONE (07:02)
[2018-01-17 07:04] LABS: Glucose,Whole Blood 159 mg/dL (75-99)
--- NOTE | 2018-01-17 07:13 | XR ---
EXAMINATION TYPE: XR KUB DATE OF EXAM: 01/17/2018 COMPARISON: 01/09/2018 INDICATION: Left ureteral calculus TECHNIQUE: Single view abdomen frontal projection FINDINGS: There is a normal bowel gas pattern. Psoas margins are normal. No organomegaly is present. Degenerative changes are the lumbar spine. The large calcification over the right kidney measuring 1.4 x 2.3 cm again evident. Left ureteral brandon nt is present. There is stable calcification right hemipelvis. IMPRESSION: 1. Right renal calcification. 2. Left ureteral stent.
[2018-01-17] MEDS ORDERED: [UNRECOGNIZED DRUG - OTHER] IVPB ONE (07:15)
[2018-01-17] MEDS ORDERED: GENTAMICIN IVPB ONE (07:15)
[2018-01-17] MEDS ORDERED: SODIUM CHLORIDE IVPB ONE (07:15)
[2018-01-17] MEDS ORDERED: PROPOFOL 10 MG/ML 20 ML VIAL IV ONE (07:32)
[2018-01-17] MEDS ORDERED: MIDAZOLAM 2 MG/2 ML VIAL ONE (07:32)
[2018-01-17] MEDS ORDERED: fentaNYL (PF) 50 MCG/ML 2 ML AMP ONE (07:32)
[2018-01-17] MEDS ORDERED: ePHEDrine SULFATE/0.9% NACL/PF 50 MG/5 ML SYRINGE IV ONE (07:32)
[2018-01-17] MEDS ORDERED: LIDOCAINE 1% INJ 10MG/ML (20 ML MDV) ONE (07:32)
--- NOTE | 2018-01-17 08:21 | P.OP ---
Date of Procedure: 01/17/18 Preoperative Diagnosis: Left Ureteral Calculus Postoperative Diagnosis: Same Procedure(s) Performed: Cystoscopy, Left Ureteral Stent Removal, Left Ureteroscopy with Holmium Laser Lithotripsy and Stone Basketing Anesthesia: SHABANA Surgeon: Emil Green Estimated Blood Loss (ml): 0 IV fluids (ml): 450 Pathology: other (Calculus fragmented, sent for chemical analysis) Condition: stable Disposition: PACU Indications for Procedure: The patient is a 62-year-old white female admitted 12/06/2017 with UTI with sepsis. This was complicated by a 4 mm left proximal ureteral calculus, for which she underwent left ureteral stent placement. She has been treated with antibiotics and now comes for removal of her ureteral calculus. Operative Findings: Left proximal ureteral calculus, fragmented to completion. Description of Procedure: The patient was taken to the operating room and placed in the dorsolithotomy position, with legs supported in Sharath stirrups. The external genitalia was prepped and draped sterilely. The 30 lens was used to introduce the 22-Malays[place] Stortz cystoscopic sheath through the urethra and into the bladder under direct vision. The bladder was examined in its entirety. No tumors or foreign bodies were seen. Grasping forceps were used to grasp the distal end of the left ureteral stent, which was removed along with the cystoscope. The ACMI semirigid ureteroscope was advanced into the bladder, and the left ureteral orifice was cannulated. The ureteroscope was slowly advanced under direct vision, up to the proximal ureter, where a several millimeter calculus was seen. The 200 micron Holmium laser probe was passed through the ureteroscope, and lithotripsy was performed. The calculus fragmented readily. A nitinol basket was then used to retrieve the calculus fragments, the largest of which was saved and sent for chemical analysis. The ureteroscope was withdrawn and the procedure was terminated. The patient tolerated the procedure well and was taken to the recovery room in stable condition.
[2018-01-17 08:40] VITALS: TEMP 97.6
[2018-01-17 09:36] VITALS: PULSE 85
[2018-01-17 09:51] VITALS: BP 116/73; RESP 18
== END 2018-01-17 10:01 | disposition home or self-care (01) ==
LOC: OR 06:01
PROVIDERS: ATTEND Urology
DX: N20.1 Calculus of ureter (principal); E11.9 Type 2 diabetes mellitus without complications; K21.9 Gastro-esophageal reflux disease without esophagitis; I10 Essential (primary) hypertension; J30.2 Other seasonal allergic rhinitis; E66.9 Obesity, unspecified; Z68.35 Body mass index [BMI] 35.0-35.9, adult; Z87.440 Personal history of urinary (tract) infections; Z87.442 Personal history of urinary calculi; Z79.84 Long term (current) use of oral hypoglycemic drugs; Z79.82 Long term (current) use of aspirin; Z79.899 Other long term (current) drug therapy
CPT/HCPCS: 82365; 74018; 52353; J1580; J2250; J1100; J2405; J2001; J3010; J2704; J0690

== ENCOUNTER → 2018-02-23 | Outpatient (CLI) | payer BC ==
--- NOTE | 2018-02-23 08:54 | XR ---
EXAMINATION TYPE: XR KUB , 2 VIEWS DATE OF EXAM ORDERED: 02/23/2018 HISTORY: kidney stone. COMPARISON: Previous study dated 01/17/2018. FINDINGS: The double-J catheter is been removed on the left. No definite renal calculus is seen at this time. There is a phlebolith in the right hemipelvis. There are degenerative changes within the spine. IMPRESSION: NO DEFINITE NEPHROLITHIASIS OR URETEROLITHIASIS.
== END | disposition home or self-care (01) ==
LOC: RADXRMAIN 07:49
PROVIDERS: ATTEND Urology
DX: N20.0 Calculus of kidney (principal)
CPT/HCPCS: 74018

== ENCOUNTER 2018-03-08 06:16 | Day surgery (SDC) | payer BC ==
[2018-03-05 11:06] VITALS: BMI 35.0
--- NOTE | 2018-03-08 06:58 | P.GSHP ---
History of Present Illness H&P Date: 03/04/18 Chief Complaint: Right flank pain The patient is a 62-year-old white female hospitalized in November 2017 with UTI with sepsis, complicated by a 4 mm left proximal ureteral calculus. She underwent left ureteral stent placement and was treated with antibiotics. She underwent removal of the stent on 01/17/2018, at which time left ureteroscopy with Holmium laser lithotripsy and stone basketing was performed. The calculus was composed of calcium oxalate. Imaging studies revealed a 14 x 23 mm right renal calculus, and she reports right flank discomfort. She underwent ESWL that the calculus failed to fragment. She now comes for ureteroscopy with laser lithotripsy. - Constitutional Constitutional: Denies chills, Denies fever - Genitourinary (Female) Genitourinary: Reports flank pain, Reports kidney stones Past Medical History Past Medical History: Diabetes Mellitus, GERD/Reflux, Hypertension Additional Past Medical History / Comment(s): hx of bells palsy lt side of face. seasonal allergies, past kidney stone rt side/uti History of Any Multi-Drug Resistant Organisms: None Reported Additional Past Surgical History / Comment(s): kidney surgery 30 yrs ago Past Anesthesia/Blood Transfusion Reactions: No Reported Reaction Past Psychological History: No Psychological Hx Reported Smoking Status: Never smoker Past Alcohol Use History: None Reported Past Drug Use History: None Reported - Past Family History Mother Family Medical History: Myocardial Infarction ([place]) Additional Family Medical History / Comment(s): lupus Father Family Medical History: COPD Additional Family Medical History / Comment(s): BLADDER CANCER Medications and Allergies Home Medications Medication Instructions Recorded Confirmed Type Aspirin [Children's Aspirin] 81 mg PO DAILY 11/28/17 03/05/18 History Gabapentin [Neurontin] 100 mg PO TID 11/28/17 03/05/18 History Loratadine 10 mg PO DAILY 11/28/17 03/05/18 History Losartan [Cozaar] 50 mg PO DAILY 11/28/17 03/05/18 History Multivit with Calcium,Iron,Min 1 tab PO DAILY 11/28/17 03/05/18 History [Women's Multivitamin] Omeprazole [PriLOSEC] 20 mg PO DAILY 11/28/17 03/05/18 History metFORMIN HCL [Glucophage] 500 mg PO AC-SUPPER 11/28/17 03/05/18 History Calcium Carbonate/Vitamin D3 1 tab PO DAILY 12/06/17 03/05/18 History [Calcium 600-Vit D3 400 Caplet] Furosemide [Lasix] 20 mg PO DAILY #30 tab 12/15/17 03/05/18 Rx Acetaminophen Tab [Tylenol Tab] 1,000 mg PO Q6HR PRN 01/11/18 03/05/18 History Ferrous Sulfate [Iron (65 MG 325 mg PO DIRECTED 01/11/18 03/05/18 History Elemental)] Fluticasone/Umeclidin/Vilanter 1 inhalation INHALATION DAILY 03/05/18 03/05/18 History [Trelegy Ellipta 100-62.5-25] Mometasone/Formoterol [Dulera 200 2 puff INHALATION BID 03/05/18 03/05/18 History Mcg/5 Mcg Inhaler] Tamsulosin [Flomax] 0.4 mg PO HS 03/05/18 03/05/18 History predniSONE 10 mg PO DAILY 03/05/18 03/05/18 History Allergies Allergy/AdvReac Type Severity Reaction Status Date / Time sulfamethoxazole Allergy Unknown Rash/Hives Verified 03/05/18 09:59 [From Bactrim] trimethoprim [From Bactrim] Allergy Unknown Rash/Hives Verified 03/05/18 09:59 Surgical - Exam - General well developed, well nourished, no distress - Respiratory normal respiratory effort, clear to auscultation - Cardiovascular Rhythm: regular Abnormal Heart Sounds: no systolic murmur, no diastolic murmur, no rub, no S3 Gallop, no S4 Gallop, no click, no other - Abdomen Abdomen: soft, non tender, no guarding, no rigid, no rebound - Psychiatric oriented to time, oriented to person, oriented to place, speech is normal, memory intact Results - Imaging Abdominal x-ray: report reviewed, image reviewed Assessment and Plan (1) Calcium kidney stone Current Visit: No Status: Acute Code(s): N20.0 - CALCULUS OF KIDNEY SNOMED Code(s): 828750669 Plan: Cystoscopy, right ureteroscopy with Holmium laser lithotripsy and possible stone basketing, right ureteral stent insertion. The procedure has been reviewed in detail with the patient. She understands potential risks to include anesthesia, bleeding, infection, and ureteral injury. She understands the possible need for a secondary treatment. She also understands that he ureteral stent will be placed, which will subsequently require removal.
--- NOTE | 2018-03-08 07:20 | XR ---
EXAMINATION TYPE: XR KUB DATE OF EXAM: 03/08/2018 COMPARISON: 02/23/2018 INDICATION: Urinary calculi TECHNIQUE: Single view abdomen frontal projection FINDINGS: There is a normal bowel gas pattern. Psoas margins are normal. No organomegaly is present. Degenerative disc changes are through the mid and lower lumbar spine. There is a 1.1 x 2.1 cm calcification overlying the inferior pole right kidney. There is a stable sohan cification in the right hemipelvis. IMPRESSION: 1. Right renal calculus
[2018-03-08] MEDS ORDERED: LIDOCAINE 1% 20 ML VIAL (10MG/ML) FOR IV START INTRADERMA ONE (07:27)
[2018-03-08] MEDS ORDERED: LACTATED RINGERS 1,000 ML IV ONE (07:28)
[2018-03-08 07:31] LABS: Glucose,Whole Blood 130 mg/dL (75-99)
[2018-03-08] MEDS ORDERED: DEXAMETHASONE SOD PHOSPHATE 10 MG/ML 1 ML VIAL IV ONE (07:32)
[2018-03-08] MEDS ORDERED: ONDANSETRON 4 MG/2 ML VIAL IVP ONE (07:32)
[2018-03-08] MEDS: ceFAZolin IN SWFI 2 GM/20 ML SYRINGE IVP ONE ×2 (07:36→07:37)
[2018-03-08] MEDS ORDERED: PROPOFOL 10 MG/ML 20 ML VIAL IV ONE (07:37)
[2018-03-08] MEDS ORDERED: fentaNYL (PF) 50 MCG/ML 2 ML AMP ONE (07:37)
[2018-03-08] MEDS ORDERED: ePHEDrine SULFATE/0.9% NACL/PF 50 MG/5 ML SYRINGE IV ONE (07:37)
[2018-03-08] MEDS ORDERED: LIDOCAINE 1% INJ 10MG/ML (20 ML MDV) ONE (07:37)
[2018-03-08] MEDS ORDERED: IOPAMIDOL-370 100ML BTL MISCELLANE ONE ×2 (08:13)
--- NOTE | 2018-03-08 09:10 | P.OP ---
Date of Procedure: 03/08/18 Preoperative Diagnosis: Right renal calculus Postoperative Diagnosis: Same Procedure(s) Performed: Cystoscopy, right ureteroscopy with Holmium laser lithotripsy, right retrograde pyelogram, right ureteral stent insertion Anesthesia: HELENAA Surgeon: Emil Green Estimated Blood Loss (ml): 0 IV fluids (ml): 550 Pathology: none sent Condition: stable Disposition: PACU Indications for Procedure: The patient is a 62-year-old white female hospitalized in November 2017 with UTI with sepsis, complicated by a 4 mm left proximal ureteral calculus. She underwent left ureteral stent placement and was treated with antibiotics. She underwent removal of the stent on 01/17/2018, at which time left ureteroscopy with Holmium laser lithotripsy and stone basketing was performed. The calculus was composed of calcium oxalate. Imaging studies revealed a 14 x 23 mm right renal calculus, and she reports right flank discomfort. She underwent ESWL but it appeared that the calculus failed to fragment. She now comes for ureteroscopy with laser lithotripsy. Operative Findings: Tiny residual right renal calculus fragments. Dilated right intrarenal collecting system. Description of Procedure: The patient was taken to the operating room and placed in the dorsolithotomy position, with legs supported in Sharath stirrups. The external genitalia was prepped and draped sterilely. The 30 lens was used to introduce the 19-Kinyarwanda Stortz cystoscopic sheath through the urethra and into the bladder under direct vision. The bladder was examined in its entirety. Both ureteral orifices were normal anatomic location and configuration, and no tumors or foreign bodies were seen. A 0.038 inch Glidewire was passed through the cystoscope. The right ureteral orifice was cannulated, and the Glidewire was advanced up to the right renal pelvis. An 11/13-Kinyarwanda ureteral access catheter was passed over the wire, up to the proximal ureter. The mini flexible ureteroscope was advanced through the ureteral access catheter sheath and into the right renal pelvis. The renal pelvis was noted to be dilated. 2 small calculus fragments were seen within the renal pelvis. Each calyx was examined. No additional calculi were seen. Contrast was injected to delineate the anatomy of the intrarenal collecting system. Once again, each calyx was examined and no additional calculi were seen. The 200 micron Holmium laser probe was passed through the ureteroscope, and lithotripsy was performed to fracture the 2 small renal pelvic calculi which were seen. The ureteroscope was then withdrawn under direct vision. No calculi were seen within the ureter. The cystoscope was replaced into the bladder. The Glidewire was passed through the cystoscope. The right ureteral orifice was cannulated, and the Glidewire was advanced up to the right renal pelvis. A 4.8-Kinyarwanda, 26 cm double-J ureteral stent was placed over the wire. Proper stent positioning was verified fluoroscopically and endoscopically. The bladder was emptied and the cystoscope removed. The patient tolerated the procedure well and was taken to the recovery room in stable condition.
[2018-03-08 09:23] VITALS: TEMP 96.8
[2018-03-08 09:37] VITALS: RESP 16
[2018-03-08 09:44] LABS: Glucose,Whole Blood 145 mg/dL (75-99)
[2018-03-08 10:16] VITALS: BP 108/65; PULSE 70
--- NOTE | 2018-03-08 11:30 | FL ---
Fluoroscopy INDICATION: Pain FINDINGS: Fluoroscopy time: 89 seconds. Images obtained: 1. IMPRESSIONS: 1. Documentation of fluoroscopy.
== END 2018-03-08 10:27 | disposition home or self-care (01) ==
LOC: OR 06:16
PROVIDERS: ATTEND Urology
DX: N20.0 Calculus of kidney (principal); Z87.442 Personal history of urinary calculi; Z79.82 Long term (current) use of aspirin; Z87.440 Personal history of urinary (tract) infections; K21.9 Gastro-esophageal reflux disease without esophagitis; I10 Essential (primary) hypertension; E11.9 Type 2 diabetes mellitus without complications; Z79.52 Long term (current) use of systemic steroids; Z79.51 Long term (current) use of inhaled steroids; Z79.84 Long term (current) use of oral hypoglycemic drugs; Z79.899 Other long term (current) drug therapy; Z88.2 Allergy status to sulfonamides
CPT/HCPCS: 52356; 74450; 74018; C2625; C1769; J1100; J2405; J2001; J3010; J2704; J0690; Q9967; 51610

== ENCOUNTER → 2018-04-23 | Outpatient (CLI) | payer BC ==
--- NOTE | 2018-04-23 10:43 | XR ---
EXAMINATION TYPE: XR abdomen 1V DATE OF EXAM: 04/23/2018 CLINICAL DATA: 62-year-old female with history of kidney stones, evaluate right-sided renal calculus , MERGED WITH [facility] COMPARISON: 03/08/2018 FINDINGS: Nonobstructive bowel gas pattern. Supine imaging limited for assessment of free air. Mild overall stool burden. Stable phlebolith in the right side of the pelvis. Degenerative changes es pecially in the mid lumbar spine. A 1.7 x 0.8 cm calcification remains in the right mid abdomen. This appears slightly smaller from 2.1 x 1.1 cm on 03/08/2018. Most of the renal shadows are obscured by bowel content. IMPRESSION: 1.7 x 0.8 cm right renal calculus measures slightly smaller from 03/08/2018. Stable phlebolith in the right side of the pelvis.
--- NOTE | 2018-04-23 12:20 | US ---
EXAMINATION TYPE: US kidneys/renal and bladder DATE OF EXAM: 04/23/2018 COMPARISON: None CLINICAL HISTORY: 62-year-old female N20.0 Renal Calculus. Hx renal stones, hx renal stones TECHNIQUE: Multiple sonographic images of the kidneys and bladder are obtained. EXAM MEASUREMENTS: Right Kidney: 13.6 x 5.4 x 5.4 cm Left Kidney: 11.9 x 4.7 x 5.6 cm Right Kidney: echogenic focus with shadow in mid renal sinus- 1.7 x 1.2 cm there is no hydronephros is. Left Kidney: No hydronephrosis. Bladder: Partially distended, wnl Left jet seen IMPRESSION: 1. A centrally located 1.7 x 1.2 cm collecting system calculus on the right. No evident hydronephrosi s. However, the right ureteral jet was not seen during the course of the exam. 2. No hydronephrosis on the left.
== END | disposition home or self-care (01) ==
LOC: RADUSWWP 07:31
PROVIDERS: ATTEND Urology
DX: N20.0 Calculus of kidney (principal); I87.8 Other specified disorders of veins
CPT/HCPCS: 74018; 76770

== ENCOUNTER → 2018-05-02 | Day surgery (SDC) | payer BC ==
[2018-05-02 09:38] VITALS: TEMP 98.8; BMI 35.2
[2018-05-02 11:35] VITALS: BP 138/87; PULSE 82
--- NOTE | 2018-05-02 14:10 | MM ---
EXAMINATION TYPE: MG stereo VAD BX RT DATE OF EXAM: 05/02/2018 COMPARISON: 09/07/2017 CLINICAL HISTORY: Indeterminate right breast calcifications for which stereotactic biopsy was recomme nded. TECHNIQUE: Stereotactic guided core biopsy of right breast. FINDINGS: The procedure of stereotactic guided core biopsy was explained to the patient. Benefits, a lternatives, and risks were discussed. An informed consent was then obtained. Preprocedural timeout was performed. The shortness pathway for biopsy was chosen. Shortness pathway was CC from above approach. Preproced ural imaging demonstrated appropriate localization of the 3 mm group of calcifications. 10 cc of lido hilaria without epinephrine was utilized to anesthetize the skin surface and subcutaneous tissues. Post fire imaging demonstrated appropriate needle alignment. Postfire 10 cc of lidocaine with epinephrine was utilized to anesthetize the site of biopsy. A vacuum assisted biopsy gun was used to obtain 8 c ore samples. The patient tolerated the procedure well without any immediate complication. The patient was kept in the radiology department for short stay after the procedure and then discharged home in stable condi tion. Targeted calcifications are identified in specimen mammogram. Post biopsy mammogram shows the top hat-shaped biopsy marker to appear in satisfactory position relative to the targeted area of con cern on the preprocedure images. IMPRESSION: SUCCESSFUL, UNCOMPLICATED STEREOTACTIC GUIDED CORE BIOPSY OF A 3 MM GROUP OF CALCIFICATIONS IN THE UP PER-OUTER QUADRANT OF THE RIGHT BREAST AT MIDDLE DEPTH (LOW SUSPICION AT THE TIME OF BIOPSY), FULL PA THOLOGY RESULTS TO FOLLOW.
== END ==
LOC: RADMAMWWP 09:07
PROVIDERS: ATTEND Surgery
DX: R92.1 Mammographic calcification found on diagnostic imaging of breast (principal); R92.8 Other abnormal and inconclusive findings on diagnostic imaging of breast; Z88.2 Allergy status to sulfonamides
CPT/HCPCS: 88305; 19081; A4648; J2001

== ENCOUNTER → 2018-11-12 | Outpatient (CLI) | payer BC ==
--- NOTE | 2018-11-13 11:23 | MM ---
Reason for exam: additional evaluation requested from abnormal screening. Last mammogram was performed 1 year and 2 months ago. History: Patient is postmenopausal and is nulliparous. Benign MG stereo VAD BX RT of the right breast, May 02, 2018. MG Diagnostic Mammo RT w CAD MLO view(s) were taken of the right breast. Prior study comparison: September 20, 2017, right breast MG work up mamm w CAD RT. September 06, 2017, bilateral MG screening mammo w CAD. The breast tissue is heterogeneously dense. This may lower the sensitivity of mammography. There are benign-appearing calcifications in the right breast. No suspicious abnormality. A biopsy marker is noted in the right breast. ASSESSMENT: Benign, BI-RAD 2 RECOMMENDATION: Routine screening mammogram of both breasts in 1 year. Patient will be due in august 2019 for her anual mammogram. Patient was given her results on 11/12/18.
== END | disposition home or self-care (01) ==
LOC: RADMAMWWP 09:25
PROVIDERS: ATTEND Surgery
DX: R92.8 Other abnormal and inconclusive findings on diagnostic imaging of breast (principal)
CPT/HCPCS: 77065

== ENCOUNTER 2019-03-23 23:36 | Emergency (ER) | payer BC ==
[2019-03-23 23:51] VITALS: BP 131/79; PULSE 74; RESP 20; TEMP 98.6
[2019-03-23] MEDS ORDERED: valACYclovir 500 MG TAB PO STA (23:58)
[2019-03-23] MEDS ORDERED: predniSONE 20 MG TAB PO STA (23:59)
--- NOTE | 2019-03-24 00:02 | ED ---
General Adult HPI - General Chief complaint: Neuro Symptoms/Deficit Stated complaint: Poss Ramos's Palsy Time Seen by Provider: 03/23/19 23:45 Source: patient, family, RN notes reviewed, old records reviewed Mode of arrival: ambulatory Limitations: no limitations - History of Present Illness Initial comments: This a 63-year-old female who presents to the emergency department complaining of right-sided facial droop. Patient states it started yesterday very slightly is slowly progressed to the point where now she can't move any part of the right side of her face per patient states she has a history of Ramos's palsy except those on the other side. Patient states this is exactly like those symptoms. Patient states the only difference today is that she has a slight headache behind her right ear. Patient denies any numbness weakness per patient denies any visual disturbance per patient denies any speech disturbance. Patient has no balance problems according some bouts. Patient denies any chest pain difficult breathing shortness of breath. Patient denies any recent fever chills or cough. Patient denied any abdominal pain. - Related Data Home Medications Medication Instructions Recorded Confirmed Aspirin [Children's Aspirin] 81 mg PO DAILY 11/28/17 05/02/18 Gabapentin [Neurontin] 100 mg PO TID 11/28/17 05/02/18 Loratadine 10 mg PO DAILY 11/28/17 05/02/18 Losartan [Cozaar] 50 mg PO DAILY 11/28/17 05/02/18 Multivit with Calcium,Iron,Min 1 tab PO DAILY 11/28/17 05/02/18 [Women's Multivitamin] Omeprazole [PriLOSEC] 20 mg PO DAILY 11/28/17 05/02/18 metFORMIN HCL [Glucophage] 500 mg PO AC-SUPPER 11/28/17 05/02/18 Calcium Carbonate/Vitamin D3 1 tab PO DAILY 12/06/17 05/02/18 [Calcium 600-Vit D3 400 Caplet] Acetaminophen Tab [Tylenol Tab] 1,000 mg PO Q6HR PRN 01/11/18 05/02/18 Ferrous Sulfate [Iron (65 MG 325 mg PO DIRECTED 01/11/18 05/02/18 Elemental)] Fluticasone/Umeclidin/Vilanter 1 inhalation INHALATION DAILY 03/05/18 05/02/18 [Trelegy Ellipta 100-62.5-25] Atorvastatin [Lipitor] 10 mg PO HS 04/24/18 05/02/18 traMADol HCL [Ultram] 50 mg PO QID PRN 04/24/18 05/02/18 Previous Rx's Medication Instructions Recorded predniSONE 20 mg PO TID 7 Days tab 03/24/19 valACYclovir HCL [Valacyclovir] 1,000 mg PO Q8H 7 Days tab 03/24/19 Allergies Allergy/AdvReac Type Severity Reaction Status Date / Time sulfamethoxazole Allergy Unknown Rash/Hives Verified 03/23/19 23:51 [From Bactrim] trimethoprim [From Bactrim] Allergy Unknown Rash/Hives Verified 03/23/19 23:51 Review of Systems ROS Statement: Those systems with pertinent positive or pertinent negative responses have been documented in the HPI. ROS Other: All systems not noted in ROS Statement are negative. Past Medical History Past Medical History: Asthma, Diabetes Mellitus, GERD/Reflux, Hyperlipidemia, Hypertension Additional Past Medical History / Comment(s): hx of bells palsy left side of face. seasonal allergies. kidney stones/UTI-sepsis ICU admission Nov 2017. History of Any Multi-Drug Resistant Organisms: None Reported Additional Past Surgical History / Comment(s): kidney surgery 30 yrs ago. kidney surgery/ lithotripsy with stent nov 2017 due to pylonephritis causing spesis., carpal tunnel surgery right hand Past Anesthesia/Blood Transfusion Reactions: No Reported Reaction Past Psychological History: No Psychological Hx Reported Smoking Status: Never smoker Past Alcohol Use History: None Reported Past Drug Use History: None Reported - Past Family History Mother Family Medical History: Myocardial Infarction ([place]) Additional Family Medical History / Comment(s): lupus Father Family Medical History: COPD Additional Family Medical History / Comment(s): BLADDER CANCER General Exam - General Exam Comments Initial Comments: GENERAL: Patient is well-developed and well-nourished. Patient is nontoxic and well- hydrated and is in mild distress. ENT: Neck is soft and supple. No significant lymphadenopathy is noted. Oropharynx is clear. Moist mucous membranes. Neck has full range of motion without eliciting any pain. EYES: The sclera were anicteric and conjunctiva were pink and moist. Extraocular movements were intact and pupils were equal round and reactive to light. Eyelids were unremarkable. PULMONARY: Unlabored respirations. Good breath sounds bilaterally. No audible rales rhonchi or wheezing was noted. CARDIOVASCULAR: There is a regular rate and rhythm without any murmurs gallops or rubs. SKIN: Skin is clear with no lesions or rashes and otherwise unremarkable. NEUROLOGIC: Patient is alert and oriented x3. Patient has complete paralysis on the right side of her face with forehead involvement. Patient has normal strength and sensation of all 4 extremities. MUSCULOSKELETAL: Normal extremities with adequate strength and full range of motion. LYMPHATICS: No significant lymphadenopathy is noted PSYCHIATRIC: Normal psychiatric evaluation. Limitations: no limitations Course Vital Signs 03/23/19 23:46 Temperature 98.6 F Pulse Rate 74 Respiratory 20 Rate Blood Pressure 131/79 O2 Sat by Pulse 96 Oximetry Medical Decision Making - Medical Decision Making CT brain shows no acute abnormality. Patient received prednisone and valacyclovir in the emergency department Disposition Clinical Impression: Ramos's palsy Disposition: HOME SELF-CARE Condition: Good Instructions (If sedation given, give patient instructions): Ramos Palsy (ED) Prescriptions: predniSONE 20 mg PO TID 7 Days tab valACYclovir HCL [Valacyclovir] 1,000 mg PO Q8H 7 Days tab Is patient prescribed a controlled substance at d/c from ED?: No Referrals: Tasneem Conklin FNPBC [Family Provider] - 1-2 days Time of Disposition: 00:41
[2019-03-24] MEDS ORDERED: ACETAMINOPHEN TAB 500 MG TAB PO STA (00:19)
--- NOTE | 2019-03-24 00:24 | CT ---
EXAMINATION TYPE: CT brain wo con DATE OF EXAM: 03/24/2019 COMPARISON: None HISTORY: Facial droop. CT DLP: 1032.4 mGycm Automated exposure control for dose reduction was used. None ventricles and sulci appear normal. There is no mass effect nor midline shift. There is no sign of intracranial hemorrhage. Calvarium is intact. There is no evidence of cerebral edema. IMPRESSION: Negative head CT scan.
== END 2019-03-24 00:52 | disposition home or self-care (01) ==
LOC: EC 23:36
DX: G51.0 Bell's palsy (principal); E11.9 Type 2 diabetes mellitus without complications; K21.9 Gastro-esophageal reflux disease without esophagitis; E78.5 Hyperlipidemia, unspecified; J45.909 Unspecified asthma, uncomplicated; Z79.82 Long term (current) use of aspirin; Z79.84 Long term (current) use of oral hypoglycemic drugs; Z79.51 Long term (current) use of inhaled steroids; Z79.899 Other long term (current) drug therapy; Z88.1 Allergy status to other antibiotic agents; Z88.2 Allergy status to sulfonamides
CPT/HCPCS: 70450; 99284; J7512

== ENCOUNTER → 2021-02-10 | Outpatient (CLI) | payer MEDICARE ==
--- NOTE | 2021-02-10 08:53 | US ---
EXAMINATION TYPE: US kidneys/renal and bladder DATE OF EXAM: 02/10/2021 COMPARISON: NONE CLINICAL HISTORY: Z87.442 History of kidney stones. morbidly obese pt with known right renal stone, c hronic rt flank pain EXAM MEASUREMENTS: Right Kidney: 11.5 x 4.4 x 4.3 cm Left Kidney: 10.3 x 3.9 x 5.6 cm Right Kidney: 0.9cm echogenic foci that may represent known stone Left Kidney: limited views appear wnl Bladder: not fully distended There is no evidence for hydronephrosis at this point in time. No masses are identified. The urin oneil bladder is anechoic. Bilateral ureteral jets are seen. IMPRESSION: Nonobstructing right-sided nephrolithiasis
--- NOTE | 2021-02-10 13:50 | MM ---
Reason for exam: screening (asymptomatic). Last mammogram was performed 2 years and 3 months ago. History: Patient is postmenopausal and is nulliparous. Benign MG stereo VAD BX RT of the right breast, May 02, 2018. Physical Findings: A clinical breast exam by your physician is recommended on an annual basis and results should be correlated with mammographic findings. MG 3D Screening Mammo W/Cad Bilateral CC and MLO view(s) were taken. Prior study comparison: September 06, 2017, bilateral MG screening mammo w CAD. There are scattered fibroglandular densities. There are benign appearing round dystrophic calcifications bilaterally. There is chronic nodularity in the left medial breast. There is no discrete abnormality. ASSESSMENT: Benign, BI-RAD 2 RECOMMENDATION: Routine screening mammogram of both breasts in 1 year.
== END | disposition home or self-care (01) ==
LOC: RADMAMWWP 07:46
PROVIDERS: ATTEND Family Medicine
DX: N20.0 Calculus of kidney (principal)
CPT/HCPCS: 76770; 77063; 77067

== ENCOUNTER → 2021-07-07 | Outpatient (CLI) | payer MEDICARE ==
--- NOTE | 2021-07-07 15:34 | US ---
EXAMINATION TYPE: US thyroid st tissue head/neck DATE OF EXAM: 07/07/2021 COMPARISON: NONE CLINICAL HISTORY: R22.1 lump on neck. Lump on neck. GLAND SIZE: Right Lobe: 4.8 x 1.8 x 1.7 cm Overall Parenchyma: heterogeneous Left Lobe: 4.4 x 2.0 x 1.4 cm Overall Parenchyma: heterogeneous Isthmus Thickness: 0.26 cm NODULES RIGHT: # of nodules measured on right: 1 1. 0.5 X 0.5 x 0.4 cm, upper solid or almost completely solid, hypoechoic nodule, which is wider th an tall, with ill-defined margins, without echogenic foci. Prior size: No prior LEFT: # of nodules measured on left: 1 1. 0.9 X 0.7 x 0.5 cm, lower lateral, solid or almost completely solid, hypoechoic/heterogeneous no dule, which is wider than tall, with ill-defined margins, without echogenic foci. Prior size: No prior ISTHMUS: # of nodules measured in the isthmus: 0 Bilateral neck scanned. *At patient's area of concern, left submandibular area, there appears to be a hypoechoic area with hy perechoic center and vascular hilum: 0.8 x 0.9 x 0.8 cm. Findings can be compatible with a lymph node IMPRESSION: 1. Moderately suspicious nodule left lobe thyroid. Consider follow-up in one year. 2. Small lymph node at the area of concern left submandibular region 2017 ACR TI-RADS LEVEL: TR-RADS 4 - Moderately Suspicious: Follow if > 1 cm, FNA if > 1.5 cm *Highest TI-RADS level nodule reported
== END | disposition home or self-care (01) ==
LOC: RADUSWWP 07:33
PROVIDERS: ATTEND Family Medicine
DX: R22.1 Localized swelling, mass and lump, neck (principal)
CPT/HCPCS: 76536

== ENCOUNTER → 2021-08-11 | Outpatient (CLI) | payer MEDICARE ==
--- NOTE | 2021-08-11 09:47 | US ---
EXAMINATION TYPE: US abdomen complete DATE OF EXAM: 08/11/2021 COMPARISON: CT abdomen and pelvis December 06, 2017 CLINICAL HISTORY: R74.8 ELEVATED LIVER. Elevated liver enzymes exam limitations due to body habitus a nd bowel gas. EXAM MEASUREMENTS: Liver Length: 17.4 cm Gallbladder Wall: .3 cm CBD: .6 cm Spleen: 12.5 cm Right Kidney: 9.6 x 4.2 x 3.7 cm Left Kidney: 11.0 x 5.5 x 3.9 cm Pancreas: Tail obscured by overlying bowel gas Liver: Increased attenuation Gallbladder: Stone visualized Evidence for sonographic Corona's sign: no CBD: wnl Spleen: wnl Right Kidney: No hydronephrosis or masses seen Left Kidney: No hydronephrosis or masses seen Upper IVC: wnl Abd Aorta: wnl The visualized liver is heterogeneously hyperechoic. Evaluation for focal masses suboptimal due to t he heterogeneity. No new ascites. The intrahepatic portion of the IVC and proximal abdominal aorta ar e within normal limits. Intraluminal shadowing gallstone redemonstrated. No surrounding fluid or abno rmal gallbladder wall thickening. Common bile duct is unremarkable. The visualized portions of the p ancreas are homogenous. The spleen is unremarkable. Kidneys are symmetric and free of hydronephrosi s. No renal lesions are seen. IMPRESSION: Persistent heterogeneous hyperechoic appearance of liver felt on basis of marked diffuse fatty infiltration. No new biliary dilatation noted.
== END | disposition home or self-care (01) ==
LOC: RADUSWWP 07:25
PROVIDERS: ATTEND Family Medicine
DX: K76.0 Fatty (change of) liver, not elsewhere classified (principal)
CPT/HCPCS: 76700

== ENCOUNTER → 2022-04-07 | Outpatient (CLI) | payer MEDICARE | END | disposition home or self-care (01) | LOC: RADMAMWWP 07:51 | PROVIDERS: ATTEND Family Medicine | DX: Z53.9 Procedure and treatment not carried out, unspecified reason (principal) ==

== ENCOUNTER → 2022-05-05 | Outpatient (CLI) | payer MEDICARE ==
--- NOTE | 2022-05-05 11:44 | US ---
EXAMINATION TYPE: US thyroid st tissue head/neck DATE OF EXAM: 05/05/2022 COMPARISON: US thyroid 07/07/2021. CLINICAL HISTORY: E04.1 THYROID NODULE. Thyroid nodule, swollen lymph nodes. GLAND SIZE: Right Lobe: 4.2 x 2.0 x 1.7 cm Overall Parenchyma: heterogenous Left Lobe: 4.4 x 1.9 x 1.2 cm Overall Parenchyma: heterogeneous Isthmus Thickness: 0.29 cm NODULES RIGHT: # of nodules measured on right: 1 1. 0.6 X 0.6 x 0.5 cm, upper mid, solid or almost completely solid, hypoechoic nodule, which is wid er than tall, with ill-defined margins, without echogenic foci. TR 4. Prior size: 0.5 x 0.5 x 0.4 cm LEFT: # of nodules measured on left: 1 1. 1.1 X 0.9 x 0.7 cm, lower lateral, solid or almost completely solid, hypoechoic nodule, which is wider than tall, with ill-defined margins, without echogenic foci. TR 4. Prior size: 0.9 x 0.7 x 0.5 cm 2. 0.5 X 0.6 x 0.4 cm, upper mid, mixed cystic and solid nodule, which is wider than tall, with il l-defined margins, without echogenic foci. TR 3. Prior size: Not seen on prior ISTHMUS: # of nodules measured in the isthmus: 0 Bilateral neck scanned, Hypoechoic area with hyperechoic center seen within the right neck: 1.4 x 1.4 x 0.6 cm. This is consi stent with a benign appearing lymph nodes node, likely reactive. Hypoechoic area with hyperechoic center seen within the left submandibular area: 1.4 1.1 x 0.9 cm. T his is slightly increased in size from prior examination. IMPRESSION: 1. Stable bilateral thyroid TR4 nodules with new left thyroid lobe subcentimeter TR 3 nodule. Follow -up thyroid ultrasound in one year is recommended. 2. 3. Increased size of lymph node in the left submandibular area, could be reactive. Follow-up ultraso und in 3 months is recommended.
--- NOTE | 2022-05-08 09:00 | MM ---
Reason for Exam: Screening (asymptomatic). Last mammogram was performed 1 year(s) and 3 month(s) ago. Patient History: Menarche at age 15. Patient has no children. Postmenopausal. 05/02/2018, Benign Core Biopsy on the right side. Risk Values: [place] 5 year model risk: 2.0%. NCI Lifetime model risk: 7.5%. Prior Study Comparison: 09/20/2017 Right Diagnostic Mammogram, [facility]. 11/12/2018 Right Diagnostic Mammogram, [facility]. 02/10/2021 Bilateral Screening Mammogram, [facility]. Tissue Density: There are scattered fibroglandular densities. Findings: Analyzed By CAD. Mammotome biopsy clip right breast redemonstrated. There are scattered and loosely grouped benign-appearing small round calcifications in the bilateral breasts redemonstrated. There 2 adjacent small round 5 mm masses that are stable in size in the left breast anterior lower inner quadrant. There is no suspicious new group of microcalcifications or new suspicious mass in either breast. Overall Assessment: Benign, BI-RAD 2 Management: Screening Mammogram of both breasts in 1 year. A clinical breast exam by your physician is recommended on an annual basis and results should be correlated with mammographic findings. Electronically signed and approved by: Thanh Parisi M.D.
== END | disposition home or self-care (01) ==
LOC: RADUSWWP 09:59
PROVIDERS: ATTEND Family Medicine
DX: Z12.31 Encounter for screening mammogram for malignant neoplasm of breast (principal); E04.2 Nontoxic multinodular goiter; R59.0 Localized enlarged lymph nodes; Z78.0 Asymptomatic menopausal state
CPT/HCPCS: 76536; 77063; 77067

== ENCOUNTER → 2022-07-18 | Outpatient (CLI) | payer MEDICARE ==
--- NOTE | 2022-07-18 08:55 | US ---
EXAMINATION TYPE: US thyroid st tissue head/neck DATE OF EXAM: 07/18/2022 COMPARISON: US CLINICAL HISTORY: R59.9 SWELLING OF LYMPHNODES. F/U pt's palpable lump left side of neck, sub-mandibu lar area Left side of neck scanned in area of pt's palpable, there are 2 normal appearing lymph nodes 1)= 0.9 x 0.5 x 0.6 cm 2)= 1.3 x 0.8 x 0.8 cm- similar in appearance to prior IMPRESSION: Normal-appearing lymph nodes on left neck the site of clinical concern
== END | disposition home or self-care (01) ==
LOC: RADUSWWP 07:40
PROVIDERS: ATTEND Family Medicine
DX: R59.0 Localized enlarged lymph nodes (principal)
CPT/HCPCS: 76536

== ENCOUNTER → 2023-09-05 | Outpatient (CLI) | payer MEDICARE ==
[2023-09-05 11:33] LABS: African American GFR (CKD) >90 (>60 ml/min/1.73 sqM); Blood Urea Nitrogen 20 mg/dL (7-17); Non-African American GFR(CKD) >90 (>60 ml/min/1.73 sqM)
--- NOTE | 2023-09-06 18:11 | CT ---
EXAMINATION TYPE: CT chest w con DATE OF EXAM: 09/05/2023 COMPARISON: None HISTORY: shadow on lung CT DLP: 788 mGycm Automated exposure control for dose reduction was used. TECHNIQUE: CT scan of the chest is performed with IV Contrast, patient injected with 100 mL of Isovue 300. MIP Images are created on CT scanner and reviewed. 3D reconstructed images are created on an independent workstation and reviewed. FINDINGS: There are a few scattered small groundglass opacities in the right upper lobe. There is an 8 mm pulmo nary nodule in the right lung base adjacent to the hemidiaphragm. There is a small focal area of tree-in-bud density in the left lower lobe. There is no airspace consolidation. There is no pleural effusion or pneumothorax. The great vessels the chest are normal and is no mediastinal, hilar or axillary adenopathy. Limited scanning through the upper abdomen reveals multiple tiny nonobstructing right renal calcifica tions and a stable large fluid collection medial to the right kidney which was seen on the prior stud y and is stable. There is persistent cholelithiasis within a contracted gallbladder. No focal osseous lesions are seen.. IMPRESSION: 1. Multifocal scattered small groundglass densities in the right upper lobe and tree-in-bud density i n the left lower lobe. The findings suggest an acute inflammatory process short-term follow-up is rec ommended. 2. 8 mm right lower lobe pulmonary nodule. This was not seen on the CT abdomen and pelvis dated 2017 and a 3 month follow-up CT chest is recommended to confirm stability 3. Contracted gallbladder and cholelithiasis. 4. Right renal calcifications
== END | disposition home or self-care (01) ==
LOC: RADCTMAIN 10:40
PROVIDERS: ATTEND Family Medicine
DX: R91.8 Other nonspecific abnormal finding of lung field (principal); J98.4 Other disorders of lung; K80.20 Calculus of gallbladder without cholecystitis without obstruction; N28.89 Other specified disorders of kidney and ureter
CPT/HCPCS: 82565; 84520; 71260; 36415; Q9967

== ENCOUNTER → 2024-02-12 | Outpatient (CLI) | payer MEDICARE ==
--- NOTE | 2024-02-13 12:32 | MM ---
Reason for Exam: Screening (asymptomatic). Last mammogram was performed 1 year(s) and 9 month(s) ago. Patient History: Menarche at age 15. Patient has no children. Postmenopausal. 05/02/2018, Benign Core Biopsy on the right side. Risk Values: Savanna 5 year model risk: 2.0%. NCI Lifetime model risk: 6.9%. Prior Study Comparison: 11/12/2018 Right Diagnostic Mammogram, [facility]. 02/10/2021 Bilateral Screening Mammogram, [facility]. 05/05/2022 Bilateral MG 3D screening mammo w/cad, [facility]. Tissue Density: There are scattered areas of fibroglandular density. Findings: Analyzed By CAD. Chronic nodularity on the left. Microclip right breast from prior biopsy. There is no suspicious group of microcalcifications or new suspicious mass in either breast. Overall Assessment: Benign, BI-RAD 2 Management: Screening Mammogram of both breasts in 1 year. . Patient should continue monthly self-breast exams. A clinical breast exam by your physician is recommended on an annual basis. This exam should not preclude additional follow-up of suspicious palpable abnormalities. Note on Savanna scores and lifetime risk: 1. A Savanna score greater than 3% is considered moderate risk. If this is the case, consider specialist referral to assess eligibility for a risk reducing agent. 2. If overall lifetime risk for the development of breast cancer is 20% or higher, the patient may qualify for future screening with alternating mammogram and breast MRI. [facility], , 02/13/2024 12:29 PM. Electronically signed and approved by: Jany Pretty M.D. Radiologist
== END | disposition home or self-care (01) ==
LOC: RADMAMWWP 13:31
PROVIDERS: ATTEND Family Medicine
CPT/HCPCS: 77063; 77067

== ENCOUNTER → 2024-02-12 | Outpatient (CLI) | payer MEDICARE ==
[2024-02-12 13:03] LABS: African American GFR (CKD) >90 (>60 ml/min/1.73 sqM); Blood Urea Nitrogen 19 mg/dL (7-17); Non-African American GFR(CKD) 79 (>60 ml/min/1.73 sqM)
--- NOTE | 2024-02-12 14:01 | CT ---
EXAMINATION TYPE: CT chest w con CT DLP: 550.60 mGycm, Automated exposure control for dose reduction was used. DATE OF EXAM: 02/12/2024 1:41 PM COMPARISON: CT chest 09/05/2023, CT abdomen and pelvis 12/06/2017 CLINICAL INDICATION:Female, 68 years old with history of R91.1; PHH, Hx solitary pulmonary nodule TECHNIQUE: Multiple axial images were obtained through the chest following the administration of 100 cc of Isovue 300. . Coronal and sagittal reformats reviewed. FINDINGS: LUNGS/ PLEURA: No pleural effusion, pneumothorax, focal consolidation. Resolution of previously redem onstrated groundglass opacities within the right upper lobe and tree-in-bud opacities within the lef t lower lobe. Stable right lung base 7 mm solid pulmonary nodule (series 4, image 41). Stable periphe ral right midlung 2.3 mm pulmonary nodule (series 4, image 26). AIRWAY: Patent and unremarkable.. HEART: The heart is mildly increased in size.. No pericardial effusion. Coronary artery calcification s. MEDIASTINUM: No gross evidence of adenopathy. VASCULATURE: No aortic aneurysm. Four-vessel aortic arch. Dilated main pulmonary artery measuring up to 3.5 cm. No central filling defect identified. MUSCULOSKELETAL: No acute osseous abnormalities. Similar central compression deformity of the L2 vert ebral body. SOFT TISSUES/LYMPH NODES: Unremarkable. LOWER NECK: No significant findings. UPPER ABDOMEN: No renal cysts redemonstrated. Cholelithiasis. Stable partially visualized fluid colle ction medial to the right kidney. IMPRESSION: 1. Stable right lung base 7 mm pulmonary nodule dating back to 06/04/2017 exam benign. Resolution of previously demonstrated groundglass opacities within the right upper lobe and tree-in-bud nodular opa city within the left lower lobe. Additional stable peripheral right midlung port or micronodule. No n ew or enlarging pulmonary nodules. 2. Pulmonary arterial hypertension. 3. Cholelithiasis. [facility], , 02/12/2024 1:58 PM
== END | disposition home or self-care (01) ==
LOC: RADCTMAIN 12:07
PROVIDERS: ATTEND Internal Medicine
CPT/HCPCS: 36415; 71260; 82565; 84520

== ENCOUNTER 2024-06-05 21:38 | Inpatient (IN) | payer MEDICARE ==
--- NOTE | 2024-06-05 22:34 | ED ---
General Adult HPI - General Chief complaint: Shortness of Breath Stated complaint: SANCHO Time Seen by Provider: 06/05/24 21:51 Source: patient Mode of arrival: ambulatory Limitations: no limitations - History of Present Illness Initial comments: Patient is a pleasant 68-year-old female past medical history of asthma, non- smoker, presenting today for shortness of breath. Patient states that her has had influenza and she has been feeling short of breath and had a nonproductive cough for the last 4 days. Today she used her hand nebulizer more than often than usual, typically using it 2 times a day and today use it 4 times a day. She used it this evening and tried to go to bed however became more short of breath about an hour later so presented to the ER. She denies fevers or chills, chest pain, nausea vomiting or abdominal pain, hemoptysis. No history of CHF. she is not vaccinated against influenza. She has not had any recent steroids. 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 - Related Data Home Medications Medication Instructions Recorded Confirmed Aspirin [Children's Aspirin] 81 mg PO DAILY 11/28/17 06/06/24 Multivit with Calcium,Iron,Min 1 tab PO DAILY 11/28/17 06/06/24 [Women's Multivitamin] Omeprazole [PriLOSEC] 20 mg PO DAILY 11/28/17 06/06/24 Atorvastatin [Lipitor] 10 mg PO HS 04/24/18 06/06/24 Gabapentin [Neurontin] 300 mg PO BID 06/06/24 06/06/24 amLODIPine [Norvasc] 5 mg PO DAILY 06/06/24 06/06/24 metFORMIN HCL [Glucophage] 850 mg PO BID 06/06/24 06/06/24 Previous Rx's Medication Instructions Recorded Budesonide-Formot 160-4.5 Mcg 2 puff INHALATION RT-BID #1 each 06/06/24 [Symbicort 160-4.5 Mcg Inhaler] Oseltamivir [Tamiflu] 75 mg PO Q12H #9 cap 06/06/24 guaiFENesin [Mucinex] 600 mg PO Q12HR tab 06/06/24 predniSONE See Taper PO DIRECTED #30 tab 06/06/24 Allergies Allergy/AdvReac Type Severity Reaction Status Date / Time sulfamethoxazole Allergy Unknown Rash/Hives Verified 06/06/24 06:52 [From Bactrim] trimethoprim [From Bactrim] Allergy Unknown Rash/Hives Verified 06/06/24 06:52 Review of Systems ROS Statement: Those systems with pertinent positive or pertinent negative responses have been documented in the HPI. ROS Other: All systems not noted in ROS Statement are negative. Past Medical History Past Medical History: Asthma, Diabetes Mellitus, GERD/Reflux, Hyperlipidemia, Hypertension Additional Past Medical History / Comment(s): hx of bells palsy left side of face. seasonal allergies. kidney stones/UTI-sepsis ICU admission Nov 2017. History of Any Multi-Drug Resistant Organisms: None Reported Additional Past Surgical History / Comment(s): kidney surgery 30 yrs ago. kidney surgery/ lithotripsy with stent nov 2017 due to pylonephritis causing spesis., carpal tunnel surgery right hand Past Anesthesia/Blood Transfusion Reactions: No Reported Reaction Past Psychological History: No Psychological Hx Reported Past Alcohol Use History: None Reported Past Drug Use History: None Reported - Past Family History Mother Family Medical History: Myocardial Infarction ([place]) Additional Family Medical History / Comment(s): lupus Father Family Medical History: COPD Additional Family Medical History / Comment(s): BLADDER CANCER General Exam - General Exam Comments Initial Comments: PE: CONSTITUTIONAL: No apparent distress, well appearing SKIN: Warm, dry, no jaundice, hives or petechiae EYES: Pupils are equally round, extraocular movements intact without nystagmus, clear conjunctiva, non-icteric sclera HENT: Normocephalic, atraumatic, dry mucus membranes, oropharynx clear without exudates NECK: , Full range of motion, normal appearance PULMONARY: Inspiratory and expiratory wheezes throughout all lung ramirez, no rhonchi or rales, normal excursion, no accessory muscle use or stridor, mild tachypnea CARDIOVASCULAR: Tachycardia, regular rate, rhythm, normal S1 and S2. No appreciated murmurs, rubs or gallops. Strong radial pulses with intact distal perfusion. No lower extremity edema GASTROINTESTINAL: Soft, active bowel sounds throughout, non-tender, non- distended, no palpable masses, no rebound or guarding. No hepatosplenomegaly MUSCULOSKELETAL: Extremities have no gross deformity, no edema, redness, or swelling. No calf swelling NEUROLOGIC:_a/o x 3, GCS 15, normal mentation and speech. Moves all extremities x 4 without motor or sensory deficit PSYCHIATRIC:_normal mood and affect, thought process is clear and linear Limitations: no limitations Course Vital Signs 06/05/24 06/05/24 06/05/24 21:44 22:45 22:50 Temperature 98.8 F Pulse Rate 117 H 108 H 112 H Pulse Rate [ 108 H Skill Labor ] Respiratory 20 20 Rate Blood Pressure 136/77 118/75 Blood Pressure [Left Arm] O2 Sat by Pulse 92 L 98 Oximetry 06/05/24 06/05/24 06/05/24 23:08 23:43 23:50 Temperature Pulse Rate 122 H 114 H Pulse Rate [ Skill Labor ] Respiratory Rate Blood Pressure Blood Pressure [Left Arm] O2 Sat by Pulse 88 L Oximetry 06/06/24 06/06/24 06/06/24 00:08 00:49 01:02 Temperature Pulse Rate 131 H 125 H 125 H Pulse Rate [ Skill Labor ] Respiratory 18 Rate Blood Pressure 120/67 Blood Pressure [Left Arm] O2 Sat by Pulse 90 L Oximetry 06/06/24 06/06/24 06/06/24 01:22 01:29 01:37 Temperature 98.7 F Pulse Rate 123 H 124 H Pulse Rate [ 127 H Skill Labor ] Respiratory 18 18 Rate Blood Pressure 115/67 Blood Pressure 128/61 [Left Arm] O2 Sat by Pulse 93 L 94 L Oximetry 06/06/24 06/06/24 01:45 02:00 Temperature 98.2 F Pulse Rate 123 H 131 H Pulse Rate [ Skill Labor ] Respiratory 18 20 Rate Blood Pressure 106/51 Blood Pressure [Left Arm] O2 Sat by Pulse 95 94 L Oximetry - Reevaluation(s) Reevaluation #1: Patient was ambulated without oxygen after 2 DuoNebs, pulse ox decreased to 88% with ambulation though did rise after resting. She did not appear to have increased work of breathing though does endorse shortness of breath with lying down, we will attempt 1 more DuoNeb to see if we can raise patient's ambulatory biox to greater than 90%, if we able to do this we will discharge home, otherwise she may need to stay for monitoring. 06/06/24 00:28 EKG Findings - EKG Comments: EKG Findings:: Significant artifact limiting interpretation, sinus tachycardia rate 113 bpm intervals within normal limits, normal axis, no STEMI, no arrhythmia Medical Decision Making - Medical Decision Making Was pt. sent in by a medical professional or institution (ELADIA Godinez, MARKETING REPORTING ANALYST, urgent care, hospital, or jail...) When possible be specific @ -No Did you speak to anyone other than the patient for history (EMS, parent, family, police, friend...)? What history was obtained from this source @ -No Did you review nursing and triage notes (agree or disagree)? Why? @ -I reviewed nursing and triage notes Were old charts reviewed (outside hosp., previous admission, EMS record, old EKG, old radiological studies, urgent care reports/EKG's, jail records)? Report findings @ -Medical records reviewed CT chest done on 02/12/24 showed a stable right pulmonary nodule, did not appear to show acute process Differential Diagnosis (chest pain, altered mental status, abdominal pain women, abdominal pain men, vaginal bleeding, weakness, fever, dyspnea, syncope, headache, dizziness, GI bleed, back pain, seizure, CVA, palpatations, mental health, musculoskeletal)? @Differential Dyspnea: Coronary syndrome, arrhythmia, tamponade, asthma, COPD, pneumonia, pneumothorax, pulmonary effusion, anaphylaxis, diabetic ketoacidosis, flailed chest, pulmonary contusion, diaphragmatic rupture, anemia, neuromuscular, this is not meant to be an all-inclusive list. Interpreted by me (3pts min.). @ -As above X-rays interpreted by me (1pt min.). Chest XR shows no gross consolidations to indicate PNA, agree with radiologist interpretation CT interpreted by me (1pt min.). @ -None done U/S interpreted by me (1pt. min.). @ -None done What testing was considered but not performed or refused? (CT, X-rays, U/S, labs)? Why? @ -None What meds were considered but not given or refused? Why? @ -None Did you discuss the management of the patient with other professionals (professionals i.e. ELADIA Godinez, MARKETING REPORTING ANALYST, lab, RT, psych nurse, social services aide, third rigger, teacher, aadc plans staff officer, nurse case manager)? Give summary @ -No Was smoking cessation discussed for >3mins.? @ -No Was critical care preformed (if so, how long)? 35 minutes Were there social determinants of health that impacted care today? How? (Homelessness, low income, unemployed, alcoholism, drug addiction, transportation, low edu. Level, literacy, decrease access to med. care, prison, rehab)? @ -No Was there de-escalation of care discussed even if they declined (Discuss DNR or withdrawal of care, Hospice)? @ -No What co-morbidities impacted this encounter? (DM, HTN, Smoking, COPD, CAD, C ancer, CVA, ARF, Chemo, Hep., AIDS, mental health diagnosis, sleep apnea, morbid obesity)? @ Asthma Was patient admitted / discharged? Hospital course, mention meds given and route, prescriptions, significant lab abnormalities, going to OR and other pertinent info. @Admission- Patient is a pleasant 68 y/o female past medical hx asthma, lifetime non-smoker presenting today for shortness of breath. Recent flu exposure. Mildly tachycardic on arrival, pulse ox 90% on room air. On my assessment after patient did walk to her room, pulse ox was 85 to 86% on room air. She is mildly tachypneic but in no distress. 3 L oxygen nasal cannula was applied that brought patient's oxygen up to 93%. Exam significant for wheezing throughout all lung ramirez, no focal breath sounds. Plan for flu/COVID testing, x-ray, IV fluids, steroids, breathing treatments comprehensive labs anticipate admission Patient's pulse ox did down to 85% on room air after resting after ambulatory trial and [id number] nebulizers. She will receive an additional DuoNeb however at this point I do not anticipate that this will resolve her hypoxia so will admit for asthma exacerbation in the setting of influenza. Patient agreeable plan of care. Of note, though pt was tachycardic and mildly tachypneic, sepsis bundle was not utilized due to suspected, then confirmed viral (influenza) infection. Pt remained hypoxic despite back to back nebulizers, no more inspiratory wheezes on assessment but persistent expiratory wheezes throughout. Will admit. Pt agreeable with POC. Case discussed with Dr. James, kindly accepts pt for admission. Undiagnosed new problem with uncertain prognosis? @ -No Drug Therapy requiring intensive monitoring for toxicity (Heparin, Nitro, Insulin, Cardizem)? @ -No Were any procedures done? @ -No Diagnosis/symptom? Acute hypoxic respiratory failure, asthma exacerbation Acute, or Chronic, or Acute on Chronic? acute Uncomplicated (without systemic symptoms) or Complicated (systemic symptoms)? complicated Side effects of treatment? @ -No Exacerbation, Progression, or Severe Exacerbation? exacerbation Poses a threat to life or bodily function? How? (Chest pain, [place], [place], pneumonia, PE, COPD, DKA, ARF, appy, cholecystitis, CVA, Diverticulitis, Homicidal, Suicidal, threat to staff... and all critical care pts) yes - Lab Data Result diagrams: 06/05/24 22:19 06/05/24 22:19 Lab Results 06/05/24 06/05/24 06/05/24 Range/Units 22:19 22:19 22: WBC 7.9 (3.8-10.6) k/uL RBC 5.21 (3.80-5.40) m/uL Hgb 14.7 (11.4-16.0) gm/dL Hct 45.0 (34.0-46.0) % MCV 86.3 (80.0-100.0) fL MCH 28.1 (25.0-35.0) pg MCHC 32.6 (31.0-37.0) g/dL RDW 12.9 (11.5-15.5) % Plt Count 174 (150-450) k/uL MPV 9.1 Neutrophils % 78 % Lymphocytes % 8 % Monocytes % 8 % Eosinophils % 3 % Basophils % 1 % Neutrophils # 6.2 (1.3-7.7) k/uL Lymphocytes # 0.6 L (1.0-4.8) k/uL Monocytes # 0.6 (0-1.0) k/uL Eosinophils # 0.2 (0-0.7) k/uL Basophils # 0.1 (0-0.2) k/uL PT 11.8 (10.0-12.5) sec INR 1.1 (<1.2) APTT 22.0 (22.0-30.0) sec Sodium 134 L (137-145) mmol/L Potassium 4.6 (3.5-5.1) mmol/L Chloride 94 L (98-107) mmol/L Carbon Dioxide 26 (22-30) mmol/L Anion Gap 14 mmol/L BUN 22 H (7-17) mg/dL Creatinine 0.63 (0.52-1.04) mg/dL Est GFR (CKD-EPI)AfAm >90 (>60 ml/min/1.73 sqM) Est GFR (CKD-EPI)NonAf >90 (>60 ml/min/1.73 sqM) Glucose 258 H (74-99) mg/dL Calcium 9.4 (8.4-10.2) mg/dL Total Bilirubin 0.6 (0.2-1.3) mg/dL AST 32 (14-36) U/L ALT 33 (4-34) U/L Alkaline Phosphatase 91 (38-126) U/L Troponin I (0.000-0.034) ng/mL NT-Pro-B Natriuret Pep 78 pg/mL Total Protein 6.9 (6.3-8.2) g/dL Albumin 4.3 (3.5-5.0) g/dL Influenza Type A (PCR) (Not Detectd) Influenza Type B (PCR) (Not Detectd) RSV (PCR) (Not Detectd) SARS-CoV-2 (PCR) (Not Detectd) 06/05/24 06/05/24 Range/Units 22:19 22:22 WBC (3.8-10.6) k/uL RBC (3.80-5.40) m/uL Hgb (11.4-16.0) gm/dL Hct (34.0-46.0) % MCV (80.0-100.0) fL MCH (25.0-35.0) pg MCHC (31.0-37.0) g/dL RDW (11.5-15.5) % Plt Count (150-450) k/uL MPV Neutrophils % % Lymphocytes % % Monocytes % % Eosinophils % % Basophils % % Neutrophils # (1.3-7.7) k/uL Lymphocytes # (1.0-4.8) k/uL Monocytes # (0-1.0) k/uL Eosinophils # (0-0.7) k/uL Basophils # (0-0.2) k/uL PT (10.0-12.5) sec INR (<1.2) APTT (22.0-30.0) sec Sodium (137-145) mmol/L Potassium (3.5-5.1) mmol/L Chloride (98-107) mmol/L Carbon Dioxide (22-30) mmol/L Anion Gap mmol/L BUN (7-17) mg/dL Creatinine (0.52-1.04) mg/dL Est GFR (CKD-EPI)AfAm (>60 ml/min/1.73 sqM) Est GFR (CKD-EPI)NonAf (>60 ml/min/1.73 sqM) Glucose (74-99) mg/dL Calcium (8.4-10.2) mg/dL Total Bilirubin (0.2-1.3) mg/dL AST (14-36) U/L ALT (4-34) U/L Alkaline Phosphatase (38-126) U/L Troponin I <0.012 (0.000-0.034) ng/mL NT-Pro-B Natriuret Pep pg/mL Total Protein (6.3-8.2) g/dL Albumin (3.5-5.0) g/dL Influenza Type A (PCR) Detected A (Not Detectd) Influenza Type B (PCR) Not Detected (Not Detectd) RSV (PCR) Not Detected (Not Detectd) SARS-CoV-2 (PCR) Not Detected (Not Detectd) Disposition Clinical Impression: Influenza A, Asthma exacerbation, Acute hypoxic respiratory failure Disposition: ADMITTED IP TO THIS HOSP Condition: Stable
[2024-06-05 22:36] LABS: Basophils # (A) 0.1 k/uL (0-0.2); Basophils % (A) 1 %; Eosinophils # (A) 0.2 k/uL (0-0.7); Eosinophils % (A) 3 %; HGB 14.7 gm/dL (11.4-16.0); Lymphocytes # (A) 0.6 k/uL (1.0-4.8); Lymphocytes % (A) 8 %; MCH 28.1 pg (25.0-35.0); MCHC 32.6 g/dL (31.0-37.0); MCV 86.3 fL (80.0-100.0); Mean Platelet Volume 9.1; Monocytes # (A) 0.6 k/uL (0-1.0); Monocytes % (A) 8 %; Neutrophils # (A) 6.2 k/uL (1.3-7.7); Neutrophils % (A) 78 %; Platelet Count 174 k/uL (150-450); RBC 5.21 m/uL (3.80-5.40); RDW 12.9 % (11.5-15.5); WBC 7.9 k/uL (3.8-10.6)
[2024-06-05] MEDS: SODIUM CHLORIDE 0.9% 1,000 ML IV STA (22:36)
[2024-06-05] MEDS: ALBUTEROL NEBULIZED 2.5 MG/3 ML INHALATION STA (22:36)
[2024-06-05] MEDS: methylPREDNISolone SOD SUCCI 125 MG/2 ML VIAL IV STA (22:36)
[2024-06-05] MEDS: IPRATROPIUM 0.5 MG/2.5 ML NEBU INHALATION STA ×2 (22:37→22:40)
[2024-06-05] MEDS: ALBUTEROL NEBULIZED 2.5 MG/3 ML INHALATION SCH (22:37)
[2024-06-05 22:50] LABS: ALT 33 U/L (4-34); AST 32 U/L (14-36); African American GFR (CKD) >90 (>60 ml/min/1.73 sqM); Albumin 4.3 g/dL (3.5-5.0); Alkaline Phosphatase 91 U/L (38-126); Anion Gap 14 mmol/L; Blood Urea Nitrogen 22 mg/dL (7-17); Calcium 9.4 mg/dL (8.4-10.2); Carbon Dioxide 26 mmol/L (22-30); Chloride 94 mmol/L (98-107); Glucose 258 mg/dL (74-99); Non-African American GFR(CKD) >90 (>60 ml/min/1.73 sqM); Potassium 4.6 mmol/L (3.5-5.1); Sodium 134 mmol/L (137-145); Total Bilirubin 0.6 mg/dL (0.2-1.3); Total Protein 6.9 g/dL (6.3-8.2)
[2024-06-05 22:58] LABS: NT-Pro-B-Type Natriuretic Pept 78 pg/mL
[2024-06-05 23:01] LABS: INR 1.1 (<1.2); Prothrombin Time 11.8 sec (10.0-12.5)
[2024-06-05 23:13] LABS: Influenza A Detected (Not Detectd); Influenza B Not Detected (Not Detectd); RSV Not Detected (Not Detectd)
--- NOTE | 2024-06-05 23:45 | XR ---
EXAMINATION TYPE: XR chest 2V DATE OF EXAM: 06/05/2024 11:42 PM COMPARISON: Chest CT February 12, 2024. Chest x-ray May 27, 2024. CLINICAL INDICATION: Female, 68 years old with history of asthma wheezing, exposure to flu, TECHNIQUE: Frontal and lateral views of the chest are obtained. FINDINGS: There is no focal air space opacity, pleural effusion, or pneumothorax seen. The cardiac silhouette size is stable and upper limits of normal. The osseous structures are intact. IMPRESSION: No acute cardiopulmonary process. [facility], , 06/05/2024 11:43 PM
[2024-06-06] MEDS ORDERED: NALOXONE 0.4 MG/ML 1 ML VIAL IVP PRN (00:58)
[2024-06-06] MEDS ORDERED: ACETAMINOPHEN TAB 325 MG TAB PO PRN (00:58)
[2024-06-06] MEDS: IPRATROPIUM 0.5 MG/2.5 ML NEBU INHALATION STA (01:01)
[2024-06-06] MEDS: IPRATROPIUM-ALBUTEROL 3 ML NEB INHALATION STA (01:21)
[2024-06-06 01:40] LABS: Glucose,Whole Blood 333 mg/dL (70-110)
--- NOTE | 2024-06-06 05:37 | P.CNPUL ---
History of Present Illness Consult date: 06/06/24 Requesting physician: Sarah Lopez Reason for consult: asthma, other (Influenza A positive) Chief complaint: Shortness of breath, cough History of present illness: Patient is a 68-year-old female with past medical history significant for mild intermittent asthma, lung nodule, hypertension, hyperlipidemia, diabetes mellitus. Patient presented to the emergency department late last night with a chief complaint of shortness of breath and nonproductive cough. Her has recently tested positive for influenza earlier in the week. She herself has not been vaccinated for influenza this year. Workup in the emergency department included a viral screen which was positive for influenza A. She was noted to be hypoxic in the ED, with an SpO2 of 85% on room air, placed on 2 L/min nasal c annula. Chest x-ray was unremarkable for any acute infiltrates or evidence of pneumonia. Hyperinflation and flattening of diaphragm. CBC unremarkable for leukocytosis. CMP also unremarkable, electrolytes WDL, creatinine 0.63, glucose 258. Troponin less than 0.012. NT proBNP 78. EKG: Sinus tachycardia, rate 113 bpm, diffuse ST and T-segment changes. She is being evaluated currently in the observation unit. On 2 L/min nasal cannula. Symptoms started approximately 3 days prior. Symptoms include shortness of breath, wheezing, chest tightness, dry nonproductive cough, and "raspy voice". She was using her rescue inhaler without much relief. Denies nausea, vomiting, diarrhea. She is tolerating oral fluids. Afebrile. Most recent vital signs: Temperature 98.2 F, heart rate 131 bpm, blood pressure 106/51 mmHg, nontachypneic on 2 L/min nasal cannula, SpO2 reading 94% Review of Systems Constitutional: Reports fatigue, Denies chills, Denies fever, Denies night sweats, Denies poor appetite, Denies weight gain, Denies weight loss Ears, nose, mouth and throat: Reports voice changes, Denies headache, Denies nasal congestion, Denies nasal discharge, Denies post-nasal drip, Denies sinus pain, Denies sinus pressure, Denies sore throat Cardiovascular: Denies chest pain, Denies leg edema, Denies lightheadedness, Denies orthopnea, Denies palpitations, Denies paroxysmal nocturnal dyspnea, Denies syncope Respiratory: Reports congestion, Reports cough, Reports dyspnea, Reports wheezing, Denies cough with sputum, Denies hemoptysis, Denies home oxygen Gastrointestinal: Denies abdominal pain, Denies diarrhea, Denies nausea, Denies vomiting Genitourinary: Denies dysuria Musculoskeletal: Denies limitation of motion Integumentary: Denies rash Neurological: Denies seizures, Denies syncope Psychiatric: Denies anxiety, Denies depression Past Medical History Past Medical History: Asthma, Diabetes Mellitus, GERD/Reflux, Hyperlipidemia, Hypertension Additional Past Medical History / Comment(s): hx of bells palsy left side of face. seasonal allergies. kidney stones/UTI-sepsis ICU admission Nov 2017. History of Any Multi-Drug Resistant Organisms: None Reported Additional Past Surgical History / Comment(s): kidney surgery 30 yrs ago. kidney surgery/ lithotripsy with stent nov 2017 due to pylonephritis causing spesis., carpal tunnel surgery right hand Past Anesthesia/Blood Transfusion Reactions: No Reported Reaction Past Psychological History: No Psychological Hx Reported Past Alcohol Use History: None Reported Past Drug Use History: None Reported - Past Family History Mother Family Medical History: Myocardial Infarction ([place]) Additional Family Medical History / Comment(s): lupus Father Family Medical History: COPD Additional Family Medical History / Comment(s): BLADDER CANCER Medications and Allergies Home Medications Medication Instructions Recorded Confirmed Type Aspirin [Children's Aspirin] 81 mg PO DAILY 11/28/17 06/06/24 History Multivit with Calcium,Iron,Min 1 tab PO DAILY 11/28/17 06/06/24 History [Women's Multivitamin] Omeprazole [PriLOSEC] 20 mg PO DAILY 11/28/17 06/06/24 History Atorvastatin [Lipitor] 10 mg PO HS 04/24/18 06/06/24 History Budesonide-Formot 160-4.5 Mcg 2 puff INHALATION RT-BID #1 each 06/06/24 Rx [Symbicort 160-4.5 Mcg Inhaler] Gabapentin [Neurontin] 300 mg PO BID 06/06/24 06/06/24 History Oseltamivir [Tamiflu] 75 mg PO Q12H #9 cap 06/06/24 Rx amLODIPine [Norvasc] 5 mg PO DAILY 06/06/24 06/06/24 History guaiFENesin [Mucinex] 600 mg PO Q12HR tab 06/06/24 Rx metFORMIN HCL [Glucophage] 850 mg PO BID 06/06/24 06/06/24 History predniSONE See Taper PO DIRECTED #30 tab 06/06/24 Rx Allergies Allergy/AdvReac Type Severity Reaction Status Date / Time sulfamethoxazole Allergy Unknown Rash/Hives Verified 06/06/24 06:52 [From Bactrim] trimethoprim [From Bactrim] Allergy Unknown Rash/Hives Verified 06/06/24 06:52 Physical Exam Vitals: Vital Signs Temp Pulse Pulse Resp BP BP Pulse Ox 06/06/24 02:00 98.2 F 131 H 20 106/51 94 L 06/06/24 01:45 123 H 18 95 06/06/24 01:37 98.7 F 127 H 18 128/61 94 L 06/06/24 01:29 124 H 06/06/24 01:22 123 H 18 115/67 93 L 06/06/24 01:02 125 H 06/06/24 00:49 125 H 18 120/67 90 L 06/06/24 00:08 131 H 06/05/24 23:50 88 L 06/05/24 23:43 114 H 06/05/24 23:08 122 H 06/05/24 22:50 112 H 06/05/24 22:45 108 H 108 H 20 118/75 98 06/05/24 21:44 98.8 F 117 H 20 136/77 92 L Intake and Output 06/05/24 06/05/24 06/06/24 14:59 22:59 06:59 Other: # Voids 1 Weight 96.615 kg GENERAL EXAM: Alert, 68-year-old obese female, sitting at the edge of the bed. HEAD: Normocephalic and atraumatic EYES: Normal reaction of pupils, equal size. NOSE: Clear with pink turbinates. THROAT: No erythema or exudates. NECK: No masses, no JVD. CHEST: No chest wall deformity. LUNGS: Equal air entry with faint end expiratory wheezing heard bilaterally in the posterior lung ramirez. On 2 L/min nasal cannula. No conversational dyspnea or accessory muscle use.. CVS: S1 and S2 normal with no audible murmur, regular rhythm. No extra heart sounds. Tachycardic ABDOMEN: No hepatosplenomegaly, active bowel sounds, no guarding or rigidity. SPINE: No scoliosis or deformity SKIN: No rashes CENTRAL NERVOUS SYSTEM: No focal deficits, tone is normal in all 4 extremities. EXTREMITIES: There is no peripheral edema, clubbing, or cyanosis. Peripheral pulses are intact. Results - Laboratory Findings CBC and BMP: 06/05/24 22:19 06/05/24 22:19 PT/INR, D-dimer PT 11.8 sec (10.0-12.5) 06/05/24 22:19 INR 1.1 (<1.2) 06/05/24 22:19 Abnormal lab findings: Abnormal Labs 06/05/24 06/05/24 06/05/24 22:19 22:19 22:22 Lymphocytes # 0.6 L Sodium 134 L Chloride 94 L BUN 22 H Glucose 258 H POC Glucose (mg/dL) Influenza Type A (PCR) Detected A 06/06/24 01:39 Lymphocytes # Sodium Chloride BUN Glucose POC Glucose (mg/dL) 333 H Influenza Type A (PCR) - Diagnostic Findings Chest x-ray: image reviewed Assessment and Plan Assessment: Acute influenza A infection Acute asthma exacerbation, secondary to above Acute hypoxemic respiratory failure, currently on 2 L/min nasal cannula Sinus tachycardia history of pulmonary nodule Diabetes mellitus type 2 History of hyperlipidemia Hypertension Plan: Continue supplemental oxygen to maintain oxygen saturation 92% or greater Chest x-ray reviewed; no acute cardiopulmonary process, no focal infiltrates or evidence of pneumonia. Viral screen positive for influenza A Start patient on Tamiflu 75 mg twice daily x 5 days Start combination of DuoNebs, Symbicort inhaler, and IV Solu-Medrol Sliding scale insulin GI prophylaxis: Protonix DVT prophylaxis: Lovenox I have personally seen and examined the patient, performed the documentation and the assessment and plan as written. Number of minutes spent on the visit:20 Joint evaluation done with the nurse practitioner. Evaluation was done and 31 minutes. This is a typical acute asthma exacerbation secondary influenza A infection. The patient is already feeling better. Oxygenation is stable. The patient is stable for now. I made recommendations for this patient to be discharged home on a prednisone burst taper, Tamiflu 75 mg p.o. twice a day and the patient has a home nebulizer. Anticipate further recovery over the next few days. Cleared for discharge from pulmonary. Time with Patient: Greater than 30
[2024-06-06] MEDS: PANTOPRAZOLE 40 MG TABLET PO STA (05:43)
[2024-06-06] MEDS: OSELTAMIVIR 75 MG CAP PO SCH (05:43)
[2024-06-06] MEDS: methylPREDNISolone SOD SUCCI 125 MG/2 ML VIAL IV SCH (05:44)
[2024-06-06 06:00] LABS: Glucose,Whole Blood 350 mg/dL (70-110)
[2024-06-06] MEDS: HYDROcodone/APAP 5-325MG 1 EACH TAB PO PRN (06:04)
[2024-06-06] MEDS: INSULIN LISPRO (HumaLOG) 100 UNIT/ML 10 mL VL SQ SCH (07:38)
[2024-06-06] MEDS: SYMBICORT 160-4.5 MCG INHALER INHALATION SCH (08:02)
[2024-06-06] MEDS: IPRATROPIUM-ALBUTEROL 3 ML NEB INHALATION SCH (08:02)
[2024-06-06] MEDS ORDERED: predniSONE 20 MG TAB PO SCH (09:00)
[2024-06-06] MEDS: guaiFENesin 600 MG TABLET.ER PO SCH (09:40)
[2024-06-06] MEDS: ENOXAPARIN 40 MG/0.4 ML SYRINGE SQ SCH (09:41)
[2024-06-06 11:03] LABS: Glucose,Whole Blood 356 mg/dL (70-110)
[2024-06-06 13:13] LABS: Glucose,Whole Blood 313 mg/dL (70-110)
[2024-06-06 13:57] VITALS: BP 119/70; PULSE 88; RESP 16; TEMP 98.1
--- NOTE | 2024-06-06 14:08 | P.HPIM ---
History of Present Illness H&P Date: 06/06/24 Chief Complaint: Shortness of breath Patient is a 68 year old female with past medical history of asthma, hypertension, hyperlipidemia, nondependent diabetes, and GERD who presented to the ED here with chief complaint of shortness of breath. Patient states she has had shortness of breath for the last few days yesterday was intolerable. Patient states she doesn't wear home oxygen. She also endorses a dry cough. She states she follows up with Dr. Griffith. Patient states she is tried for nebulizer treatments yesterday with inhalers in between and did not get any relief which is what brought her into the hospital. She denies any fevers, chills, nausea, vomiting, diarrhea, chest pain. States her at home is also sick with the flu. Vitals on admission temperature 98.8 F heart rate 117 bpm, respiratory rate 20, blood pressure 136/77, O2 saturation 98% on room air EKG independently interpreted as sinus tachycardia with ventricular rate of 113 and QTc of 360 ms. CXR shows no acute cardiopulmonary process Labs on admission show WBC 7.9, hemoglobin 14.7, MCV 86.3, platelets 174. PT 11.8, INR 1.1, PTT 22. Sodium 134, potassium 4.6, chloride 94, bicarb 26, BUN 22, creatinine 0.63, glucose 258. Review of systems: Pertinent positives and negatives as discussed in HPI, a complete review of systems was performed and all other systems are negative. Allergies: Bactrim PCP: [employer] in Dr. Senior's office Social history: Tobacco: none Alcohol: none Recreational drugs: none Travel: none Sick contacts: at home Physical examination: Vital signs reviewed General: nontoxic, no distress, appears at stated age Derm: warm, dry, intact Head: atraumatic, normocephalic, symmetric Eyes: anicteric sclera Mouth: no lip lesion, mucus membranes moist Cardiovascular: S1 S2 reg, no murmur Lungs: CTA bilateral, no rhonchi, no rales, no accessory muscle use Abdominal: soft, non-tender to palpation, nondistended Extremities: No cyanosis, clubbing, or pedal edema. Neuro: Alert, Oriented to person, time and place, Gross neurological examination did not reveal any focal deficits. Cranial nerves II to XII grossly intact. Bilateral upper and lower extremity muscle strength intact and sensation intact. Psych: well appearing, appropriate affect Assessment/Plan: Patient is a 68 year old female with past medical history of asthma, hypertension, hyperlipidemia, nondependent diabetes, and GERD who presented to the ED here with chief complaint of shortness of breath. Active: Influenza A infection Acute asthma exacerbation secondary to above Supplemental oxygen to maintain saturations of 94% or greater, wean as tolerated Tamiflu 75 mg twice daily for 5 days DuoNebs 4 times daily Mucinex 600 mg every 12 hours Solu-Medrol 60 mg every 6 hours Consulted pulmonology Hyperglycemia boj-lmmkjql-obqzmrbkv diabetic Accu-Cheks per ACHS Insulin sliding scale Hypoglycemia precautions Chronic: Hyperlipidemia Resume Lipitor 10 mg p.o. at bedtime Hypertension Resume Norvasc 5 mg daily Neuropathy Resume gabapentin 300 mg twice daily GERD Continue omeprazole 20 mg daily F: None E: Replete as needed N: Heart healthy A: As tolerated DVT prophylaxis: Lovenox 40 mg subcu daily The patient is admitted with an anticipated less than 2 midnight stay for evaluation of influenza A with acute asthma exacerbation CODE STATUS: Full code Discussed with: Patient Anticipated discharge place: Home Attestation I have seen and examined this patient with my resident , discussed the same with the resident/JESUS, and agree with the dictator's assessment and plan as written GENERAL: The patient is alert and oriented x3, not in any acute distress. Well developed, well nourished. HEENT: Pupils are round and equally reacting to light. EOMI. No scleral icterus. No conjunctival pallor. Normocephalic, atraumatic. No pharyngeal erythema. No thyromegaly. CARDIOVASCULAR: S1 and S2 present. No murmurs, rubs, or gallops. PULMONARY: Chest is clear to auscultation, no wheezing or crackles. ABDOMEN: Soft, nontender, nondistended, normoactive bowel sounds. No palpable organomegaly. MUSCULOSKELETAL: No joint swelling or deformity. EXTREMITIES: No cyanosis, clubbing, or pedal edema. NEUROLOGICAL: Gross neurological examination did not reveal any focal deficits. SKIN: No rashes. Dr. Alok elam Past Medical History Past Medical History: Asthma, Diabetes Mellitus, GERD/Reflux, Hyperlipidemia, Hypertension Additional Past Medical History / Comment(s): hx of bells palsy left side of face. seasonal allergies. kidney stones/UTI-sepsis ICU admission Nov 2017. History of Any Multi-Drug Resistant Organisms: None Reported Additional Past Surgical History / Comment(s): kidney surgery 30 yrs ago. kidney surgery/ lithotripsy with stent nov 2017 due to pylonephritis causing spesis., carpal tunnel surgery right hand Past Anesthesia/Blood Transfusion Reactions: No Reported Reaction Past Psychological History: No Psychological Hx Reported Past Alcohol Use History: None Reported Past Drug Use History: None Reported - Past Family History Mother Family Medical History: Myocardial Infarction ([place]) Additional Family Medical History / Comment(s): lupus Father Family Medical History: COPD Additional Family Medical History / Comment(s): BLADDER CANCER Medications and Allergies Home Medications Medication Instructions Recorded Confirmed Type Aspirin [Children's Aspirin] 81 mg PO DAILY 11/28/17 06/06/24 History Multivit with Calcium,Iron,Min 1 tab PO DAILY 11/28/17 06/06/24 History [Women's Multivitamin] Omeprazole [PriLOSEC] 20 mg PO DAILY 11/28/17 06/06/24 History Atorvastatin [Lipitor] 10 mg PO HS 04/24/18 06/06/24 History Budesonide-Formot 160-4.5 Mcg 2 puff INHALATION RT-BID #1 each 06/06/24 Rx [Symbicort 160-4.5 Mcg Inhaler] Gabapentin [Neurontin] 300 mg PO BID 06/06/24 06/06/24 History Oseltamivir [Tamiflu] 75 mg PO Q12H #9 cap 06/06/24 Rx amLODIPine [Norvasc] 5 mg PO DAILY 06/06/24 06/06/24 History guaiFENesin [Mucinex] 600 mg PO Q12HR tab 06/06/24 Rx metFORMIN HCL [Glucophage] 850 mg PO BID 06/06/24 06/06/24 History predniSONE See Taper PO DIRECTED #30 tab 06/06/24 Rx Allergies Allergy/AdvReac Type Severity Reaction Status Date / Time sulfamethoxazole Allergy Unknown Rash/Hives Verified 06/06/24 06:52 [From Bactrim] trimethoprim [From Bactrim] Allergy Unknown Rash/Hives Verified 06/06/24 06:52 Physical Exam Vitals: Vital Signs Temp Pulse Pulse Resp BP BP Pulse Ox 06/06/24 08:19 98 06/06/24 08:02 98 06/06/24 07:29 97.6 F 96 18 121/75 97 06/06/24 02:00 98.2 F 131 H 20 106/51 94 L 06/06/24 01:45 123 H 18 95 06/06/24 01:37 98.7 F 127 H 18 128/61 94 L 06/06/24 01:29 124 H 06/06/24 01:22 123 H 18 115/67 93 L 06/06/24 01:02 125 H 06/06/24 00:49 125 H 18 120/67 90 L 06/06/24 00:08 131 H 06/05/24 23:50 88 L 06/05/24 23:43 114 H 06/05/24 23:08 122 H 06/05/24 22:50 112 H 06/05/24 22:45 108 H 108 H 20 118/75 98 06/05/24 21:44 98.8 F 117 H 20 136/77 92 L Intake and Output 06/05/24 06/06/24 06/06/24 22:59 06:59 14:59 Other: # Voids 1 Weight 96.615 kg Results CBC & Chem 7: 06/05/24 22:19 06/05/24 22:19 Labs: Abnormal Lab Results - Last 24 Hours (Table) 06/05/24 06/05/24 06/05/24 Range/Units 22:19 22:19 22:22 Lymphocytes # 0.6 L (1.0-4.8) k/uL Sodium 134 L (137-145) mmol/L Chloride 94 L (98-107) mmol/L BUN 22 H (7-17) mg/dL Glucose 258 H (74-99) mg/dL POC Glucose (mg/dL) (70-110) mg/dL Influenza Type A (PCR) Detected A (Not Detectd) 06/06/24 06/06/24 Range/Units 01:39 05:58 Lymphocytes # (1.0-4.8) k/uL Sodium (137-145) mmol/L Chloride (98-107) mmol/L BUN (7-17) mg/dL Glucose (74-99) mg/dL POC Glucose (mg/dL) 333 H 350 H (70-110) mg/dL Influenza Type A (PCR) (Not Detectd)
--- NOTE | 2024-06-06 14:18 | P.DS ---
Providers Date of admission: 06/06/24 00:58 Expected date of discharge: 06/06/24 Attending physician: Sherice Carbone Consults: 06/06/24 00:58 Consult Physician Routine Consulting Provider: Anabelle Subramanian Consult Reason/Comments: asthma exacerbation Do you want consulting provider notified?: Yes, Notify in am Primary care physician: [facility] Course: Patient is a 68 year old female with past medical history of asthma, hypertension, hyperlipidemia, nondependent diabetes, and GERD who presented to the ED here with chief complaint of shortness of breath. Patient states she has had shortness of breath for the last few days yesterday was intolerable. Patient states she doesn't wear home oxygen. She also endorses a dry cough. She states she follows up with Dr. Griffith. Patient states she is tried for nebulizer treatments yesterday with inhalers in between and did not get any relief which is what brought her into the hospital. She denies any fevers, chills, nausea, vomiting, diarrhea, chest pain. States her at home is also sick with the flu. Vitals on admission temperature 98.8 F heart rate 117 bpm, respiratory rate 20, blood pressure 136/77, O2 saturation 98% on room air EKG independently interpreted as sinus tachycardia with ventricular rate of 113 and QTc of 360 ms. CXR shows no acute cardiopulmonary process Labs on admission show WBC 7.9, hemoglobin 14.7, MCV 86.3, platelets 174. PT 11.8, INR 1.1, PTT 22. Sodium 134, potassium 4.6, chloride 94, bicarb 26, BUN 22, creatinine 0.63, glucose 258. Discharge diagnoses; Influenza A infection Asthma exacerbation Hyperglycemia Uvs-twvzpfr-djuioshrm diabetes Hypertension Hyperlipidemia 06/06/2024 Patient seen and examined at bedside today. Labs today show some hyperglycemia. Patient states she does not use insulin at home. Patient has noticed a significant improvement in her breathing. She has been saturating well on room air which is her baseline. She is looking forward to discharge today. Patient will be discharged home today. Patient is advised to be compliant with medications. Patient will complete course of Tamiflu and steroids. Patient is advised to follow-up with PCP in 1 to 2 days. Patient is to follow-up with Dr. Correa as needed. Physical Exam: General: non toxic, no distress, appears at stated age, normal weight Derm: no unusual rashes/lesions, warm Head: atraumatic, normocephalic, symmetric Eyes: EOMI, anicteric sclera, pupils equal round reactive to light ENT: Nose and ears atraumatic Neck: No cervical lymphadenopathy, trachea midline, supple Mouth: no lip lesion, mucus membranes moist Cardiovascular: S1S2 reg, no murmur, positive dorsalis pedis pulse bilateral, no edema Lungs: Equal air entry bilaterally, no rhonchi, no rales, no accessory muscle use Abdominal: Soft, nontender, nondistended Extremities: fingers appear swollen without clubbing, no edema Neuro: CN II-XI grossly intact, no gross focal neuro deficits Psych: Alert, oriented, appropriate affect Dictation was produced using [employer] dictation software. please excuse any grammatical, word or spelling errors. A total of minutes of time were spent preparing this complex discharge summary. Patient was discharged on 06/06/2024 at 1304. Attestation I have seen and examined this patient with my resident , discussed the same with the resident/JESUS, and agree with the dictator's assessment and plan as written GENERAL: The patient is alert and oriented x3, not in any acute distress. Well developed, well nourished. HEENT: Pupils are round and equally reacting to light. EOMI. No scleral icterus. No conjunctival pallor. Normocephalic, atraumatic. No pharyngeal erythema. No thyromegaly. CARDIOVASCULAR: S1 and S2 present. No murmurs, rubs, or gallops. PULMONARY: Chest is clear to auscultation, no wheezing or crackles. ABDOMEN: Soft, nontender, nondistended, normoactive bowel sounds. No palpable organomegaly. MUSCULOSKELETAL: No joint swelling or deformity. EXTREMITIES: No cyanosis, clubbing, or pedal edema. NEUROLOGICAL: Gross neurological examination did not reveal any focal deficits. SKIN: No rashes. Dr. Alok elam Patient Condition at Discharge: Stable Plan - Discharge Summary Discharge Rx Participant: Yes New Discharge Prescriptions: New predniSONE See Taper PO DIRECTED #30 tab Budesonide-Formot 160-4.5 Mcg [Symbicort 160-4.5 Mcg Inhaler] 2 puff INHALATION RT-BID #1 each guaiFENesin [Mucinex] 600 mg PO Q12HR tab Oseltamivir [Tamiflu] 75 mg PO Q12H #9 cap Continue Multivit with Calcium,Iron,Min [Women's Multivitamin] 1 tab PO DAILY Aspirin [Children's Aspirin] 81 mg PO DAILY Omeprazole [PriLOSEC] 20 mg PO DAILY Atorvastatin [Lipitor] 10 mg PO HS metFORMIN HCL [Glucophage] 850 mg PO BID amLODIPine [Norvasc] 5 mg PO DAILY Gabapentin [Neurontin] 300 mg PO BID Discontinued Acetaminophen Tab [Tylenol Tab] 1,000 mg PO DAILY Discharge Medication List Aspirin [Children's Aspirin] 81 mg PO DAILY 11/28/17 [History] Multivit with Calcium,Iron,Min [Women's Multivitamin] 1 tab PO DAILY 11/28/17 [History] Omeprazole [PriLOSEC] 20 mg PO DAILY 11/28/17 [History] Atorvastatin [Lipitor] 10 mg PO HS 04/24/18 [History] Budesonide-Formot 160-4.5 Mcg [Symbicort 160-4.5 Mcg Inhaler] 2 puff INHALATION RT-BID #1 each 06/06/24 [Rx] Gabapentin [Neurontin] 300 mg PO BID 06/06/24 [History] Oseltamivir [Tamiflu] 75 mg PO Q12H #9 cap 06/06/24 [Rx] amLODIPine [Norvasc] 5 mg PO DAILY 06/06/24 [History] guaiFENesin [Mucinex] 600 mg PO Q12HR tab 06/06/24 [Rx] metFORMIN HCL [Glucophage] 850 mg PO BID 06/06/24 [History] predniSONE See Taper PO DIRECTED #30 tab 06/06/24 [Rx] Follow up Appointment(s)/Referral(s): Thalia Correa MD [STAFF PHYSICIAN] - As Needed Nadeen Carnes MD [Primary Care Provider] - 1-2 days Patient Instructions/Handouts: Influenza (DC) Activity/Diet/Wound Care/Special Instructions: Follow up with PCP in 1-2 days. Follow up with pulmonology as needed. Take medications as instructed. Discharge Disposition: HOME SELF-CARE
== END 2024-06-06 14:18 | disposition home or self-care (01) | DRG 202 ==
LOC: EC 21:38 → 1SOBS 06-06 00:58 → OBSVTOIN 06-06 00:58 → INTOOBSV 06-06 00:58 → 1SOBS 06-06 01:17 → UNDODISOB 06-06 14:18
PROVIDERS: ADMIT Internal Medicine; ATTEND Internal Medicine
DX: J45.21 Mild intermittent asthma with (acute) exacerbation (principal); J96.01 Acute respiratory failure with hypoxia; E11.65 Type 2 diabetes mellitus with hyperglycemia; I10 Essential (primary) hypertension; E11.40 Type 2 diabetes mellitus with diabetic neuropathy, unspecified; J10.1 Influenza due to other identified influenza virus with other respiratory manifestations; E78.5 Hyperlipidemia, unspecified; R00.0 Tachycardia, unspecified; J30.2 Other seasonal allergic rhinitis; K21.9 Gastro-esophageal reflux disease without esophagitis; Z79.51 Long term (current) use of inhaled steroids; Z79.82 Long term (current) use of aspirin; Z79.84 Long term (current) use of oral hypoglycemic drugs; Z79.899 Other long term (current) drug therapy; Z88.2 Allergy status to sulfonamides; Z87.440 Personal history of urinary (tract) infections; Z87.442 Personal history of urinary calculi
CPT/HCPCS: 36415; 71046; 80053; 83880; 84484; 85025; 85610; 85730; 87636; 93005; 94640; 96361; 96374; 96376; 99291

== ENCOUNTER → 2024-08-12 | Outpatient (CLI) | payer MEDICARE ==
[2024-08-12 11:33] LABS: African American GFR (CKD) >90 (>60 ml/min/1.73 sqM); Blood Urea Nitrogen 14 mg/dL (7-17); Non-African American GFR(CKD) >90 (>60 ml/min/1.73 sqM)
--- NOTE | 2024-08-12 14:36 | CT ---
CT chest with contrast HISTORY: Solitary pulmonary nodule. COMPARISON: 02/12/2024. TECHNIQUE: Multiple axial images obtained to the thorax following IV contrast administration. FINDINGS: 7 mm nodule in the right lung base stable. There are stable mild interstitial changes in the lingula. There are a few scattered stable micronodules. There is no new or suspicious lung mass or nodule. There is no airspace consolidation. There is no pleural effusion, pleural thickening or pneumothorax. The great vessels the chest are normal with no mediastinal, hilar or axillary adenopathy. There is no pulmonary embolus. There is again to the upper abdomen reveals stable cholelithiasis. There is a stable mild compression fracture of L1 with mild retropulsion. IMPRESSION: 1. Stable lung nodules. The index nodule is a stable 7 mm nodule in the right lung base.. 2. No acute cardiopulmonary disease. 3. Stable cholelithiasis. [facility], , 08/12/2024 2:34 PM
== END | disposition home or self-care (01) ==
LOC: RADCTMAIN 10:49
PROVIDERS: ATTEND Internal Medicine
DX: R91.8 Other nonspecific abnormal finding of lung field (principal); K80.20 Calculus of gallbladder without cholecystitis without obstruction
CPT/HCPCS: 82565; 84520; 71260; 36415; Q9967